=== PATIENT | male | born 1940 | race Caucasian/White ===

== ENCOUNTER 2021-10-31 06:42 | Emergency (ER) | payer MEDICARE, OTHER, SELFPAY ==
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
[2021-10-31 06:48] VITALS: BP 240/100; PULSE 57; O2SAT 97; BMI 26.9
[2021-10-31 07:20] VITALS: BP 172/71; PULSE 76; RESP 19; TEMP 36.6; O2SAT 99; BMI 33.5
[2021-10-31 07:40] LABS: Basophils Percent Auto 0.7 % (0-2); Eosinophils Absolute Auto 0.2 X10*3/uL (0.0-0.4); Eosinophils Percent Auto 3.9 % (0-4); Hematocrit 41.8 % (42.0-52.0); Hemoglobin 13.8 g/dl (14.0-18.0); Imm Gran Abs Auto 0.03 X10*3/uL (0.00-0.03); Imm Gran Pct Auto 0.6 % (0.0-0.4); Lymphocytes Absolute Auto 0.9 X10*3/uL (1.2-4.9); Lymphocytes Percent Auto 16.4 % (20-40); MANUAL DIFF FLAG NO; Mean Corpuscular Volume 90.9 fL (80.0-98.0); Mean Platelet Volume 9.3 fL (9.4-12.4); Monocytes Absolute Auto 0.7 X10*3/uL (0.1-1.2); Monocytes Percent Auto 12.5 % (2-11); Neutrophils Absolute Auto 3.6 x10*3/uL (2.0-8.3); Neutrophils Percent Auto 65.9 % (45-73); Platelet Count 251 X10*3/uL (160-400); Red Cell Distribution Width 12.6 % (11.0-16.0); White Blood Count 5.4 X10*3/uL (4.8-10.8)
[2021-10-31 08:11] LABS: Anion Gap 11 (12-20); Blood Urea Nitrogen 9 mg/dL (9-16); Calcium 9.2 mg/dL (8.4-10.2); Carbon Dioxide 27 mmol/L (22-29); Chloride 101 mmol/L (96-108); Creatinine Clr Calc Pharmacy 88.5; Estimated Glomerular Filt Rate > 60; Glucose Random 110 mg/dL (60-115); Potassium 4.4 mmol/L (3.3-5.1); Sodium 135 mmol/L (135-145)
--- NOTE | 2021-10-31 08:20 | MHC.CM.ED ---
Received case management consult from Dr Marcelino. Care team consult also ordered. Will defer referral until cleared by Care team. Continue to monitor for d/c needs.
[2021-10-31 08:49] LABS: Appearance Urine CLEAR; Color Urine YELLOW; Glucose Urine UA NEG (NEG); Leukocyte Esterase Urine 2+ (NEG); Nitrite Urine NEG (NEG); Specific Gravity - Urine <= 1.005 (1.005-1.025); UACC Culture Trigger YES; Urine Blood NEG (NEG); Urine Ketones NEG (NEG); Urine Protein NEG (NEG-TRACE)
[2021-10-31 09:03] LABS: RBC Urine 0 /HPF (0); Squamous Epithelial Cell Urine 1+ /LPF
[2021-10-31 09:04] LABS: Bacteria Urine TRACE /LPF; WBC Clumps Urine NOTED
[2021-10-31] MEDS: Acetaminophen 325 MG TABLET 650 MG PO (09:23)
[2021-10-31] MEDS: Lidocaine 4 % Patch ADH..PATCH 1 PATCH TRANSDERMA (09:25)
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
--- NOTE | 2021-10-31 13:26 | PC.NURSE ---
ate breakfast and now eating lunch, nad, back pain improved, pharmacy is attempting to talk w pcp re meds but no call back,
--- NOTE | 2021-10-31 13:51 | PHA.MEDREC ---
Addendum entered by Lucy Corral RPh 10/31/21 14:22: Recieved fax from [facility] office with provider juan j Santiago DO. Patient's last vist was 01/30/21, patient was suppose to be on apixaban & aspirin. Original Note: Pharmacy Consult ? Medication Reconciliation Pharmacy has completed the medication reconciliation. Patient confirmed medications last filled in april and february of 2021. He reports he is not suppose to be on hydralazine. He reported he was suppose to be on isosorbide mononitrate but that was last filled in December 2020 for a 30 days supply. Contact PCP at [facility] and [facility] at [facility] for list of medications patient should be on. Spoke with nurse at the [employer] office that will fax over medication list, I am still waiting for list to be faxed. Lucy Corral, JoséD
[2021-10-31 14:43] VITALS: BP 172/68; PULSE 70; RESP 18; TEMP 36.7; O2SAT 99
[2021-10-31 15:24] VITALS: BP 202/80; PULSE 74
[2021-10-31] MEDS: hydrALAZINE HCl 50 MG TABLET PO (15:29)
[2021-10-31] MEDS: Furosemide 40 MG TABLET PO (15:29)
[2021-10-31] MEDS: Atorvastatin Calcium 40 MG TABLET PO (15:29)
[2021-10-31] MEDS: lisinopriL 40 MG TABLET PO (15:29)
[2021-10-31] MEDS: Aspirin Enteric Coated 81 MG TABLET.DR PO (15:29)
--- NOTE | 2021-10-31 16:05 | MHC.CM.ED ---
Patient has been cleared by care team. There are many medical issues in the home because patient, his and his daughter. [facility] has been arranged. Patient aware and will d/c home. [facility] has been booked. Patient, Abimbola DELEON and Dr Marcelino aware. Continue to monitor for d/c needs.
[2021-10-31] MEDS: Metoprolol Tartrate 100 MG TABLET PO (16:14)
[2021-10-31 16:16] VITALS: BP 185/82; PULSE 77
--- NOTE | 2021-10-31 16:51 | PC.NURSE ---
RN assumed care at 1500. Pt alert and oriented x4, calm and cooperative. Pt denies pain. Pt ambulating with cane without issues. Pt voided without issues. RN spoke with daughter Ghada regrading discharge and Ghada agreed to plan. Pt educated on dc and meds and stated an understanding. Pt dc picked up by [facility].
== END 2021-10-31 16:52 | disposition home or self-care (01) ==
PROVIDERS: Emergency Provider Emergency Medicine; PCP Nurse Practitioner Family
DX: F33.1 Major depressive disorder, recurrent, moderate (principal); I89.0 Lymphedema, not elsewhere classified; I10 Essential (primary) hypertension; Z79.899 Other long term (current) drug therapy
CPT/HCPCS: 36415; 80048; 81001; 85025; 87086; 99284

== ENCOUNTER 2021-11-04 10:00 | Emergency (ER) | payer MEDICARE, OTHER, SELFPAY ==
--- NOTE | ~2021-11-04 | US_ITS ---
EXAMINATION: US VENOUS ULTRASOUND WITH DOPPLER LOWER EXTREMITY, BILATERAL CLINICAL INFORMATION: Leg swelling. COMPARISON: None TECHNIQUE: Ultrasound of the deep veins is performed from the hip to the calf with compression sonography and color and pulse Doppler assessment. Spectral analysis with color-flow imaging is performed. FINDINGS: RIGHT: There is severe edema. Only parts of the right superficial femoral vein can be visualized. Visualized portions appear patent. The right common, profunda, popliteal, and calf veins are not visualized. LEFT: The left common femoral, profunda, and superficial femoral veins are patent. The left popliteal and calf veins are not well visualized. There is a left leg edema as well. No Dunham's cyst is seen. US/US venous duplex LE BI IMPRESSION: Very limited exam. On the right only portions of the right superficial femoral vein are seen which appear patent. Multiple veins in the right leg are not visualized. On the left, the left common femoral, profunda and superficial femoral veins are patent. The left popliteal and calf veins are not visualized. Short-term follow-up exam should be considered if clinically indicated.
--- NOTE | ~2021-11-04 | XR_ITS ---
EXAMINATION: XR CHEST CLINICAL INFORMATION: Leg swelling COMPARISON: None TECHNIQUE: 2 views of the chest were obtained. FINDINGS: The cardiac silhouette is enlarged. Hilar and mediastinal contours are unremarkable. The lungs are clear. There is no pleural effusion or pneumothorax. There is a loop recorder projecting over the left chest. There are degenerative changes of the thoracic spine. XR/XR chest 2V IMPRESSION: Enlarged cardiac silhouette. No evidence of CHF.
--- NOTE | ~2021-11-04 | CT_ITS ---
EXAMINATION: CT ANGIOGRAM OF THE CHEST WITH AND WITHOUT CONTRAST (CT PULMONARY ANGIOGRAM FOR PE) CLINICAL INFORMATION: Reason for Exam leg swelling not taking bloos thinners COMPARISON: Chest x-ray from earlier the same day TECHNIQUE: Prior to contrast administration, noncontrast localization images were obtained. Subsequently, multidetector volumetric imaging was performed from the thoracic inlet to below the diaphragms following the administration of 71 mL Omnipaque 350 intravenous contrast. No contrast reaction reported Sagittal, coronal, and MIP oblique sagittal reformatted images were obtained on the CT workstation, uploaded to PACS, and reviewed. This CT examination was performed using dose optimization techniques as appropriate, variously including the following: *Automated exposure control *Adjustment of mA and/or kV according to patient size (this includes techniques or standardized protocols for targeted exams where dose is matched to indication/reason for exam; i.e. extremities or head) *Use of iterative reconstruction technique Total exam dose-length product 460 mGy-cm FINDINGS: QUALITY OF STUDY/CONTRAST BOLUS: Satisfactory. PULMONARY ARTERIES: No central or segmental pulmonary emboli. THORACIC AORTA: No aneurysm or dissection. LUNG: There is a 5 mm calcified left lower lobe nodule axial image 226 series 9. PLEURA: No pleural effusion or pneumothorax. MEDIASTINUM: The heart is enlarged. There is coronary artery calcification. No pericardial effusion there are slightly enlarged posterior mediastinal lymph nodes in the lower chest largest measuring 1.4 cm axial image 49 and 1.6 cm axial image 44. These are adjacent to the distal thoracic esophagus and descending thoracic aorta. No other enlarged hilar or mediastinal lymph nodes are seen. The esophagus is unremarkable. No evidence of septal bowing or right heart strain. CHEST WALL/AXILLA: No axillary or internal mammary lymphadenopathy. There is a loop recorder in the anterior left chest wall. OSSEOUS STRUCTURES: No acute or suspicious osseous abnormality. There are degenerative changes of the spine. UPPER ABDOMEN: There may be calyceal dilatation in the upper pole of the right kidney. No reflux of contrast into the hepatic veins to suggest elevated right heart pressures. CT/CT angio chest PE protocol IMPRESSION: No evidence of pulmonary embolism. 5 mm calcified left lower lobe pulmonary nodule probably representing a calcified granuloma. Enlarged heart and coronary artery calcification. Enlarged posterior mediastinal lymph nodes. No other adenopathy is seen. VTE:
[2021-11-04 10:32] VITALS: BP 152/84; BP 221/80; PULSE 80; PULSE 96; RESP 22; TEMP 37; O2SAT 96; O2SAT 99; BMI 33.9
--- NOTE | 2021-11-04 10:42 | ECG_ITS ---
Test Reason : LEG SWELLING Blood Pressure : / mmHG Vent. Rate : 079 BPM Atrial Rate : 079 BPM P-R Int : 238 ms QRS Dur : 146 ms QT Int : 426 ms P-R-T Axes : 078 071 070 degrees QTc Int : 488 ms Sinus rhythm with 1st degree A-V block Right bundle branch block Abnormal ECG No previous ECGs available Referred By: Kylah Reyes Electronically Signed By:LINNEA KAPLAN
--- NOTE | 2021-11-04 11:18 | ED.EXTPRO ---
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 He is unsure if he gained any weight. Reports that he has not followed up with his oncologist or his PCP in over 6-9 months and has not taken any medications including his Eliquis for the same time. he reports that he lives with his daughter who he does not really get along with. He also reports that he lives with his bed bound that he cares for. He denies any dizziness, chills, Headaches, change in vision, paresthesias, chest pain, shortness of breath, dyspnea on exertion, orthopnea, recent travel or sick contacts, palpitations, abdominal pain, dysuria, hematuria, abnormal penile discharge, black or bloody stools, recent antibiotic usage or any other symptoms complaints or concerns at this time. MD Complaint: extremity swelling Onset (ago): unknown Pain Consistency: constant Location: left, right and lower extremity Radiation: none Relieving factors: nothing Exacerbating factors: walking, exertion and palpation Associated symptoms: denies other symptoms Context: other ( See above) Related Data Home Medications Medication Instructions Recorded Confirmed No Known Home Meds 11/04/21 11/04/21 Allergies Allergy/AdvReac Type Severity Reaction Status Date / Time No Known Allergies Allergy Verified 10/31/21 07:09 Review of Systems Review of Systems: Constitutional : No Weight loss, No Fever, No Chills, No Night Sweats, No Fatigue, No Malaise ENT/Mouth : No Hearing loss, No Ear Pain, No Nasal Congestion, No Sinus Pain, No Hoarseness, No sore throat, No Rhinorrhea, No Swallowing Difficulty Eyes: No Eye Pain, No Swelling, No Redness, No Foreign Body, No Discharge, No Vision Changes Cardiovascular : + lower extremity swelling, No Chest Pain, No SOB, No Dyspnea on Exertion, No Orthopnea, No Edema, No Palpitations Respiratory : No Cough, No Sputum, No Wheezing, No Smoke Exposure, No Dyspnea Gastrointestinal : No Nausea, No Vomiting, No Diarrhea, No Constipation, No abdominal Pain, No Hematochezia, No Melena Genitourinary : no irregular bleeding, No Dysuria, No Urinary Frequency, No Hematuria, No Urinary Incontinence, No Urgency, No Flank Pain, No Urinary Flow Changes, No Hesitancy Musculoskeletal : No joint pain, No Myalgias, No Joint Swelling Skin : + lower extremity lesions/rash Neuro : No Weakness, No Numbness, No Paresthesias, No Loss of Consciousness, No Dizziness, No Headache Psych : No Anxiety/Panic, No Depression, No SI/HI/AH/VH, No Social Issues, Heme/Lymph: No Bruising, No Bleeding,No Lymphadenopathy Endocrine : No Polyuria, No Polydipsia, No Temperature Intolerance Yes all other systems are reviewed and are negative [facility] Past Medical History Attestation statement: The following information was validated with the patient. Source: old records reviewed Medical History Cancer Depression HTN (hypertension) Surgical History History of cardiac cath S/P coronary artery stent placement Social History Social History Alcohol intake: current Alcohol intake frequency: holidays/special occasions only Patient Tobacco Use Status: Never used Tobacco Use of substances other than those prescribed or required for medical reasons: No Advance Directives: No Advance Directives Information Provided: No Physical Exam Vital Signs: Vital Signs: Last Vital Signs Temp 97.7 F 11/04/21 12:57 Pulse 67 11/04/21 12:57 Resp 18 11/04/21 12:57 BP 189/67 H 11/04/21 12:57 Pulse Ox 98 11/04/21 12:57 BMI result Body Mass Index 33.9 vital signs have been reviewed as normal and appeared to be correct. Blood pressure 221/80. Heart rate normal. Respiration rate 22. Temperature normal. Oxygen saturation normal. Appearance: Alert. Oriented X3. No acute distress. Head: Normal external exam. Normocephalic. Atraumatic. Eyes: PERRLA. EOMI. Conjunctiva and sclera normal. Eyelids normal. ENT: Pharynx normal. Uvula midline. Moist mucous membranes. Normal voice. No trismus noted. No drooling noted. No muffled voice noted. Neck: Normal inspection. Neck supple. FROM. No adenopathy. Thyroid Normal. No meningeal signs. No neck mass noted. No signs of trauma noted. CVS: Normal heart rate and rhythm. Heart sound normal. Pulses normal throughout. No murmurs/rales/gallops. Respiratory: No respiratory distress. Painless inspiration. Breath sounds normal. No wheezes/rales/rhonchi noted. Chest nontender. No accessory muscle usage noted or decreased air movement noted. Abdomen: Soft and nontender. Bowel sounds normal in all 4 quadrants. No distention noted. No organomegaly noted. No visible injury noted. Back: No CVA tenderness. Full range of motion noted. Nontender. No signs of trauma. Patient neuro intact bilaterally and distally on all 4 extremities. Patient's reflexes intact bilaterally and distally on all 4 extremities. No rashes/lesion/induration/fluctuance or signs of infection noted. Skin: Skin warm and dry. Normal skin color. Normal skin turgor. No additional rashes/lesions/lacerations noted other than what is listed below or pictured below. Extremities: Right leg has moderate to severe lymphedema and feels solid/hardened when compared to the left leg he has pitting edema to the left leg. He reports bilateral calf tenderness. And he is noted to have dry scaly rash to the right lower extremity and appears that there could possibly be urine and fecal matter as well. To the left leg he has superficial abrasions. He is noted to have on-call miosis to bilateral toenails. Right leg appears mildly erythematous when compared to the left. To the right groin where he reports he had the lymph nodes removed he has moderate erythema and tenderness palpation and warm to touch consistent with cellulitic versus fungal infection. Otherwise no streaking/ fluctuance or drainage noted at this time. Otherwise all other Extremities exhibit normal range of motion and nontender. Neuro: Oriented X 3. No motor deficit. No sensory deficit. Reflexes normal. Normal steady gait. No focal neuro deficits noted. CN's II-XII intact bilaterally? Vascular: + radial pulses/+ 2 distal pedal pulses/+2 dorsalis pedis b/l. Normal cap refill. No cyanosis noted to upper extremity nails and lower extremity toes nails. 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 He is unsure if he gained any weight. Reports that he has not followed up with his oncologist or his PCP in over 6-9 months and has not taken any medications including his Eliquis for the same time. - I was able to obtain the records from [facility] and it appears that the patient was seen and admitted there on 12/14/2020 for chest pain and they did a cardiac catheterization which revealed no significant change in coronary anatomy when compared to 2017 patient noted to have moderate nonobstructive CAD. Prior stents are widely patent. And they reported there is no significant gradient on pullback across the aortic valve. Successful hemostatis of right radial artery using a radial compression device. He has an ejection fracture from the echocardiogram also done at that time/admission which revealed an EF of 55%. Plan: labs, blood cultures, lactic acid, EKG, chest x-ray, venous duplex ultrasound of bilateral lower extremity, COVID swab. Provide 40 mg of Lasix and IV Zosyn then re-evaluate plan is possibly to admit. Reevaluation(s) Reevaluation #1: - labs return and patient with sodium of 132. Anion gap 11. BUN 8. Troponin 145.6 repeat 144.0 therefore negative delta. BNP 99. Otherwise all other labs are within normal limits. Patient negative for COVID - chest x-ray revealed enlarged cardiac silhouette otherwise no evidence of CHF. - Venous duplex ultrasound of bilateral lower extremity negative for DVT from the veins that they were able to visualize they recommended short-term follow-up if clinically indicated. - CTA of chest negative for PE although revealed 5 mm calcified left lower lobe pulmonary nodule possibly representing a calcified granuloma along with enlarged heart and coronary artery calcification and enlarged posterior mediastinum lymph nodes otherwise no other adenopathy or other acute processes noted. - Therefore at this time will attempt to admit to the hospitalist service to Dr. Cortez for cellulitis with hypertensive urgency non med compliant will re-evaluate. Time: 14:46 Reevaluation #2: - I spoke to Dr. Cortez and he does not believe the patient meets admission criteria for cellulitis due to he does not have an elevated white blood cell count and all his other labs are within normal limits other than the troponin which was negative delta. - Therefore I was going to place him in physician observation for him to see physical therapy and case management for possible short-term rehab although I spoke to the daughter and she reports that she does not believe that short-term rehab is going to help the patient she believes that the patient needs a psychiatric evaluation due to she she reports me and my mother believe that he has just given up on life . She reports that he has not taken his medications and he has not even picker operator his medications since he was discharged here. Therefore she is requesting for him to be evaluated by crisis She reports there is a longstanding family history of bipolar and she reports that the patient has bipolar and general social anxiety disorder and she wanted me to make sure we were aware about this. will continue to monitor and place the crisis last psychiatric consult. Time: 15:37 MDM - Extremity (Nontraumatic) Medical Records Attestation: I reviewed the patient's medical records. Lab Data Attestation: I reviewed the patient's lab results. Result diagrams: 11/04/21 11:39 11/04/21 11:39 Labs: Lab Results 11/04/21 11/04/21 11/04/21 Range/Units 11:39 11:39 11:39 WBC 6.2 (4.8-10.8) X10*3/uL RBC 4.77 (4.60-5.80) X10*6/uL Hgb 14.2 (14.0-18.0) g/dl Hct 43.3 (42.0-52.0) % MCV 90.8 (80.0-98.0) fL MCH 29.8 (27.0-33.0) pg MCHC 32.8 (31.0-36.0) g/dl RDW 12.6 (11.0-16.0) % Plt Count 275 (160-400) X10*3/uL MPV 9.6 (9.4-12.4) fL Immature Gran % (Auto) 0.5 H (0.0-0.4) % Neut % (Auto) 70.0 (45-73) % Lymph % (Auto) 13.8 L (20-40) % [place] % (Auto) 12.2 H (2-11) % Eos % (Auto) 2.9 (0-4) % Baso % (Auto) 0.6 (0-2) % Lymph # (Auto) 0.9 L (1.2-4.9) X10*3/uL [place] # (Auto) 0.8 (0.1-1.2) X10*3/uL Eos # (Auto) 0.2 (0.0-0.4) X10*3/uL Baso # (Auto) 0.0 (0.0-0.2) X10*3/uL Abs Immat Gran (auto) 0.03 (0.00-0.03) X10*3/uL Absolute Neuts (auto) 4.4 (2.0-8.3) x10*3/uL Absolute Nucleated RBC 0.000 (0.0-0.012) X10*3/uL Nucleated RBC % (auto) 0.0 (0.0-0.2) /100WBC PT 13.2 H (9.9-13.0) SEC INR 1.2 H (0.9-1.1) Sodium 132 L (135-145) mmol/L Potassium 4.4 (3.3-5.1) mmol/L Chloride 99 (96-108) mmol/L Carbon Dioxide 26 (22-29) mmol/L Anion Gap 11 L (12-20) BUN 8 L (9-16) mg/dL Creatinine 0.95 (0.5-1.4) mg/dL Estim Creat Clear Calc 80.6 Estimated GFR > 60 Random Glucose 109 (60-115) mg/dL Lactic Acid (0.5-2.0) mmol/L Calcium 9.2 (8.4-10.2) mg/dL Magnesium 2.3 (1.6-2.6) mg/dL Total Bilirubin 0.9 (0.0-1.0) mg/dL AST 16 (5-37) U/L ALT 8 (0-40) U/L Alkaline Phosphatase 102 (39-117) U/L Troponin I High Sens (<3.5-35.0) ng/L B-Natriuretic Peptide (<100) pg/mL Total Protein 7.5 (6.5-8.0) g/dL Albumin 3.8 (3.5-5.0) g/dL COVID-19 ([facility]) (Negative) COVID-19 Clin Com 11/04/21 11/04/21 11/04/21 Range/Units 11:39 11:39 11:39 WBC (4.8-10.8) X10*3/uL RBC (4.60-5.80) X10*6/uL Hgb (14.0-18.0) g/dl Hct (42.0-52.0) % MCV (80.0-98.0) fL MCH (27.0-33.0) pg MCHC (31.0-36.0) g/dl RDW (11.0-16.0) % Plt Count (160-400) X10*3/uL MPV (9.4-12.4) fL Immature Gran % (Auto) (0.0-0.4) % Neut % (Auto) (45-73) % Lymph % (Auto) (20-40) % [place] % (Auto) (2-11) % Eos % (Auto) (0-4) % Baso % (Auto) (0-2) % Lymph # (Auto) (1.2-4.9) X10*3/uL [place] # (Auto) (0.1-1.2) X10*3/uL Eos # (Auto) (0.0-0.4) X10*3/uL Baso # (Auto) (0.0-0.2) X10*3/uL Abs Immat Gran (auto) (0.00-0.03) X10*3/uL Absolute Neuts (auto) (2.0-8.3) x10*3/uL Absolute Nucleated RBC (0.0-0.012) X10*3/uL Nucleated RBC % (auto) (0.0-0.2) /100WBC PT (9.9-13.0) SEC INR (0.9-1.1) Sodium (135-145) mmol/L Potassium (3.3-5.1) mmol/L Chloride (96-108) mmol/L Carbon Dioxide (22-29) mmol/L Anion Gap (12-20) BUN (9-16) mg/dL Creatinine (0.5-1.4) mg/dL Estim Creat Clear Calc Estimated GFR Random Glucose (60-115) mg/dL Lactic Acid 1.1 (0.5-2.0) mmol/L Calcium (8.4-10.2) mg/dL Magnesium (1.6-2.6) mg/dL Total Bilirubin (0.0-1.0) mg/dL AST (5-37) U/L ALT (0-40) U/L Alkaline Phosphatase (39-117) U/L Troponin I High Sens 145.6 H* (<3.5-35.0) ng/L B-Natriuretic Peptide 99 (<100) pg/mL Total Protein (6.5-8.0) g/dL Albumin (3.5-5.0) g/dL COVID-19 ([facility]) Negative (Negative) COVID-19 Clin Com See Note 11/04/21 Range/Units 14:07 WBC (4.8-10.8) X10*3/uL RBC (4.60-5.80) X10*6/uL Hgb (14.0-18.0) g/dl Hct (42.0-52.0) % MCV (80.0-98.0) fL MCH (27.0-33.0) pg MCHC (31.0-36.0) g/dl RDW (11.0-16.0) % Plt Count (160-400) X10*3/uL MPV (9.4-12.4) fL Immature Gran % (Auto) (0.0-0.4) % Neut % (Auto) (45-73) % Lymph % (Auto) (20-40) % [place] % (Auto) (2-11) % Eos % (Auto) (0-4) % Baso % (Auto) (0-2) % Lymph # (Auto) (1.2-4.9) X10*3/uL [place] # (Auto) (0.1-1.2) X10*3/uL Eos # (Auto) (0.0-0.4) X10*3/uL Baso # (Auto) (0.0-0.2) X10*3/uL Abs Immat Gran (auto) (0.00-0.03) X10*3/uL Absolute Neuts (auto) (2.0-8.3) x10*3/uL Absolute Nucleated RBC (0.0-0.012) X10*3/uL Nucleated RBC % (auto) (0.0-0.2) /100WBC PT (9.9-13.0) SEC INR (0.9-1.1) Sodium (135-145) mmol/L Potassium (3.3-5.1) mmol/L Chloride (96-108) mmol/L Carbon Dioxide (22-29) mmol/L Anion Gap (12-20) BUN (9-16) mg/dL Creatinine (0.5-1.4) mg/dL Estim Creat Clear Calc Estimated GFR Random Glucose (60-115) mg/dL Lactic Acid (0.5-2.0) mmol/L Calcium (8.4-10.2) mg/dL Magnesium (1.6-2.6) mg/dL Total Bilirubin (0.0-1.0) mg/dL AST (5-37) U/L ALT (0-40) U/L Alkaline Phosphatase (39-117) U/L Troponin I High Sens 144.0 H* (<3.5-35.0) ng/L B-Natriuretic Peptide (<100) pg/mL Total Protein (6.5-8.0) g/dL Albumin (3.5-5.0) g/dL COVID-19 ([facility]) (Negative) COVID-19 Clin Com Imaging Data Chest x-ray: Attestation: I personally reviewed and interpreted this imaging study as follows: Radiologist's impression: FINDINGS: The cardiac silhouette is enlarged. Hilar and mediastinal contours are unremarkable. The lungs are clear. There is no pleural effusion or pneumothorax. There is a loop recorder projecting over the left chest. There are degenerative changes of the thoracic spine. XR/XR chest 2V IMPRESSION: Enlarged cardiac silhouette. No evidence of CHF. Venous duplex ultrasound of bilateral lower extremity: Attestation: I personally reviewed and interpreted this imaging study as follows: Radiologist's impression: FINDINGS: RIGHT: There is severe edema. Only parts of the right superficial femoral vein can be visualized. Visualized portions appear patent. The right common, profunda, popliteal, and calf veins are not visualized. LEFT: The left common femoral, profunda, and superficial femoral veins are patent. The left popliteal and calf veins are not well visualized. There is a left leg edema as well. No Dunham's cyst is seen. US/US venous duplex LE BI IMPRESSION: Very limited exam. On the right only portions of the right superficial femoral vein are seen which appear patent. Multiple veins in the right leg are not visualized. On the left, the left common femoral, profunda and superficial femoral veins are patent. The left popliteal and calf veins are not visualized. ? Short-term follow-up exam should be considered if clinically indicated. CTA of chest for PE: Attestation: I personally reviewed and interpreted this imaging study as follows: Radiologist's impression: FINDINGS: QUALITY OF STUDY/CONTRAST BOLUS: Satisfactory. PULMONARY ARTERIES: No central or segmental pulmonary emboli.? THORACIC AORTA: No aneurysm or dissection. LUNG:? There is a 5 mm calcified left lower lobe nodule axial image 226 series 9. PLEURA: No pleural effusion or pneumothorax. MEDIASTINUM: The heart is enlarged. There is coronary artery calcification. No pericardial effusion there are slightly enlarged posterior mediastinal lymph nodes in the lower chest largest measuring 1.4 cm axial image 49 and 1.6 cm axial image 44. These are adjacent to the distal thoracic esophagus and descending thoracic aorta. No other enlarged hilar or mediastinal lymph nodes are seen. The esophagus is unremarkable. No evidence of septal bowing or right heart strain. CHEST WALL/AXILLA: No axillary or internal mammary lymphadenopathy. There is a loop recorder in the anterior left chest wall. OSSEOUS STRUCTURES: No acute or suspicious osseous abnormality. There are degenerative changes of the spine. UPPER ABDOMEN: There may be calyceal dilatation in the upper pole of the right kidney.? No reflux of contrast into the hepatic veins to suggest elevated right heart pressures. CT/CT angio chest PE protocol IMPRESSION: No evidence of pulmonary embolism. 5 mm calcified left lower lobe pulmonary nodule probably representing a calcified granuloma. Enlarged heart and coronary artery calcification. Enlarged posterior mediastinal lymph nodes. No other adenopathy is seen. ? VTE: ECG Data Attestation EKG: I personally reviewed and interpreted this ECG as follows: ECG interpretation date: 11/04/21 ECG interpretation time: 12:02 Interpretation: sinus rhythm with first-degree AV block with ventricular rate of 79 with a right bundle branch block and nonspecific ST abnormalities no acute ischemic change are noted. Similar compared to prior EKG done at [facility] on 12/14/2020. Repeat EKG done at 13:10 due to elevated troponin which revealed sinus rhythm with first-degree AV block with premature supraventricular complexes with a right bundle rafa block similar compared to prior EKG. Critical Care Time Critical Care Time Critical Care Time: Yes Total Critical Care Time: 60 Attestation: I personally attest to this time spent taking care of the patient Discharge Plan Discharge Clinical Impression: Lymphedema of right lower extremity, Asymptomatic hypertensive urgency, Non compliance w medication regimen, Cellulitis, Kasey infection of genital region Patient Disposition: Still a Patient Prescriptions: No Action No Known Home Meds 0RF
[2021-11-04 11:28] VITALS: BP 196/66; PULSE 92; RESP 18; O2SAT 97
[2021-11-04 11:48] LABS: MANUAL DIFF FLAG NO
[2021-11-04 11:50] LABS: Basophils Percent Auto 0.6 % (0-2); Eosinophils Absolute Auto 0.2 X10*3/uL (0.0-0.4); Eosinophils Percent Auto 2.9 % (0-4); Hematocrit 43.3 % (42.0-52.0); Hemoglobin 14.2 g/dl (14.0-18.0); Imm Gran Abs Auto 0.03 X10*3/uL (0.00-0.03); Imm Gran Pct Auto 0.5 % (0.0-0.4); Lymphocytes Absolute Auto 0.9 X10*3/uL (1.2-4.9); Lymphocytes Percent Auto 13.8 % (20-40); Mean Corpuscular HGB Conc 32.8 g/dl (31.0-36.0); Mean Corpuscular Hemoglobin 29.8 pg (27.0-33.0); Mean Corpuscular Volume 90.8 fL (80.0-98.0); Mean Platelet Volume 9.6 fL (9.4-12.4); Monocytes Absolute Auto 0.8 X10*3/uL (0.1-1.2); Monocytes Percent Auto 12.2 % (2-11); Neutrophils Absolute Auto 4.4 x10*3/uL (2.0-8.3); Platelet Count 275 X10*3/uL (160-400); Red Blood Count 4.77 X10*6/uL (4.60-5.80); Red Cell Distribution Width 12.6 % (11.0-16.0); White Blood Count 6.2 X10*3/uL (4.8-10.8)
[2021-11-04 11:55] LABS: INTERNATIONAL NORM RATIO 1.2 (0.9-1.1); Prothrombin Time 13.2 SEC (9.9-13.0)
[2021-11-04 12:01] LABS: Lactic Acid 1.1 mmol/L (0.5-2.0)
[2021-11-04 12:11] LABS: Alanine Aminotransferase 8 U/L (0-40); Albumin Level 3.8 g/dL (3.5-5.0); Alkaline Phosphatase 102 U/L (39-117); Anion Gap 11 (12-20); Aspartate Amino Transferase 16 U/L (5-37); Bilirubin Total 0.9 mg/dL (0.0-1.0); Blood Urea Nitrogen 8 mg/dL (9-16); Calcium 9.2 mg/dL (8.4-10.2); Carbon Dioxide 26 mmol/L (22-29); Chloride 99 mmol/L (96-108); Creatinine Clr Calc Pharmacy 80.6; Estimated Glomerular Filt Rate > 60; Glucose Random 109 mg/dL (60-115); Magnesium 2.3 mg/dL (1.6-2.6); Potassium 4.4 mmol/L (3.3-5.1); Sodium 132 mmol/L (135-145); Total Protein 7.5 g/dL (6.5-8.0)
[2021-11-04 12:21] LABS: COVID-19 Test Negative (Negative)
[2021-11-04 12:25] LABS: B Type Natriuretic Peptide 99 pg/mL (<100)
[2021-11-04 12:28] LABS: Troponin-I High Sensitivity 145.6 ng/L (<3.5-35.0)
--- NOTE | 2021-11-04 12:33 | PC.NURSE ---
goran bocanegra, , called for update.
[2021-11-04] MEDS: Piperacillin Sodium/Tazobactam 3.375 GM in 0.9 % Sodium Chloride 50 ML IV (12:45)
[2021-11-04] MEDS: Furosemide 40 MG/4 ML VIAL IVPUSH (12:45)
--- NOTE | 2021-11-04 12:47 | ECG_ITS ---
Test Reason : LEG SWELLING Blood Pressure : / mmHG Vent. Rate : 079 BPM Atrial Rate : 079 BPM P-R Int : 250 ms QRS Dur : 154 ms QT Int : 406 ms P-R-T Axes : 077 059 047 degrees QTc Int : 465 ms Sinus rhythm with 1st degree A-V block Right bundle branch block Abnormal ECG When compared with ECG of 04-NOV-2021 12:02, No significant changes seen Referred By: Kylah Reyes Electronically Signed By:LINNEA KAPLAN
[2021-11-04 12:57] VITALS: BP 189/67; PULSE 67; RESP 18; TEMP 36.5; O2SAT 98
--- NOTE | 2021-11-04 12:59 | PC.NURSE ---
pt denies SI. repositioned to left side lying. weeping swollen RLE and reddness/moderate swelling left foot. pt has stopped taking all meds at home x 6 months. i'm depressed axox3.
[2021-11-04] MEDS: iohexoL 350 MG/ML 100 ML INFUS..BTL IV (13:41)
--- NOTE | 2021-11-04 13:41 | PC.NURSE ---
Daughter on phone for update. Ghada [phone]
--- NOTE | 2021-11-04 15:14 | PC.NURSE ---
pt found standing outside of bed. had urinated himself and on floor. couldn't reach buttons. is able to furnature surf but unsteady otherwise. d/t frequent urination is placed in chair with arm rests and button nearby. right leg is cellulitis up to inguinal creese. pt is axox3. able to follow commands.
--- NOTE | 2021-11-04 15:34 | PHA.MEDREC ---
Addendum entered by Sarah Zepeda [facility] 11/04/21 17:21: ED sent up a list from an unknown admission note Dates on it included 25-may-2016 and 11/04/2021. SARAH states they are records from [facility]. These are the medications he has previously taken before he stopped. Meds put on home med list to facilitate discharge ordering by MD. These meds have claim history from 2020 Original Note: Pharmacy Consult ? Medication Reconciliation Pharmacy has completed the medication reconciliation. From H&P Reports that he has not followed up with his oncologist or his PCP in over 6-9 months and has not taken any medications including his Eliquis for the same time I interviewed pt who said he was here Friday and was prescribed appx 4 medications but he did not pick them up. He has not been taking his medications that were previously prescribed in December and Apr of 2020.
[2021-11-04 15:37] VITALS: BP 165/71; PULSE 83; RESP 17; TEMP 36.6; O2SAT 98
--- NOTE | 2021-11-04 16:19 | MHC.CM.ED ---
Received consult for possible placement. Review of EMR note pt with depression and hx of MH issues. Pt has an order for Crisis eval for possible INPT admission for depressive features and medication adjustments. Pt will need to be cleared by Crisis before placement or other CM assistance can be rendered as any facility would require psychiatric stabilization / clearance to be considered a candidate for STR. CM l/m with ED provider on above. CM to follow once pt is cleared.
--- NOTE | 2021-11-04 16:48 | PC.NURSE ---
Pt has been assisted back to bed after being in chair for a while to facilitate ease of urinal use and soaking right foot in betadine/water. c/o lower back pain regardless of positioning.
[2021-11-04] MEDS: cephALEXin 500 MG CAPSULE PO ×2 (17:13→21:27)
[2021-11-04] MEDS: Venlafaxine HCl ER 75 MG CAP.ER.24H PO (17:13)
[2021-11-04] MEDS: Atorvastatin Calcium 40 MG TABLET PO (17:13)
[2021-11-04] MEDS: lisinopriL 40 MG TABLET PO (17:13)
[2021-11-04 17:37] VITALS: BP 171/69; PULSE 78; RESP 18; O2SAT 98
[2021-11-04] MEDS: Morphine Sulfate 2 MG/ML CARTRIDGE IVPUSH (17:37)
--- NOTE | 2021-11-04 17:39 | PC.NURSE ---
assisted to hospital bed. right lower leg wrapped with 4x4 with perri wrap.
--- NOTE | 2021-11-04 18:39 | PC.NURSE ---
smart sheet sent
--- NOTE | 2021-11-04 18:54 | PC.NURSE ---
smart sheet sent to [facility]
[2021-11-04] MEDS: Apixaban 5 MG TABLET PO (21:27)
--- NOTE | 2021-11-04 22:56 | MHC.CARE ---
CARE team eval completed. Pt does not require inpt psychiatric level of care and has been cleared for CM/PT eval and possible placement.
[2021-11-05 00:56] VITALS: BP 184/78; PULSE 69; RESP 14; TEMP 36.6; O2SAT 96
[2021-11-05] MEDS: hydrALAZINE HCl 50 MG TABLET 100 MG PO ×2 (01:34→09:06)
[2021-11-05] MEDS: Metoprolol Tartrate 100 MG TABLET PO (01:34)
[2021-11-05] MEDS: Tamsulosin HCL 0.4 MG CAPSULE PO (01:34)
--- NOTE | 2021-11-05 01:38 | PC.NURSE ---
Care team cleared patient for case management. Patient's blood pressure's were elevated in 180's to 190's systolic. Provider made aware and Patient's night time medication for hypertension given.
[2021-11-05 04:20] VITALS: BP 186/78; PULSE 67; RESP 12; O2SAT 95
[2021-11-05] MEDS: cephALEXin 500 MG CAPSULE PO ×2 (04:44→10:34)
[2021-11-05 06:10] VITALS: BP 184/80; PULSE 65; RESP 14; O2SAT 95
--- NOTE | 2021-11-05 08:31 | PC.NURSE ---
Addendum entered by Capri Navarro RN 11/05/21 08:38: Cristal requested to speak with Xochilt (TIMBO) who was in a meeting at the time. Xochilt made aware to call daughter, Original Note: daughter (CRISTAL) called with concerns that there are other family members calling about her dad, she should be the only one getting updates . this RN spoke north Sanchez who states he has a difficult relationship with Cristal, but it is ok to speak with her as she lives with him and his and she is the only way that his will receive updates about his care.
[2021-11-05 09:03] VITALS: BP 143/59; PULSE 54; RESP 16; O2SAT 96
[2021-11-05] MEDS: Venlafaxine HCl ER 150 MG CAP.ER.24H PO (09:05)
[2021-11-05] MEDS: Apixaban 5 MG TABLET PO (09:05)
[2021-11-05] MEDS: Furosemide 40 MG TABLET PO (09:05)
[2021-11-05] MEDS: lisinopriL 40 MG TABLET PO (09:05)
--- NOTE | 2021-11-05 09:15 | PC.NURSE ---
spoke with SARAH Griffin, request for powder Nystatin. pt HR 53 - order t hold metoprolol okd by Casandra
--- NOTE | 2021-11-05 11:12 | MHC.CM.ED ---
Addendum entered by Xochilt Yepez 11/05/21 12:53: T/W spoke with Officer KEELY Dunn elder affairs officer. Patient's home situation discussed at length. Discharge plan is still to be determined at this time. Original Note: Received case management consult overnight. Patient came to the ER due to edema. Patient has a history of HTN, CHF and cancer which he hasn't had treatment for in over 6 months. Work up essentially negative. Patient cleared by Care team for needed inpatient psych. Physical therapy eval completed. Short term rehab is recommended. Patient is well known to case management. Patient was recently seen at [facility] and was discharged home with Don COLIN. Met with patient in regards to discharge planning. Patient lives with his and daughter. Patient's is bedbound at baseline. Patient's daughter, Ghada has significant mental health issues. Patient's son is local but works. PCP verified. Copy of HCP verified to be on file. Patient received 2 Pfizer vaccines but no boosters. Patient is not sure he can go to [facility] at this time because he has to care for his . He will speak to his and then reconnect with CM. Patient is concerned no one has looked at my legs. T/W explained that work up was done. Patient stated but no one told me what's wrong with them. T/W will ask Gaby MOON to see patient. Continue to monitor for d/c needs.
--- NOTE | 2021-11-05 13:18 | MHC.CM.ED ---
Received notification from KALEB Haynes, patient requesting to speak to CM. T/W met with patient in regards to discharge planning. Patient has spoke to his daughter and . He is still unsure about what his anticipated discharge plan is. Facility options provided. Patient will notify CM when he decides if he is going to short term rehab (choices: 1)[facility] 2)[facility]) vs home with [facility]. Continue to monitor for d/c needs.
[2021-11-05 13:58] VITALS: BP 111/53; PULSE 50; RESP 18; O2SAT 94
--- NOTE | 2021-11-05 14:34 | MHC.CM.ED ---
Patient has decided he will return home with VNA. [facility] is not willing to accept patient back. Referral made to [facility]. Patient feels he can safely return home with Lyft. Gaby MOON aware and will see patient. Continue to monitor for d/c needs.
== END 2021-11-05 15:23 | disposition home or self-care (01) ==
PROVIDERS: Physician Assistant Medical; Emergency Provider Emergency Medicine; PCP Nurse Practitioner Family
DX: R60.0 Localized edema (principal); R06.02 Shortness of breath; F33.1 Major depressive disorder, recurrent, moderate; Z91.14 Patient's other noncompliance with medication regimen; Z79.899 Other long term (current) drug therapy; Z20.822 Contact with and (suspected) exposure to COVID-19
CPT/HCPCS: 36415; 71046; 71275; 80053; 83605; 83735; 83880; 84484; 85025; 85610; 87040; 87635; 93005; 93970; 96365; 96374; 96375; 97162; 99285; J1940; J2270; J2543; Q9967

== ENCOUNTER 2021-11-06 14:39 | Emergency (ER) | payer MEDICARE, OTHER, SELFPAY ==
[2021-11-06 14:56] LABS: Glucose, Whole Blood 105 mg/dL (60-115)
[2021-11-06 14:59] VITALS: BP 157/67; PULSE 56; RESP 19; TEMP 36.6; O2SAT 95; BMI 33.2
[2021-11-06 15:15] VITALS: BP 122/70; PULSE 50; O2SAT 95
--- NOTE | 2021-11-06 15:15 | ED_ITS ---
HPI - General Adult General Chief complaint: General Medical Stated complaint: WEAKNESS Time Seen by Provider: 11/06/21 15:01 Source: patient and EMS Mode of arrival: EMS Limitations: no limitations History of Present Illness HPI narrative: ?81-year-old male who is a very poor historian with a past medical history of CAD status post PCI, paroxysmal atrial fibrillation, HTN, HLD, CHF,? 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 there is esophagus, arthritis, depression, gynecomastia, migraine headaches and enlarged prostate presenting to the ED after a wellness police check which was done today at the patient's residence. Patient did not want to come but he was forced to come. Of note, patient was discharged yesterday, he was evaluated by Physical therapy and Case Management, short-term rehab was recommended. However, patient is taking care of his sick at home, and also has a daughter that has special psychiatric needs. Today, the submarine advisory team watch officer who did the wellness check thought that the patient was altered and recommended that the patient needs to be evaluated. Here on arrival to the emergency room, patient is alert and oriented x3, answering questions appropriately. Related Data Home Medications Medication Instructions Recorded Confirmed apixaban 5 mg tablet 5 mg PO BID 11/04/21 11/04/21 atorvastatin 40 mg tablet 1 tab PO BEDTIME 11/04/21 11/04/21 furosemide 40 mg tablet 40 mg PO DAILY 11/04/21 11/04/21 hydralazine 100 mg tablet 100 mg PO BID 11/04/21 11/04/21 lisinopril 40 mg tablet 1 tab PO DAILY 11/04/21 11/04/21 metoprolol tartrate 100 mg tablet 1 tab PO BID 11/04/21 11/04/21 tamsulosin 0.4 mg capsule 1 cap PO BEDTIME 11/04/21 11/04/21 venlafaxine 75 mg capsule,extended 150 mg PO DAILY 11/04/21 11/04/21 release 24 hr Previous Rx's Medication Instructions Recorded cephalexin 500 mg capsule 500 mg PO QID 6 Days #24 cap 11/05/21 doxycycline hyclate 100 mg tablet 100 mg PO BID 6 Days #12 tab 11/05/21 nystatin 100,000 unit/gram topical 1 appl TOPICAL BID 7 Days #15 g 11/05/21 powder Allergies Allergy/AdvReac Type Severity Reaction Status Date / Time No Known Allergies Allergy Verified 10/31/21 07:09 Review of Systems Review of Systems: Constitutional : No Weight loss, No Fever, No Chills, No Night Sweats, No Fatigue, No Malaise ENT/Mouth : No Hearing loss, No Ear Pain, No Nasal Congestion, No Sinus Pain, No Hoarseness, No sore throat, No Rhinorrhea, No Swallowing Difficulty Eyes: No Eye Pain, No Swelling, No Redness, No Foreign Body, No Discharge, No Vision Changes Cardiovascular : No Chest Pain, No SOB, No Dyspnea on Exertion, No Orthopnea, No Edema, No Palpitations Respiratory : No Cough, No Sputum, No Wheezing, No Smoke Exposure, No Dyspnea Gastrointestinal : No Nausea, No Vomiting, No Diarrhea, No Constipation, No abdominal Pain, No Hematochezia, No Melena Genitourinary : no irregular bleeding, No Dysuria, No Urinary Frequency, No Hematuria, No Urinary Incontinence, No Urgency, No Flank Pain, No Urinary Flow Changes, No Hesitancy Musculoskeletal : No joint pain, No Myalgias, No Joint Swelling Skin : No Skin Lesions, No rash Neuro : No Weakness, No Numbness, No Paresthesias, No Loss of Consciousness, No Dizziness, No Headache Psych : No Anxiety/Panic, No Depression, No SI/HI/AH/VH, No Social Issues, Heme/Lymph: No Bruising, No Bleeding,No Lymphadenopathy Endocrine : No Polyuria, No Polydipsia, No Temperature Intolerance [facility] Past Medical History Medical History Cancer Depression HTN (hypertension) Surgical History History of cardiac cath S/P coronary artery stent placement Social History Social History Alcohol intake: current Alcohol intake frequency: holidays/special occasions only Patient Tobacco Use Status: Never used Tobacco Advance Directives: No Advance Directives Information Provided: No Physical Exam ED Vital Signs: Vital Signs - 24 hr 11/06/21 14:59 11/06/21 18:12 Temperature 98 F 97.7 F Pulse Rate 56 52 Respiratory Rate 19 20 Blood Pressure 157/67 H 153/65 H Pulse Oximetry 95 98 BMI result Body Mass Index 33.2 Const Other: Appearance: Alert. Oriented X3. No acute distress. Eyes: Pupils equal, round and reactive to light. ENT: Pharynx normal. Neck: Normal inspection. Neck supple. No lymph nodes noted. No crepitus CVS: Normal heart rate and rhythm. Pulses normal. Normal S1 and S2 Respiratory: No respiratory distress. Breath sounds normal. No Wheezing. No rales Abdomen: Soft and nontender. No rigidity. No distention. Skin: Skin warm and dry. See below Extremities: Patient has chronic lymphedema, right leg has multiple excoriations. Left leg is grossly enlarged, erythematous, unchanged from yesterday, oozing serous material Neuro: Oriented X 3. No motor deficit. No sensory deficit. Moving all extremities. No slurred speech. CN 2 through 12 grossly intact Psych: calm, cooperative, normal affect Course Course Course Narrative: Patient had a thorough evaluation yesterday. Patient refused all services. Today, we will recheck patient's glucose and urinalysis. Patient is alert and oriented x3, continues to refuse going to short-term rehab Patient's urinalysis is negative. Patient still feels very weak. Patient is in no condition to take care of his sick . Patient states that he is aware and now is considering short-term rehab. Case management consult has been placed. Patient had a physical therapy evaluation yesterday. Case management consult pending. Sign-out given to Dr. Henry Medical Decision Making Lab Data Labs: Lab Results 11/06/21 11/06/21 Range/Units 14:52 19:02 POC Glucose 105 (60-115) mg/dL Urine Color YELLOW Urine Appearance CLEAR Urine pH 7.0 (5.0-8.0) Ur Specific [place] 1.010 (1.005-1.025) Urine Protein NEG (NEG-TRACE) MG/DL Urine Glucose (UA) NEG (NEG) MG/DL Urine Ketones NEG (NEG) MG/DL Urine Blood TRACE (NEG) Urine Nitrite NEG (NEG) Ur Leukocyte Esterase NEG (NEG) Urine RBC 0-2 (0) /HPF Urine WBC 0 (0-4) /HPF Ur Squamous Epith Cells TRACE /LPF Urine Bacteria NONE /LPF Discharge Plan Discharge Clinical Impression: Weakness Patient Disposition: Still a Patient Prescriptions: No Action furosemide 40 mg tablet 40 mg PO DAILY 0RF atorvastatin 40 mg tablet 1 tab PO BEDTIME 0RF venlafaxine 75 mg capsule,extended release 24hr 150 mg PO DAILY 0RF metoprolol tartrate 100 mg tablet 1 tab PO BID 0RF tamsulosin 0.4 mg capsule 1 cap PO BEDTIME 0RF hydralazine 100 mg tablet 100 mg PO BID 0RF lisinopril 40 mg tablet 1 tab PO DAILY 0RF apixaban 5 mg Tablet 5 mg PO BID 0RF cephalexin 500 mg capsule 500 mg PO QID 6 Days Qty: 24 0RF doxycycline hyclate 100 mg tablet 100 mg PO BID 6 Days Qty: 12 0RF nystatin 100,000 unit/gram powder 1 appl topical BID 7 Days Qty: 15 0RF
[2021-11-06 18:12] VITALS: BP 153/65; PULSE 52; RESP 20; TEMP 36.5; O2SAT 98
[2021-11-06 19:10] LABS: Appearance Urine CLEAR; Color Urine YELLOW; Glucose Urine UA NEG (NEG); Leukocyte Esterase Urine NEG (NEG); Nitrite Urine NEG (NEG); UACC Culture Trigger NO; Urine Blood TRACE (NEG); Urine Ketones NEG (NEG); Urine Protein NEG (NEG-TRACE)
[2021-11-06 19:26] LABS: RBC Urine 0-2 /HPF (0); Squamous Epithelial Cell Urine TRACE /LPF; WBC Urine 0 /HPF (0-4)
--- NOTE | 2021-11-06 20:14 | PC.NURSE ---
patient's daughter would like to be contacted [phone]
--- NOTE | 2021-11-06 20:33 | MHC.CM.ED ---
Addendum entered by Veronica Miranda 11/06/21 21:04: 6 referrals placed in [place]. Covid screening pending. Original Note: CM met with patient at request of Dr. Raines. Pt was in ED on 10/31 and 11/05. PT evaluation 11/05 recommended STR, but patient refused and referral to [facility] for SN and PT was made. Pt is being followed in the community by Officer Froilan Hoyt, elder affairs officer. Per pt daughter, Ghada, the family believes pt needs to go to rehab, but he will not go. Pt states her care for his , but his daughter lives with them and she tells CM that she cares for them both. Pt is bedbound. Pt is fully vaccinated with KDW, no boosted. HCP is on file. HCP/ Arcadio Cm ([phone]). Daughter, Ghada ([phone]). Pt tells CM that he would like rehab in [place], and then tells CM he wants home rehab. CM stressed that patient needs to care for himself, before he can care for his . At this time, patient is agreeable to CM calling and speaking with his family and to referrals in [place]. Pt understands he will remain in ED overnight. CM to follow for d/c needs.
--- NOTE | 2021-11-06 22:32 | PC.NURSE ---
patient sleeping quietly at this time, no apparent distress. positive chest rise and fall noted. will continue to monitor
[2021-11-06 23:30] VITALS: BP 168/75; PULSE 54; RESP 20; O2SAT 95
[2021-11-07 06:35] VITALS: BP 194/83; PULSE 67; RESP 18; O2SAT 98
[2021-11-07 06:38] VITALS: BP 188/85; PULSE 60
--- NOTE | 2021-11-07 09:10 | PC.NURSE ---
just woke, saida, on phone w family discussing snf placement, pt interested but hasn't committed as he wants a family discussion first.
--- NOTE | 2021-11-07 09:10 | PHA.MEDREC ---
Pharmacy Consult ? Medication Reconciliation Pharmacy has completed the medication reconciliation. PATIENT HAS NOT SEEN MD IN 6-9 MONTHS AND WAS DEPRESSED AND STOPPED TAKING MEDS. HAS ANTIBIOTICS AND NYSTATIN READ BUT NEVER PICKED UP. SAYS HE LAST WENT TO PHARMACY 1 YEAR AGO. HE KNOWS HE IS SUPPOSED TO BE ON ELIQUIS AND MEDICATIONS FOR HIS HEART. tHANKS Debra
[2021-11-07 09:18] VITALS: BP 154/66; PULSE 59; RESP 14; TEMP 36.6; O2SAT 96
[2021-11-07 09:25] LABS: Glucose, Whole Blood 88 mg/dL (60-115)
[2021-11-07] MEDS: lisinopriL 40 MG TABLET PO (10:48)
[2021-11-07] MEDS: Venlafaxine HCl ER 150 MG CAP.ER.24H PO (10:48)
[2021-11-07] MEDS: Metoprolol Tartrate 100 MG TABLET PO (10:48)
[2021-11-07] MEDS: Furosemide 40 MG TABLET PO (10:48)
[2021-11-07] MEDS: Aspirin Enteric Coated 81 MG TABLET.DR PO (10:48)
[2021-11-07] MEDS: Apixaban 5 MG TABLET PO (10:48)
[2021-11-07] MEDS: Isosorbide Mononitrate 30 MG TAB.ER.24H PO (10:50)
[2021-11-07 10:58] LABS: Influenza A PCR NEGATIVE (Negative); Influenza B PCR NEGATIVE (Negative); Resp Syncy Virus RNA Qual PCR NEGATIVE (Negative); SARS COV2 PCR INHOUSE NEGATIVE (Negative)
--- NOTE | 2021-11-07 11:06 | MHC.CM.ED ---
Patient remains in ER. [facility] is able to offer a bed if patient is agreeable to rehab. T/W met with patient. Patient is well known to T/W because he has been to the ER 3 times in the past week. Patient is still hesitant to go to rehab because I need to settle things at home first. Patient also stated, I've been here all of these times and no one has looked at my legs. T/W explained patient has a history of lymphedema and these were evaluated by Dr Marcelino on his first visit, Marcella MOON on his 2nd visit and Dr Raines last night. Patient is agreeable to accept bed at [facility]. Per [facility], patient can leave at 1pm. [facility] booked. Med nec with chart. Patient, Silvestre DELEON and Dr Raines aware. Continue to monitor for d/c needs.
[2021-11-07 11:11] VITALS: BP 169/72; PULSE 53; RESP 18
[2021-11-07] MEDS: hydrALAZINE HCl 25 MG TABLET PO (11:11)
== END 2021-11-08 00:26 | disposition skilled nursing facility (03) ==
PROVIDERS: Emergency Provider Emergency Medicine
DX: R53.1 Weakness (principal); I25.10 Atherosclerotic heart disease of native coronary artery without angina pectoris; I48.91 Unspecified atrial fibrillation; R51.9 Headache, unspecified; I10 Essential (primary) hypertension; Z79.01 Long term (current) use of anticoagulants; Z20.822 Contact with and (suspected) exposure to COVID-19; Z79.899 Other long term (current) drug therapy
CPT/HCPCS: 0241U; 81001; 82947; 99284; 99285

== ENCOUNTER 2022-01-25 23:26 | Inpatient (IN) | payer MEDICARE, OTHER, SELFPAY ==
--- NOTE | ~2022-01-25 | XR_ITS ---
EXAMINATION: XR CHEST CLINICAL INFORMATION: Status post pericardial window with pleural effusion. COMPARISON: 02/06/2022 TECHNIQUE: Frontal view of the chest was obtained. FINDINGS: Chest tube extends to the left apex. Cardiac Loop recorder over the chest. Cardiac leads overlie the chest. The lungs are well expanded. Small left-sided pleural effusion appears decreased from prior with associated airspace opacities. No pneumothorax. The cardiomediastinal silhouette remains prominent. XR/XR chest 1V IMPRESSION: Small left pleural effusion with basilar opacities, decreased from prior.
--- NOTE | ~2022-01-25 | XR_ITS ---
EXAMINATION: XR CHEST CLINICAL INFORMATION: Follow-up pleural effusion COMPARISON: Previous chest x-ray 01/26/2022 TECHNIQUE: 2 views of the chest were obtained. FINDINGS: The cardiac silhouette is enlarged but stable. There is a moderate to large left pleural effusion. This may be increased from previous exam. There is a small right pleural effusion. The right lung and left upper lung are clear. There may be atelectasis or consolidation at the left lung base adjacent to the effusion. There is a loop recorder in the left chest wall. There are degenerative changes of the spine. XR/XR chest 2V IMPRESSION: Bilateral pleural effusions, left greater than right. This may be increased from 01/26/2022. Probable left lower lobe atelectasis/consolidation adjacent to the effusion. Stable enlargement of the cardiac silhouette.
--- NOTE | ~2022-01-25 | XR_ITS ---
EXAMINATION: XR CHEST EXAMINATION: XR chest 1V CLINICAL INFORMATION: Reason for Exam POD#3 S/P pericardial centesis COMPARISON: Chest radiograph 01/30/2022 at 7:56 PM and 01/31/2022 at 5:53 AM. TECHNIQUE: Portable AP chest radiograph FINDINGS: Left thoracostomy tube is again noted terminating projection with the left superior pulmonary sulcus. Moderate left base airspace opacification and blunting of left costophrenic sulcus is noted. This likely represents a larger left pleural effusion on the current study. A drain is unchanged in configuration projected over the left lung base. The cardiac Micra device is noted. There is a small, less than 5%, left apical pneumothorax. XR/XR chest 1V IMPRESSION: 1. Unchanged configuration of a left thoracostomy tube terminating projection with the left superior pulmonary sulcus. 2. There is now a new small left apical pneumothorax present.
--- NOTE | ~2022-01-25 | XR_ITS ---
EXAMINATION: XR CHEST CLINICAL INFORMATION: Weakness and tachycardia COMPARISON: CTA chest dated 11/04/2021 TECHNIQUE: Frontal view of the chest was obtained. XR/XR chest 1V FINDINGS/IMPRESSION: Moderate left pleural effusion with accompanying atelectasis/consolidation. Right lung and pleural space are clear. No pneumothorax. Stable mild cardiomegaly. Loop recorder device redemonstrated in the left chest wall.
--- NOTE | ~2022-01-25 | XR_ITS ---
EXAMINATION: XR CHEST CLINICAL INFORMATION: Left pericardial window COMPARISON: 02/04/2022 TECHNIQUE: Frontal view of the chest was obtained. FINDINGS: Left-sided chest tube extends to the apex. There is a tiny left-sided pneumothorax noted. This is similar to the appearance on 02/02/2022, but more apparent than from 02/04/2022. Persistent opacities at the lung bases with small pleural effusions. The cardiomediastinal silhouette remains enlarged. Drain over the cardiomediastinal silhouette. XR/XR chest 1V IMPRESSION: Tiny left apical pneumothorax with left-sided chest tube in place. This is more apparent than on the most recent prior. Similar small bilateral pleural effusions with basilar opacities.
--- NOTE | ~2022-01-25 | XR_ITS ---
EXAMINATION: PORTABLE CHEST 1 VIEW CLINICAL INFORMATION: hypoxia post L chest tube VATS r/o pneumothorax . COMPARISON: 01/28/2022. TECHNIQUE: Portable frontal view of the chest was obtained. FINDINGS: Lungs are hypoexpanded. Apically directed left-sided chest tube is seen. Bibasilar airspace changes more likely reflect component of atelectasis. Surgical drain projecting over the left base. No significant pneumothorax. Cardiac silhouette remains prominent. No acute bony abnormality. XR/XR chest 1V IMPRESSION: Hypoexpanded with basilar atelectatic changes. Postoperative changes and chest tubes on the left.
--- NOTE | ~2022-01-25 | XR_ITS ---
EXAMINATION: XR CHEST CLINICAL INFORMATION: Status post pericardial window with chest tube COMPARISON: 02/05/2022 TECHNIQUE: Frontal view of the chest was obtained. FINDINGS: Cardiac Loop recorder. Left-sided chest tube extends to the apex. Cardiac leads overlie the chest. The lungs are well expanded. Persistent left-sided pleural effusion with retrocardiac opacity. No pneumothorax seen on this study. The cardiomediastinal silhouette is unchanged. XR/XR chest 1V IMPRESSION: No pneumothorax seen. Persistent left pleural effusion with retrocardiac opacity.
--- NOTE | ~2022-01-25 | XR_ITS ---
EXAMINATION: XR CHEST CLINICAL INFORMATION: Status post chest tube removal COMPARISON: February 08, [address] scan of January 29, 2022 TECHNIQUE: AP portable view of the chest was obtained. FINDINGS: Since previous study left-sided chest tube has been removed. No pneumothorax is identified. There remains hazy densities in airspace disease in the retrocardiac area without significant change. There is some mild hazy density overlying the right lung base which may be related to layering of a small effusion. No confluent parenchymal disease within the right lung is appreciated. The cardiopericardial silhouette appears mildly enlarged. No evidence of pulmonary edema. XR/XR chest 1V IMPRESSION: Status post right chest tube removal without pneumothorax. No significant change in retrocardiac disease and probable effusion.
--- NOTE | ~2022-01-25 | XR_ITS ---
EXAMINATION: XR chest 1V CLINICAL INFORMATION: Reason for Exam POd#1 s/p L VATS pericardial window. COMPARISON: Chest radiograph 01/30/2022 7:56 PM. TECHNIQUE: Portable AP chest radiograph FINDINGS: Left thoracostomy tube is again noted terminating projection with the left superior pulmonary sulcus. Moderate left base airspace opacification and blunting of left costophrenic sulcus is noted. A drain is unchanged in configuration projected over the left lung base. The cardiac Micra device is noted. No pneumothoraces visualized. XR/XR chest 1V IMPRESSION: *Unchanged configuration of a left thoracostomy tube terminating projection with the left superior pulmonary sulcus. *Unchanged moderate left base atelectasis and/or consolidation. *Unchanged small left pleural effusion. *No pneumothoraces.
--- NOTE | ~2022-01-25 | XR_ITS ---
EXAMINATION: XR CHEST CLINICAL INFORMATION: Postop day #5 status post left VATS pericardial window COMPARISON: 02/02/2022 TECHNIQUE: Frontal view of the chest was obtained. FINDINGS: Left-sided chest tube remains in place. No residual left pneumothorax seen. Again seen is dense left base consolidation, a combination of a moderate pleural effusion and associated left base consolidation based on the CT scan 01/29/2022. The appearance is not convincingly changed from recent prior studies. Fluid is again seen tracking along the left lateral pleural space to the left apex. There is an apically directed left-sided chest tube which remains in place as well as a left base surgical chest tube. Leadless pacemaker remains in place unchanged. Tiny right pleural effusion persists. Right lung is otherwise clear. The cardiac silhouette remains enlarged consistent with previously seen cardiomegaly and pericardial effusion. XR/XR chest 1V IMPRESSION: Findings are similar to the prior study 02/02/2022.
--- NOTE | ~2022-01-25 | CT_ITS ---
EXAMINATION: CT HEAD WITHOUT CONTRAST CLINICAL INFORMATION: Weakness COMPARISON: None TECHNIQUE: Contiguous axial imaging was performed from the skull base to vertex without intravenous administration of contrast. This CT examination was performed using dose optimization techniques as appropriate, variously including the following: *Automated exposure control *Adjustment of mA and/or kV according to patient size (this includes techniques or standardized protocols for targeted exams where dose is matched to indication/reason for exam; i.e. extremities or head) *Use of iterative reconstruction technique DLP: 905 mGy-cm FINDINGS: There is no evidence of acute intracranial hemorrhage or territorial infarction. No abnormal mass effect or midline shift is seen. Haley to white matter differentiation is well preserved. No extra-axial fluid collections are identified. Generalized brain parenchymal volume loss. No disproportionate ventriculomegaly. 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 Moderate-severe patchy and confluent subcortical and periventricular white matter with changes statistically related to microangiopathic gliosis. Cavernous carotid calcifications. The osseous structures and soft tissues are normal. The mastoid air cells and visualized portions of the paranasal sinuses are well aerated. CT/CT head/brain wo con IMPRESSION: * No acute territorial infarct or intracranial hemorrhage. * Moderate-severe chronic migration of gliosis. 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 * Generalized brain parenchymal volume loss.
--- NOTE | ~2022-01-25 | XR_ITS ---
EXAMINATION: XR CHEST CLINICAL INFORMATION: Postop day 3 status post pericardial window. COMPARISON: Chest radiograph 02/01/2022 7:57 PM TECHNIQUE: Frontal view of the chest was obtained. FINDINGS: A left thoracostomy tube terminates in projection with the superior pulmonary sulcus. A trace left apical pneumothorax is noted. Moderate blunting of the left costophrenic sulcus and left base airspace opacification is noted. The cardiac silhouette remains enlarged. A cardiac Micra device is identified. XR/XR chest 1V IMPRESSION: *Trace left apical pneumothorax unchanged compared with 02/01/2022 7:57 PM. *Unchanged moderate left pleural effusion and left base atelectasis and/or consolidation. *Unchanged enlarged cardiac silhouette which could represent the presence of a pericardial fluid collection. *Interval resolution of right base atelectasis compared with 02/01/2022 7:57 PM.
--- NOTE | ~2022-01-25 | CT_ITS ---
EXAMINATION: CT CHEST WITHOUT CONTRAST CLINICAL INFORMATION: Pericardial and pleural effusion COMPARISON: CT chest 11/04/2021, chest radiograph 01/28/2022 TECHNIQUE: Multidetector volumetric CT imaging of the chest was done. Axial MIP volume rendering provided. Sagittal and coronal reformatted images were obtained. This CT examination was performed using dose optimization techniques as appropriate, variously including the following: *Automated exposure control *Adjustment of mA and/or kV according to patient size (this includes techniques or standardized protocols for targeted exams where dose is matched to indication/reason for exam; i.e. extremities or head) *Use of iterative reconstruction technique DLP: 229 mGy-cm FINDINGS: LUNGS AND PLEURA: Small right-sided pleural effusion and small to moderate left-sided pleural effusion present, both new when compared to 11/04/2021. There is minimal right basilar atelectasis and moderate left basilar atelectasis/collapse. Pleural parenchymal apical scarring is present. The aerated lungs appear unremarkable without masses. MEDIASTINUM: Moderate sized pericardial effusion is present, new when compared to 11/04/2021. Heart size upper limits of normal. Extensive coronary calcifications are present. Calcifications are seen in the aortic leaflets. Some small mediastinal lymph nodes are present but there is no mediastinal or hilar lymphadenopathy. Retrocrural enlarged lymph nodes are present with the largest measuring about 1.9 cm, unchanged when compared to 11/04/2021. AXILLA: No lymphadenopathy. UPPER ABDOMEN: Unremarkable. OSSEOUS STRUCTURES: Degenerative changes are present throughout the visualized lower cervical and thoracic spine. CT/CT chest wo con IMPRESSION: New bilateral pleural effusions and pericardial effusion as described above. Retrocrural lymph adenopathy, unchanged. Fleischner guidelines were followed.
--- NOTE | ~2022-01-25 | XR_ITS ---
EXAMINATION: XR CHEST CLINICAL INFORMATION: Postop day 9 of pericardial window with left chest tube. COMPARISON: 02/07/2022 TECHNIQUE: Frontal view of the chest was obtained. FINDINGS: Left-sided chest tube extends to the apex. Cardiac Loop recorder. Cardiac leads overlie the chest. The lungs are well expanded. Persistent small left pleural effusion with hazy basilar opacity. This is similar to prior. No pneumothorax visualized. The cardiomediastinal silhouette is unchanged, remaining prominent. XR/XR chest 1V IMPRESSION: Similar to prior. Small left pleural effusion with hazy basilar opacity.
[2022-01-25 23:32] VITALS: BP 119/72; BP 125/75; PULSE 77; PULSE 80; RESP 16; TEMP 36.8; O2SAT 94; O2SAT 95; BMI 31.8
--- NOTE | 2022-01-25 23:46 | ECG_ITS ---
Test Reason : WEAKNESS Blood Pressure : / mmHG Vent. Rate : 170 BPM Atrial Rate : 000 BPM P-R Int : 000 ms QRS Dur : 134 ms QT Int : 280 ms P-R-T Axes : 000 095 004 degrees QTc Int : 470 ms Atrial fibrillation with rapid ventricular response Rightward axis Non-specific intra-ventricular conduction block T wave abnormality, consider anterior ischemia Abnormal ECG When compared with ECG of 04-NOV-2021 13:10, Atrial fibrillation has replaced Sinus rhythm Vent. rate has increased BY 91 BPM Non-specific intra-ventricular conduction block has replaced Right bundle branch block Referred By: Gaby Wilson Electronically Signed By:Bryon Ramirez
[2022-01-26] VITALS (19 sets, daily range): BP systolic 89–138; BP diastolic 50–82; PULSE 69–155; RESP 18–33; TEMP 36.3–36.9; O2SAT 89–96; BMI 31.6
[2022-01-26] MEDS: dilTIAZem HCL 50 MG/10 ML VIAL 10 MG IVPUSH ×5 (00:23→04:54)
[2022-01-26 00:24] LABS: MANUAL DIFF FLAG NO
[2022-01-26 00:25] LABS: Basophils Percent Auto 0.3 % (0-2); Eosinophils Absolute Auto 0.1 X10*3/uL (0.0-0.4); Hematocrit 30.2 % (42.0-52.0); Hemoglobin 9.9 g/dl (14.0-18.0); Imm Gran Abs Auto 0.05 X10*3/uL (0.00-0.03); Imm Gran Pct Auto 0.5 % (0.0-0.4); Lymphocytes Absolute Auto 1.1 X10*3/uL (1.2-4.9); Lymphocytes Percent Auto 11.1 % (20-40); Mean Corpuscular HGB Conc 32.8 g/dl (31.0-36.0); Mean Corpuscular Hemoglobin 29.6 pg (27.0-33.0); Mean Corpuscular Volume 90.4 fL (80.0-98.0); Mean Platelet Volume 9.5 fL (9.4-12.4); Monocytes Absolute Auto 1.5 X10*3/uL (0.1-1.2); Monocytes Percent Auto 15.2 % (2-11); Neutrophils Absolute Auto 6.8 x10*3/uL (2.0-8.3); Neutrophils Percent Auto 71.9 % (45-73); Platelet Count 273 X10*3/uL (160-400); Red Blood Count 3.34 X10*6/uL (4.60-5.80); White Blood Count 9.5 X10*3/uL (4.8-10.8)
--- NOTE | 2022-01-26 00:34 | ED.GENADULT ---
HPI - General Adult General Chief complaint: General Medical <Gaby Wilson NP - Last Filed: 01/26/22 03:11> Stated complaint: crisis <SARAI Tai Last Filed: 01/26/22 03:11> Time Seen by Provider: 01/25/22 23:28 <SARAI Tai Last Filed: 01/26/22 03:11> Source: patient and EMS <SARAI Tai Last Filed: 01/26/22 03:11> Mode of arrival: EMS <SARAI Tai Last Filed: 01/26/22 03:11> Limitations: no limitations <SARAI Tai Last Filed: 01/26/22 03:11> History of Present Illness HPI narrative: ?81-year-old male who is a very poor historian with a past medical history of CAD status post PCI, paroxysmal atrial fibrillation who was supposed to be taking Eliquis and metoprolol, HTN, HLD, CHF,? 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 Patient tells me he now feels weak and tired. Denies any suicidal ideations. Reports multiple life stressors with family. Patient arrives soiled, incontinent of urine <SARAI Tai Last Filed: 01/26/22 03:11> Related Data Home medications: Home Medications Medication Instructions Recorded Confirmed Unobtainable 01/26/22 01/26/22 <SARAI Tai Last Filed: 01/26/22 03:11> Allergies/adverse reactions: Allergies Allergy/AdvReac Type Severity Reaction Status Date / Time No Known Allergies Allergy Verified 10/31/21 07:09 <SARAI Tai Last Filed: 01/26/22 03:11> Review of Systems Review of Systems: Yes all other systems are reviewed and are negative <SARAI Tai Last Filed: 01/26/22 03:11> Constitutional: Constitutional: Reports no additional constitutional complaints, Denies body ache(s), Denies chills, Denies fever(s), Denies headache(s) and Reports weakness <Gaby Wilson NP - Last Filed: 01/26/22 03:11> Eyes: Eyes: Reports no additional eye complaints and Denies change in vision <Gaby Wilson [employer] - Last Filed: 01/26/22 03:11> ENT: Reports system reviewed and no additional complaints, except as documented, Denies dizziness, Denies headache(s), Denies nasal congestion, Denies nasal discharge and Denies neck pain <Gaby Wilson [employer] - Last Filed: 01/26/22 03:11> Cardiovascular: Cardiovascular: Reports no additional cardiovascular complaints, Denies chest pain, Denies leg edema, Reports palpitations and Denies dyspnea <Gaby Wilson NP - Last Filed: 01/26/22 03:11> Respiratory: Respiratory: Reports no additional respiratory complaints, Denies cough and Denies dyspnea <Gaby Wilson NP - Last Filed: 01/26/22 03:11> Gastrointestinal: Gastrointestinal: Reports no additional gastrointestinal complaints, Denies abdominal pain, Denies diarrhea, Denies nausea and Denies vomiting <Gaby Wilson NP - Last Filed: 01/26/22 03:11> Genitourinary: Genitourinary: Denies urinary incontinence <Gaby Wilson NP - Last Filed: 01/26/22 03:11> Musculoskeletal: Musculoskeletal: Reports no additional musculoskeletal complaints, Denies back pain, Denies arthralgias, Denies joint swelling, Denies neck pain, Denies numbness and Denies tingling <Gaby Wilson NP - Last Filed: 01/26/22 03:11> Integumentary/Breasts: Skin/Breast: Reports system reviewed and no additional complaints, except as docu and Denies rash <Gaby Wilson NP - Last Filed: 01/26/22 03:11> Neurologic: Reports system reviewed and no additional complaints, except as documented, Denies dizziness, Denies headache(s), Denies numbness, Denies tingling and Reports weakness <Gaby Wilson NP - Last Filed: 01/26/22 03:11> Psychiatric: Psychiatric: Reports depression and Denies suicidal ideation <Gaby Wilson NP - Last Filed: 01/26/22 03:11> Endocrine: Endocrine: Reports palpitations <Gaby Wilson NP - Last Filed: 01/26/22 03:11> PMFSH Past Medical History Attestation statement: The following information was validated with the patient. <Gaby Wilson NP - Last Filed: 01/26/22 03:11> Source: old records reviewed and nursing notes reviewed <Gaby Wilson NP - Last Filed: 01/26/22 03:11> Surgical History: Surgical History History of cardiac cath S/P coronary artery stent placement <Gaby Wilson NP - Last Filed: 01/26/22 03:11> Social History Social History: Social History Alcohol intake: current Alcohol intake frequency: holidays/special occasions only Patient Tobacco Use Status: Never used Tobacco Advance Directives: No <Gaby Wilson NP - Last Filed: 01/26/22 03:11> Physical Exam ED Vital Signs: Vital Signs - 24 hr 01/25/22 23:32 01/26/22 00:40 01/26/22 02:05 Temperature 98.2 F 98.2 F Pulse Rate 77 129 H 154 H Respiratory Rate 16 24 H 22 H Blood Pressure 119/72 115/60 97/57 L Pulse Oximetry 94 95 94 Oxygen Delivery Method Room Air Room Air Room Air 01/26/22 02:33 01/26/22 02:47 01/26/22 02:54 Temperature 98.0 F 98.4 F Pulse Rate 143 H 155 H 144 H Respiratory Rate 20 24 H 24 H Blood Pressure 89/62 L 120/69 119/67 Pulse Oximetry 94 95 94 Oxygen Delivery Method Room Air Room Air Room Air 01/26/22 03:15 01/26/22 04:08 Temperature 98.1 F Pulse Rate 151 H 69 Respiratory Rate 28 H 18 Blood Pressure 108/69 114/56 L Pulse Oximetry 93 94 Oxygen Delivery Method Room Air Room Air BMI result Body Mass Index 31.8 <SARAI Tai Last Filed: 01/26/22 03:11> Vital Signs - 24 hr 01/25/22 23:32 01/26/22 00:40 01/26/22 02:05 Temperature 98.2 F 98.2 F Pulse Rate 77 129 H 154 H Respiratory Rate 16 24 H 22 H Blood Pressure 119/72 115/60 97/57 L Pulse Oximetry 94 95 94 Oxygen Delivery Method Room Air Room Air Room Air 01/26/22 02:33 01/26/22 02:47 01/26/22 02:54 Temperature 98.0 F 98.4 F Pulse Rate 143 H 155 H 144 H Respiratory Rate 20 24 H 24 H Blood Pressure 89/62 L 120/69 119/67 Pulse Oximetry 94 95 94 Oxygen Delivery Method Room Air Room Air Room Air 01/26/22 03:15 01/26/22 04:08 Temperature 98.1 F Pulse Rate 151 H 69 Respiratory Rate 28 H 18 Blood Pressure 108/69 114/56 L Pulse Oximetry 93 94 Oxygen Delivery Method Room Air Room Air BMI result Body Mass Index 31.8 <Lorenzo Ayala MD - Last Filed: 01/26/22 04:20> Const General: alert and poor hygiene <Gaby Wilson NP - Last Filed: 01/26/22 03:11> Orientation/consciousness: patient oriented x3 <SRAAI Tai Last Filed: 01/26/22 03:11> Limitations: no limitations <SARAI Tai Last Filed: 01/26/22 03:11> HENMT Head: Yes normal to inspection <SARAI Tai Last Filed: 01/26/22 03:11> Ears: hearing grossly normal bilaterally <Gaby Wilson NP - Last Filed: 01/26/22 03:11> General nose exam: Normal external nose present <SARAI Tai Last Filed: 01/26/22 03:11> Face and sinus: Yes normal facial exam <SARAI Tai Last Filed: 01/26/22 03:11> Mouth: Normal oral and palatal mucosa present <Gaby Wilson NP - Last Filed: 01/26/22 03:11> Throat: Yes posterior oropharynx normal and Yes tonsils normal <Gaby Wilson NP - Last Filed: 01/26/22 03:11> Eyes General: appearance normal, both eyes and all related structures <Gaby Wilson NP - Last Filed: 01/26/22 03:11> Pupils: Equal, round and reactive pupils present <Gaby Wilson NP - Last Filed: 01/26/22 03:11> Neck Neck: Yes normal visual inspection, Yes full ROM and Yes no lymphadenopathy <Gaby Wilson NP - Last Filed: 01/26/22 03:11> Chest Chest palpation & inspection: normal inspection of the chest <Gaby Wilson NP - Last Filed: 01/26/22 03:11> Resp Other: mild tachypnea with rate 24 <Gaby Wilson NP - Last Filed: 01/26/22 03:11> Auscultation: clear to auscultation bilaterally <Gaby Wilson NP - Last Filed: 01/26/22 03:11> Cardio Rate: tachycardic <Gaby Wilson NP - Last Filed: 01/26/22 03:11> Rhythm: abnormal rhythm irregularly irregular <Gaby Wilson NP - Last Filed: 01/26/22 03:11> Peripheral pulses: Peripheral pulses 2+ throughout <Gaby Wilson NP - Last Filed: 01/26/22 03:11> GI Other: Rectal exam with brown stool <Gaby Wilson NP - Last Filed: 01/26/22 03:11> Inspection: Yes normal to inspection <Gaby Wilson NP - Last Filed: 01/26/22 03:11> Palpation (GI): Soft to palpation and nontender <Gaby Wilson NP - Last Filed: 01/26/22 03:11> Back/Spine/Pelvis Thoracic/Lumbar Spine: thoracic and lumbar spine normal to inspection <Gaby Wilson NP - Last Filed: 01/26/22 03:11> Skin General skin exam: no rashes or lesions noted <SARAI Tai Last Filed: 01/26/22 03:11> Neuro Other: Diffusely weak <SARAI Tai Last Filed: 01/26/22 03:11> General: patient oriented x3, moves all extremities and Unable to assess gait <Gaby Wilson NP - Last Filed: 01/26/22 03:11> Cranial nerves: Yes CN's II-XII intact bilaterally, Yes Equal, round and reactive pupils present, Yes Bilaterally intact EOM present, Yes Nystagmus not present, Yes Normal facial strength present and Yes Midline tongue present <SARAI Tai Last Filed: 01/26/22 03:11> Cognition (Neuro): normal cognition <SARAI Tai Last Filed: 01/26/22 03:11> Gait exam (Neuro): Unable to assess gait <Gaby Wilson NP - Last Filed: 01/26/22 03:11> Sensory Exam: Normal double simultaneous stimulation for sensation <SARAI Tai Last Filed: 01/26/22 03:11> Extrem Other: Right leg has moderate to severe lymphedema and feels solid/hardened when compared to the left leg he has pitting edema to the left leg.? He reports bilateral calf tenderness.? And he is noted to have dry scaly rash to the right lower extremity.? To the left leg he has superficial abrasions.? Right leg appears mildly erythematous when compared to the left.? when compared to images from ER visit in October of 2021 this appears unchanged grossly <SARAI Tai Last Filed: 01/26/22 03:11> Course Reevaluation(s) Reevaluation #1: rates continue to be 150s to 160s. Will repeat dose of Cardizem. Blood pressure is stable <SARAI Tai Last Filed: 01/26/22 03:11> Time: 00:30 <Gaby Wilson NP - Last Filed: 01/26/22 03:11> Reevaluation #2: rates continue to be elevated up to 160. Will start patient on Cardizem drip. Blood pressure is stable. Anticipate admission. Hemoglobin 9.9. Hematocrit 30.2. Labs from November of 2021 show a hemoglobin of 13.4 and hematocrit of 41.0. Patient denies any black or bloody stools. No vomiting blood. No hematuria. Occult stool is negative. Stool is brown on exam. <Gaby Wilson NP - Last Filed: 01/26/22 03:11> Time: 01:00 <Gaby Wilson NP - Last Filed: 01/26/22 03:11> Reevaluation #3: Continued rates 150's. BP now 97/57. Patient alert and oriented x3. Cardizem gtt 15mg/hr. D/w with attending. Plan for NS 500ml bolus, calcium gluconate 2g IV. If blood pressure will tolerate then low dose beta lanny. Troponin mildly elevated. No CP. EKG shows no ischemic changes. Plan for repeat troponin. Low concern for ACS. Likely rate related. <Gaby Wilson NP - Last Filed: 01/26/22 03:11> Time: 02:00 <Gaby Wilson NP - Last Filed: 01/26/22 03:11> Additional Reevaluation(s): Continued rates up to 165 despite being on max dose of cardizem gtt. BP 120/76. Attending is involved with care. Plan to trial Lopressor 2.5mg IVP. If no effect will repeat dose. If no effect ?digoxin. Repeat troponin unchanged. 0300-This patient was signed out to Dr Ayala pending CT head, rate control and I anticipate admission. Dr Ayala would like additional 10mg IVP cardizem now for rate control. We reviewed the CXR together and patient appears to have a LLL infiltrate. At this time infection is suspected. Antibiotics ordered for CAP. Sign out to Dr Sanchez pending above. <Gaby Wilson NP - Last Filed: 01/26/22 03:11> Continued rates up to 165 despite being on max dose of cardizem gtt. BP 120/76. Attending is involved with care. Plan to trial Lopressor 2.5mg IVP. If no effect will repeat dose. If no effect ?digoxin. Repeat troponin unchanged. 0300-This patient was signed out to Dr Ayala pending CT head, rate control and I anticipate admission. Dr Ayala would like additional 10mg IVP cardizem now for rate control. We reviewed the CXR together and patient appears to have a LLL infiltrate. At this time infection is suspected. Antibiotics ordered for CAP. Sign out to Dr Sanchez pending above. 0353: Patient's ventricular rate of still rapid 151 beats per minute, patient was given another dose of diltiazem 10 mg IV. I did discuss admission with the covering hospitalist, Dr. Holman and the patient will be admitted for further treatment. 0417: CT scan of the head revealed no acute findings therefore the patient can restart his Eliquis. <Lorenzo Ayala MD - Last Filed: 01/26/22 04:20> Procedures EJ/Peripheral Line Arm L: Time Out Performed: Yes <Gaby Wilson NP - Last Filed: 01/26/22 03:11> Skin Cleansed in Sterile Fashion: Yes <Gaby Wilson NP - Last Filed: 01/26/22 03:11> Size (gauge): 18 <Gaby Wilson NP - Last Filed: 01/26/22 03:11> IV Secured and Dressing Applied: Yes <Gaby Wilson NP - Last Filed: 01/26/22 03:11> Patient Tolerated Procedure: well <Gaby Wilson NP - Last Filed: 01/26/22 03:11> Medical Decision Making [facility] Narrative Medical decision making narrative: this is an 81-year-old male comes from home with an extensive medical history who tells me he is been feeling depressed for the last few weeks and he has therefore been quite sedentary, not performing ADLs, not taking his home medications. Now he is feeling weak and tired. On arrival the patient is to [facility] old. He is incontinent of urine. He is quite unkept appearing. His pulse is tachycardic and irregularly irregular and when the patient is placed on the [employer] monitor he is admitted to be in AFib with RVR with rates of 170s to 180s. His blood pressure is stable. He has been noncompliant with his metoprolol for weeks in addition to his anticoagulation. He is c/o weakness, palpitations. Denies chest pain or shortness of breath. he is mildly tachypneic with a rate of 24 with clear lung sounds Will need labs including blood cultures/lactic acid, EKG, covid screen, CXR, CT head, UA. D/t symptomatic tachycardia will trial cardizem after discussion with attending physician Dr Ayala. Once medically cleared will need CARE team consultation/PT evaluation and CM input <Gaby Wilson NP - Last Filed: 01/26/22 03:11> Differential Diagnosis Differential Diagnosis: Failure to thrive, depression, metabolic cause, underlying infection <Gaby Wilson NP - Last Filed: 01/26/22 03:11> Medical Records Medical records reviewed: Yes I reviewed the patient's medical records. <Gaby Wilson NP - Last Filed: 01/26/22 03:11> Lab Data Lab results reviewed: Yes I reviewed the patient's lab results. <Gaby Wilson NP - Last Filed: 01/26/22 03:11> Result diagrams: : 01/26/22 00:19 01/26/22 00:19 <Gaby Wilson NP - Last Filed: 01/26/22 03:11> Labs: Lab Results 01/26/22 01/26/22 01/26/22 Range/Units 00:19 00:19 00:19 WBC 9.5 (4.8-10.8) X10*3/uL RBC 3.34 L D (4.60-5.80) X10*6/uL Hgb 9.9 L D (14.0-18.0) g/dl Hct 30.2 L D (42.0-52.0) % MCV 90.4 (80.0-98.0) fL MCH 29.6 (27.0-33.0) pg MCHC 32.8 (31.0-36.0) g/dl RDW 15.0 (11.0-16.0) % Plt Count 273 (160-400) X10*3/uL MPV 9.5 (9.4-12.4) fL Immature Gran % (Auto) 0.5 H (0.0-0.4) % Neut % (Auto) 71.9 (45-73) % Lymph % (Auto) 11.1 L (20-40) % [place] % (Auto) 15.2 H (2-11) % Eos % (Auto) 1.0 (0-4) % Baso % (Auto) 0.3 (0-2) % Lymph # (Auto) 1.1 L (1.2-4.9) X10*3/uL [place] # (Auto) 1.5 H (0.1-1.2) X10*3/uL Eos # (Auto) 0.1 (0.0-0.4) X10*3/uL Baso # (Auto) 0.0 (0.0-0.2) X10*3/uL Abs Immat Gran (auto) 0.05 H (0.00-0.03) X10*3/uL Absolute Neuts (auto) 6.8 (2.0-8.3) x10*3/uL Absolute Nucleated RBC 0.000 (0.0-0.012) X10*3/uL Nucleated RBC % (auto) 0.0 (0.0-0.2) /100WBC PT (9.9-13.0) SEC INR (0.9-1.1) Sodium 132 L (135-145) mmol/L Potassium 4.2 (3.3-5.1) mmol/L Chloride 102 (96-108) mmol/L Carbon Dioxide 25 (22-29) mmol/L Anion Gap 9 L (12-20) BUN 17 H (9-16) mg/dL Creatinine 0.97 (0.5-1.4) mg/dL Estim Creat Clear Calc 76.6 Estimated GFR > 60 Random Glucose 116 H (60-115) mg/dL Lactic Acid (0.5-2.0) mmol/L Calcium 8.1 L (8.4-10.2) mg/dL Magnesium 2.3 (1.6-2.6) mg/dL Total Bilirubin 1.0 (0.0-1.0) mg/dL Direct Bilirubin 0.5 (0.0-0.5) mg/dL AST 11 D (5-37) U/L ALT < 6 (0-40) U/L Alkaline Phosphatase 80 (39-117) U/L Total Creatine Kinase 39 (38-174) U/L Troponin I High Sens 91.3 H (<3.5-35.0) ng/L Total Protein 5.9 L (6.5-8.0) g/dL Albumin 3.0 L (3.5-5.0) g/dL Urine Color Urine Appearance Urine pH (5.0-8.0) Ur Specific [place] (1.005-1.025) Urine Protein (NEG-TRACE) MG/DL Urine Glucose (UA) (NEG) MG/DL Urine Ketones (NEG) MG/DL Urine Blood (NEG) Urine Nitrite (NEG) Ur Leukocyte Esterase (NEG) Stool Occult Blood (NEGATIVE) COVID-19 ([facility]) (Negative) COVID-19 Clin Com 01/26/22 01/26/22 01/26/22 Range/Units 00:42 01:37 02:03 WBC (4.8-10.8) X10*3/uL RBC (4.60-5.80) X10*6/uL Hgb (14.0-18.0) g/dl Hct (42.0-52.0) % MCV (80.0-98.0) fL MCH (27.0-33.0) pg MCHC (31.0-36.0) g/dl RDW (11.0-16.0) % Plt Count (160-400) X10*3/uL MPV (9.4-12.4) fL Immature Gran % (Auto) (0.0-0.4) % Neut % (Auto) (45-73) % Lymph % (Auto) (20-40) % [place] % (Auto) (2-11) % Eos % (Auto) (0-4) % Baso % (Auto) (0-2) % Lymph # (Auto) (1.2-4.9) X10*3/uL [place] # (Auto) (0.1-1.2) X10*3/uL Eos # (Auto) (0.0-0.4) X10*3/uL Baso # (Auto) (0.0-0.2) X10*3/uL Abs Immat Gran (auto) (0.00-0.03) X10*3/uL Absolute Neuts (auto) (2.0-8.3) x10*3/uL Absolute Nucleated RBC (0.0-0.012) X10*3/uL Nucleated RBC % (auto) (0.0-0.2) /100WBC PT (9.9-13.0) SEC INR (0.9-1.1) Sodium (135-145) mmol/L Potassium (3.3-5.1) mmol/L Chloride (96-108) mmol/L Carbon Dioxide (22-29) mmol/L Anion Gap (12-20) BUN (9-16) mg/dL Creatinine (0.5-1.4) mg/dL Estim Creat Clear Calc Estimated GFR Random Glucose (60-115) mg/dL Lactic Acid (0.5-2.0) mmol/L Calcium (8.4-10.2) mg/dL Magnesium (1.6-2.6) mg/dL Total Bilirubin (0.0-1.0) mg/dL Direct Bilirubin (0.0-0.5) mg/dL AST (5-37) U/L ALT (0-40) U/L Alkaline Phosphatase (39-117) U/L Total Creatine Kinase (38-174) U/L Troponin I High Sens (<3.5-35.0) ng/L Total Protein (6.5-8.0) g/dL Albumin (3.5-5.0) g/dL Urine Color YELLOW Urine Appearance HAZY Urine pH 6.0 (5.0-8.0) Ur Specific [place] 1.020 (1.005-1.025) Urine Protein NEG (NEG-TRACE) MG/DL Urine Glucose (UA) NEG (NEG) MG/DL Urine Ketones NEG (NEG) MG/DL Urine Blood NEG (NEG) Urine Nitrite NEG (NEG) Ur Leukocyte Esterase NEG (NEG) Stool Occult Blood NEGATIVE (NEGATIVE) COVID-19 ([facility]) Negative (Negative) COVID-19 Clin Com See Note 01/26/22 01/26/22 01/26/22 Range/Units 02:20 02:20 03:24 WBC (4.8-10.8) X10*3/uL RBC (4.60-5.80) X10*6/uL Hgb (14.0-18.0) g/dl Hct (42.0-52.0) % MCV (80.0-98.0) fL MCH (27.0-33.0) pg MCHC (31.0-36.0) g/dl RDW (11.0-16.0) % Plt Count (160-400) X10*3/uL MPV (9.4-12.4) fL Immature Gran % (Auto) (0.0-0.4) % Neut % (Auto) (45-73) % Lymph % (Auto) (20-40) % [place] % (Auto) (2-11) % Eos % (Auto) (0-4) % Baso % (Auto) (0-2) % Lymph # (Auto) (1.2-4.9) X10*3/uL [place] # (Auto) (0.1-1.2) X10*3/uL Eos # (Auto) (0.0-0.4) X10*3/uL Baso # (Auto) (0.0-0.2) X10*3/uL Abs Immat Gran (auto) (0.00-0.03) X10*3/uL Absolute Neuts (auto) (2.0-8.3) x10*3/uL Absolute Nucleated RBC (0.0-0.012) X10*3/uL Nucleated RBC % (auto) (0.0-0.2) /100WBC PT 15.5 H (9.9-13.0) SEC INR 1.4 H (0.9-1.1) Sodium (135-145) mmol/L Potassium (3.3-5.1) mmol/L Chloride (96-108) mmol/L Carbon Dioxide (22-29) mmol/L Anion Gap (12-20) BUN (9-16) mg/dL Creatinine (0.5-1.4) mg/dL Estim Creat Clear Calc Estimated GFR Random Glucose (60-115) mg/dL Lactic Acid 1.1 (0.5-2.0) mmol/L Calcium (8.4-10.2) mg/dL Magnesium (1.6-2.6) mg/dL Total Bilirubin (0.0-1.0) mg/dL Direct Bilirubin (0.0-0.5) mg/dL AST (5-37) U/L ALT (0-40) U/L Alkaline Phosphatase (39-117) U/L Total Creatine Kinase (38-174) U/L Troponin I High Sens 93.9 H (<3.5-35.0) ng/L Total Protein (6.5-8.0) g/dL Albumin (3.5-5.0) g/dL Urine Color Urine Appearance Urine pH (5.0-8.0) Ur Specific [place] (1.005-1.025) Urine Protein (NEG-TRACE) MG/DL Urine Glucose (UA) (NEG) MG/DL Urine Ketones (NEG) MG/DL Urine Blood (NEG) Urine Nitrite (NEG) Ur Leukocyte Esterase (NEG) Stool Occult Blood (NEGATIVE) COVID-19 ([facility]) (Negative) COVID-19 Clin Com <Gaby Wilson NP - Last Filed: 01/26/22 03:11> Lab Results 01/26/22 01/26/22 01/26/22 Range/Units 00:19 00:19 00:19 WBC 9.5 (4.8-10.8) X10*3/uL RBC 3.34 L D (4.60-5.80) X10*6/uL Hgb 9.9 L D (14.0-18.0) g/dl Hct 30.2 L D (42.0-52.0) % MCV 90.4 (80.0-98.0) fL MCH 29.6 (27.0-33.0) pg MCHC 32.8 (31.0-36.0) g/dl RDW 15.0 (11.0-16.0) % Plt Count 273 (160-400) X10*3/uL MPV 9.5 (9.4-12.4) fL Immature Gran % (Auto) 0.5 H (0.0-0.4) % Neut % (Auto) 71.9 (45-73) % Lymph % (Auto) 11.1 L (20-40) % [place] % (Auto) 15.2 H (2-11) % Eos % (Auto) 1.0 (0-4) % Baso % (Auto) 0.3 (0-2) % Lymph # (Auto) 1.1 L (1.2-4.9) X10*3/uL [place] # (Auto) 1.5 H (0.1-1.2) X10*3/uL Eos # (Auto) 0.1 (0.0-0.4) X10*3/uL Baso # (Auto) 0.0 (0.0-0.2) X10*3/uL Abs Immat Gran (auto) 0.05 H (0.00-0.03) X10*3/uL Absolute Neuts (auto) 6.8 (2.0-8.3) x10*3/uL Absolute Nucleated RBC 0.000 (0.0-0.012) X10*3/uL Nucleated RBC % (auto) 0.0 (0.0-0.2) /100WBC PT (9.9-13.0) SEC INR (0.9-1.1) Sodium 132 L (135-145) mmol/L Potassium 4.2 (3.3-5.1) mmol/L Chloride 102 (96-108) mmol/L Carbon Dioxide 25 (22-29) mmol/L Anion Gap 9 L (12-20) BUN 17 H (9-16) mg/dL Creatinine 0.97 (0.5-1.4) mg/dL Estim Creat Clear Calc 76.6 Estimated GFR > 60 Random Glucose 116 H (60-115) mg/dL Lactic Acid (0.5-2.0) mmol/L Calcium 8.1 L (8.4-10.2) mg/dL Magnesium 2.3 (1.6-2.6) mg/dL Total Bilirubin 1.0 (0.0-1.0) mg/dL Direct Bilirubin 0.5 (0.0-0.5) mg/dL AST 11 D (5-37) U/L ALT < 6 (0-40) U/L Alkaline Phosphatase 80 (39-117) U/L Total Creatine Kinase 39 (38-174) U/L Troponin I High Sens 91.3 H (<3.5-35.0) ng/L Total Protein 5.9 L (6.5-8.0) g/dL Albumin 3.0 L (3.5-5.0) g/dL Urine Color Urine Appearance Urine pH (5.0-8.0) Ur Specific [place] (1.005-1.025) Urine Protein (NEG-TRACE) MG/DL Urine Glucose (UA) (NEG) MG/DL Urine Ketones (NEG) MG/DL Urine Blood (NEG) Urine Nitrite (NEG) Ur Leukocyte Esterase (NEG) Stool Occult Blood (NEGATIVE) COVID-19 ([facility]) (Negative) COVID-19 Clin Com 01/26/22 01/26/22 01/26/22 Range/Units 00:42 01:37 02:03 WBC (4.8-10.8) X10*3/uL RBC (4.60-5.80) X10*6/uL Hgb (14.0-18.0) g/dl Hct (42.0-52.0) % MCV (80.0-98.0) fL MCH (27.0-33.0) pg MCHC (31.0-36.0) g/dl RDW (11.0-16.0) % Plt Count (160-400) X10*3/uL MPV (9.4-12.4) fL Immature Gran % (Auto) (0.0-0.4) % Neut % (Auto) (45-73) % Lymph % (Auto) (20-40) % [place] % (Auto) (2-11) % Eos % (Auto) (0-4) % Baso % (Auto) (0-2) % Lymph # (Auto) (1.2-4.9) X10*3/uL [place] # (Auto) (0.1-1.2) X10*3/uL Eos # (Auto) (0.0-0.4) X10*3/uL Baso # (Auto) (0.0-0.2) X10*3/uL Abs Immat Gran (auto) (0.00-0.03) X10*3/uL Absolute Neuts (auto) (2.0-8.3) x10*3/uL Absolute Nucleated RBC (0.0-0.012) X10*3/uL Nucleated RBC % (auto) (0.0-0.2) /100WBC PT (9.9-13.0) SEC INR (0.9-1.1) Sodium (135-145) mmol/L Potassium (3.3-5.1) mmol/L Chloride (96-108) mmol/L Carbon Dioxide (22-29) mmol/L Anion Gap (12-20) BUN (9-16) mg/dL Creatinine (0.5-1.4) mg/dL Estim Creat Clear Calc Estimated GFR Random Glucose (60-115) mg/dL Lactic Acid (0.5-2.0) mmol/L Calcium (8.4-10.2) mg/dL Magnesium (1.6-2.6) mg/dL Total Bilirubin (0.0-1.0) mg/dL Direct Bilirubin (0.0-0.5) mg/dL AST (5-37) U/L ALT (0-40) U/L Alkaline Phosphatase (39-117) U/L Total Creatine Kinase (38-174) U/L Troponin I High Sens (<3.5-35.0) ng/L Total Protein (6.5-8.0) g/dL Albumin (3.5-5.0) g/dL Urine Color YELLOW Urine Appearance HAZY Urine pH 6.0 (5.0-8.0) Ur Specific [place] 1.020 (1.005-1.025) Urine Protein NEG (NEG-TRACE) MG/DL Urine Glucose (UA) NEG (NEG) MG/DL Urine Ketones NEG (NEG) MG/DL Urine Blood NEG (NEG) Urine Nitrite NEG (NEG) Ur Leukocyte Esterase NEG (NEG) Stool Occult Blood NEGATIVE (NEGATIVE) COVID-19 ([facility]) Negative (Negative) COVID-19 Clin Com See Note 01/26/22 01/26/22 01/26/22 Range/Units 02:20 02:20 03:24 WBC (4.8-10.8) X10*3/uL RBC (4.60-5.80) X10*6/uL Hgb (14.0-18.0) g/dl Hct (42.0-52.0) % MCV (80.0-98.0) fL MCH (27.0-33.0) pg MCHC (31.0-36.0) g/dl RDW (11.0-16.0) % Plt Count (160-400) X10*3/uL MPV (9.4-12.4) fL Immature Gran % (Auto) (0.0-0.4) % Neut % (Auto) (45-73) % Lymph % (Auto) (20-40) % [place] % (Auto) (2-11) % Eos % (Auto) (0-4) % Baso % (Auto) (0-2) % Lymph # (Auto) (1.2-4.9) X10*3/uL [place] # (Auto) (0.1-1.2) X10*3/uL Eos # (Auto) (0.0-0.4) X10*3/uL Baso # (Auto) (0.0-0.2) X10*3/uL Abs Immat Gran (auto) (0.00-0.03) X10*3/uL Absolute Neuts (auto) (2.0-8.3) x10*3/uL Absolute Nucleated RBC (0.0-0.012) X10*3/uL Nucleated RBC % (auto) (0.0-0.2) /100WBC PT 15.5 H (9.9-13.0) SEC INR 1.4 H (0.9-1.1) Sodium (135-145) mmol/L Potassium (3.3-5.1) mmol/L Chloride (96-108) mmol/L Carbon Dioxide (22-29) mmol/L Anion Gap (12-20) BUN (9-16) mg/dL Creatinine (0.5-1.4) mg/dL Estim Creat Clear Calc Estimated GFR Random Glucose (60-115) mg/dL Lactic Acid 1.1 (0.5-2.0) mmol/L Calcium (8.4-10.2) mg/dL Magnesium (1.6-2.6) mg/dL Total Bilirubin (0.0-1.0) mg/dL Direct Bilirubin (0.0-0.5) mg/dL AST (5-37) U/L ALT (0-40) U/L Alkaline Phosphatase (39-117) U/L Total Creatine Kinase (38-174) U/L Troponin I High Sens 93.9 H (<3.5-35.0) ng/L Total Protein (6.5-8.0) g/dL Albumin (3.5-5.0) g/dL Urine Color Urine Appearance Urine pH (5.0-8.0) Ur Specific [place] (1.005-1.025) Urine Protein (NEG-TRACE) MG/DL Urine Glucose (UA) (NEG) MG/DL Urine Ketones (NEG) MG/DL Urine Blood (NEG) Urine Nitrite (NEG) Ur Leukocyte Esterase (NEG) Stool Occult Blood (NEGATIVE) COVID-19 ([facility]) (Negative) COVID-19 Clin Com <Lorenzo Ayala MD - Last Filed: 01/26/22 04:20> ECG Data Attestation: I personally reviewed and interpreted this ECG as follows: <Gaby Wilson NP - Last Filed: 01/26/22 03:11> Interpretation: AFib with RVR with rate of 170, RBBB <Gaby Wilson NP - Last Filed: 01/26/22 03:11> Critical Care Time Critical Care Time Critical Care Time: Yes <Gaby Wilson NP - Last Filed: 01/26/22 03:11> Total Critical Care Time: 90 <Gaby Wilson NP - Last Filed: 01/26/22 03:11> Attestation: Tachycardia requiring multiple IV medications for rate control <Gaby Wilson NP - Last Filed: 01/26/22 03:11> Discharge Plan Discharge Clinical Impression: Atrial fibrillation with rapid ventricular response, Anemia, Acute hyponatremia, Pneumonia <Gaby Wilson NP - Last Filed: 01/26/22 03:11> Prescriptions: No Action Unobtainable <Gaby Wilson NP - Last Filed: 01/26/22 03:11>
[2022-01-26 00:43] LABS: Alanine Aminotransferase < 6 U/L (0-40); Alkaline Phosphatase 80 U/L (39-117); Anion Gap 9 (12-20); Aspartate Amino Transferase 11 U/L (5-37); Bilirubin Direct 0.5 mg/dL (0.0-0.5); Blood Urea Nitrogen 17 mg/dL (9-16); Calcium 8.1 mg/dL (8.4-10.2); Carbon Dioxide 25 mmol/L (22-29); Chloride 102 mmol/L (96-108); Creatinine Clr Calc Pharmacy 76.6; Estimated Glomerular Filt Rate > 60; Glucose Random 116 mg/dL (60-115); Magnesium 2.3 mg/dL (1.6-2.6); Potassium 4.2 mmol/L (3.3-5.1); Sodium 132 mmol/L (135-145); Total Protein 5.9 g/dL (6.5-8.0)
[2022-01-26 00:45] LABS: Troponin-I High Sensitivity 91.3 ng/L (<3.5-35.0)
[2022-01-26 01:03] LABS: COVID-19 Test Negative (Negative)
[2022-01-26] MEDS: dilTIAZem HCL 125 MG in 0.9 % Sodium Chloride 100 ML 10 MG IVCONT (01:15)
[2022-01-26 01:42] LABS: OBS Int Ctl Valid YES; OBS1 NEGATIVE (NEGATIVE)
[2022-01-26 02:11] LABS: Appearance Urine HAZY; Color Urine YELLOW; Glucose Urine UA NEG (NEG); Leukocyte Esterase Urine NEG (NEG); Nitrite Urine NEG (NEG); Urine Blood NEG (NEG); Urine Ketones NEG (NEG); Urine Protein NEG (NEG-TRACE)
[2022-01-26] MEDS: 0.9 % Sodium Chloride 500 ML 999 ML IV (02:32)
[2022-01-26] MEDS: Calcium Gluconate/NaCl,Iso-Osm 2 GM/100 ML PLAST..BAG IV (02:33)
[2022-01-26] MEDS: Metoprolol Tartrate 5 MG/5 ML VIAL 2.5 MG IVPUSH (02:48)
[2022-01-26 02:49] LABS: Lactic Acid 1.1 mmol/L (0.5-2.0)
[2022-01-26 02:57] LABS: Troponin-I High Sensitivity 93.9 ng/L (<3.5-35.0)
[2022-01-26] MEDS: cefTRIAXone sodium 1 GM in 0.9 % Sodium Chloride 50 ML IV (03:11)
[2022-01-26 03:34] LABS: INTERNATIONAL NORM RATIO 1.4 (0.9-1.1); Prothrombin Time 15.5 SEC (9.9-13.0)
[2022-01-26] MEDS: Azithromycin 500 MG in 0.9 % Sodium Chloride 250 ML 125 MG IV (04:24)
[2022-01-26] MEDS: Apixaban 5 MG TABLET PO ×2 (04:32→21:36)
--- NOTE | 2022-01-26 04:56 | PC.NURSE ---
Med Rec unobtainable, pt denies taking any medications, states he has been noncompliant with all medications. Last refills noted to be in October of 2021.
[2022-01-26] MEDS: dilTIAZem HCL 50 MG/10 ML VIAL 20 MG IVPUSH (05:34)
[2022-01-26 06:00] LABS: MANUAL DIFF FLAG NO
[2022-01-26 06:02] LABS: Basophils Absolute Auto 0.1 X10*3/uL (0.0-0.2); Basophils Percent Auto 0.6 % (0-2); Eosinophils Absolute Auto 0.1 X10*3/uL (0.0-0.4); Eosinophils Percent Auto 1.5 % (0-4); Hematocrit 32.6 % (42.0-52.0); Hemoglobin 10.6 g/dl (14.0-18.0); Imm Gran Abs Auto 0.06 X10*3/uL (0.00-0.03); Imm Gran Pct Auto 0.7 % (0.0-0.4); Lymphocytes Absolute Auto 0.8 X10*3/uL (1.2-4.9); Lymphocytes Percent Auto 9.3 % (20-40); Mean Corpuscular HGB Conc 32.5 g/dl (31.0-36.0); Mean Corpuscular Hemoglobin 29.6 pg (27.0-33.0); Mean Corpuscular Volume 91.1 fL (80.0-98.0); Mean Platelet Volume 10.2 fL (9.4-12.4); Monocytes Absolute Auto 1.2 X10*3/uL (0.1-1.2); Monocytes Percent Auto 13.6 % (2-11); Neutrophils Absolute Auto 6.5 x10*3/uL (2.0-8.3); Neutrophils Percent Auto 74.3 % (45-73); Platelet Count 301 X10*3/uL (160-400); Red Blood Count 3.58 X10*6/uL (4.60-5.80); Red Cell Distribution Width 15.1 % (11.0-16.0); White Blood Count 8.8 X10*3/uL (4.8-10.8)
--- NOTE | 2022-01-26 06:04 | PC.NURSE ---
Cardizem 20 mg IV push administered-patient P 98-142, BP 91/52. BP reading reported to provider-per MD decrease Cardizem drip to 5 mg per hour, continue monitoring BP-report to MD if no improvement in BP reading.
[2022-01-26 06:16] LABS: Anion Gap 12 (12-20); Blood Urea Nitrogen 18 mg/dL (9-16); Calcium 8.6 mg/dL (8.4-10.2); Carbon Dioxide 22 mmol/L (22-29); Chloride 103 mmol/L (96-108); Creatinine Clr Calc Pharmacy 89.5; Estimated Glomerular Filt Rate > 60; Glucose Random 114 mg/dL (60-115); Potassium 4.2 mmol/L (3.3-5.1); Sodium 133 mmol/L (135-145)
--- NOTE | 2022-01-26 06:22 | P.HPHOSP_ITS ---
History of Present Illness Date of Service: 01/26/22 Chief Complaint: AMS 81-year-old male with past medical history of AFib, bipolar disorder, BPH, HLD, CHF, CAD, HTN, depression, who presents to the hospital to he was found by his daughter to be unresponsive. According to the ED triage note as well as ENT no te patient was found to be alert oriented x3 on arrival of EMS. Patient reports that he has been feeling significantly depressed and was drawn for the past few weeks. He has stopped taking his mom medications since October as a result of this depression. He reports that he has been feeling very lethargic, has not been eating or drinking well. He has no energy to do anything. He otherwise denies any palpitations, no chest pain, no shortness of breath no headache, no change in vision, no dizziness, no abdominal pain nausea or vomiting, no urinary symptoms and no lower extremity edema. Arrival to the ED patient's heart rate was noted to be 129 with rhythm of AFib with RVR, satting 89% on room air Labs are significant for WBC count of 9.5 hemoglobin of 9.9, hematocrit 30.2, sodium of 132, troponin 91.3 then increase to 93.9, UA negative Chest shows moderate left pleural effusion with atelectasis / consolidation, patient will be admitted for further management Review of Systems Review of Systems: Yes all other systems are reviewed and are negative [facility] Medical History (Updated 01/26/22 @ 06:29 by Juancarlos Holman MD) Malave esophagus Benign enlargement of prostate Bipolar 1 disorder CHF (congestive heart failure) Coronary artery disease HTN (hypertension) Metastatic squamous cell carcinoma Paroxysmal A-fib Social anxiety disorder Family History (Updated 01/26/22 @ 06:29 by Juancarlos Holman MD) Other No family history of coronary artery disease Surgical History History of cardiac cath S/P coronary artery stent placement Social History Alcohol intake: current Alcohol intake frequency: holidays/special occasions only Patient Tobacco Use Status: Never used Tobacco Advance Directives: No Meds Allergies Allergy/AdvReac Type Severity Reaction Status Date / Time No Known Allergies Allergy Verified 10/31/21 07:09 Active Medications: Current Medications Acetaminophen (Acetaminophen 325 Mg Tablet) 650 mg PO Q6H PRN PRN Reason: Pain, Mild (Pain Scale 1-3) Docusate Sodium (Docusate Sodium 100 Mg Capsule) 100 mg PO DAILY PRN PRN Reason: Constipation Diltiazem HCl 125 mg/ Sodium (Chloride) 125 mls @ 0 mls/hr IVCONT .Q0M [facility]; Protocol Last Titration: 01/26/22 06:07 Dose: 5 mg/hr, 5 mls/hr Azithromycin 500 mg/ Sodium (Chloride) 250 mls @ 125 mls/hr IV Q24H [facility] Ceftriaxone Sodium 1 gm/ (Sodium Chloride) 50 mls @ 100 mls/hr IV Q24H [facility] Ondansetron HCl (Ondansetron Hcl 4 Mg/2 Ml Vial) 4 mg IVPUSH Q8H PRN PRN Reason: Nausea and Vomiting Pharmacy Consult (Consult Rx Perform Med Rec) 1 each MISCELLANE ONCE PRN PRN Reason: Consult order Sodium Chloride (0.9 % Sodium Chloride Flush 3 Ml Syringe) 3 ml IVFLUSH QSHIFT [facility] Home Medications Medication Instructions Recorded Confirmed Last Taken Type aspirin 81 mg tablet,delayed 1 tab PO DAILY 01/26/22 01/26/22 Unknown History release atorvastatin 40 mg tablet 1 tab PO BEDTIME 01/26/22 01/26/22 Unknown History furosemide 40 mg tablet 1 tab PO DAILY 01/26/22 01/26/22 Unknown History lisinopril 40 mg tablet 1 tab PO DAILY 01/26/22 01/26/22 Unknown History metoprolol tartrate 100 mg tablet 1 tab PO BID 01/26/22 01/26/22 Unknown History Physical Exam Vital Signs and Narrative: Vital Signs: Last Vital Signs Temp 98.0 F 01/26/22 06:09 Pulse 136 H 01/26/22 06:09 Resp 25 H 01/26/22 06:09 BP 98/50 L 01/26/22 06:09 Pulse Ox 94 01/26/22 06:09 O2 Del Method 01/26/22 06:09 O2 Flow Rate 2 01/26/22 06:09 BMI result Body Mass Index 31.8 Const: Other: patient is alert, oriented, cooperative, has a flat affect. General: cooperative and no acute distress Orientation/consciousness: patient oriented x3 Eyes: General: appearance normal, both eyes and all related structures Pupils: Equal, round and reactive pupils present Resp: Other: Crackles heard on the left lower lung Effort & Inspection: normal respiratory effort Cardio: Other: tachycardic, regular rhythm GI: Palpation (GI): Soft to palpation Auscultation: normal bowel sounds Skin: General skin exam: no rashes or lesions noted Neuro: General: patient oriented x3 Cranial nerves: Yes Equal, round and reactive pupils present Cognition (Neuro): normal cognition Extrem: General: Yes normal to inspection and Yes no pedal edema Results Labs CBC and Chem 7: 01/26/22 05:33 01/26/22 05:33 Labs: Laboratory Results - last 24 hr 01/26/22 01/26/22 01/26/22 00:19 00:19 00:19 MCV 90.4 MCH 29.6 MCHC 32.8 RDW 15.0 Plt Count 273 MPV 9.5 Immature Gran % (Auto) 0.5 H Neut % (Auto) 71.9 Lymph % (Auto) 11.1 L [place] % (Auto) 15.2 H Eos % (Auto) 1.0 Baso % (Auto) 0.3 Lymph # (Auto) 1.1 L [place] # (Auto) 1.5 H Eos # (Auto) 0.1 Baso # (Auto) 0.0 Abs Immat Gran (auto) 0.05 H Absolute Neuts (auto) 6.8 Absolute Nucleated RBC 0.000 Nucleated RBC % (auto) 0.0 PT INR Anion Gap 9 L Estim Creat Clear Calc 76.6 Estimated GFR > 60 Random Glucose 116 H Lactic Acid Calcium 8.1 L Magnesium 2.3 Total Bilirubin 1.0 Direct Bilirubin 0.5 AST 11 D ALT < 6 Alkaline Phosphatase 80 Total Creatine Kinase 39 Troponin I High Sens 91.3 H Total Protein 5.9 L Albumin 3.0 L Urine Color Urine Appearance Urine pH Ur Specific [place] Urine Protein Urine Glucose (UA) Urine Ketones Urine Blood Urine Nitrite Ur Leukocyte Esterase Stool Occult Blood COVID-19 ([facility]) COVID-19 Clin Com 01/26/22 01/26/22 01/26/22 00:42 01:37 02:03 MCV MCH MCHC RDW Plt Count MPV Immature Gran % (Auto) Neut % (Auto) Lymph % (Auto) [place] % (Auto) Eos % (Auto) Baso % (Auto) Lymph # (Auto) [place] # (Auto) Eos # (Auto) Baso # (Auto) Abs Immat Gran (auto) Absolute Neuts (auto) Absolute Nucleated RBC Nucleated RBC % (auto) PT INR Anion Gap Estim Creat Clear Calc Estimated GFR Random Glucose Lactic Acid Calcium Magnesium Total Bilirubin Direct Bilirubin AST ALT Alkaline Phosphatase Total Creatine Kinase Troponin I High Sens Total Protein Albumin Urine Color YELLOW Urine Appearance HAZY Urine pH 6.0 Ur Specific [place] 1.020 Urine Protein NEG Urine Glucose (UA) NEG Urine Ketones NEG Urine Blood NEG Urine Nitrite NEG Ur Leukocyte Esterase NEG Stool Occult Blood NEGATIVE COVID-19 ([facility]) Negative COVID-19 Clin Com See Note 01/26/22 01/26/22 01/26/22 02:20 02:20 03:24 MCV MCH MCHC RDW Plt Count MPV Immature Gran % (Auto) Neut % (Auto) Lymph % (Auto) [place] % (Auto) Eos % (Auto) Baso % (Auto) Lymph # (Auto) [place] # (Auto) Eos # (Auto) Baso # (Auto) Abs Immat Gran (auto) Absolute Neuts (auto) Absolute Nucleated RBC Nucleated RBC % (auto) PT 15.5 H INR 1.4 H Anion Gap Estim Creat Clear Calc Estimated GFR Random Glucose Lactic Acid 1.1 Calcium Magnesium Total Bilirubin Direct Bilirubin AST ALT Alkaline Phosphatase Total Creatine Kinase Troponin I High Sens 93.9 H Total Protein Albumin Urine Color Urine Appearance Urine pH Ur Specific [place] Urine Protein Urine Glucose (UA) Urine Ketones Urine Blood Urine Nitrite Ur Leukocyte Esterase Stool Occult Blood COVID-19 ([facility]) COVID-19 Clin Com 01/26/22 01/26/22 05:33 05:33 MCV 91.1 MCH 29.6 MCHC 32.5 RDW 15.1 Plt Count 301 MPV 10.2 Immature Gran % (Auto) 0.7 H Neut % (Auto) 74.3 H Lymph % (Auto) 9.3 L [place] % (Auto) 13.6 H Eos % (Auto) 1.5 Baso % (Auto) 0.6 Lymph # (Auto) 0.8 L [place] # (Auto) 1.2 Eos # (Auto) 0.1 Baso # (Auto) 0.1 Abs Immat Gran (auto) 0.06 H Absolute Neuts (auto) 6.5 Absolute Nucleated RBC 0.000 Nucleated RBC % (auto) 0.0 PT INR Anion Gap 12 Estim Creat Clear Calc 89.5 Estimated GFR > 60 Random Glucose 114 Lactic Acid Calcium 8.6 D Magnesium Total Bilirubin Direct Bilirubin AST ALT Alkaline Phosphatase Total Creatine Kinase Troponin I High Sens Total Protein Albumin Urine Color Urine Appearance Urine pH Ur Specific [place] Urine Protein Urine Glucose (UA) Urine Ketones Urine Blood Urine Nitrite Ur Leukocyte Esterase Stool Occult Blood COVID-19 ([facility]) COVID-19 Clin Com Imaging Radiologist's Impressions: Impressions Chest X-Ray 01/26/22 02:51 FINDINGS/IMPRESSION: Moderate left pleural effusion with accompanying atelectasis/consolidation. Right lung and pleural space are clear. No pneumothorax. Stable mild cardiomegaly. Loop recorder device redemonstrated in the left chest wall. Head CT 01/26/22 03:18 IMPRESSION: * No acute territorial infarct or intracranial hemorrhage. * Moderate-severe chronic migration of gliosis. 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 * Generalized brain parenchymal volume loss. Assessment and Plan (1) Atrial fibrillation with rapid ventricular response: Status: Acute (2) Pneumonia: Status: Acute (3) Depression: Status: Acute (4) Patient nonadherence: Status: Acute Plan 81-year-old male with past medical history of CHF, CAD, among others who presents to the hospital after found to be lethargic, found to have AFib with RVR, acute pneumonia, and non adherence to medications # AFib with RVR - likely multifactorial in the setting of medication noncompliance, as well as acute pneumonia - patient on Cardizem drip at this time, 8 not controlled, will give 1 dose of digoxin, consult Cardiology - will obtain BNP, echocardiogram - has a CHADSVASC score of 6, will start him on heparin ggt pending further recommendation by cardiology ( pt has not been on AC since october)cs - obtain TSH # PNA - community acquired - will treat with IV antibiotic - follow cultures # severe depression - care team consulted # CHF - has evidence of pleural effusion on chest x-ray, noted to be slightly hypoxic on room air - will obtain BNP - will give 1 dose of IV Lasix and resume home Lasix - cardiology on consult - echocardiogram - low-sodium diet # CAD - no chest pain - troponin elevation likely secondary to AFib - will continue aspirin, metoprolol # hypertension - on the soft and likely driven by AFib - hold lisinopril DVT prophylaxis: Heparin GGT Quality Stroke Does the patient have a stroke diagnosis?: No VTE Prior VTE?: No VTE Risk Level:: Medical - moderate - high VTE Device Contraindication: Treatment Not Indicated VTE Drug Contraindication: N/A - Med Ordered
[2022-01-26] MEDS: Digoxin 0.5 MG/2 ML AMPUL 0.25 MG IVPUSH (06:42)
[2022-01-26 07:00] LABS: Hemoglobin 9.8 g/dl (14.0-18.0); Mean Corpuscular HGB Conc 32.7 g/dl (31.0-36.0); Mean Corpuscular Hemoglobin 29.5 pg (27.0-33.0); Mean Corpuscular Volume 90.4 fL (80.0-98.0); Mean Platelet Volume 9.7 fL (9.4-12.4); Platelet Count 258 X10*3/uL (160-400); Red Blood Count 3.32 X10*6/uL (4.60-5.80); Red Cell Distribution Width 15.2 % (11.0-16.0); White Blood Count 7.8 X10*3/uL (4.8-10.8)
[2022-01-26 07:06] LABS: INTERNATIONAL NORM RATIO 1.6 (0.9-1.1); Prothrombin Time 18.2 SEC (9.9-13.0)
[2022-01-26 07:09] LABS: PTT Heparin Drip 38.7 SEC (53-77.9)
[2022-01-26 07:20] LABS: B Type Natriuretic Peptide 198 pg/mL (<100)
[2022-01-26] MEDS: Furosemide 40 MG/4 ML VIAL IVPUSH ×2 (07:21→11:54)
[2022-01-26 07:39] LABS: Thyroid Stimulating Hormone 0.36 uIU/mL (0.32-4.0)
[2022-01-26] MEDS: Metoprolol Tartrate 100 MG TABLET PO ×2 (08:41→21:36)
[2022-01-26] MEDS: Aspirin Enteric Coated 81 MG TABLET.DR PO (08:41)
--- NOTE | 2022-01-26 10:42 | PM.CNCAR ---
History of Present Illness History of Present Illness Date of Service: 01/26/22 Requesting physician: Marcy Hensley Chief complaint: A Fib W RVR Narrative: 81-year-old gentleman presenting with AFib with RVR and pneumonia. 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 He has been depressed and not taking medications for the last 6 months. He said he had no energy and was not feeling well and eventually decided to come to the hospital. He was found to be in AFib with RVR and also diagnosed with pneumonia. He was started on Cardizem drip and was given 1 dose of IV digoxin 250 mcg. Currently he is lying flat in bed. He is denying any shortness of breath. He feels depressed. He has chronic lymphedema of the right lower extremity. As mentioned he has not been taking any medications for the last 6 months. He is not aware of any cardiomyopathy on either issues in the past. [facility] Past Medical History Medical History (Updated 01/26/22 @ 06:29 by Juancarlos Holman MD) Malave esophagus Benign enlargement of prostate Bipolar 1 disorder CHF (congestive heart failure) Coronary artery disease HTN (hypertension) Metastatic squamous cell carcinoma Paroxysmal A-fib Social anxiety disorder Family History Family History (Updated 01/26/22 @ 06:29 by Juancarlos Holman MD) Other No family history of coronary artery disease Surgical History Surgical History History of cardiac cath S/P coronary artery stent placement Social History Social History Alcohol intake: current Alcohol intake frequency: holidays/special occasions only Patient Tobacco Use Status: Never used Tobacco Meds Allergies Allergy/AdvReac Type Severity Reaction Status Date / Time No Known Allergies Allergy Verified 10/31/21 07:09 Active Medications: Current Medications Acetaminophen (Acetaminophen 325 Mg Tablet) 650 mg PO Q6H PRN PRN Reason: Pain, Mild (Pain Scale 1-3) Aspirin (Aspirin Enteric Coated 81 Mg Tablet.) 81 mg PO DAILY [facility] Last Admin: 01/26/22 08:41 Dose: 81 mg Atorvastatin Calcium (Atorvastatin Calcium 40 Mg Tablet) 40 mg PO BEDTIME [facility] Docusate Sodium (Docusate Sodium 100 Mg Capsule) 100 mg PO DAILY PRN PRN Reason: Constipation Furosemide (Furosemide 40 Mg Tablet) 40 mg PO DAILY [facility]; Protocol Last Admin: 01/26/22 08:36 Dose: Not Given Diltiazem HCl 125 mg/ Sodium (Chloride) 125 mls @ 0 mls/hr IVCONT .Q0M [facility]; Protocol Last Titration: 01/26/22 07:48 Dose: 15 mg/hr, 15 mls/hr Azithromycin 500 mg/ Sodium (Chloride) 250 mls @ 125 mls/hr IV Q24H [facility] Ceftriaxone Sodium 1 gm/ (Sodium Chloride) 50 mls @ 100 mls/hr IV Q24H [facility] Metoprolol Tartrate (Metoprolol Tartrate 100 Mg Tablet) 100 mg PO BID [facility]; Protocol Last Admin: 01/26/22 08:41 Dose: 100 mg Ondansetron HCl (Ondansetron Hcl 4 Mg/2 Ml Vial) 4 mg IVPUSH Q8H PRN PRN Reason: Nausea and Vomiting Pharmacy Consult (Consult Rx Perform Med Rec) 1 each MISCELLANE ONCE PRN PRN Reason: Consult order Sodium Chloride (0.9 % Sodium Chloride Flush 3 Ml Syringe) 3 ml IVFLUSH QSHIFT [facility] Last Admin: 01/26/22 07:15 Dose: Not Given Home Medications Medication Instructions Recorded Confirmed Last Taken Type aspirin 81 mg tablet,delayed 1 tab PO DAILY 01/26/22 01/26/22 Unknown History release atorvastatin 40 mg tablet 1 tab PO BEDTIME 01/26/22 01/26/22 Unknown History furosemide 40 mg tablet 1 tab PO DAILY 01/26/22 01/26/22 Unknown History lisinopril 40 mg tablet 1 tab PO DAILY 01/26/22 01/26/22 Unknown History metoprolol tartrate 100 mg tablet 1 tab PO BID 01/26/22 01/26/22 Unknown History Physical Exam Vital Signs: Vital Signs: Last Vital Signs Temp 97.6 F 01/26/22 10:18 Pulse 77 01/26/22 10:18 Resp 18 01/26/22 10:18 BP 108/55 L 01/26/22 10:18 Pulse Ox 96 01/26/22 10:18 O2 Del Method 01/26/22 10:18 O2 Flow Rate 2 01/26/22 10:18 BMI result Body Mass Index 31.8 GENERAL APPEARANCE: in no acute distress, depressed. NECK: no carotid bruit, mild jugular venous distention. SKIN: Chronic lymphedema right lower extremity with skin changes. HEART: no murmurs, irregularly irregular rhythm LUNGS: clear to auscultation bilaterally. ABDOMEN: soft, nontender. EXTREMITIES: Lymphedema right lower extremity. Mild pitting edema left lower extremity. PERIPHERAL PULSES: equal. NEUROLOGIC: No gross deficits, AAO X 3 Objective Labs and Meds Result diagrams: 01/26/22 06:49 01/26/22 05:33 Lab results: Laboratory Results - last 24 hr 01/26/22 01/26/22 01/26/22 00:19 00:19 00:19 WBC 9.5 RBC 3.34 L D Hgb 9.9 L D Hct 30.2 L D MCV 90.4 MCH 29.6 MCHC 32.8 RDW 15.0 Plt Count 273 MPV 9.5 Immature Gran % (Auto) 0.5 H Neut % (Auto) 71.9 Lymph % (Auto) 11.1 L [place] % (Auto) 15.2 H Eos % (Auto) 1.0 Baso % (Auto) 0.3 Lymph # (Auto) 1.1 L [place] # (Auto) 1.5 H Eos # (Auto) 0.1 Baso # (Auto) 0.0 Abs Immat Gran (auto) 0.05 H Absolute Neuts (auto) 6.8 Absolute Nucleated RBC 0.000 Nucleated RBC % (auto) 0.0 PT INR aPTT Heparin Protocol Sodium 132 L Potassium 4.2 Chloride 102 Carbon Dioxide 25 Anion Gap 9 L BUN 17 H Creatinine 0.97 Estim Creat Clear Calc 76.6 Estimated GFR > 60 Random Glucose 116 H Lactic Acid Calcium 8.1 L Magnesium 2.3 Total Bilirubin 1.0 Direct Bilirubin 0.5 AST 11 D ALT < 6 Alkaline Phosphatase 80 Total Creatine Kinase 39 Troponin I High Sens 91.3 H B-Natriuretic Peptide Total Protein 5.9 L Albumin 3.0 L TSH Urine Color Urine Appearance Urine pH Ur Specific [place] Urine Protein Urine Glucose (UA) Urine Ketones Urine Blood Urine Nitrite Ur Leukocyte Esterase Stool Occult Blood COVID-19 ([facility]) COVID-19 Clin Com 01/26/22 01/26/22 01/26/22 00:42 01:37 02:03 WBC RBC Hgb Hct MCV MCH MCHC RDW Plt Count MPV Immature Gran % (Auto) Neut % (Auto) Lymph % (Auto) [place] % (Auto) Eos % (Auto) Baso % (Auto) Lymph # (Auto) [place] # (Auto) Eos # (Auto) Baso # (Auto) Abs Immat Gran (auto) Absolute Neuts (auto) Absolute Nucleated RBC Nucleated RBC % (auto) PT INR aPTT Heparin Protocol Sodium Potassium Chloride Carbon Dioxide Anion Gap BUN Creatinine Estim Creat Clear Calc Estimated GFR Random Glucose Lactic Acid Calcium Magnesium Total Bilirubin Direct Bilirubin AST ALT Alkaline Phosphatase Total Creatine Kinase Troponin I High Sens B-Natriuretic Peptide Total Protein Albumin TSH Urine Color YELLOW Urine Appearance HAZY Urine pH 6.0 Ur Specific [place] 1.020 Urine Protein NEG Urine Glucose (UA) NEG Urine Ketones NEG Urine Blood NEG Urine Nitrite NEG Ur Leukocyte Esterase NEG Stool Occult Blood NEGATIVE COVID-19 ([facility]) Negative COVID-19 [facility] Com See Note 01/26/22 01/26/22 01/26/22 02:20 02:20 03:24 WBC RBC Hgb Hct MCV MCH MCHC RDW Plt Count MPV Immature Gran % (Auto) Neut % (Auto) Lymph % (Auto) [place] % (Auto) Eos % (Auto) Baso % (Auto) Lymph # (Auto) [place] # (Auto) Eos # (Auto) Baso # (Auto) Abs Immat Gran (auto) Absolute Neuts (auto) Absolute Nucleated RBC Nucleated RBC % (auto) PT 15.5 H INR 1.4 H aPTT Heparin Protocol Sodium Potassium Chloride Carbon Dioxide Anion Gap BUN Creatinine Estim Creat Clear Calc Estimated GFR Random Glucose Lactic Acid 1.1 Calcium Magnesium Total Bilirubin Direct Bilirubin AST ALT Alkaline Phosphatase Total Creatine Kinase Troponin I High Sens 93.9 H B-Natriuretic Peptide Total Protein Albumin TSH Urine Color Urine Appearance Urine pH Ur Specific [place] Urine Protein Urine Glucose (UA) Urine Ketones Urine Blood Urine Nitrite Ur Leukocyte Esterase Stool Occult Blood COVID-19 ([facility]) COVID-19 [place] 01/26/22 01/26/22 01/26/22 05:33 05:33 06:49 WBC 8.8 RBC 3.58 L Hgb 10.6 L Hct 32.6 L MCV 91.1 MCH 29.6 MCHC 32.5 RDW 15.1 Plt Count 301 MPV 10.2 Immature Gran % (Auto) 0.7 H Neut % (Auto) 74.3 H Lymph % (Auto) 9.3 L [place] % (Auto) 13.6 H Eos % (Auto) 1.5 Baso % (Auto) 0.6 Lymph # (Auto) 0.8 L [place] # (Auto) 1.2 Eos # (Auto) 0.1 Baso # (Auto) 0.1 Abs Immat Gran (auto) 0.06 H Absolute Neuts (auto) 6.5 Absolute Nucleated RBC 0.000 Nucleated RBC % (auto) 0.0 PT INR aPTT Heparin Protocol Sodium 133 L Potassium 4.2 Chloride 103 Carbon Dioxide 22 Anion Gap 12 BUN 18 H Creatinine 0.83 Estim Creat Clear Calc 89.5 Estimated GFR > 60 Random Glucose 114 Lactic Acid Calcium 8.6 D Magnesium Total Bilirubin Direct Bilirubin AST ALT Alkaline Phosphatase Total Creatine Kinase Troponin I High Sens B-Natriuretic Peptide Total Protein Albumin TSH 0.36 Urine Color Urine Appearance Urine pH Ur Specific [place] Urine Protein Urine Glucose (UA) Urine Ketones Urine Blood Urine Nitrite Ur Leukocyte Esterase Stool Occult Blood COVID-19 ([facility]) COVID-19 [facility] Com 01/26/22 01/26/22 01/26/22 06:49 06:49 06:49 WBC 7.8 RBC 3.32 L Hgb 9.8 L Hct 30.0 L MCV 90.4 MCH 29.5 MCHC 32.7 RDW 15.2 Plt Count 258 MPV 9.7 Immature Gran % (Auto) Neut % (Auto) Lymph % (Auto) [place] % (Auto) Eos % (Auto) Baso % (Auto) Lymph # (Auto) [place] # (Auto) Eos # (Auto) Baso # (Auto) Abs Immat Gran (auto) Absolute Neuts (auto) Absolute Nucleated RBC 0.000 Nucleated RBC % (auto) 0.0 PT 18.2 H INR 1.6 H aPTT Heparin Protocol 38.7 L Sodium Potassium Chloride Carbon Dioxide Anion Gap BUN Creatinine Estim Creat Clear Calc Estimated GFR Random Glucose Lactic Acid Calcium Magnesium Total Bilirubin Direct Bilirubin AST ALT Alkaline Phosphatase Total Creatine Kinase Troponin I High Sens B-Natriuretic Peptide 198 H Total Protein Albumin TSH Urine Color Urine Appearance Urine pH Ur Specific [place] Urine Protein Urine Glucose (UA) Urine Ketones Urine Blood Urine Nitrite Ur Leukocyte Esterase Stool Occult Blood COVID-19 ([facility]) COVID-19 Clin Com Imaging Radiologist's impression: Impressions Chest X-Ray 01/26/22 02:51 FINDINGS/IMPRESSION: Moderate left pleural effusion with accompanying atelectasis/consolidation. Right lung and pleural space are clear. No pneumothorax. Stable mild cardiomegaly. Loop recorder device redemonstrated in the left chest wall. Head CT 01/26/22 03:18 IMPRESSION: * No acute territorial infarct or intracranial hemorrhage. * Moderate-severe chronic migration of gliosis. 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 * Generalized brain parenchymal volume loss. Assessment and Plan (1) Atrial fibrillation with rapid ventricular response: Status: Acute Plan 81-year-old gentleman who is presenting with pneumonia and AFib with RVR. He is on IV antibiotics currently. He was also thought to have congestive heart failure and was given IV diuretics. His chest x-ray is showing pleural effusion on the left side. Overall he does not look significantly volume overloaded. Can get 1 more dose of IV diuretics and can be changed to oral furosemide after that. If left pleural effusion persists then can consider thoracentesis for symptom relief. He is on Cardizem drip and is tolerating it. His heart rates are well controlled. He is also on 100 mg twice a day metoprolol. I would avoid further digoxin for now. We will arrange an echocardiogram on Friday to assess for any cardiomyopathy. Agree with anticoagulation. Eliquis 5 mg twice a day. He will need records from Dr. Santiago's office. Thank you for allowing me to participate in the care of your patient. Please feel free to contact me if you have any questions. Procedures Date of Service Date of Service: 01/26/22
--- NOTE | 2022-01-26 10:53 | PM.EVENT ---
Event Note Date of Service: 01/26/22 Event Note: patient admitted early this morning with a diagnosis of atrial fibrillation with RVR, pneumonia , and mild acute congestive heart failure has prior history of paroxysmal atrial fibrillation, coronary artery disease, congestive heart failure ef not known, history of bipolar disorder, history of anxiety, metastatic squamous cell carcinoma, coronary artery disease, and hypertension, chronic right lower extremity lymphedema patient stopped taking his home meds for last couple months due to worsening depression he lives at home with his daughter who is PTSD and his who has severe arthritis patient feeling better this morning complaining of right leg chronic swelling and left leg itching and intermittent pain, denies chest pain, no palpitation assessment and plan paroxysmal atrial fibrillation with rapid RVR likely due to not taking home medications case discussed with Cardiology they recommend to continue Cardizem and metoprolol, resume Eliquis twice daily, will avoid further digoxin, DC IV heparin acute on chronic congestive heart failure EF not aware obtain echocardiogram on Friday received 1 dose of IV Lasix, will repeat 1 more dose and transition to by mouth Lasix 40 mg daily from tomorrow, monitor electrolytes follow I's and O's and daily weight, BNP 198 pneumonia continue current antibiotics day 1 hypertension soft blood pressure hold lisinopril coronary artery disease no chest pain elevated troponin likely secondary to AFib continue aspirin and metoprolol right lower extremity lymphedema recommended Jorge Luis wrap
[2022-01-26] MEDS: dilTIAZem HCL 125 MG in 0.9 % Sodium Chloride 100 ML 15 MG IVCONT (10:56)
--- NOTE | 2022-01-26 11:37 | MHC.CM.PN ---
CM met with Patient at bedside and addressed IMM with him, providing him with the original and placing a copy on the chart. Patient lives in an apartment with his and adult Daughter and he receives MOWs and uses both a cane and walker depending on the terrain.Home/no services is the goal and CM has initiated and will follow for dc planning. PCP is Dr. Carol Mathis and Patient has received Covid/Pfizer vax X2.HCP is on file.
[2022-01-26] MEDS: Atorvastatin Calcium 40 MG TABLET PO (21:36)
[2022-01-27] VITALS: BP 124/68; PULSE 89; RESP 18; TEMP 36.6; O2SAT 94
[2022-01-27 03:19] VITALS: BP 119/85; PULSE 82; RESP 18; TEMP 36.6; O2SAT 94
[2022-01-27] MEDS: cefTRIAXone sodium 1 GM in 0.9 % Sodium Chloride 50 ML IV (05:00)
[2022-01-27] MEDS: Azithromycin 500 MG in 0.9 % Sodium Chloride 250 ML 125 MG IV (05:53)
[2022-01-27] MEDS: dilTIAZem HCL 125 MG in 0.9 % Sodium Chloride 100 ML 15 MG IVCONT (06:53)
[2022-01-27 06:59] LABS: Hematocrit 32.7 % (42.0-52.0); Hemoglobin 10.4 g/dl (14.0-18.0); Mean Corpuscular HGB Conc 31.8 g/dl (31.0-36.0); Mean Corpuscular Hemoglobin 29.3 pg (27.0-33.0); Mean Corpuscular Volume 92.1 fL (80.0-98.0); Mean Platelet Volume 10.1 fL (9.4-12.4); Platelet Count 279 X10*3/uL (160-400); Red Blood Count 3.55 X10*6/uL (4.60-5.80); Red Cell Distribution Width 15.1 % (11.0-16.0); White Blood Count 6.3 X10*3/uL (4.8-10.8)
[2022-01-27 07:04] LABS: INTERNATIONAL NORM RATIO 1.5 (0.9-1.1); Prothrombin Time 17.4 SEC (9.9-13.0)
[2022-01-27 07:42] LABS: Anion Gap 12 (12-20); Blood Urea Nitrogen 11 mg/dL (9-16); Carbon Dioxide 22 mmol/L (22-29); Chloride 103 mmol/L (96-108); Cholesterol 149 mg/dL; Creatinine Clr Calc Pharmacy 91.4; Estimated Glomerular Filt Rate > 60; Glucose Random 121 mg/dL (60-115); HDL Cholesterol 25 mg/dL; LDL Cholesterol Calculated 111 mg/dl; Sodium 133 mmol/L (135-145); Triglycerides 67 mg/dL
[2022-01-27 08:00] VITALS: BP 1123/87; PULSE 136; RESP 20; TEMP 36.3; O2SAT 92
[2022-01-27 09:12] LABS: Procalcitonin 0.14 ng/mL
--- NOTE | 2022-01-27 11:30 | PM.PNCARD ---
Subjective Subjective Date of Service: 01/27/22 Interval history: Nonproductive cough. He has no palpitations. Telemetry has shown atrial fibrillation with heart rates as high as 120s at times. Physical Exam Vital Signs: Last Vital Signs Temp 97.4 F 01/27/22 08:00 Pulse 136 H 01/27/22 08:00 Resp 20 01/27/22 08:00 BP 1123/87 H 01/27/22 08:00 Pulse Ox 92 01/27/22 08:00 O2 Del Method 01/27/22 08:00 O2 Flow Rate 2 01/26/22 20:00 BMI result Body Mass Index 31.6 GENERAL APPEARANCE: in no acute distress. NECK: no carotid bruit, mild jugular venous distention. SKIN: Chronic lymphedema right lower extremity with skin changes. HEART: no murmurs, irregularly irregular rhythm LUNGS: clear to auscultation bilaterally. ABDOMEN: soft, nontender. EXTREMITIES: Lymphedema right lower extremity. Mild pitting edema left lower extremity. PERIPHERAL PULSES: equal. NEUROLOGIC: No gross deficits, AAO X 3 Objective Labs and Meds Result diagrams: 01/27/22 06:41 01/27/22 06:41 Lab results: Laboratory Results - last 24 hr 01/27/22 01/27/22 01/27/22 06:41 06:41 06:41 WBC 6.3 RBC 3.55 L Hgb 10.4 L Hct 32.7 L MCV 92.1 MCH 29.3 MCHC 31.8 RDW 15.1 Plt Count 279 MPV 10.1 Absolute Nucleated RBC 0.000 Nucleated RBC % (auto) 0.0 PT 17.4 H INR 1.5 H Sodium 133 L Potassium 4.0 Chloride 103 Carbon Dioxide 22 Anion Gap 12 BUN 11 Creatinine 0.81 Estim Creat Clear Calc 91.4 Estimated GFR > 60 Random Glucose 121 H Calcium 8.0 L D Triglycerides 67 Cholesterol 149 LDL Cholesterol, Calc 111 HDL Cholesterol 25 Procalcitonin 01/27/22 06:41 WBC RBC Hgb Hct MCV MCH MCHC RDW Plt Count MPV Absolute Nucleated RBC Nucleated RBC % (auto) PT INR Sodium Potassium Chloride Carbon Dioxide Anion Gap BUN Creatinine Estim Creat Clear Calc Estimated GFR Random Glucose Calcium Triglycerides Cholesterol LDL Cholesterol, Calc HDL Cholesterol Procalcitonin 0.14 Progress Note: A&P Assessment and plan (1) Atrial fibrillation with rapid ventricular response: Status: Acute Plan 81-year-old gentleman with pneumonia and AFib with RVR. He is on metoprolol and Cardizem drip. Still coughing but not distress or short of breath. Does not look significantly overloaded currently. Check echocardiogram tomorrow. If LVEF is normal then change him to p.o. Cardizem 240 mg daily. If LVEF is lower than stop the Cardizem drip and consider adding digoxin. On Eliquis for anticoagulation. I thing aspirin can be stopped. If difficult to control heart rates and we will consider VENANCIO cardioversion. Thank you for allowing me to participate in the care of your patient. Please feel free to contact me if you have any questions. Time Spent With Patient Time: Total time spent is greater than 50% in coordination of care (as documented) at patient's floor/unit and/or counseling patient: Progress Note: Quality Stroke Does the patient have a stroke diagnosis?: No Procedures Date of Service Date of Service: 01/27/22
[2022-01-27] MEDS: Metoprolol Tartrate 100 MG TABLET PO ×2 (11:54→20:57)
[2022-01-27] MEDS: Aspirin Enteric Coated 81 MG TABLET.DR PO (11:55)
[2022-01-27] MEDS: Furosemide 40 MG TABLET PO (11:55)
[2022-01-27] MEDS: Apixaban 5 MG TABLET PO ×2 (11:55→20:57)
[2022-01-27 12:03] VITALS: BP 98/68; PULSE 87; RESP 12; O2SAT 93
--- NOTE | 2022-01-27 12:49 | HO.PM.IMPN ---
Subjective Subjective Date of Service: 01/27/22 Interval History: persistent AF, rate 80s-120s coughing but not dyspneic no chest pain no papitations Review of Systems Review of Systems: Yes all other systems are reviewed and are negative Physical Exam Vital Signs: Vital Signs: Last Vital Signs Temp 97.4 F 01/27/22 08:00 Pulse 87 01/27/22 12:03 Resp 12 01/27/22 12:03 BP 98/68 01/27/22 12:03 Pulse Ox 93 01/27/22 12:03 O2 Del Method 01/27/22 12:03 O2 Flow Rate 2 01/27/22 12:03 BMI result Body Mass Index 31.6 Gen: in no acute distress HEENT: sclera anicteric, moist mucus membranes Neck: supple Lungs: decreased air entry L base Heart: irregularly irregular, no murmurs Abd: soft, non-tender, non-distended Ext: chronic RLE lymphedema Skin: warm/well-perfused Neuro: alert and oriented x3, no focal findings Psych: appropriate affect Objective Data Active Medications Acetaminophen (Acetaminophen 325 Mg Tablet) 650 mg PO Q6H PRN PRN Reason: Pain, Mild (Pain Scale 1-3) Apixaban (Apixaban 5 Mg Tablet) 5 mg PO BID [facility] Last Admin: 01/27/22 11:55 Dose: 5 mg Documented By: KATHLEEN Atorvastatin Calcium (Atorvastatin Calcium 40 Mg Tablet) 40 mg PO BEDTIME [facility] Last Admin: 01/26/22 21:36 Dose: 40 mg Documented By: RAAD Docusate Sodium (Docusate Sodium 100 Mg Capsule) 100 mg PO DAILY PRN PRN Reason: Constipation Furosemide (Furosemide 40 Mg Tablet) 40 mg PO DAILY [facility]; Protocol Last Admin: 01/27/22 11:55 Dose: 40 mg Documented By: KATHLEEN Diltiazem HCl 125 mg/ Sodium (Chloride) 125 mls @ 0 mls/hr IVCONT .Q0M [facility]; Protocol Last Titration: 01/27/22 12:08 Dose: 10 mg/hr, 10 mls/hr Documented By: KATHLEEN Azithromycin 500 mg/ Sodium (Chloride) 250 mls @ 125 mls/hr IV Q24H [facility] Last Infusion: 01/27/22 11:36 Dose: 0 mls/hr Documented By: BILLY Ceftriaxone Sodium 1 gm/ (Sodium Chloride) 50 mls @ 100 mls/hr IV Q24H [facility] Last Infusion: 01/27/22 05:46 Dose: 0 mls/hr Documented By: RAAD Metoprolol Tartrate (Metoprolol Tartrate 100 Mg Tablet) 100 mg PO BID [facility]; Protocol Last Admin: 01/27/22 11:54 Dose: 100 mg Documented By: KATHLEEN Ondansetron HCl (Ondansetron Hcl 4 Mg/2 Ml Vial) 4 mg IVPUSH Q8H PRN PRN Reason: Nausea and Vomiting Pharmacy Consult (Consult Rx Perform Med Rec) 1 each MISCELLANE ONCE PRN PRN Reason: Consult order Sodium Chloride (0.9 % Sodium Chloride Flush 3 Ml Syringe) 3 ml IVFLUSH QSHIFT [facility] Last Admin: 01/27/22 11:56 Dose: Not Given Documented By: KATHLEEN Non-Admin Reason: IV Running Labs CBC & Chem 7: 01/27/22 06:41 01/27/22 06:41 Labs: Laboratory Results - last 24 hr 01/27/22 01/27/22 01/27/22 06:41 06:41 06:41 MCV 92.1 MCH 29.3 MCHC 31.8 RDW 15.1 Plt Count 279 MPV 10.1 Absolute Nucleated RBC 0.000 Nucleated RBC % (auto) 0.0 PT 17.4 H INR 1.5 H Anion Gap 12 Estim Creat Clear Calc 91.4 Estimated GFR > 60 Random Glucose 121 H Calcium 8.0 L D Triglycerides 67 Cholesterol 149 LDL Cholesterol, Calc 111 HDL Cholesterol 25 Procalcitonin 01/27/22 06:41 MCV MCH MCHC RDW Plt Count MPV Absolute Nucleated RBC Nucleated RBC % (auto) PT INR Anion Gap Estim Creat Clear Calc Estimated GFR Random Glucose Calcium Triglycerides Cholesterol LDL Cholesterol, Calc HDL Cholesterol Procalcitonin 0.14 Microbiology Microbiology Results: Microbiology 01/26/22 02:22 Blood Culture - Preliminary Blood - Venous No growth after 24 hours. 01/26/22 02:22 Blood Culture - Preliminary Blood - Venous No growth after 24 hours. Assessment and Plan (1) Atrial fibrillation with rapid ventricular response: Status: Acute Plan hospital d#2 81yo M with CHF, CAD presented to the hospital after found with lethargy, admitted with AF/RVR and PNA with pleural effusion concern for medication non-adherence # AF/RVR - continue PO metoprolol tartrate and IV diltiazem drip. TTE tomorrow; if LVEF normal, change to PO diltiazem 240 mg daily; if LVEF low, then stop diltiazem and consider adding digoxin. continue apixaban for AC. Cardiology following # PNA with pleural effusion - d#2 azithromycin + ceftriaxone, follow BCx, trend PCT # CH with unknown EF - given 1 dose IV furosemide, now on PO home maintenance dose - TTE pending # HTN - lisinopril held for soft BP, continue metoprolol # CAD - no chest pain; elevated Tn-I flat and due to AF/RVR; per Cardiology, d/c aspirin since on apixaban; continue metoprolol # severe depression - CARE Team consult # RLE lymphedema - EVETTE wrap # VTE ppx: apixaban In my clinical judgment, the patient requires continued hospitalization for the following reasons: IV rate control, IV ABX Quality Stroke Does the patient have a stroke diagnosis?: No VTE Prior VTE?: No VTE Risk Level:: Medical - moderate - high VTE Device Contraindication: Treatment Not Indicated VTE Drug Contraindication: N/A - Med Ordered
[2022-01-27 15:12] VITALS: BP 117/73; PULSE 105; RESP 18; TEMP 36.1; O2SAT 95
[2022-01-27 19:16] VITALS: BP 132/76; PULSE 50; RESP 18; TEMP 36.2; O2SAT 95
[2022-01-27] MEDS: Atorvastatin Calcium 40 MG TABLET PO (20:57)
[2022-01-27] MEDS: dilTIAZem HCL 125 MG in 0.9 % Sodium Chloride 100 ML 10 MG IVCONT (21:05)
[2022-01-28] VITALS (8 sets, daily range): BP systolic 105–144; BP diastolic 55–86; PULSE 58–130; RESP 16–18; TEMP 36.6–36.9; O2SAT 92–95
[2022-01-28] MEDS: cefTRIAXone sodium 1 GM in 0.9 % Sodium Chloride 50 ML IV (03:52)
[2022-01-28] MEDS: Azithromycin 500 MG in 0.9 % Sodium Chloride 250 ML 125 MG IV (04:33)
--- NOTE | 2022-01-28 07:00 | CA_ITS ---
Transthoracic Echocardiogram Patient (Last, First, Middle): Daniel Cm, Gender: Male Date of : 1940 Age: 81 Procedure Date: 01/28/2022 Procedure Type: Transthoracic Echocardiogram Location: [facility] Height: 182.88 cm Weight: 105.69 kg BSA: 2.27 m2 Heart Rate: bpm BP: 133 / 74 mmHg Director Of Intelligence: OLLIE Referring MD: Juancarlos Holman MD Residential Carpenter: Joesph Voss MD Symptoms: A fib Study Quality: Technically Difficult/contrast ECG Rhythm: Atrial Fibrillation Conclusions: - 1. Normal LV systolic function with moderate LVH 2. At least moderately dilated left atrium 3. Normal cardiac valvular Dopplers 4. Significantly elevated right atrial pressures 5. At least moderate pericardial effusion Findings Procedure Information Contrast agent, definity, is being given per protocol without apparent complications. Left Ventricle Normal left ventricular size and systolic function. There is moderately increased left ventricular wall thickness. The visually estimated ejection fraction is between 60-65%. Diastolic function is indeterminate on the basis of available data. Right Ventricle The right ventricle was not well visualized. Atria The left atrium is moderately dilated. Interatrial shunt cannot be excluded. The right atrium was not well visualized. Aortic Valve The aortic valve was not well visualized. There is no aortic valve stenosis. There is no aortic valve regurgitation. Mitral Valve Normal mitral valve structure and function. There is trace mitral valve regurgitation. There is no mitral valve stenosis. Pulmonic Valve The pulmonic valve was not well visualized. Tricuspid Valve Likely normal tricuspid valve structure and function. Tricuspid regurgitation envelope is inadequate for calculation of right ventricular systolic pressure. Significantly elevated right atrial pressure. Great Vessels All visible segments of the aorta are normal in size. The pulmonary artery was not well visualized. Venous The inferior vena cava is moderately dilated and does not collapse with inspiration. Pericardium/Pleural There is a moderate circumferential pericardial effusion. Prior Study Comparison No prior study available for comparison. Measurements 2D Linear Measurements IVSd: 1.52 0.6-0.9/0.6-1.0 cm LVIDd: 3.94 3.9-5.3/4.2-5.9 cm LVIDd Index: 1.74 2.4-3.2/2.2-3.1 cm/m2 LVIDs: 2.46 2.0-3.6 cm LVPWd: 1.54 0.7-1.1 cm LA Diam: 4.20 2.7-3.8/3.0-4.0 cm LAIDs Index: 1.85 1.5-2.3 cm/m2 LV Mass: 293.11 67-162/88-224 g LV Mass Index: 129.12 43-95/49-115 g/m2 LVOT Diam: 2.30 3.0+(-)1.3 cm Mitral Valve MV Pk E: 1.24 MV Decel Time: 152.00 E'Lateral: 7.86 E'Medial: 6.85 E/E' Med: 18.10 E/E' Lat: 15.80 PHT: 45.00 MVA PHT: 4.89 Decel [place]: 9.07 Aortic Valve AoV Pk Heron: 1.30 AoV Mn Heron: 0.93 AoV VTI: 0.23 AoV Pk Grad: 7.00 Aov Mn Grad: 4.00 ASHLEY Cont.VTI: 3.79 LVOT LVOT Pk Heron: 1.17 LVOT Mn Heron: 0.83 LVOT VTI: 0.21 LVOT Pk Grad: 5.00 LVOT Mn Grad: 4.00 LVOT Diam: 2.30 LVOT Area: 4.15 Diastolic Function MV Pk E: 1.24 E'Medial: 6.85 E/E' Med: 18.10 E' Laterial: 7.86 E/E' Lat: 15.80 Right Ventricle TVS' Heron: 6.70 Tricuspid Valve RA Press: 15.00 Great Vessels Aorta Sinus of Valsalva: 4.02 2.0-3.[address] [place]: 2.81 1.7-3.4 cm Ao Asc: 3.60 2.1-3.4 cm Updated in Other Vendor System with Status of Final Joesph Voss MD electronically signed on 01/28/2022 5:25:41 PM with status of Final
[2022-01-28] MEDS: Furosemide 40 MG TABLET PO (10:50)
[2022-01-28] MEDS: Metoprolol Tartrate 100 MG TABLET PO ×2 (10:50→20:32)
[2022-01-28] MEDS: 0.9 % Sodium Chloride Flush 3 ML SYRINGE IVFLUSH ×2 (10:52→20:36)
[2022-01-28] MEDS: Apixaban 5 MG TABLET PO (10:52)
--- NOTE | 2022-01-28 11:05 | HO.WOUNDCONS ---
History of Present Illness Data of Consult Service Date: 01/28/22 Requesting physician: Gurdeep Colon Primary Care Provider: Carol Mathis NP HPI Reason for consult: RLE lymphedema with ulcers 81-year-old male in admitted for AFib with RVR and pneumonia sounds like failure to thrive picture. Found unresponsive in the home. Has previous acute rehab stay but currently refusing services apparently. Has history of metastatic squamous cell carcinoma in the right leg. Reports he had lymph nodes removed from the right groin in the past. States that his oncology team is at [facility]. Year notes indicate oozing from the right leg on admission. Physician notes indicate that Jorge Luis wrap is most appropriate for lymphedema. Agree completely. He is currently on telemetry. Review of Systems Review of Systems: No racing heart. No short of breath. Denies fever. Denies drainage in the right leg. No soaking through on to sheets in pants. Yes all other systems are reviewed and are negative [facility] Medical History Malave esophagus Benign enlargement of prostate Bipolar 1 disorder CHF (congestive heart failure) Coronary artery disease HTN (hypertension) Metastatic squamous cell carcinoma Paroxysmal A-fib Social anxiety disorder Family History Other No family history of coronary artery disease Surgical History History of cardiac cath S/P coronary artery stent placement Social History (Updated 01/26/22 @ 11:51 by Dianne Shah RN) Household Members: Family Housing: Apartment Alcohol intake: current Alcohol intake frequency: holidays/special occasions only Patient Tobacco Use Status: Never used Tobacco Smoked in Last 30 Days: No service: No Current occupational status: retired Meds Allergies Allergy/AdvReac Type Severity Reaction Status Date / Time No Known Allergies Allergy Verified 10/31/21 07:09 Active Medications: Current Medications Acetaminophen (Acetaminophen 325 Mg Tablet) 650 mg PO Q6H PRN PRN Reason: Pain, Mild (Pain Scale 1-3) Apixaban (Apixaban 5 Mg Tablet) 5 mg PO BID [facility] Last Admin: 01/28/22 10:52 Dose: 5 mg Atorvastatin Calcium (Atorvastatin Calcium 40 Mg Tablet) 40 mg PO BEDTIME [facility] Last Admin: 01/27/22 20:57 Dose: 40 mg Docusate Sodium (Docusate Sodium 100 Mg Capsule) 100 mg PO DAILY PRN PRN Reason: Constipation Furosemide (Furosemide 40 Mg Tablet) 40 mg PO DAILY [facility]; Protocol Last Admin: 01/28/22 10:50 Dose: 40 mg Diltiazem HCl 125 mg/ Sodium (Chloride) 125 mls @ 0 mls/hr IVCONT .Q0M [facility]; Protocol Last Titration: 01/28/22 10:59 Dose: Infused Azithromycin 500 mg/ Sodium (Chloride) 250 mls @ 125 mls/hr IV Q24H [facility] Last Infusion: 01/28/22 06:48 Dose: Infused Ceftriaxone Sodium 1 gm/ (Sodium Chloride) 50 mls @ 100 mls/hr IV Q24H [facility] Last Infusion: 01/28/22 04:35 Dose: Infused Metoprolol Tartrate (Metoprolol Tartrate 100 Mg Tablet) 100 mg PO BID [facility]; Protocol Last Admin: 01/28/22 10:50 Dose: 100 mg Ondansetron HCl (Ondansetron Hcl 4 Mg/2 Ml Vial) 4 mg IVPUSH Q8H PRN PRN Reason: Nausea and Vomiting Pharmacy Consult (Consult Rx Perform Med Rec) 1 each MISCELLANE ONCE PRN PRN Reason: Consult order Sodium Chloride (0.9 % Sodium Chloride Flush 3 Ml Syringe) 3 ml IVFLUSH QSHIFT [facility] Last Admin: 01/28/22 10:52 Dose: 3 ml Home Medications Medication Instructions Recorded Confirmed Last Taken Type aspirin 81 mg tablet,delayed 1 tab PO DAILY 01/26/22 01/26/22 Unknown History release atorvastatin 40 mg tablet 1 tab PO BEDTIME 01/26/22 01/26/22 Unknown History furosemide 40 mg tablet 1 tab PO DAILY 01/26/22 01/26/22 Unknown History lisinopril 40 mg tablet 1 tab PO DAILY 01/26/22 01/26/22 Unknown History metoprolol tartrate 100 mg tablet 1 tab PO BID 01/26/22 01/26/22 Unknown History Physical Exam Vital Signs and Narrative: Vital Signs: Last Vital Signs Temp 98.3 F 01/28/22 07:23 Pulse 83 01/28/22 09:42 Resp 17 01/28/22 07:23 BP 121/83 01/28/22 09:42 Pulse Ox 94 01/28/22 09:42 O2 Del Method 01/28/22 07:23 O2 Flow Rate 2 01/28/22 07:23 BMI result Body Mass Index 31.6 Edema in the right lower extremity is well controlled with the Jorge Luis wrap appropriately ordered. Finding leg to be primarily dry without significant drainage. Small areas of slough which might be amenable to debridement are identified. Of greatest concern is a 1 x 1 cm area of abnormal tissue medial to anterior romero midline which might stand to be biopsied by his cancer team after discharge at [facility]. With the Jorge Luis wrap, edema is well controlled. There is no redness streaking or warmth to suggest infection. There is no expressible drainage. Small areas that are laden with slough are best managed with silver alginate if more sophisticated dressings are requested other than the Jorge Luis wrap. Results Labs CBC and Chem 7: 01/27/22 06:41 01/27/22 06:41 Assessment and Plan (1) Metastatic squamous cell carcinoma: (2) Lymphedema of right lower extremity: Status: Acute Plan 81-year-old male appropriately admitted for a rapid AFib, pneumonia and failure to thrive with long-standing lymphedema in the right leg associated with lymph node removal and squamous cell carcinoma. Jorge Luis wrap appropriately ordered by attending of record. Drainage is well controlled. If outpatient wound care follow-up is desired, might suggest [facility] wound clinic given history of sqaumos cell skin cancer [facility] I placed a small piece of silver alginate over some of the areas of slough with gauze and replaced the Jorge Luis wrap. If one wishes to use alginate instead of roller gauze and Jorge Luis wrap alone, might suggest changing this every 48 hours.
--- NOTE | 2022-01-28 11:12 | HO.PM.IMPN ---
Subjective Subjective Date of Service: 01/28/22 Interval History: AF, rate 90s-100s cough improved endorses depression, denies SI Review of Systems Review of Systems: Yes all other systems are reviewed and are negative Physical Exam Vital Signs: Vital Signs: Last Vital Signs Temp 98.3 F 01/28/22 07:23 Pulse 83 01/28/22 09:42 Resp 17 01/28/22 07:23 BP 121/83 01/28/22 09:42 Pulse Ox 94 01/28/22 09:42 O2 Del Method 01/28/22 07:23 O2 Flow Rate 2 01/28/22 07:23 BMI result Body Mass Index 31.6 Gen: in no acute distress HEENT: sclera anicteric, moist mucus membranes Neck: supple Lungs: decreased air entry L base Heart: irregularly irregular, no murmurs Abd: soft, non-tender, non-distended Ext: chronic RLE lymphedema Skin: warm/well-perfused Neuro: alert and oriented x3, no focal findings Psych: appropriate affect Objective Data Active Medications Acetaminophen (Acetaminophen 325 Mg Tablet) 650 mg PO Q6H PRN PRN Reason: Pain, Mild (Pain Scale 1-3) Apixaban (Apixaban 5 Mg Tablet) 5 mg PO BID [facility] Last Admin: 01/28/22 10:52 Dose: 5 mg Documented By: JOSH Atorvastatin Calcium (Atorvastatin Calcium 40 Mg Tablet) 40 mg PO BEDTIME [facility] Last Admin: 01/27/22 20:57 Dose: 40 mg Documented By: SUSIE Docusate Sodium (Docusate Sodium 100 Mg Capsule) 100 mg PO DAILY PRN PRN Reason: Constipation Furosemide (Furosemide 40 Mg Tablet) 40 mg PO DAILY [facility]; Protocol Last Admin: 01/28/22 10:50 Dose: 40 mg Documented By: JOSH Diltiazem HCl 125 mg/ Sodium (Chloride) 125 mls @ 0 mls/hr IVCONT .Q0M [facility]; Protocol Last Titration: 01/28/22 10:59 Dose: 10 mg/hr, 10 mls/hr Documented By: JOSH Azithromycin 500 mg/ Sodium (Chloride) 250 mls @ 125 mls/hr IV Q24H [facility] Last Infusion: 01/28/22 06:48 Dose: 0 mls/hr Documented By: SUSIE Ceftriaxone Sodium 1 gm/ (Sodium Chloride) 50 mls @ 100 mls/hr IV Q24H [facility] Last Infusion: 01/28/22 04:35 Dose: 0 mls/hr Documented By: SUSIE Metoprolol Tartrate (Metoprolol Tartrate 100 Mg Tablet) 100 mg PO BID [facility]; Protocol Last Admin: 01/28/22 10:50 Dose: 100 mg Documented By: JOSH Ondansetron HCl (Ondansetron Hcl 4 Mg/2 Ml Vial) 4 mg IVPUSH Q8H PRN PRN Reason: Nausea and Vomiting Pharmacy Consult (Consult Rx Perform Med Rec) 1 each MISCELLANE ONCE PRN PRN Reason: Consult order Sodium Chloride (0.9 % Sodium Chloride Flush 3 Ml Syringe) 3 ml IVFLUSH QSHIFT [facility] Last Admin: 01/28/22 10:52 Dose: 3 ml Documented By: JOSH Labs CBC & Chem 7: 01/27/22 06:41 01/27/22 06:41 Microbiology Microbiology Results: Microbiology 01/26/22 02:22 Blood Culture - Preliminary Blood - Venous No growth after 48 hours. 01/26/22 02:22 Blood Culture - Preliminary Blood - Venous No growth after 48 hours. Assessment and Plan (1) Atrial fibrillation with rapid ventricular response: Status: Acute Plan hospital d#3 81yo M with CHF, CAD presented to the hospital after found with lethargy, admitted with AF/RVR and PNA with pleural effusion concern for medication non-adherence # AF/RVR - continue PO metoprolol tartrate and IV diltiazem drip. TTE today; if LVEF normal, change to PO diltiazem 240 mg daily; if LVEF low, then stop diltiazem and consider adding digoxin. continue apixaban for AC. Cardiology following # PNA with pleural effusion - d#3 azithromycin + ceftriaxone, follow BCx, trend PCT - repeat CXR and if persistent to consider Pulm consult, possible thoracentesis though pt has minimal symptoms and is not hypoxic # CH with unknown EF - given 1 dose IV furosemide, now on PO home maintenance dose - TTE pending # HTN - lisinopril held for soft BP, continue metoprolol # CAD - no chest pain; elevated Tn-I flat and due to AF/RVR; per Cardiology, d/c aspirin since on apixaban; continue metoprolol # RLE lymphedema - EVETTE wrap, Wound Care consult pending # severe depression - CARE Team consult pending # VTE ppx: apixaban # dispo: seen by PT, recommended to go to [facility] In my clinical judgment, the patient requires continued hospitalization for the following reasons: IV rate control, IV ABX Quality Stroke Does the patient have a stroke diagnosis?: No VTE Prior VTE?: No VTE Risk Level:: Medical - moderate - high VTE Device Contraindication: Treatment Not Indicated VTE Drug Contraindication: N/A - Med Ordered
[2022-01-28] MEDS: dilTIAZem HCL 125 MG in 0.9 % Sodium Chloride 100 ML 10 MG IVCONT (13:06)
--- NOTE | 2022-01-28 13:14 | PM.PNCARD ---
Subjective Subjective Date of Service: 01/28/22 <KOURTNEY Mejia - Last Filed: 01/28/22 13:27> 01/28/22 <Joesph Voss MD - Last Filed: 01/28/22 16:39> Principal diagnosis: AF, Left pleural effusion, PNA <KOURTNEY Mejia - Last Filed: 01/28/22 13:27> Interval history: Seen at 0835. Today he reports feeling well. No shortness of breath, cough. No chest pains, palpitations, dizziness, Slept well. CXR completed. Echo pending. Tele showing afib rates 90-106. Still on Diltiazem drip. <KOURTNEY Mejia - Last Filed: 01/28/22 13:27> Review of Systems Review of Systems as above <KOURTNEY Mejia - Last Filed: 01/28/22 13:27> Yes all other systems are reviewed and are negative <KOURTNEY Mejia - Last Filed: 01/28/22 13:27> Physical Exam Vital Signs: Last Vital Signs Temp 98.2 F 01/28/22 11:40 Pulse 76 01/28/22 11:40 Resp 16 01/28/22 11:40 BP 115/55 L 01/28/22 11:40 Pulse Ox 93 01/28/22 11:40 O2 Del Method 01/28/22 11:40 O2 Flow Rate 2 01/28/22 07:23 BMI result Body Mass Index 31.6 <KOURTNEY Mejia - Last Filed: 01/28/22 13:27> Const General: cooperative, no acute distress, alert and awake <KOURTNEY Mejia - Last Filed: 01/28/22 13:27> Neck Neck: Yes normal visual inspection and Yes no JVD <KOURTNEY Mejia Last Filed: 01/28/22 13:27> Resp Effort & Inspection: normal respiratory effort, able to speak in complete sentences and not labored <KOURTNEY Mejia Last Filed: 01/28/22 13:27> Auscultation: clear to auscultation bilaterally (dim left base), no crackles, no rales, no rhonchi and no wheezes <KOURTNEY Mejia - Last Filed: 01/28/22 13:27> Cardio Palpation: normal PMI <KOURTNEY Mejia - Last Filed: 01/28/22 13:27> Rate: regular rate and tachycardic <KOURTNEY Mejia - Last Filed: 01/28/22 13:27> Rhythm: abnormal rhythm irregularly irregular <KOURTNEY Mejia - Last Filed: 01/28/22 13:27> Heart sounds: S1 normal heart sound present and S2 normal heart sound present <KOURTNEY Mejia - Last Filed: 01/28/22 13:27> Peripheral pulses: Peripheral pulses 2+ throughout <KOURTNEY Mejia - Last Filed: 01/28/22 13:27> GI Inspection: Yes normal to inspection <KOURTNEY Mejia Last Filed: 01/28/22 13:27> Extrem Other: perri wrap to right lower leg - chronic lymphedema. Left lower leg without pitting edema. <Meche Romo KOURTNEY Levy Last Filed: 01/28/22 13:27> Objective Labs and Meds Result diagrams: : 01/27/22 06:41 01/27/22 06:41 <Meche Romo KOURTNEY - Last Filed: 01/28/22 13:27> Progress Note: A&P Assessment and plan (1) Atrial fibrillation with rapid ventricular response: Status: Acute <Meche Romo KOURTNEY Levy Last Filed: 01/28/22 13:27> Assessment and Plan: Hx of PAF. Was off meds for last several months due to reported issues with depression. Afib RVR on admit. Being treated with Diltiazem drip and Metoprolol po for heart rate control. Tele shows Afib rates 90-s low 100s currently. He denies heart palpitations. He was started on Eliquis for anitcoagulation ( Cr 0.83, Wt 233 lb). No bleeding issues reported. Echo is pending. Further med mgt based on echo results. Continue current treatment. Ongoing tele monitoring. <MecheKOURTNEY Walker - Last Filed: 01/28/22 13:27> Hx of PAF. Was off meds for last several months due to reported issues with depression. Afib RVR on admit. Being treated with Diltiazem drip and Metoprolol po for heart rate control. Tele shows Afib rates 90-s low 100s currently. He denies heart palpitations. He was started on Eliquis for anitcoagulation ( Cr 0.83, Wt 233 lb). No bleeding issues reported. Echo is pending. Further med mgt based on echo results. Continue current treatment. Ongoing tele monitoring. Patient seen and examined. Case discussed with Meche Romo. Patient having no symptoms from cardiac perspective. Still appears short of breath. Requesting Lasix for lymphedema. Can restart his Lasix. Rate is borderline controlled for atrial fibrillation at this point time. Continue IV Cardizem drip and maximize metoprolol therapy. Agree with oral anticoagulation Eliquis. Echocardiogram is pending. Will review the results. Blood pressure is optimized. Continue supportive care and treatment of his underlying pneumonia. Will follow with you <Joesph Voss MD - Last Filed: 01/28/22 16:39> (2) Pneumonia: Status: Acute <KOURTNYE Mejia - Last Filed: 01/28/22 13:27> Assessment and Plan: Being managed by hospitalist. On IV AB. <KOURTNEY Mejia - Last Filed: 01/28/22 13:27> (3) Pleural effusion, left: Status: Acute <KOURTNEY Mejia - Last Filed: 01/28/22 13:27> Assessment and Plan: CXR on admit with mod left effusion. BNP 198. Initially given IV diuretics and now back on usual home po Lasix 40mg daily. on exam he has no rales or JVD. Lungs dim left base. Repeat CXR done this am - reading pending. <KOURTNEY Mejia - Last Filed: 01/28/22 13:27> Time Spent With Patient Time: Total time spent is greater than 50% in coordination of care (as documented) at patient's floor/unit and/or counseling patient: 24 <KOURTNEY Mejia - Last Filed: 01/28/22 13:27> Progress Note: Quality Stroke Does the patient have a stroke diagnosis?: No <KOURTNEY Mejia - Last Filed: 01/28/22 13:27> Procedures Date of Service Date of Service: 01/28/22 <KOURTNEY Mejia - Last Filed: 01/28/22 13:27>
--- NOTE | 2022-01-28 17:15 | PM.CNPUL ---
History of Present Illness History of Present Illness Consult date: 01/28/22 Requesting physician: Gurdeep Colon Reason for consult: other (plural effusion /pneumonia ) Chief complaint: A Fib W RVR Narrative: I was us to see this patient because, of density in the left lung. Patient admitted on 01/26, because of change in mental status, found to have atrial fibrillation with rapid ventricular response, He has history of multiple comorbidities, including hypertension, coronary artery disease, congestive heart failure, hyperlipidemia, BPH, depression and bipolar disorder. There is the history of noncompliance to the meds, Patient has had no recent fall, no recent fever or chills. And denies any chest pain Review of Systems Review of Systems: Yes Unobtainable due to mental condition PMFSH Past Medical History Medical History (Updated 01/28/22 @ 13:20 by Meche Romo, CUSTOMER SERVICES MANAGER-C) Malave esophagus Benign enlargement of prostate Bipolar 1 disorder CHF (congestive heart failure) Coronary artery disease HTN (hypertension) Metastatic squamous cell carcinoma Paroxysmal A-fib Social anxiety disorder Family History Family History Other No family history of coronary artery disease Surgical History Surgical History History of cardiac cath S/P coronary artery stent placement Social History Social History (Updated 01/26/22 @ 11:51 by Dianne Shah RN) Household Members: Family Housing: Apartment Alcohol intake: current Alcohol intake frequency: holidays/special occasions only Patient Tobacco Use Status: Never used Tobacco Smoked in Last 30 Days: No service: No Current occupational status: retired [employer] Allergies Allergy/AdvReac Type Severity Reaction Status Date / Time No Known Allergies Allergy Verified 10/31/21 07:09 Active Medications: Current Medications Acetaminophen (Acetaminophen 325 Mg Tablet) 650 mg PO Q6H PRN PRN Reason: Pain, Mild (Pain Scale 1-3) Apixaban (Apixaban 5 Mg Tablet) 5 mg PO BID [facility] Last Admin: 01/28/22 10:52 Dose: 5 mg Atorvastatin Calcium (Atorvastatin Calcium 40 Mg Tablet) 40 mg PO BEDTIME DAMIEN Last Admin: 01/27/22 20:57 Dose: 40 mg Docusate Sodium (Docusate Sodium 100 Mg Capsule) 100 mg PO DAILY PRN PRN Reason: Constipation Furosemide (Furosemide 40 Mg Tablet) 40 mg PO DAILY [facility]; Protocol Last Admin: 01/28/22 10:50 Dose: 40 mg Diltiazem HCl 125 mg/ Sodium (Chloride) 125 mls @ 0 mls/hr IVCONT .Q0M [facility]; Protocol Last Admin: 01/28/22 13:06 Dose: 10 mg/hr, 10 mls/hr Azithromycin 500 mg/ Sodium (Chloride) 250 mls @ 125 mls/hr IV Q24H [facility] Last Infusion: 01/28/22 06:48 Dose: Infused Ceftriaxone Sodium 1 gm/ (Sodium Chloride) 50 mls @ 100 mls/hr IV Q24H [facility] Last Infusion: 01/28/22 04:35 Dose: Infused Metoprolol Tartrate (Metoprolol Tartrate 100 Mg Tablet) 100 mg PO BID [facility]; Protocol Last Admin: 01/28/22 10:50 Dose: 100 mg Ondansetron HCl (Ondansetron Hcl 4 Mg/2 Ml Vial) 4 mg IVPUSH Q8H PRN PRN Reason: Nausea and Vomiting Pharmacy Consult (Consult Rx Perform Med Rec) 1 each MISCELLANE ONCE PRN PRN Reason: Consult order Sodium Chloride (0.9 % Sodium Chloride Flush 3 Ml Syringe) 3 ml IVFLUSH QSHIFT [facility] Last Admin: 01/28/22 10:52 Dose: 3 ml Home Medications Medication Instructions Recorded Confirmed Last Taken Type aspirin 81 mg tablet,delayed 1 tab PO DAILY 01/26/22 01/26/22 Unknown History release atorvastatin 40 mg tablet 1 tab PO BEDTIME 01/26/22 01/26/22 Unknown History furosemide 40 mg tablet 1 tab PO DAILY 01/26/22 01/26/22 Unknown History lisinopril 40 mg tablet 1 tab PO DAILY 01/26/22 01/26/22 Unknown History metoprolol tartrate 100 mg tablet 1 tab PO BID 01/26/22 01/26/22 Unknown History Physical Exam Vital Signs: Vital Signs: Last Vital Signs Temp 98.2 F 01/28/22 15:01 Pulse 80 01/28/22 15:01 Resp 18 01/28/22 15:01 BP 105/62 01/28/22 15:01 Pulse Ox 92 01/28/22 15:01 O2 Del Method 01/28/22 15:01 O2 Flow Rate 2 01/28/22 15:01 BMI result Body Mass Index 31.6 Const: General: comfortable, no acute distress, alert and awake Orientation/consciousness: patient oriented x3 HEENT: Head: Yes normal to inspection General nose exam: No nasal polyps present and No nasal discharge present Face and sinus: Yes sinuses nontender Mouth: oropharynx normal Throat: Yes posterior oropharynx normal Eyes: General: appearance normal, both eyes and all related structures Neck: Neck: Yes normal visual inspection, Yes no lymphadenopathy, Yes trachea midline and Yes no JVD Thyroid: Thyroid normal Chest: Chest palpation & inspection: normal inspection of the chest, normal palpation of entire chest wall and no tenderness Resp: Other: Chest wall is quite obese 0 percussion note is not perceptible, but there is some dullness over the left lower lobe area. Breath sounds are much decreased over the left lower lobe, a few inspiratory crepitations are heard at the left mid chest. Cardio: Palpation: PMI not normal (Not palpable) Rate: regular rate Rhythm: abnormal rhythm (Atrial fib) Heart sounds: no gallops and no murmurs GI: Palpation (GI): Soft to palpation, nontender, No hepatosplenomegaly present and no masses Auscultation: normal bowel sounds Back/Spine/Pelvis: Other: Not examined Thoracic/Lumbar Spine: thoracic and lumbar spine normal to inspection Skin: General skin exam: no rashes or lesions noted Neuro: General: patient oriented x3 and no focal motor deficits Cranial nerves: Yes CN's II-XII intact bilaterally Extrem: General: Yes normal to inspection, Yes no calf tenderness and Yes edema (Lymphedema of the right leg) Psych: Appearance: grossly normal Speech and movement: Normal speech and movement present Results Laboratory Findings CBC and BMP: 01/27/22 06:41 01/27/22 06:41 ABG, PT/INR, D-dimer: PT/INR, D-dimer PT 17.4 SEC (9.9-13.0) H 01/27/22 06:41 INR 1.5 (0.9-1.1) H 01/27/22 06:41 Abnormal lab findings: Abnormal Labs 01/26/22 01/26/22 01/26/22 00:19 00:19 00:19 RBC 3.34 L D Hgb 9.9 L D Hct 30.2 L D Immature Gran % (Auto) 0.5 H Neut % (Auto) Lymph % (Auto) 11.1 L [place] % (Auto) 15.2 H Lymph # (Auto) 1.1 L [place] # (Auto) 1.5 H Abs Immat Gran (auto) 0.05 H PT INR aPTT Heparin Protocol Sodium 132 L Anion Gap 9 L BUN 17 H Random Glucose 116 H Calcium 8.1 L Troponin I High Sens 91.3 H B-Natriuretic Peptide Total Protein 5.9 L Albumin 3.0 L 01/26/22 01/26/22 01/26/22 02:20 03:24 05:33 RBC 3.58 L Hgb 10.6 L Hct 32.6 L Immature Gran % (Auto) 0.7 H Neut % (Auto) 74.3 H Lymph % (Auto) 9.3 L [place] % (Auto) 13.6 H Lymph # (Auto) 0.8 L [place] # (Auto) Abs Immat Gran (auto) 0.06 H PT 15.5 H INR 1.4 H aPTT Heparin Protocol Sodium Anion Gap BUN Random Glucose Calcium Troponin I High Sens 93.9 H B-Natriuretic Peptide Total Protein Albumin 01/26/22 01/26/22 01/26/22 05:33 06:49 06:49 RBC 3.32 L Hgb 9.8 L Hct 30.0 L Immature Gran % (Auto) Neut % (Auto) Lymph % (Auto) [place] % (Auto) Lymph # (Auto) [place] # (Auto) Abs Immat Gran (auto) PT INR aPTT Heparin Protocol Sodium 133 L Anion Gap BUN 18 H Random Glucose Calcium Troponin I High Sens B-Natriuretic Peptide 198 H Total Protein Albumin 01/26/22 01/27/22 01/27/22 06:49 06:41 06:41 RBC 3.55 L Hgb 10.4 L Hct 32.7 L Immature Gran % (Auto) Neut % (Auto) Lymph % (Auto) [place] % (Auto) Lymph # (Auto) [place] # (Auto) Abs Immat Gran (auto) PT 18.2 H 17.4 H INR 1.6 H 1.5 H aPTT Heparin Protocol 38.7 L Sodium Anion Gap BUN Random Glucose Calcium Troponin I High Sens B-Natriuretic Peptide Total Protein Albumin 01/27/22 06:41 RBC Hgb Hct Immature Gran % (Auto) Neut % (Auto) Lymph % (Auto) [place] % (Auto) Lymph # (Auto) [place] # (Auto) Abs Immat Gran (auto) PT INR aPTT Heparin Protocol Sodium 133 L Anion Gap BUN Random Glucose 121 H Calcium 8.0 L D Troponin I High Sens B-Natriuretic Peptide Total Protein Albumin Microbiology: Microbiology 01/26/22 02:22 Blood - Venous Blood Culture - Preliminary No growth after 48 hours. 01/26/22 02:22 Blood - Venous Blood Culture - Preliminary No growth after 48 hours. Diagnostic Findings Chest x-ray: report reviewed and image reviewed Assessment and Plan (1) Pneumonia: Status: Acute (2) Pleural effusion, left: Status: Acute Plan This gentleman with multiple comorbidities, has pneumonia worse is atelectasis left lower lobe. And there is moderate-sized left pleural effusion Recc . Agree with the current her management. Continue antibiotic treatment. I suggest that we should have thoracentesis of the left chest, and study the fluid. Alternatively we can do CT scan of the chest and then decide if the thoracenteses would be of help. If after thoracenteses it is found that he has atelectasis of the left lower lobe, then he may need bronchoscopy. Procedures Date of Service Date of Service: 01/28/22
[2022-01-28] MEDS: dilTIAZem HCL CD 240 MG CAP.ER.DEG PO (18:10)
[2022-01-28] MEDS: Atorvastatin Calcium 40 MG TABLET PO (20:32)
[2022-01-28] MEDS: Acetaminophen 325 MG TABLET 650 MG PO (20:32)
[2022-01-29] VITALS (7 sets, daily range): BP systolic 115–139; BP diastolic 62–89; PULSE 40–107; RESP 18–95; TEMP 36.1–37.2; O2SAT 94–97
[2022-01-29] MEDS: Acetaminophen 325 MG TABLET 650 MG PO ×2 (03:03→09:01)
[2022-01-29] MEDS: cefTRIAXone sodium 1 GM in 0.9 % Sodium Chloride 50 ML IV (03:05)
[2022-01-29] MEDS: Azithromycin 500 MG in 0.9 % Sodium Chloride 250 ML 125 MG IV (03:35)
[2022-01-29 07:12] LABS: Anion Gap 11 (12-20); Blood Urea Nitrogen 13 mg/dL (9-16); Calcium 8.2 mg/dL (8.4-10.2); Carbon Dioxide 25 mmol/L (22-29); Chloride 103 mmol/L (96-108); Creatinine Clr Calc Pharmacy 92.5; Estimated Glomerular Filt Rate > 60; Glucose Random 125 mg/dL (60-115); Magnesium 2.1 mg/dL (1.6-2.6); Sodium 135 mmol/L (135-145)
[2022-01-29 07:27] LABS: Procalcitonin 0.07 ng/mL
[2022-01-29] MEDS: Metoprolol Tartrate 100 MG TABLET PO ×2 (08:52→20:35)
[2022-01-29] MEDS: dilTIAZem HCL CD 240 MG CAP.ER.DEG PO (08:52)
[2022-01-29] MEDS: Furosemide 40 MG TABLET PO (08:52)
[2022-01-29] MEDS: 0.9 % Sodium Chloride Flush 3 ML SYRINGE IVFLUSH ×2 (08:52→23:37)
--- NOTE | 2022-01-29 11:28 | P.PNCA_ITS ---
Subjective Subjective Date of Service: 01/29/22 <KOURTNEY Mejia - Last Filed: 01/29/22 11:46> 01/29/22 <Joesph Voss MD - Last Filed: 01/29/22 12:44> Principal diagnosis: AF, Left pleural effusion, PNA, pericardial effusion <RENATA Mejia - Last Filed: 01/29/22 11:46> Interval history: Seen at 0840. Today he reports feeling more short of breath than yesterday. No cough. Slep with HOB partly elevated. No chest pains, palpitation, dizziness. Has chronic lymphedema in right leg. Mild nonpitting edema in left leg. Ate breakfast. Tele showing afib, rates elevated up to 120s. BP 139/89. Wearing O2 2liters with sat 96%, Eliquis on hold. <KOURTNEY Mejia - Last Filed: 01/29/22 11:46> Review of Systems Review of Systems as above <KOURTNEY Mejia - Last Filed: 01/29/22 11:46> Yes all other systems are reviewed and are negative <KOURTNEY Mejia - Last Filed: 01/29/22 11:46> Physical Exam Vital Signs: Last Vital Signs Temp 97.5 F 01/29/22 11:27 Pulse 81 01/29/22 11:27 Resp 19 01/29/22 11:27 BP 121/70 01/29/22 11:27 Pulse Ox 97 01/29/22 11:27 O2 Del Method 01/29/22 11:27 O2 Flow Rate 2 01/29/22 11:27 BMI result Body Mass Index 31.6 <KOURTNEY Mejia - Last Filed: 01/29/22 11:46> Const General: cooperative, no acute distress, alert and awake <KOURTNEY Mejia - Last Filed: 01/29/22 11:46> Neck Neck: Yes normal visual inspection <KOURTNEY Mejia - Last Filed: 01/29/22 11:46> Resp Other: mild sob noted with moving in bed <KOURTNEY Mejia - Last Filed: 01/29/22 11:46> Effort & Inspection: able to speak in complete sentences <Meche BrookeRENATA palmerC - Last Filed: 01/29/22 11:46> Auscultation: clear to auscultation bilaterally (Diminished right base and Left mid and lower lobe), no rales, no rhonchi and no wheezes <Meche Dumont RENATA RomoC - Last Filed: 01/29/22 11:46> Cardio Rate: tachycardic <Meche Dumont SARAI Romo-C - Last Filed: 01/29/22 11:46> Rhythm: abnormal rhythm <Meche RomoSARAI-C - Last Filed: 01/29/22 11:46> Heart sounds: S1 normal heart sound present and S2 normal heart sound present <Meche Dumont SARAI Romo-C - Last Filed: 01/29/22 11:46> GI Other: obese <Meche BrookeSARAI palmer-C - Last Filed: 01/29/22 11:46> Inspection: Yes normal to inspection <Meche Dumont SARAI Romo-C - Last Filed: 01/29/22 11:46> Extrem Other: lymphedema right leg - chronic <Meche Dumont SARAI Romo-C - Last Filed: 01/29/22 11:46> Objective Labs and Meds Result diagrams: : 01/27/22 06:41 01/29/22 06:25 <Meche Dumont SARAI Romo-C - Last Filed: 01/29/22 11:46> Lab results: Laboratory Results - last 24 hr 01/29/22 01/29/22 06:25 06:25 Sodium 135 Potassium 4.0 Chloride 103 Carbon Dioxide 25 Anion Gap 11 L BUN 13 Creatinine 0.80 Estim Creat Clear Calc 92.5 Estimated GFR > 60 Random Glucose 125 H Calcium 8.2 L Magnesium 2.1 Procalcitonin 0.07 <Meche Dumont SARAI Romo-C - Last Filed: 01/29/22 11:46> Imaging Radiologist's impression: Impressions Chest X-Ray 01/28/22 08:14 IMPRESSION: Bilateral pleural effusions, left greater than right. This may be increased from 01/26/2022. Probable left lower lobe atelectasis/consolidation adjacent to the effusion. Stable enlargement of the cardiac silhouette. <KOURTNEY Mejia - Last Filed: 01/29/22 11:46> Progress Note: A&P Assessment and plan (1) Atrial fibrillation with rapid ventricular response: Status: Acute <KOURTNEY Mejia - Last Filed: 01/29/22 11:46> Assessment and Plan: Hx of PAF. Was off meds for last several months due to reported issues with depression. Afib RVR on admit. Being treated initally with Diltiazem drip and Metoprolol po for heart rate control. EF is normal. Yesterday changed to PO dilitazem. Tele shows Afib rates 80-s 120s currently. He denies heart palpitations. He was started on Eliquis for anitcoagulation ( Cr 0.83, Wt 233 l b). No bleeding issues reported. is pending. He has known pleural and pericardial effusions. At present, continue current rate slowing meds. Eliquis was placed on hold yesterday, with last dose 950a 01/28. Ongoing tele monitoring. <KOURTNEY Mejia - Last Filed: 01/29/22 11:46> Hx of PAF. Was off meds for last several months due to reported issues with depression. Afib RVR on admit. Being treated initally with Diltiazem drip and Metoprolol po for heart rate control. EF is normal. Yesterday changed to PO dilitazem. Tele shows Afib rates 80-s 120s currently. He denies heart palpitations. He was started on Eliquis for anitcoagulation ( Cr 0.83, Wt 233 lb). No bleeding issues reported. is pending. He has known pleural and pericardial effusions. At present, continue current rate slowing meds. Eliquis was placed on hold yesterday, with last dose 950a 01/28. Ongoing tele monitoring. Patient seen and examined. Case discussed with Meche Romo. Patient complains of some shortness of breath. Heart rate is borderline controlled. Continue current rate control strategy. Oral anticoagulation being witheld for pleural and pericardial drainage. Resume as soon as possible after the procedure. Continue to optimize rate control with increasing diltiazem and metoprolol as tolerated. <Joesph Voss MD - Last Filed: 01/29/22 12:44> (2) Pneumonia: Status: Acute <Meche Dumont RENATA RomoC - Last Filed: 01/29/22 11:46> Assessment and Plan: Being managed by hospitalist. On IV AB. WBC normal, afebrile. <Meche Dumont KOURTNEY Romo - Last Filed: 01/29/22 11:46> (3) Pleural effusion, left: Status: Acute <Meche Dumont RENATA RomoC - Last Filed: 01/29/22 11:46> Assessment and Plan: CXR on admit with mod left effusion with atelectasis/ consolidation. BNP 198. Initially given IV diuretics and then put back on usual home po Lasix 40mg daily. On exam he has very dim left mid/ lower lobe and right base. CXR repeated yesterday showing moderate to large left pleural effusion and small right pleural effusion. Echo done yesterday showing EF 60-65%, mod LVH, moderate pericardial effusion. Eliquis on hold. Pt does have report of increased sob in last day. Wearing O2 2 L with sat 96%. Dr Browne, thoracic surgery, to be consulted regarding need for pericardiocentesis and thoracentesis. Continue current lasix. Will make NPO now as procedure may be later today. <KOURTNEY Mejia - Last Filed: 01/29/22 11:46> (4) Pericardial effusion: Status: Acute <Meche Dumont KOURTNEY Romo - Last Filed: 01/29/22 11:46> Assessment and Plan: Pericardial effusion which is moderately large with lethargic IVC without any clinical signs of cardiac tamponade. He also has large pleural effusion. This appears to due to pleural pericardial inflammation related to pneumonia. Will require drainage. Further analysis of the fluid after drainage. Discussed with thoracic surgery about the need for the procedure. They understand agree. They would like to wait at least 48 hours off oral anticoagulation prior to drainage. Will most likely be done tomorrow. If patient has clinical deterioration will require transfer to a tertiary care center. Will continue to follow with you <Joesph Voss MD - Last Filed: 01/29/22 12:44> Time Spent With Patient Time: Total time spent is greater than 50% in coordination of care (as documented) at patient's floor/unit and/or counseling patient: 22 <KOURTNEY Mejia - Last Filed: 01/29/22 11:46> Progress Note: Quality Stroke Does the patient have a stroke diagnosis?: No <KOURTNEY Mejia - Last Filed: 01/29/22 11:46> Procedures Date of Service Date of Service: 01/29/22 <KOURTNEY Mejia - Last Filed: 01/29/22 11:46>
[2022-01-29] MEDS: dilTIAZem HCL CD 120 MG CAP.ER.DEG PO (11:43)
--- NOTE | 2022-01-29 12:01 | HO.PM.IMPN ---
Subjective Subjective Date of Service: 01/29/22 Interval History: Feels a little short of breath No chest pain No palpitations AF, rate 80s-120s Review of Systems Review of Systems: Yes all other systems are reviewed and are negative Physical Exam Vital Signs: Vital Signs: Last Vital Signs Temp 97.5 F 01/29/22 11:27 Pulse 81 01/29/22 11:27 Resp 19 01/29/22 11:27 BP 121/70 01/29/22 11:27 Pulse Ox 97 01/29/22 11:27 O2 Del Method 01/29/22 11:27 O2 Flow Rate 2 01/29/22 11:27 BMI result Body Mass Index 31.6 Gen: ill appearing HEENT: sclera ani cteric, moist mucu s membranes Neck: supple Lungs: dimi nished air entry L side Heart: rapid , irregularly irre gular,, no murmurs Abd: soft, non-te nder, non-distende d Ext: no edema Sk in: warm/well-perf used Neuro: alert and oriented x3, n o focal findings, no asterixis Psych : appropriate affe ct Objective Data Active Medications Acetaminophen (Acetaminophen 325 Mg Tablet) 650 mg PO Q6H PRN PRN Reason: Pain, Mild (Pain Scale 1-3) Last Admin: 01/29/22 09:01 Dose: 650 mg Documented By: CARLOS Apixaban (Apixaban 5 Mg Tablet) 5 mg PO BID [facility] Last Admin: 01/28/22 10:52 Dose: 5 mg Documented By: JOSH Atorvastatin Calcium (Atorvastatin Calcium 40 Mg Tablet) 40 mg PO BEDTIME [facility] Last Admin: 01/28/22 20:32 Dose: 40 mg Documented By: GARY Diltiazem HCl (Diltiazem Hcl Cd 180 Mg Cap.Er.24h) 360 mg PO DAILY [facility]; Protocol Docusate Sodium (Docusate Sodium 100 Mg Capsule) 100 mg PO DAILY PRN PRN Reason: Constipation Furosemide (Furosemide 40 Mg Tablet) 40 mg PO DAILY [facility]; Protocol Last Admin: 01/29/22 08:52 Dose: 40 mg Documented By: CARLOS Azithromycin 500 mg/ Sodium (Chloride) 250 mls @ 125 mls/hr IV Q24H [facility] Last Infusion: 01/29/22 05:43 Dose: 0 mls/hr Documented By: GARY Ceftriaxone Sodium 1 gm/ (Sodium Chloride) 50 mls @ 100 mls/hr IV Q24H [facility] Last Infusion: 01/29/22 04:46 Dose: 0 mls/hr Documented By: GARY Metoprolol Tartrate (Metoprolol Tartrate 100 Mg Tablet) 100 mg PO BID [facility]; Protocol Last Admin: 01/29/22 08:52 Dose: 100 mg Documented By: CARLOS Ondansetron HCl (Ondansetron Hcl 4 Mg/2 Ml Vial) 4 mg IVPUSH Q8H PRN PRN Reason: Nausea and Vomiting Pharmacy Consult (Consult Rx Perform Med Rec) 1 each MISCELLANE ONCE PRN PRN Reason: Consult order Sodium Chloride (0.9 % Sodium Chloride Flush 3 Ml Syringe) 3 ml IVFLUSH QSHIFT [facility] Last Admin: 01/29/22 08:52 Dose: 3 ml Documented By: CARLOS Labs CBC & Chem 7: 01/27/22 06:41 01/29/22 06:25 Labs: Laboratory Results - last 24 hr 01/29/22 01/29/22 06:25 06:25 Anion Gap 11 L Estim Creat Clear Calc 92.5 Estimated GFR > 60 Random Glucose 125 H Calcium 8.2 L Magnesium 2.1 Procalcitonin 0.07 TTE 01/28/22 1. Normal LV systolic function ? 2. Mildly dilated left atrium? 3. Normal cardiac valvular Dopplers? 4. Trivial pericardial effusion more prominent near the left ? ? ventricle? ? Assessment and Plan (1) Atrial fibrillation with rapid ventricular response: Status: Acute Plan hospital d#4 81yo M with CHF, CAD presented to the hospital after found with lethargy, admitted with AF/RVR and PNA with pleural effusion found to also have pericardial effusion # AF/RVR - IV -> PO diltiazem - holding apixaban for thoracentesis/pericardiocentesis - Cardiology following # pericardial effusion - Thoracic Surgery consultation, CT, hold apixaban # PNA with pleural effusion - d#4 azithromycin + ceftriaxone, follow BCx, trend PCT - Thoracic Surgery consultation vs. IR-guided thoracentesis tomoorrow # acute/chronic HFpEF - given 1 dose IV furosemide, now on PO home maintenance dose # HTN - lisinopril held for soft BP, continue metoprolol # CAD - no chest pain; elevated Tn-I flat and due to AF/RVR; per Cardiology, d/c aspirin since on apixaban; continue metoprolol # RLE lymphedema associated with LN dissection for SCC - Wound Care consulted: silver alginate over areas of slough, cover with gauze + EVETTE Wrap to change every 48 hr - outpt f/u with [facility] given hx of SCC followed by [facility]; 1 x 1 cm area of abnormal tissue medial to anterior romero midline which might stand to be biopsied by his cancer team after discharge at [facility] # severe depression - CARE Team consult pending # VTE ppx: apixaban held for thoracentesis/pericardiocentesis # dispo: seen by PT, recommended to go to STR In my clinical judgment, the patient requires continued hospitalization for the following reasons: IV ABX, drainage of pericardial + pleural effusions Quality Stroke Does the patient have a stroke diagnosis?: No VTE Prior VTE?: No VTE Risk Level:: Medical - moderate - high VTE Device Contraindication: Treatment Not Indicated VTE Drug Contraindication: N/A - Med Ordered
[2022-01-29] MEDS: Atorvastatin Calcium 40 MG TABLET PO (20:35)
[2022-01-30] VITALS (17 sets, daily range): BP systolic 93–153; BP diastolic 37–90; PULSE 70–139; RESP 16–24; TEMP 35.9–37.1; O2SAT 91–100
[2022-01-30] MEDS: cefTRIAXone sodium 1 GM in 0.9 % Sodium Chloride 50 ML IV (02:23)
[2022-01-30] MEDS: Azithromycin 500 MG in 0.9 % Sodium Chloride 250 ML 125 MG IV (02:58)
[2022-01-30 07:32] LABS: MANUAL DIFF FLAG NO
[2022-01-30 07:37] LABS: Basophils Absolute Auto 0.1 X10*3/uL (0.0-0.2); Basophils Percent Auto 0.5 % (0-2); Eosinophils Absolute Auto 0.2 X10*3/uL (0.0-0.4); Eosinophils Percent Auto 1.7 % (0-4); Hematocrit 33.4 % (42.0-52.0); Hemoglobin 10.8 g/dl (14.0-18.0); Imm Gran Abs Auto 0.12 X10*3/uL (0.00-0.03); Imm Gran Pct Auto 1.3 % (0.0-0.4); Lymphocytes Absolute Auto 0.9 X10*3/uL (1.2-4.9); Lymphocytes Percent Auto 10.1 % (20-40); Mean Corpuscular HGB Conc 32.3 g/dl (31.0-36.0); Mean Corpuscular Hemoglobin 29.2 pg (27.0-33.0); Mean Corpuscular Volume 90.3 fL (80.0-98.0); Mean Platelet Volume 10.2 fL (9.4-12.4); Monocytes Absolute Auto 1.4 X10*3/uL (0.1-1.2); Monocytes Percent Auto 14.6 % (2-11); Neutrophils Absolute Auto 6.7 x10*3/uL (2.0-8.3); Neutrophils Percent Auto 71.8 % (45-73); Platelet Count 418 X10*3/uL (160-400); Red Cell Distribution Width 15.1 % (11.0-16.0); White Blood Count 9.3 X10*3/uL (4.8-10.8)
[2022-01-30 07:47] LABS: INTERNATIONAL NORM RATIO 1.4 (0.9-1.1); Prothrombin Time 15.7 SEC (9.9-13.0)
[2022-01-30 07:48] LABS: Anion Gap 11 (12-20); Blood Urea Nitrogen 12 mg/dL (9-16); Calcium 8.4 mg/dL (8.4-10.2); Carbon Dioxide 26 mmol/L (22-29); Chloride 102 mmol/L (96-108); Creatinine Clr Calc Pharmacy 91.4; Estimated Glomerular Filt Rate > 60; Glucose Random 126 mg/dL (60-115); Potassium 4.2 mmol/L (3.3-5.1); Sodium 135 mmol/L (135-145)
[2022-01-30 07:49] LABS: Partial Thromboplastin Time 37.6 SEC (24.1-38.0)
[2022-01-30] MEDS: Furosemide 40 MG TABLET PO (09:46)
[2022-01-30] MEDS: Metoprolol Tartrate 100 MG TABLET PO (09:46)
[2022-01-30] MEDS: dilTIAZem HCL CD 180 MG CAP.ER.24H 360 MG PO (09:47)
--- NOTE | 2022-01-30 10:01 | P.PNIM_ITS ---
Subjective Subjective Date of Service: 01/30/22 Interval History: Some dyspnea No palpitations No cough NPO for OR Review of Systems Review of Systems: Yes all other systems are reviewed and are negative Physical Exam Vital Signs: Vital Signs: Last Vital Signs Temp 97.4 F 01/30/22 07:31 Pulse 70 01/30/22 07:31 Resp 16 01/30/22 07:31 BP 126/75 01/30/22 07:31 Pulse Ox 96 01/30/22 07:31 O2 Del Method 01/30/22 07:31 O2 Flow Rate 2 01/30/22 07:31 BMI result Body Mass Index 31.6 Gen: in no acute distress HEENT: sclera anicteric, moist mucus membranes Neck: supple Lungs: decreased air entry L base Heart: irregularly irregular, no murmurs Abd: soft, non-tender, non-distended Ext: chronic RLE lymphedema Skin: warm/well-perfused Neuro: alert and oriented x3, no focal findings Psych: appropriate affect Objective Data Active Medications Acetaminophen (Acetaminophen 325 Mg Tablet) 650 mg PO Q6H PRN PRN Reason: Pain, Mild (Pain Scale 1-3) Last Admin: 01/29/22 09:01 Dose: 650 mg Documented By: CARLOS Apixaban (Apixaban 5 Mg Tablet) 5 mg PO BID [facility] Last Admin: 01/28/22 10:52 Dose: 5 mg Documented By: JOSH Atorvastatin Calcium (Atorvastatin Calcium 40 Mg Tablet) 40 mg PO BEDTIME [facility] Last Admin: 01/29/22 20:35 Dose: 40 mg Documented By: CARLOS Diltiazem HCl (Diltiazem Hcl Cd 180 Mg Cap.Er.24h) 360 mg PO DAILY [facility]; Protocol Last Admin: 01/30/22 09:47 Dose: 360 mg Documented By: AYLA Docusate Sodium (Docusate Sodium 100 Mg Capsule) 100 mg PO DAILY PRN PRN Reason: Constipation Furosemide (Furosemide 40 Mg Tablet) 40 mg PO DAILY [facility]; Protocol Last Admin: 01/30/22 09:46 Dose: 40 mg Documented By: AYLA Azithromycin 500 mg/ Sodium (Chloride) 250 mls @ 125 mls/hr IV Q24H [facility] Last Infusion: 01/30/22 05:12 Dose: 0 mls/hr Documented By: TOM Ceftriaxone Sodium 1 gm/ (Sodium Chloride) 50 mls @ 100 mls/hr IV Q24H [facility] Last Infusion: 01/30/22 02:54 Dose: 0 mls/hr Documented By: TMO Metoprolol Tartrate (Metoprolol Tartrate 100 Mg Tablet) 100 mg PO BID [facility]; Protocol Last Admin: 01/30/22 09:46 Dose: 100 mg Documented By: AYLA Ondansetron HCl (Ondansetron Hcl 4 Mg/2 Ml Vial) 4 mg IVPUSH Q8H PRN PRN Reason: Nausea and Vomiting Pharmacy Consult (Consult Rx Perform Med Rec) 1 each MISCELLANE ONCE PRN PRN Reason: Consult order Sodium Chloride (0.9 % Sodium Chloride Flush 3 Ml Syringe) 3 ml IVFLUSH QSHIFT [facility] Last Admin: 01/30/22 09:45 Dose: Not Given Documented By: AYLA Non-Admin Reason: assessed Labs CBC & Chem 7: 01/30/22 06:49 01/30/22 06:49 Labs: Laboratory Results - last 24 hr 01/30/22 01/30/22 01/30/22 06:49 06:49 06:49 MCV 90.3 Cancelled MCH 29.2 Cancelled MCHC 32.3 Cancelled RDW 15.1 Cancelled Plt Count 418 H D Cancelled MPV 10.2 Cancelled Immature Gran % (Auto) 1.3 H Cancelled Neut % (Auto) 71.8 Cancelled Lymph % (Auto) 10.1 L Cancelled [place] % (Auto) 14.6 H Cancelled Eos % (Auto) 1.7 Cancelled Baso % (Auto) 0.5 Cancelled Lymph # (Auto) 0.9 L Cancelled [place] # (Auto) 1.4 H Cancelled Eos # (Auto) 0.2 Cancelled Baso # (Auto) 0.1 Cancelled Abs Immat Gran (auto) 0.12 H Cancelled Absolute Neuts (auto) 6.7 Cancelled Absolute Nucleated RBC 0.000 Cancelled Nucleated RBC % (auto) 0.0 Cancelled PT 15.7 H INR 1.4 H APTT 37.6 Anion Gap Estim Creat Clear Calc Estimated GFR Random Glucose Calcium Blood Type Antibody Screen 01/30/22 01/30/22 01/30/22 06:49 06:49 06:49 MCV MCH MCHC RDW Plt Count MPV Immature Gran % (Auto) Neut % (Auto) Lymph % (Auto) [place] % (Auto) Eos % (Auto) Baso % (Auto) Lymph # (Auto) [place] # (Auto) Eos # (Auto) Baso # (Auto) Abs Immat Gran (auto) Absolute Neuts (auto) Absolute Nucleated RBC Nucleated RBC % (auto) PT Cancelled INR Cancelled APTT Anion Gap 11 L Estim Creat Clear Calc 91.4 Estimated GFR > 60 Random Glucose 126 H Calcium 8.4 Blood Type A Positive Antibody Screen NEGATIVE Assessment and Plan (1) Atrial fibrillation with rapid ventricular response: Status: Acute Plan hospital d#5 81yo M with CHF, CAD presented to the hospital after found with lethargy, admitted with AF/RVR and PNA with pleural effusion found to also have pericardial effusion # AF/RVR - IV -> PO diltiazem - holding apixaban for pericardial window - Cardiology following # pericardial effusion - Thoracic Surgery consulted, plan pericardial window today # PNA with pleural effusion - d#5 azithromycin + ceftriaxone, follow BCx, PCT low - OR drainage today # acute/chronic HFpEF - given 1 dose IV furosemide, now on PO home maintenance dose # HTN - lisinopril held for soft BP, continue metoprolol # CAD - no chest pain; elevated Tn-I flat and due to AF/RVR; per Cardiology, d/c aspirin since on apixaban; continue metoprolol # RLE lymphedema associated with LN dissection for SCC - Wound Care consulted: silver alginate over areas of slough, cover with gauze + EVETTE Wrap to change every 48 hr - outpt f/u with [facility] given hx of SCC followed by [facility]; 1 x 1 cm area of abnormal tissue medial to anterior romero midline which might stand to be biopsied by his cancer team after discharge at [facility] # severe depression - CARE Team consult pending # VTE ppx: apixaban held for thoracentesis/pericardiocentesis # dispo: seen by PT, recommended STR In my clinical judgment, the patient requires continued hospitalization for the following reasons: IV ABX, OR drainage of pericardial + pleural effusions Quality Stroke Does the patient have a stroke diagnosis?: No VTE Prior VTE?: No VTE Risk Level:: Medical - moderate - high VTE Device Contraindication: Treatment Not Indicated VTE Drug Contraindication: N/A - Med Ordered
--- NOTE | 2022-01-30 11:37 | P.PNCA_ITS ---
Subjective Subjective Date of Service: 01/30/22 <KOURTNEY Mejia - Last Filed: 01/30/22 11:53> 01/30/22 <Joesph Voss MD - Last Filed: 01/30/22 13:25> Principal diagnosis: AF, Left pleural effusion, PNA, pericardial effusion <RENATA Mejia - Last Filed: 01/30/22 11:53> Interval history: Seen at 0820. Today he reports feeling the same as yesterday. He does report having shortness of breath. Was able to sleep well with HOB partially elevated. No chest pains, palpitations, dizziness. Eliquis remains on hold. He is NPO for procedure later today. Tele showing afib rates 90-low 100s. BP 126/75. <KOURTNEY Mejia - Last Filed: 01/30/22 11:53> Review of Systems Review of Systems as above <KOURTNEY Mejia - Last Filed: 01/30/22 11:53> Cardiovascular: Reports dyspnea on exertion <KOURTNEY Mejia - Last Filed: 01/30/22 11:53> Respiratory: Reports dyspnea on exertion <KOURTNEY Mejia - Last Filed: 01/30/22 11:53> Physical Exam Vital Signs: Last Vital Signs Temp 97.3 F 01/30/22 11:23 Pulse 135 H 01/30/22 11:23 Resp 24 H 01/30/22 11:23 BP 133/90 H 01/30/22 11:23 Pulse Ox 95 01/30/22 11:23 O2 Del Method 01/30/22 11:23 O2 Flow Rate 2 01/30/22 11:23 BMI result Body Mass Index 31.6 <KOURTNEY Mejia - Last Filed: 01/30/22 11:53> Const General: cooperative, no acute distress, alert and awake <KOURTNEY Mejia - Last Filed: 01/30/22 11:53> Orientation/consciousness: patient oriented x3 <KOURTNEY Mejia - Last Filed: 01/30/22 11:53> Neck Neck: Yes normal visual inspection and Yes no JVD <KOURTNEY Mejia - Last Filed: 01/30/22 11:53> Resp Other: Wearing o2 2 liters - sat 96% - No cough. Lungs very dim on left posteriorly, right is dim in base only <Meche Dumont DemetriusSARAIC - Last Filed: 01/30/22 11:53> Effort & Inspection: normal respiratory effort (at rest. Mild sob noted with repositioning self in bed.) and able to speak in complete sentences <Meche DemetriusSARAIC - Last Filed: 01/30/22 11:53> Auscultation: no crackles and no wheezes <[facility]us [facility] - Last Filed: 01/30/22 11:53> Cardio Rate: regular rate <Meche DemetriusSARAI - Last Filed: 01/30/22 11:53> Rhythm: abnormal rhythm irregularly irregular <[facility] Demetrius [facility] - Last Filed: 01/30/22 11:53> Heart sounds: S1 normal heart sound present and S2 normal heart sound present <[facility] DemetriusSARAIC - Last Filed: 01/30/22 11:53> GI Other: Obese - rounded, nontender <[facility] SARAI RomoC - Last Filed: 01/30/22 11:53> Neuro General: patient oriented x3 <Meche DemetriusSARAIC - Last Filed: 01/30/22 11:53> Extrem Other: chronic lymphedema right leg, no pitting edema left lower leg <[facility] SARAI RomoC - Last Filed: 01/30/22 11:53> Objective Labs and Meds Result diagrams: : 01/30/22 06:49 01/30/22 06:49 <Meche SARAI RomoC - Last Filed: 01/30/22 11:53> Lab results: Laboratory Results - last 24 hr 01/30/22 01/30/22 01/30/22 06:49 06:49 06:49 WBC 9.3 Cancelled RBC 3.70 L Cancelled Hgb 10.8 L Cancelled Hct 33.4 L Cancelled MCV 90.3 Cancelled MCH 29.2 Cancelled MCHC 32.3 Cancelled RDW 15.1 Cancelled Plt Count 418 H D Cancelled MPV 10.2 Cancelled Immature Gran % (Auto) 1.3 H Cancelled Neut % (Auto) 71.8 Cancelled Lymph % (Auto) 10.1 L Cancelled [place] % (Auto) 14.6 H Cancelled Eos % (Auto) 1.7 Cancelled Baso % (Auto) 0.5 Cancelled Lymph # (Auto) 0.9 L Cancelled [place] # (Auto) 1.4 H Cancelled Eos # (Auto) 0.2 Cancelled Baso # (Auto) 0.1 Cancelled Abs Immat Gran (auto) 0.12 H Cancelled Absolute Neuts (auto) 6.7 Cancelled Absolute Nucleated RBC 0.000 Cancelled Nucleated RBC % (auto) 0.0 Cancelled PT 15.7 H INR 1.4 H APTT 37.6 Sodium Potassium Chloride Carbon Dioxide Anion Gap BUN Creatinine Estim Creat Clear Calc Estimated GFR Random Glucose Calcium Blood Type Antibody Screen 01/30/22 01/30/22 01/30/22 06:49 06:49 06:49 WBC RBC Hgb Hct MCV MCH MCHC RDW Plt Count MPV Immature Gran % (Auto) Neut % (Auto) Lymph % (Auto) [place] % (Auto) Eos % (Auto) Baso % (Auto) Lymph # (Auto) [place] # (Auto) Eos # (Auto) Baso # (Auto) Abs Immat Gran (auto) Absolute Neuts (auto) Absolute Nucleated RBC Nucleated RBC % (auto) PT Cancelled INR Cancelled APTT Sodium 135 Potassium 4.2 Chloride 102 Carbon Dioxide 26 Anion Gap 11 L BUN 12 Creatinine 0.81 Estim Creat Clear Calc 91.4 Estimated GFR > 60 Random Glucose 126 H Calcium 8.4 Blood Type A Positive Antibody Screen NEGATIVE <KOURTNEY Mejia - Last Filed: 01/30/22 11:53> Imaging Radiologist's impression: Impressions Chest CT 01/29/22 12:59 IMPRESSION: New bilateral pleural effusions and pericardial effusion as described above. Retrocrural lymph adenopathy, unchanged. Fleischner guidelines were followed. <KOURTNEY Mejia - Last Filed: 01/30/22 11:53> Progress Note: A&P Assessment and plan (1) Pleural effusion, left: Status: Acute <KOURTNEY Mejia - Last Filed: 01/30/22 11:53> Assessment and Plan: CXR on admit with mod left effusion with atelectasis/ consolidation. Being tx for PNA. BNP 198. Initially given IV diuretics and then put back on usual home po Lasix 40mg daily. CXR repeated 01/28 showing moderate to large left pleural effusion and small right pleural effusion. Echo done 01/28 showing EF 60- 65%, mod LVH, moderate pericardial effusion, no tamponade. Eliquis on hold with last dose 950a 01/28. Pt does have report of sob, wearing O2 2 liters with sat 96%. Lung sounds very diminished on left and in right base. Thoracic surgery has been consulte for pericardiocentesis and thoracentesis. Pt is NPO. He tells me that his procedure is scheduled for 3 pm today. Diet can be resumed post procedure. Continue current lasix. We will follow. <KOURTNEY Mejia - Last Filed: 01/30/22 11:53> (2) Pericardial effusion: Status: Acute <KOURTNEY Mejia - Last Filed: 01/30/22 11:53> Assessment and Plan: Patient with moderately large pericardial effusion with IVC plethora as well as large left pleural effusion. Plan for undergoing pericardial and pleural drainage today by thoracic surgery. Would consider pericardial window. Most likely chest 2 with be placed. Please send fluid for analysis. I think patient symptoms of shortness of breath will improve significantly after that.. <Joesph Voss MD - Last Filed: 01/30/22 13:25> (3) Atrial fibrillation with rapid ventricular response: Status: Acute <KOURTNEY Mejia - Last Filed: 01/30/22 11:53> Assessment and Plan: Hx of PAF. Was off meds for last several months due to reported issues with depression. Afib RVR on admit. Being treated initally with Diltiazem drip and Metoprolol po for heart rate control. EF is normal. 01/28 changed to PO dilitazem. Tele shows Afib rates 90- 106s currently. Rates are improved some since yesterday. He denies heart palpitations. His Eliquis is on hold as above. At present, continue current rate slowing meds. Ongoing tele monitoring. <KOURTNEY Mejia - Last Filed: 01/30/22 11:53> Hx of PAF. Was off meds for last several months due to reported issues with depression. Afib RVR on admit. Being treated initally with Diltiazem drip and Metoprolol po for heart rate control. EF is normal. 01/28 changed to PO dilitazem. Tele shows Afib rates 90- 106s currently. Rates are improved some since yesterday. He denies heart palpitations. His Eliquis is on hold as above. At present, continue current rate slowing meds. Ongoing tele monitoring. Atrial fibrillation, persistent. Continue with p.o. metoprolol and Cardizem. Oral anticoagulation on hold due to planned procedure. Resume as soon as possible after the procedure. <Joesph Voss MD - Last Filed: 01/30/22 13:25> (4) Pneumonia: Status: Acute <KOURTNEY Mejia - Last Filed: 01/30/22 11:53> Assessment and Plan: Being managed by hospitalist. On IV AB. WBC normal, afebrile. <KOURTNEY Mejia - Last Filed: 01/30/22 11:53> Time Spent With Patient Time: Total time spent is greater than 50% in coordination of care (as documented) at patient's floor/unit and/or counseling patient: 18 <KOURTNEY Mejia - Last Filed: 01/30/22 11:53> Progress Note: Quality Stroke Does the patient have a stroke diagnosis?: No <KOURTNEY Mejia - Last Filed: 01/30/22 11:53> Procedures Date of Service Date of Service: 01/30/22 <KOURTNEY Mejia - Last Filed: 01/30/22 11:53>
--- NOTE | 2022-01-30 11:44 | P.CONGS_ITS ---
History of Present Illness Consult details Consult date: 01/30/22 Reason for consult: other (Pericardial effusion) Narrative: Mr. Cm is an 81-year-old male who was found by his daughter to be unresponsive. Upon arrival to the ER it was noted that he was alert and oriented x3, but reports that he has been feeling significantly depressed and withdrawn for the past few weeks. He had stopped taking a vast majority of his medications since October as a result of this depression. He also reports that he has been feeling lethargic and has not been eating or drinking well. He complains of significant lack of energy. Work-up showed rapid atrial fibrillation which prompted an echocardiogram. The echocardiogram was performed on 01/28/2022 that showed at least a moderate pericardial effusion with no clear evidence of tamponade. The patient had no symptoms or hemodynamic instability suggestive of tamponade. This was followed by chest CT which was performed yesterday that shows a moderate sized pericardial effusion which is new compared to October 2021, along with a small right-sided pleural effusion and a small to moderate left-sided pleural effusion. Thoracic surgery has been consulted for pericardial window in regards to the pericardial effusion. At time of my exam the patient states that he feels better compared to when he arrived to the hospital, but does continue to have some dyspnea with exertion. He denies any chest pain or pressure, shortness of breath at rest, recent productive cough or infection type symptoms. He does state he has a history of cancer, although he is unsure of the exact type that had spread to lymph nodes within his right groin which were removed leading to chronic right lower extremity swelling. He denies currently being treated for any active cancer and states he is undergoing surveillance, although he is unsure of what kind. He says he follows with Dr. Horton in [place]. Patient denies ever having had a pericardial effusion in the past, or having pleural effusions that required drainage in the past. Review of Systems Constitutional: Constitutional: Denies body ache(s), Denies chills, Denies fatigue, Denies fever(s), Denies headache(s), Reports lethargy, Reports malaise, Denies night sweats, Reports poor appetite, Denies weakness and Denies weight loss Eyes: Eyes: Denies loss of vision ENT: Denies dysphagia, Denies dizziness, Denies headache(s), Denies hoarseness, Denies sore throat and Denies throat swelling Cardiovascular: Cardiovascular: Denies chest pain, Denies irregular heart rhythm, Reports leg edema, Denies dyspnea, Reports dyspnea on exertion and Denies orthopnea Respiratory: Respiratory: Denies chest congestion, Denies cough, Denies hemoptysis, Denies pain with cough, Denies dyspnea, Reports dyspnea on exertion and Denies wheezing Gastrointestinal: Gastrointestinal: Denies abdominal pain, Denies dysphagia and Denies nausea Integumentary/Breasts: Skin/Breast: Denies rash Neurologic: Denies dizziness, Denies headache(s), Denies loss of vision and Denies weakness Psychiatric: Psychiatric: Reports depression Endocrine: Endocrine: Denies fatigue Allergic/Immunologic: Allergic/Immunologic: Denies throat swelling and Denies wheezing PMFSH Past Medical History Medical History Malave esophagus Benign enlargement of prostate Bipolar 1 disorder CHF (congestive heart failure) Coronary artery disease HTN (hypertension) Metastatic squamous cell carcinoma Paroxysmal A-fib Social anxiety disorder Family History Family History Other No family history of coronary artery disease Surgical History Surgical History History of cardiac cath S/P coronary artery stent placement Social History Social History (Updated 01/26/22 @ 11:51 by Dianne Shah RN) Household Members: Family Housing: Apartment Alcohol intake: current Alcohol intake frequency: holidays/special occasions only Patient Tobacco Use Status: Never used Tobacco Smoked in Last 30 Days: No service: No Current occupational status: retired [employer] Allergies Allergy/AdvReac Type Severity Reaction Status Date / Time No Known Allergies Allergy Verified 10/31/21 07:09 Active Medications: Current Medications Acetaminophen (Acetaminophen 325 Mg Tablet) 650 mg PO Q6H PRN PRN Reason: Pain, Mild (Pain Scale 1-3) Last Admin: 01/29/22 09:01 Dose: 650 mg Apixaban (Apixaban 5 Mg Tablet) 5 mg PO BID [facility] Last Admin: 01/28/22 10:52 Dose: 5 mg Atorvastatin Calcium (Atorvastatin Calcium 40 Mg Tablet) 40 mg PO BEDTIME [facility] Last Admin: 01/29/22 20:35 Dose: 40 mg Diltiazem HCl (Diltiazem Hcl Cd 180 Mg Cap.Er.24h) 360 mg PO DAILY [facility]; Protocol Last Admin: 01/30/22 09:47 Dose: 360 mg Docusate Sodium (Docusate Sodium 100 Mg Capsule) 100 mg PO DAILY PRN PRN Reason: Constipation Furosemide (Furosemide 40 Mg Tablet) 40 mg PO DAILY [facility]; Protocol Last Admin: 01/30/22 09:46 Dose: 40 mg Azithromycin 500 mg/ Sodium (Chloride) 250 mls @ 125 mls/hr IV Q24H [facility] Last Infusion: 01/30/22 05:12 Dose: Infused Ceftriaxone Sodium 1 gm/ (Sodium Chloride) 50 mls @ 100 mls/hr IV Q24H [facility] Last Infusion: 01/30/22 02:54 Dose: Infused Metoprolol Tartrate (Metoprolol Tartrate 100 Mg Tablet) 100 mg PO BID [facility]; Protocol Last Admin: 01/30/22 09:46 Dose: 100 mg Ondansetron HCl (Ondansetron Hcl 4 Mg/2 Ml Vial) 4 mg IVPUSH Q8H PRN PRN Reason: Nausea and Vomiting Pharmacy Consult (Consult Rx Perform Med Rec) 1 each MISCELLANE ONCE PRN PRN Reason: Consult order Sodium Chloride (0.9 % Sodium Chloride Flush 3 Ml Syringe) 3 ml IVFLUSH QSHIFT [facility] Last Admin: 01/30/22 09:45 Dose: Not Given Home Medications Medication Instructions Recorded Confirmed Last Taken Type aspirin 81 mg tablet,delayed 1 tab PO DAILY 01/26/22 01/26/22 Unknown History release atorvastatin 40 mg tablet 1 tab PO BEDTIME 01/26/22 01/26/22 Unknown History furosemide 40 mg tablet 1 tab PO DAILY 01/26/22 01/26/22 Unknown History lisinopril 40 mg tablet 1 tab PO DAILY 01/26/22 01/26/22 Unknown History metoprolol tartrate 100 mg tablet 1 tab PO BID 01/26/22 01/26/22 Unknown History Physical Exam Vital Signs: Vital Signs: Last Vital Signs Temp 97.3 F 01/30/22 11:23 Pulse 135 H 01/30/22 11:23 Resp 24 H 01/30/22 11:23 BP 133/90 H 01/30/22 11:23 Pulse Ox 95 01/30/22 11:23 O2 Del Method 01/30/22 11:23 O2 Flow Rate 2 01/30/22 11:23 BMI result Body Mass Index 31.6 General: No acute distress, resting comfortably in bed, well developed Head: Normocephalic, atraumatic, symmetric Eyes: Sclera anicteric, eyelids without edema or erythema, +EOMS intact ENT: Oral mucosa and tongue are moist without lesions or exudates Neck: Soft, supple, symmetric, trachea midline, no crepitus, no mass visualized or palpated Cardiovascular: Regular rate and rhythm, no murmur/rubs/gallops, BUE without edema, RLE with 2-3+ edema (chronic per patient) Respiratory: Lungs CTA B, but diminished on left. Breathing nonlabored, speaking in full sentences, on oxygen via nasal cannula. No use of accessory muscles Gastrointestinal: Soft, non-tender, non-distended, +normoactive bowel sounds. Skin: Warm and dry throughout, no rashes Lymphatic: no cervical, supraclavicular or infraclavicular lymphadenopathy noted Neurological: Alert and oriented x 3, no focal neurological deficit noted Psychiatric: No agitation, appropriate affect Results Labs Result diagrams: 01/30/22 06:49 01/30/22 06:49 Labs: Abnormal lab results 01/30/22 01/30/22 01/30/22 Range/Units 06:49 06:49 06:49 RBC 3.70 L (4.60-5.80) X10*6/uL Hgb 10.8 L (14.0-18.0) g/dl Hct 33.4 L (42.0-52.0) % Plt Count 418 H D (160-400) X10*3/uL Immature Gran % (Auto) 1.3 H (0.0-0.4) % Lymph % (Auto) 10.1 L (20-40) % [place] % (Auto) 14.6 H (2-11) % Lymph # (Auto) 0.9 L (1.2-4.9) X10*3/uL [place] # (Auto) 1.4 H (0.1-1.2) X10*3/uL Abs Immat Gran (auto) 0.12 H (0.00-0.03) X10*3/uL PT 15.7 H (9.9-13.0) SEC INR 1.4 H (0.9-1.1) Anion Gap 11 L (12-20) Random Glucose 126 H (60-115) mg/dL Short CBC 01/30/22 01/30/22 Range/Units 06:49 06:49 WBC 9.3 Cancelled (4.8-10.8) X10*3/uL Hgb 10.8 L Cancelled (14.0-18.0) g/dl Hct 33.4 L Cancelled (42.0-52.0) % Plt Count 418 H D Cancelled (160-400) X10*3/uL BMP 01/30/22 06:49 Sodium 135 Potassium 4.2 Chloride 102 Carbon Dioxide 26 BUN 12 Creatinine 0.81 Calcium 8.4 Urine 01/26/22 Range/Units 02:03 Urine Color YELLOW Urine Appearance HAZY Urine pH 6.0 (5.0-8.0) Ur Specific [place] 1.020 (1.005-1.025) Urine Protein NEG (NEG-TRACE) MG/DL Urine Glucose (UA) NEG (NEG) MG/DL All other labs normal. Imaging Additional studies: [address] [address] [address] Scan Report Signed Patient: Shi Cm MR#: [id number] : 1940 EXAMINATION: CT CHEST WITHOUT CONTRAST CLINICAL INFORMATION: Pericardial and pleural effusion? COMPARISON: CT chest 11/04/2021, chest radiograph 01/28/2022? TECHNIQUE: Multidetector volumetric CT imaging of the chest was done. Axial MIP volume rendering provided. Sagittal and coronal reformatted images were obtained.? This CT examination was performed using dose optimization techniques as appropriate, variously including the following: *Automated exposure control *Adjustment of mA and/or kV according to patient size (this includes techniques or standardized protocols for targeted exams where dose is matched to indication/reason for exam; i.e. extremities or head) *Use of iterative reconstruction technique DLP: 229 mGy-cm FINDINGS: LUNGS AND PLEURA: Small right-sided pleural effusion and small to moderate left-sided pleural effusion present, both new when compared to 11/04/2021. There is minimal right basilar atelectasis and moderate left basilar atelectasis/collapse. Pleural parenchymal apical scarring is present. The aerated lungs appear unremarkable without masses. MEDIASTINUM: Moderate sized pericardial effusion is present, new when compared to 11/04/2021. Heart size upper limits of normal. Extensive coronary calcifications are present. Calcifications are seen in the aortic leaflets. Some small mediastinal lymph nodes are present but there is no mediastinal or hilar lymphadenopathy. Retrocrural enlarged lymph nodes are present with the largest measuring about 1.9 cm, unchanged when compared to 11/04/2021. AXILLA: No lymphadenopathy.? UPPER ABDOMEN: Unremarkable.? OSSEOUS STRUCTURES: Degenerative changes are present throughout the visualized lower cervical and thoracic spine.? CT/CT chest wo con IMPRESSION: New bilateral pleural effusions and pericardial effusion as described above. Retrocrural lymph adenopathy, unchanged.? ? Fleischner guidelines were followed. Cardiology Report Signed ? Transthoracic Echocardiogram Patient (Last, First, Middle): Daniel Cm, Gender:? Male Patient ID:? ? ? [id number] Date of : ? 1940 Age: ? 81 Procedure Date:? 01/28/2022 Procedure Type:? Transthoracic Echocardiogram Location:? [facility] Height:? 182.88 cm? Weight: ? 105.69 kg BSA: ? 2.27 m2? Heart Rate:? ? ? bpm BP:? 133 / 74 mmHg Guard Supervisor: ? ? CP Referring MD:? ? Juancarlos Holman MD Mail Carrier Technician:? ? Joesph Voss MD Symptoms:? A fib Study Quality: ? Technically Difficult/contrast ECG Rhythm:? ? ? Atrial Fibrillation ?? ? Conclusions: - 1.? Normal LV systolic function with moderate LVH? 2. At least moderately dilated left atrium ? 3.? Normal cardiac valvular Dopplers ? 4.? Significantly elevated right atrial pressures? 5. At least moderate pericardial effusion? Findings Procedure Information Contrast agent, definity, is being given per protocol without apparent complications. Left Ventricle Normal left ventricular size and systolic function. There is moderately increased left ventricular wall thickness.? The visually estimated ejection fraction is between 60-65%.? Diastolic function is indeterminate on the basis of available data. Right Ventricle The right ventricle was not well visualized. Atria The left atrium is moderately dilated.? Interatrial shunt cannot be excluded. ?The right atrium was not well visualized. Aortic Valve The aortic valve was not well visualized.? There is no aortic valve stenosis. ?There is no aortic valve regurgitation. Mitral Valve Normal mitral valve structure and function.? There is trace mitral valve regurgitation.? There is no mitral valve stenosis. Pulmonic Valve The pulmonic valve was not well visualized. Tricuspid Valve Likely normal tricuspid valve structure and function.? Tricuspid regurgitation envelope is inadequate for calculation of right ventricular systolic pressure.? Significantly elevated right atrial pressure. Great Vessels All visible segments of the aorta are normal in size.? The pulmonary artery was not well visualized. Venous The inferior vena cava is moderately dilated and does not collapse with inspiration. Pericardium/Pleural There is a moderate circumferential pericardial effusion. Prior Study Comparison No prior study available for comparison. Assessment and Plan (1) Pericardial effusion: Status: Acute Mr. Cm is an 81-year-old male who was found to have a new pericardial effusion and bilateral pleural effusions, left greater than right. * In regards to the pericardial effusion, decision has been made to take the patient for a left VATS pericardial window. Risks, benefits, and alternatives were discussed with the patient including alternative for pericardiocentesis and thoracentesis. Patient is agreeable to proceed with the planned procedure and this is scheduled to take place this afternoon. * The cause of the pericardial effusion, and pleural effusions, are still in question although malignancy is a potential given his history. Other reasons could be inflammatory/infectious processes, or fluid imbalance issues. Case discussed with Dr. Browne. Thank you for the consultation. (2) Pleural effusion, left: Status: Acute Procedures Date of Service Date of Service: 01/30/22
--- NOTE | 2022-01-30 13:49 | MHC.CM.PN ---
per rounds pt not ready for dc ,[facility] folllowimng pt w/ bed offer pending avaliabilty at time of dc
--- NOTE | 2022-01-30 13:53 | P.CONCC_ITS ---
History of Present Illness Data of Consult Service Date: 01/30/22 Requesting physician: Aureliano Wade Primary Care Provider: Carol Mathis NP HPI Mr. Cm is planned for admission to the ICU this evening if necessary for respiratory and hemod monitoring after pericardial window and drainage of odalys ateral pleural effusions by Dr. Browne. The patient is an 81-year-old male with PMHx of CAD s/p PCI, PAFib on Eliquis and metoprolol, bipolar/depression, CHF, HTN, BPH, HLD, Barretts esophagus and metastatic squamous cell carcinoma of the right foot/ leg, s/p right groin lymph node removal The patient was BIBA to the ED on January 25 after being found unresponsive.? Reportedly he was alert oriented x3 on arrival of EMS.? The patient reported feeling lethargic, weak, anorexic, and stated that he?d stopped taking his meds since October as a result of his depression, and had stopped taking care of his general wellbeing, including showering, shaving, brushing his teeth, and his ADLs. The patient arrived to the ED soiled and incontinent of urine. ?In the ED, his HR was 129 in AFib, Sat?ing 89% on room air. ?He had lymphedema.? Occult stool was nejgative. Notable labs: Hb 9.9 (was 13.4), sodium 132, troponin 91 and flat.? UA negative.? CXR showed moderate left pleural effusion with atelectasis / conso lidation. He was treated with a diltiazem drip, treated for CAP, and admitted to Medicine.? ECHOCARDIOGRAM 01/28 showed normal LV systolic function with moderate LVH, EF 60%; RV not adeq visualized; at least moderately dilated left atrium; normal cardiac valvular Dopplers; significantly elevated right atrial pressures; the IVC was moderately dilated with no inspiratory collapse; no RVSP estimate able to be made; and at least moderate pericardial effusion.? (The patient has had no evidence of any hemodynamic compromise from the pericardial effusion.) ?Wound care is consulting on his RLE lymphedema which is 2? to his lymph node dissection for SCC. Chest CT yesterday showed small right-sided pleural effusion and small to moderate left-sided pleural effusion, both new when compared to the CT November 04, along with the new moderate-sized pericardial effusion. I saw the patient in surgery preop holding.? He?s breathing easy w Sat 94% on room air.? He does c/o dyspnea on exertion.? HR 120s-140?s, afib.? BP 130s.? He?s been afebrile for the duration of this hospital stay.? No JVD at 20?.? Chest is CTA, with normal exp phase.? He has no extremity or central edema on the left side; right side has massive lymphedema 2? to his LN dissection years ago. ADDENDUM:? I am told that the patient had a previous pericardial window, but I am unable to find any further details about that in the chart.? The obvious question is, why does this patient have a pericardial effusion?? In particular, is this metastatic disease? IMPRESSION 1. Afib w RVR.? Very likely 2? pericardial irritation.? Advised starting a dilt drip now. 2. Pericard effusion.? No BP compromise (at present). 3. Bilat pleural effusions.? ? Etiology.? Has not had a dx thoracentesis as far as I know. 4. H/o CAD. 5. H/o metastatic squamous cell carcinoma of the right foot/ leg, s/p right groin lymph node removal. 6. RLE lymphedema, status post right groin lymph node removal. If necessary, the patient will be admitted to the ICU postoperatively for respiratory and hemodynamic monitoring. [facility] Past Medical History Medical History Malave esophagus Benign enlargement of prostate Bipolar 1 disorder CHF (congestive heart failure) Coronary artery disease HTN (hypertension) Metastatic squamous cell carcinoma Paroxysmal A-fib Social anxiety disorder Family History Family History Other No family history of coronary artery disease Surgical History Surgical History History of cardiac cath S/P coronary artery stent placement Social History Social History (Updated 01/26/22 @ 11:51 by Dianne Shah, ADRIENNE) Household Members: Family Housing: Apartment Alcohol intake: current Alcohol intake frequency: holidays/special occasions only Patient Tobacco Use Status: Never used Tobacco Smoked in Last 30 Days: No service: No Current occupational status: retired [employer] Allergies Allergy/AdvReac Type Severity Reaction Status Date / Time No Known Allergies Allergy Verified 10/31/21 07:09 Active Medications: Current Medications Acetaminophen (Acetaminophen 325 Mg Tablet) 650 mg PO Q6H PRN PRN Reason: Pain, Mild (Pain Scale 1-3) Last Admin: 01/29/22 09:01 Dose: 650 mg Apixaban (Apixaban 5 Mg Tablet) 5 mg PO BID [facility] Last Admin: 01/28/22 10:52 Dose: 5 mg Atorvastatin Calcium (Atorvastatin Calcium 40 Mg Tablet) 40 mg PO BEDTIME [facility] Last Admin: 01/29/22 20:35 Dose: 40 mg Diltiazem HCl (Diltiazem Hcl Cd 180 Mg Cap.Er.24h) 360 mg PO DAILY [facility]; Protocol Last Admin: 01/30/22 09:47 Dose: 360 mg Docusate Sodium (Docusate Sodium 100 Mg Capsule) 100 mg PO DAILY PRN PRN Reason: Constipation Furosemide (Furosemide 40 Mg Tablet) 40 mg PO DAILY [facility]; Protocol Last Admin: 01/30/22 09:46 Dose: 40 mg Azithromycin 500 mg/ Sodium (Chloride) 250 mls @ 125 mls/hr IV Q24H [facility] Last Infusion: 01/30/22 05:12 Dose: Infused Ceftriaxone Sodium 1 gm/ (Sodium Chloride) 50 mls @ 100 mls/hr IV Q24H [facility] Last Infusion: 01/30/22 02:54 Dose: Infused Epinephrine 5 mg/ Dextrose 255 mls @ 0 mls/hr IVCONT .Q0M [facility]; Protocol Norepinephrine Bitartrate (Levophed) 8 mg in 250 mls @ 0 mls/hr IVCONT .Q0M [facility]; Protocol Metoprolol Tartrate (Metoprolol Tartrate 100 Mg Tablet) 100 mg PO BID [facility]; Protocol Last Admin: 01/30/22 09:46 Dose: 100 mg Ondansetron HCl (Ondansetron Hcl 4 Mg/2 Ml Vial) 4 mg IVPUSH Q8H PRN PRN Reason: Nausea and Vomiting Pharmacy Consult (Consult Rx Perform Med Rec) 1 each MISCELLANE ONCE PRN PRN Reason: Consult order Sodium Chloride (0.9 % Sodium Chloride Flush 3 Ml Syringe) 3 ml IVFLUSH QSHIFT [facility] Last Admin: 01/30/22 09:45 Dose: Not Given Home Medications Medication Instructions Recorded Confirmed Last Taken Type aspirin 81 mg tablet,delayed 1 tab PO DAILY 01/26/22 01/26/22 Unknown History release atorvastatin 40 mg tablet 1 tab PO BEDTIME 01/26/22 01/26/22 Unknown History furosemide 40 mg tablet 1 tab PO DAILY 01/26/22 01/26/22 Unknown History lisinopril 40 mg tablet 1 tab PO DAILY 01/26/22 01/26/22 Unknown History metoprolol tartrate 100 mg tablet 1 tab PO BID 01/26/22 01/26/22 Unknown History Physical Exam Vital Signs: Vital Signs: Last Vital Signs Temp 97.3 F 01/30/22 11:23 Pulse 135 H 01/30/22 11:23 Resp 24 H 01/30/22 11:23 BP 133/90 H 01/30/22 11:23 Pulse Ox 95 01/30/22 11:23 O2 Del Method 01/30/22 11:23 O2 Flow Rate 2 01/30/22 11:23 BMI result Body Mass Index 31.6 Results Labs CBC & Chem 7: 01/30/22 06:49 01/30/22 06:49 Labs: Short CBC 01/30/22 01/30/22 Range/Units 06:49 06:49 WBC 9.3 Cancelled (4.8-10.8) X10*3/uL Hgb 10.8 L Cancelled (14.0-18.0) g/dl Hct 33.4 L Cancelled (42.0-52.0) % Plt Count 418 H D Cancelled (160-400) X10*3/uL BMP 01/30/22 06:49 Sodium 135 Potassium 4.2 Chloride 102 Carbon Dioxide 26 BUN 12 Creatinine 0.81 Calcium 8.4 Microbiology Microbiology Results: Microbiology 01/26/22 02:22 Blood - Venous Blood Culture - Preliminary No growth after 48 hours. 01/26/22 02:22 Blood - Venous Blood Culture - Preliminary No growth after 48 hours.
[2022-01-30] MEDS: dilTIAZem HCL 50 MG/10 ML VIAL IVPUSH (14:23)
--- NOTE | 2022-01-30 14:38 | P.CONAN_ITS ---
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 Case was discussed with Corporate Staff Accountant , social and human services assistant and the surgeon . REPLACED BY [facility] Active Problems Active Problems: All Active Problems (Updated 01/29/22 @ 12:42 by Joesph Voss MD) Pericardial effusion (Acute) Pleural effusion, left (Acute) Atrial fibrillation with rapid ventricular response (Acute) Anemia (Acute) Acute hyponatremia (Acute) Pneumonia (Acute) Patient nonadherence (Acute) Migraine (Acute) Lymphedema of right lower extremity (Acute) Hyperlipidemia (Acute) Gynecomastia (Acute) Fatigue (Acute) Enlarged lymph nodes (Acute) Arthritis (Acute) Depression (Acute) Cancer (Acute) Past Medical History Medical History Malave esophagus Benign enlargement of prostate Bipolar 1 disorder CHF (congestive heart failure) Coronary artery disease HTN (hypertension) Metastatic squamous cell carcinoma Paroxysmal A-fib Social anxiety disorder Family History Family History Other No family history of coronary artery disease Family history of problems with anesthesia: No Surgical History Surgical History History of cardiac cath S/P coronary artery stent placement History of Problems with Anesthesia: No Social History Social History (Updated 01/26/22 @ 11:51 by Dianne Shah, ADRIENNE) Household Members: Family Housing: Apartment Alcohol intake: current Alcohol intake frequency: holidays/special occasions only Patient Tobacco Use Status: Never used Tobacco Smoked in Last 30 Days: No service: No Current occupational status: retired [employer] Allergies Allergy/AdvReac Type Severity Reaction Status Date / Time No Known Allergies Allergy Verified 10/31/21 07:09 Active Medications: Current Medications Acetaminophen (Acetaminophen 325 Mg Tablet) 650 mg PO Q6H PRN PRN Reason: Pain, Mild (Pain Scale 1-3) Last Admin: 01/29/22 09:01 Dose: 650 mg Apixaban (Apixaban 5 Mg Tablet) 5 mg PO BID [facility] Last Admin: 01/28/22 10:52 Dose: 5 mg Atorvastatin Calcium (Atorvastatin Calcium 40 Mg Tablet) 40 mg PO BEDTIME [facility] Last Admin: 01/29/22 20:35 Dose: 40 mg Diltiazem HCl (Diltiazem Hcl Cd 180 Mg Cap.Er.24h) 360 mg PO DAILY [facility]; Protocol Last Admin: 01/30/22 09:47 Dose: 360 mg Docusate Sodium (Docusate Sodium 100 Mg Capsule) 100 mg PO DAILY PRN PRN Reason: Constipation Furosemide (Furosemide 40 Mg Tablet) 40 mg PO DAILY [facility]; Protocol Last Admin: 01/30/22 09:46 Dose: 40 mg Azithromycin 500 mg/ Sodium (Chloride) 250 mls @ 125 mls/hr IV Q24H [facility] Last Infusion: 01/30/22 05:12 Dose: Infused Ceftriaxone Sodium 1 gm/ (Sodium Chloride) 50 mls @ 100 mls/hr IV Q24H [facility] Last Infusion: 01/30/22 02:54 Dose: Infused Epinephrine 5 mg/ Dextrose 255 mls @ 0 mls/hr IVCONT .Q0M [facility]; Protocol Norepinephrine Bitartrate (Levophed) 8 mg in 250 mls @ 0 mls/hr IVCONT .Q0M [facility]; Protocol Diltiazem HCl 125 mg/ Sodium (Chloride) 125 mls @ 0 mls/hr IVCONT .Q0M [facility]; Protocol Metoprolol Tartrate (Metoprolol Tartrate 100 Mg Tablet) 100 mg PO BID [facility]; Protocol Last Admin: 01/30/22 09:46 Dose: 100 mg Ondansetron HCl (Ondansetron Hcl 4 Mg/2 Ml Vial) 4 mg IVPUSH Q8H PRN PRN Reason: Nausea and Vomiting Pharmacy Consult (Consult Rx Perform Med Rec) 1 each MISCELLANE ONCE PRN PRN Reason: Consult order Sodium Chloride (0.9 % Sodium Chloride Flush 3 Ml Syringe) 3 ml IVFLUSH QSHIFT [facility] Last Admin: 01/30/22 09:45 Dose: Not Given Home Medications Medication Instructions Recorded Confirmed Last Taken Type aspirin 81 mg tablet,delayed 1 tab PO DAILY 01/26/22 01/26/22 Unknown History release atorvastatin 40 mg tablet 1 tab PO BEDTIME 01/26/22 01/26/22 Unknown History furosemide 40 mg tablet 1 tab PO DAILY 01/26/22 01/26/22 Unknown History lisinopril 40 mg tablet 1 tab PO DAILY 01/26/22 01/26/22 Unknown History metoprolol tartrate 100 mg tablet 1 tab PO BID 01/26/22 01/26/22 Unknown History Exam Exam Date and Time: January 30, 2022 1438 Height,Weight and Vital Signs: Height 6 ft Weight 105.8 kg Last Vital Signs Temp 96.9 F 01/30/22 14:06 Pulse 139 H 01/30/22 14:06 Resp 18 01/30/22 14:06 BP 119/86 01/30/22 14:06 Pulse Ox 94 01/30/22 14:06 O2 Del Method 01/30/22 14:06 O2 Flow Rate 2 01/30/22 14:06 Pertinent Lab Results Pertinent Lab Results: Laboratory Tests 01/26/22 01/26/22 01/26/22 00:19 00:19 00:19 WBC 9.5 RBC 3.34 L D Hgb 9.9 L D Hct 30.2 L D MCV 90.4 MCH 29.6 MCHC 32.8 RDW 15.0 Plt Count 273 MPV 9.5 Immature Gran % (Auto) 0.5 H Neut % (Auto) 71.9 Lymph % (Auto) 11.1 L [place] % (Auto) 15.2 H Eos % (Auto) 1.0 Baso % (Auto) 0.3 Lymph # (Auto) 1.1 L [place] # (Auto) 1.5 H Eos # (Auto) 0.1 Baso # (Auto) 0.0 Abs Immat Gran (auto) 0.05 H Absolute Neuts (auto) 6.8 Absolute Nucleated RBC 0.000 Nucleated RBC % (auto) 0.0 PT INR APTT aPTT Heparin Protocol Sodium 132 L Potassium 4.2 Chloride 102 Carbon Dioxide 25 Anion Gap 9 L BUN 17 H Creatinine 0.97 Estim Creat Clear Calc 76.6 Estimated GFR > 60 Random Glucose 116 H Lactic Acid Calcium 8.1 L Magnesium 2.3 Total Bilirubin 1.0 Direct Bilirubin 0.5 AST 11 D ALT < 6 Alkaline Phosphatase 80 Total Creatine Kinase 39 Troponin I High Sens 91.3 H B-Natriuretic Peptide Total Protein 5.9 L Albumin 3.0 L Triglycerides Cholesterol LDL Cholesterol, Calc HDL Cholesterol Procalcitonin TSH Urine Color Urine Appearance Urine pH Ur Specific [place] Urine Protein Urine Glucose (UA) Urine Ketones Urine Blood Urine Nitrite Ur Leukocyte Esterase Stool Occult Blood COVID-19 ([facility]) COVID-19 Clin Com Blood Type Antibody Screen 01/26/22 01/26/22 01/26/22 00:42 01:37 02:03 WBC RBC Hgb Hct MCV MCH MCHC RDW Plt Count MPV Immature Gran % (Auto) Neut % (Auto) Lymph % (Auto) [place] % (Auto) Eos % (Auto) Baso % (Auto) Lymph # (Auto) [place] # (Auto) Eos # (Auto) Baso # (Auto) Abs Immat Gran (auto) Absolute Neuts (auto) Absolute Nucleated RBC Nucleated RBC % (auto) PT INR APTT aPTT Heparin Protocol Sodium Potassium Chloride Carbon Dioxide Anion Gap BUN Creatinine Estim Creat Clear Calc Estimated GFR Random Glucose Lactic Acid Calcium Magnesium Total Bilirubin Direct Bilirubin AST ALT Alkaline Phosphatase Total Creatine Kinase Troponin I High Sens B-Natriuretic Peptide Total Protein Albumin Triglycerides Cholesterol LDL Cholesterol, Calc HDL Cholesterol Procalcitonin TSH Urine Color YELLOW Urine Appearance HAZY Urine pH 6.0 Ur Specific [place] 1.020 Urine Protein NEG Urine Glucose (UA) NEG Urine Ketones NEG Urine Blood NEG Urine Nitrite NEG Ur Leukocyte Esterase NEG Stool Occult Blood NEGATIVE COVID-19 ([facility]) Negative COVID-19 Clin Com See Note Blood Type Antibody Screen 01/26/22 01/26/22 01/26/22 02:20 02:20 03:24 WBC RBC Hgb Hct MCV MCH MCHC RDW Plt Count MPV Immature Gran % (Auto) Neut % (Auto) Lymph % (Auto) [place] % (Auto) Eos % (Auto) Baso % (Auto) Lymph # (Auto) [place] # (Auto) Eos # (Auto) Baso # (Auto) Abs Immat Gran (auto) Absolute Neuts (auto) Absolute Nucleated RBC Nucleated RBC % (auto) PT 15.5 H INR 1.4 H APTT aPTT Heparin Protocol Sodium Potassium Chloride Carbon Dioxide Anion Gap BUN Creatinine Estim Creat Clear Calc Estimated GFR Random Glucose Lactic Acid 1.1 Calcium Magnesium Total Bilirubin Direct Bilirubin AST ALT Alkaline Phosphatase Total Creatine Kinase Troponin I High Sens 93.9 H B-Natriuretic Peptide Total Protein Albumin Triglycerides Cholesterol LDL Cholesterol, Calc HDL Cholesterol Procalcitonin TSH Urine Color Urine Appearance Urine pH Ur Specific [place] Urine Protein Urine Glucose (UA) Urine Ketones Urine Blood Urine Nitrite Ur Leukocyte Esterase Stool Occult Blood COVID-19 ([facility]) COVID-19 [facility]ary Com Blood Type Antibody Screen 01/26/22 01/26/22 01/26/22 05:33 05:33 06:49 WBC 8.8 RBC 3.58 L Hgb 10.6 L Hct 32.6 L MCV 91.1 MCH 29.6 MCHC 32.5 RDW 15.1 Plt Count 301 MPV 10.2 Immature Gran % (Auto) 0.7 H Neut % (Auto) 74.3 H Lymph % (Auto) 9.3 L [place] % (Auto) 13.6 H Eos % (Auto) 1.5 Baso % (Auto) 0.6 Lymph # (Auto) 0.8 L [place] # (Auto) 1.2 Eos # (Auto) 0.1 Baso # (Auto) 0.1 Abs Immat Gran (auto) 0.06 H Absolute Neuts (auto) 6.5 Absolute Nucleated RBC 0.000 Nucleated RBC % (auto) 0.0 PT INR APTT aPTT Heparin Protocol Sodium 133 L Potassium 4.2 Chloride 103 Carbon Dioxide 22 Anion Gap 12 BUN 18 H Creatinine 0.83 Estim Creat Clear Calc 89.5 Estimated GFR > 60 Random Glucose 114 Lactic Acid Calcium 8.6 D Magnesium Total Bilirubin Direct Bilirubin AST ALT Alkaline Phosphatase Total Creatine Kinase Troponin I High Sens B-Natriuretic Peptide Total Protein Albumin Triglycerides Cholesterol LDL Cholesterol, Calc HDL Cholesterol Procalcitonin TSH 0.36 Urine Color Urine Appearance Urine pH Ur Specific [place] Urine Protein Urine Glucose (UA) Urine Ketones Urine Blood Urine Nitrite Ur Leukocyte Esterase Stool Occult Blood COVID-19 ([facility]) COVID-19 [employer] Blood Type Antibody Screen 01/26/22 01/26/22 01/26/22 06:49 06:49 06:49 WBC 7.8 RBC 3.32 L Hgb 9.8 L Hct 30.0 L MCV 90.4 MCH 29.5 MCHC 32.7 RDW 15.2 Plt Count 258 MPV 9.7 Immature Gran % (Auto) Neut % (Auto) Lymph % (Auto) [place] % (Auto) Eos % (Auto) Baso % (Auto) Lymph # (Auto) [place] # (Auto) Eos # (Auto) Baso # (Auto) Abs Immat Gran (auto) Absolute Neuts (auto) Absolute Nucleated RBC 0.000 Nucleated RBC % (auto) 0.0 PT 18.2 H INR 1.6 H APTT aPTT Heparin Protocol 38.7 L Sodium Potassium Chloride Carbon Dioxide Anion Gap BUN Creatinine Estim Creat Clear Calc Estimated GFR Random Glucose Lactic Acid Calcium Magnesium Total Bilirubin Direct Bilirubin AST ALT Alkaline Phosphatase Total Creatine Kinase Troponin I High Sens B-Natriuretic Peptide 198 H Total Protein Albumin Triglycerides Cholesterol LDL Cholesterol, Calc HDL Cholesterol Procalcitonin TSH Urine Color Urine Appearance Urine pH Ur Specific [place] Urine Protein Urine Glucose (UA) Urine Ketones Urine Blood Urine Nitrite Ur Leukocyte Esterase Stool Occult Blood COVID-19 ([facility]) COVID-19 [facility] Diary Com Blood Type Antibody Screen 01/27/22 01/27/22 01/27/22 06:41 06:41 06:41 WBC 6.3 RBC 3.55 L Hgb 10.4 L Hct 32.7 L MCV 92.1 MCH 29.3 MCHC 31.8 RDW 15.1 Plt Count 279 MPV 10.1 Immature Gran % (Auto) Neut % (Auto) Lymph % (Auto) [place] % (Auto) Eos % (Auto) Baso % (Auto) Lymph # (Auto) [place] # (Auto) Eos # (Auto) Baso # (Auto) Abs Immat Gran (auto) Absolute Neuts (auto) Absolute Nucleated RBC 0.000 Nucleated RBC % (auto) 0.0 PT 17.4 H INR 1.5 H APTT aPTT Heparin Protocol Sodium 133 L Potassium 4.0 Chloride 103 Carbon Dioxide 22 Anion Gap 12 BUN 11 Creatinine 0.81 Estim Creat Clear Calc 91.4 Estimated GFR > 60 Random Glucose 121 H Lactic Acid Calcium 8.0 L D Magnesium Total Bilirubin Direct Bilirubin AST ALT Alkaline Phosphatase Total Creatine Kinase Troponin I High Sens B-Natriuretic Peptide Total Protein Albumin Triglycerides 67 Cholesterol 149 LDL Cholesterol, Calc 111 HDL Cholesterol 25 Procalcitonin TSH Urine Color Urine Appearance Urine pH Ur Specific [place] Urine Protein Urine Glucose (UA) Urine Ketones Urine Blood Urine Nitrite Ur Leukocyte Esterase Stool Occult Blood COVID-19 ([facility]) COVID-19 One Diary Com Blood Type Antibody Screen 01/27/22 01/29/22 01/29/22 06:41 06:25 06:25 WBC RBC Hgb Hct MCV MCH MCHC RDW Plt Count MPV Immature Gran % (Auto) Neut % (Auto) Lymph % (Auto) [place] % (Auto) Eos % (Auto) Baso % (Auto) Lymph # (Auto) [place] # (Auto) Eos # (Auto) Baso # (Auto) Abs Immat Gran (auto) Absolute Neuts (auto) Absolute Nucleated RBC Nucleated RBC % (auto) PT INR APTT aPTT Heparin Protocol Sodium 135 Potassium 4.0 Chloride 103 Carbon Dioxide 25 Anion Gap 11 L BUN 13 Creatinine 0.80 Estim Creat Clear Calc 92.5 Estimated GFR > 60 Random Glucose 125 H Lactic Acid Calcium 8.2 L Magnesium 2.1 Total Bilirubin Direct Bilirubin AST ALT Alkaline Phosphatase Total Creatine Kinase Troponin I High Sens B-Natriuretic Peptide Total Protein Albumin Triglycerides Cholesterol LDL Cholesterol, Calc HDL Cholesterol Procalcitonin 0.14 0.07 TSH Urine Color Urine Appearance Urine pH Ur Specific [place] Urine Protein Urine Glucose (UA) Urine Ketones Urine Blood Urine Nitrite Ur Leukocyte Esterase Stool Occult Blood COVID-19 ([facility]) COVID-19 Clin Com Blood Type Antibody Screen 01/30/22 01/30/22 01/30/22 06:49 06:49 06:49 WBC 9.3 Cancelled RBC 3.70 L Cancelled Hgb 10.8 L Cancelled Hct 33.4 L Cancelled MCV 90.3 Cancelled MCH 29.2 Cancelled MCHC 32.3 Cancelled RDW 15.1 Cancelled Plt Count 418 H D Cancelled MPV 10.2 Cancelled Immature Gran % (Auto) 1.3 H Cancelled Neut % (Auto) 71.8 Cancelled Lymph % (Auto) 10.1 L Cancelled [place] % (Auto) 14.6 H Cancelled Eos % (Auto) 1.7 Cancelled Baso % (Auto) 0.5 Cancelled Lymph # (Auto) 0.9 L Cancelled [place] # (Auto) 1.4 H Cancelled Eos # (Auto) 0.2 Cancelled Baso # (Auto) 0.1 Cancelled Abs Immat Gran (auto) 0.12 H Cancelled Absolute Neuts (auto) 6.7 Cancelled Absolute Nucleated RBC 0.000 Cancelled Nucleated RBC % (auto) 0.0 Cancelled PT 15.7 H INR 1.4 H APTT 37.6 aPTT Heparin Protocol Sodium Potassium Chloride Carbon Dioxide Anion Gap BUN Creatinine Estim Creat Clear Calc Estimated GFR Random Glucose Lactic Acid Calcium Magnesium Total Bilirubin Direct Bilirubin AST ALT Alkaline Phosphatase Total Creatine Kinase Troponin I High Sens B-Natriuretic Peptide Total Protein Albumin Triglycerides Cholesterol LDL Cholesterol, Calc HDL Cholesterol Procalcitonin TSH Urine Color Urine Appearance Urine pH Ur Specific [place] Urine Protein Urine Glucose (UA) Urine Ketones Urine Blood Urine Nitrite Ur Leukocyte Esterase Stool Occult Blood COVID-19 ([facility]) COVID-19 Clin Com Blood Type Antibody Screen 01/30/22 01/30/22 01/30/22 06:49 06:49 06:49 WBC RBC Hgb Hct MCV MCH MCHC RDW Plt Count MPV Immature Gran % (Auto) Neut % (Auto) Lymph % (Auto) [place] % (Auto) Eos % (Auto) Baso % (Auto) Lymph # (Auto) [place] # (Auto) Eos # (Auto) Baso # (Auto) Abs Immat Gran (auto) Absolute Neuts (auto) Absolute Nucleated RBC Nucleated RBC % (auto) PT Cancelled INR Cancelled APTT aPTT Heparin Protocol Sodium 135 Potassium 4.2 Chloride 102 Carbon Dioxide 26 Anion Gap 11 L BUN 12 Creatinine 0.81 Estim Creat Clear Calc 91.4 Estimated GFR > 60 Random Glucose 126 H Lactic Acid Calcium 8.4 Magnesium Total Bilirubin Direct Bilirubin AST ALT Alkaline Phosphatase Total Creatine Kinase Troponin I High Sens B-Natriuretic Peptide Total Protein Albumin Triglycerides Cholesterol LDL Cholesterol, Calc HDL Cholesterol Procalcitonin TSH Urine Color Urine Appearance Urine pH Ur Specific [place] Urine Protein Urine Glucose (UA) Urine Ketones Urine Blood Urine Nitrite Ur Leukocyte Esterase Stool Occult Blood COVID-19 ([facility]) COVID-19 Clin Com Blood Type A Positive Antibody Screen NEGATIVE Airway Mallampati Class: IV TM Dist: >3cm Neck ROM: Full Loose/Missing/Broken Teeth: Yes (Extremly poor dentition ) Heart: Irreular Lungs: decreased breath sounds Assessment and Plan Assessment Anesthesia Assessment: Anesthesia Plan Discussed and Chart Reviewed Final Anesthetic Review Family History of Problems with Anesthesia: No History of Problems with Anesthesia: No NPO: Yes ASA Class: IV Final Preanesthetic Review: Meds/Allgs Chart Reviewed, Consent Obtained/Reviewed and Anes Risks/Benef Reviewed Patient Risk: High Procedure Risk: Intermediate Anesthetic Plan Anesthetic Plan: GA Disposition: Inp. Admit - ICU
[2022-01-30] MEDS: dilTIAZem HCL 125 MG in 0.9 % Sodium Chloride 100 ML IVCONT (15:01)
--- NOTE | 2022-01-30 15:11 | MHC.SHP ---
Pre-Procedural Eval Section A Date of Service: 01/30/22 The patient is an INPATIENT: Yes Section B Chief Complaint: A Fib W RVR Details of Present Illness: pericardial effusion and left pleural effusion. Allergies: Allergies Allergy/AdvReac Type Severity Reaction Status Date / Time No Known Allergies Allergy Verified 10/31/21 07:09 Plan I have reviewed the history and physical and performed a pertinent physical examination on my patient. No changes have occurred unless specified.I had a long discussion with the patient about the risks, benefits, and alternatives of the proposed operation. He understood and agreed to proceed. Plan is for left VATS a VAC UA romero of pleural effusion and pericardial window.
--- NOTE | 2022-01-30 17:11 | P.OP_ITS ---
Operative Note Operative Note Date of Service: 01/30/22 Narrative: Preoperative diagnosis: pericardial effusion with tamponade physiology and left pleural effusion Postoperative diagnosis: Same Operation: left VATS pericardial window and evacuation of left pleural fluid Surgeon: Joana Browne MD Entertainment Centre Manager: deloris Lemus Specimens: pleural fluid, pericardial fluid, and pericardium to pathology/ cytology and microbiology EBL: 15 cc Anesthesia: General Operation in detail: The patient was brought to the operating room, placed supinethe operative table, anesthesia monitoring devices were placed, and the patient was intubated with a double-lumen endotracheal tube with the abdomen prepped in case we need to do an emergent subxiphoid window. He tolerated induction quite well however. The tube was confirmed with a pediatric bronchoscope and a bronchoscopy was done with no endobronchial lesions and minimal secretions. The patient was then turned with the Left chest up And chest was prepped and draped in the standard sterile fashion. A time-out was performed confirming the correct patient, site, and procedure. After injection of local anesthetic, a 1 cm incision was made the 7th intercostal space posterior axillary line and the chest was entered. 1st, we placed the Yankauer suction into the chest and evacuated the left pleural fluid some of which was collected in a Lukens trap. 950 cc total of thin yellow fluid was evacuated from the left pleural space. We then placed a 5 mm trocar and 5 mm 45 degree scope was inserted into the chest and the chest was explored. There were no chest wall masses or other abnormalities appreciated. The scope was then directed anteriorly and we chose a spot just in the inframammary crease with the chest was entered with a 3 cm incision just above the pericardium that was visualized. With thoracoscopic visualization and a Armando wound protector we cleared the pericardial fat with a peanut and some electrocautery. There was a bulge of the blue tinged pericardium and this was incised with a 15 blade with a small amount of fluid starting to come out. This fluid was collected in a Lukens trap and sent for pathology and other studies. The hole in the pericardium was then extended with electrocautery and the Metzenbaum scissors and the remaining fluid was evacuated. A silver dollar size portion of the pericardium was then excised and sent to pathology for permanent section. Throu gh a separate stab incision a 10. Flat DAVONTE was then placed into the pericardium under vision. This was secured with a nylon suture. The Armando wound protector was removed the camera was placed through that incision and a 24 Turkish straight chest tube was placed through that incision under vision directed to lie posteriorly and up towards the apex. the remaining incision was then closed with a deep running 0 Vicryl suture followed by running 3-0 Vicryl suture and Exofin glue. The patient tolerated the procedure well, was extubated at the conclusion of the operation, and brought to the recovery room in stable condition.
--- NOTE | 2022-01-30 18:08 | PC.NURSE ---
Pt NPO for Or today. Report given to RN in OR. Safety and fall precautions maintained. Call ornelas within reach. Pt repo'ed Q2. pt to be xfer'ed to ICU post op
[2022-01-30] MEDS: dexmedeTOMIDidine HCL/NS 400 MCG/100 ML INFUS..BTL 10.58 MCG IVCONT (18:16)
[2022-01-30 18:19] LABS: MN% 65.2 %; PMN% 34.8 %; WBC Pleural Fluid 1.024 X10*3/uL
[2022-01-30 18:20] LABS: RBC Pleural Fluid < 0.002 X10*3/uL
--- NOTE | 2022-01-30 18:43 | PC.NURSE ---
PATIENT ARRIVED FROM PACU AT 1807. DISORIENTED, CONFUSED, TRYING TO CLIMB OOB, PULLING ON LINES. PRECEDEX GTT STARTED PER MD - SEE EMAR. RESTRAINTS APPLIED FOR SAFETY. DAVONTE DRAIN AND CHEST TUBE DRESSING NOTED TO BE BLEEDING AND LEAKING. PICTURES OBTAINED AND TIGER CONNECTED TO LATASHA RAMÍREZ SENT - PER SARAH REENFORCE DRESSINGS. HR 120S - ON DILTIAZEM GTT AT 10 MG/HR. ?RUB TO LEFT LUNGS. IN & EX WHEEZING THROUGHOUT. ARRIVED ON 9L SHOVEL MASK - 02 92%. KOTA C/D/I - WNL. SUNSHINE ATTEMPTED AND FAILED - ?FORESKIN CLOSURE.
[2022-01-30 19:37] LABS: ABG Refer to POC result
[2022-01-30 19:39] LABS: ABG Base Excess -1.4 mmol/L; ABG HCO3 23 mmol/L (22-26); ABG pCO2 40 mmHg (32-45); ABG pH 7.37 (7.35-7.45); ABG pO2 76 mmHg (83-108)
[2022-01-30 20:03] LABS: MANUAL DIFF FLAG NO
[2022-01-30 20:12] LABS: Basophils Absolute Auto 0.1 X10*3/uL (0.0-0.2); Basophils Percent Auto 0.5 % (0-2); Eosinophils Percent Auto 0.2 % (0-4); Hemoglobin 12.5 g/dl (14.0-18.0); Imm Gran Abs Auto 0.14 X10*3/uL (0.00-0.03); Imm Gran Pct Auto 1.1 % (0.0-0.4); Lymphocytes Absolute Auto 0.8 X10*3/uL (1.2-4.9); Lymphocytes Percent Auto 6.1 % (20-40); Mean Corpuscular HGB Conc 31.3 g/dl (31.0-36.0); Mean Corpuscular Hemoglobin 28.9 pg (27.0-33.0); Mean Corpuscular Volume 92.6 fL (80.0-98.0); Mean Platelet Volume 10.2 fL (9.4-12.4); Monocytes Percent Auto 7.9 % (2-11); Neutrophils Absolute Auto 10.4 x10*3/uL (2.0-8.3); Neutrophils Percent Auto 84.2 % (45-73); Platelet Count 356 X10*3/uL (160-400); Red Blood Count 4.32 X10*6/uL (4.60-5.80); Red Cell Distribution Width 15.1 % (11.0-16.0); White Blood Count 12.3 X10*3/uL (4.8-10.8)
[2022-01-30] MEDS: Metoprolol Tartrate 5 MG/5 ML VIAL IV (20:14)
[2022-01-30 20:34] LABS: BF Shift QC OK YES; Man Diluent Bkgrd OK YES; RBC Pericardial Fluid 37450 MM*3; WBC Pericardial Fluid 550 MM*3
[2022-01-30 20:35] LABS: Lymphs Pericardial Fl 31 %; Monocytes Pericard Fl 12 %; Neutrophils Pericardial Fluid 55 %
[2022-01-30 20:36] LABS: Eosinophil Pericardical Fl 2 %
[2022-01-30 20:38] LABS: BF Shift QC OK YES; Lymphocytes Pleural Fluid 38 %; Monocytes Pleural Fluid 8 %; Neutrophils Pleural Fluid 33 %; Other Cells Plerual Fl 21 %
[2022-01-30 20:45] LABS: Alanine Aminotransferase 18 U/L (0-40); Albumin Level 2.9 g/dL (3.5-5.0); Alkaline Phosphatase 111 U/L (39-117); Anion Gap 11 (12-20); Aspartate Amino Transferase 21 U/L (5-37); Bilirubin Total 0.4 mg/dL (0.0-1.0); Blood Urea Nitrogen 13 mg/dL (9-16); Carbon Dioxide 24 mmol/L (22-29); Chloride 105 mmol/L (96-108); Creatinine Clr Calc Pharmacy 81.3; Estimated Glomerular Filt Rate > 60; Glucose Random 145 mg/dL (60-115); Potassium 4.2 mmol/L (3.3-5.1); Sodium 136 mmol/L (135-145); Total Protein 6.2 g/dL (6.5-8.0)
[2022-01-30 20:46] LABS: B Type Natriuretic Peptide 469 pg/mL (<100)
[2022-01-30 21:43] LABS: Glucose Pericardial Fluid 105 MG/DL; Glucose Pleural Fluid 125 MG/DL; LDH Pericardial Fluid 725 U/L; LDH Pleural Fluid 105 U/L; Total Protein Pericardial Flui 4.6 GM/DL; Total Protein Pleural Fluid 2.3 GM/DL
--- NOTE | 2022-01-30 22:00 | PM.CCPN ---
Subjective Subjective Date of Service: 01/30/22 Interval History: Clinical Precedent to this date: ?Patient who was admitted with MS changes and lethargy, Afib with RVR and PNA on 01/26/22 is now postop day 0. status post left VATS, pericardial window and evacuation of left pleural effusion all in the setting of left pleural effusion and pericardial effusion with tamponade.? Reportedly approximately 950 cc of yellow fluid was obtained from the left lung and approximately 600 cc of similar fluid from the pericardial sac.? Patient has a pleural chest connected to dry pleura vac suction. 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 ? Subjective:? Today pt was seen by me postoperatively in the ICU, it was reported that the patient was satting mid 90s on 3 L nasal cannula in the PACU however the patient is not requiring 9 L of oxygen via Venturi mask and satting barely 90% of my presence.? The patient apparently was delirious postoperatively and had to be put on Precedex. Upon reviewing the anesthesia documentation, it looks like the patient did receive Versed, a L of fluids intraoperatively, however no urine output was obtain as the patient does not have Hatch catheter. Focused Review of systems:? Unable to obtain given the patient's confusion. ? Objective VS: ?BP 137/67, HR 131, R R 24, O2 sat 90% on 9 L OxyMask General:? Alert oriented to person, confused, in no distress. Skin:? Old surgical scar and right groin with chronic edema of the right lower extremity in comparison to the left.? Left chest chest tube and DAVONTE drain in place with serosanguineous material from it surroundings, no subcutaneous emphysema noted.? Otherwise the rest of the scan is? Intact, no lesions or rash HEENT:? Normocephalic, atraumatic, extraocular movements intact, neck is supple, no lymphadenopathy.? Buccal mucosa moist.? Throat midline. Cardiac:? Irregularly irregular no murmurs rubs or gallops. Pulmonary:? Crackles at the right base, slight expiratory wheezing noted in the apical areas anteriorly and bilaterally, absent lung sounds from about the nipple down on the left lung. Abdomen:? Protuberant, positive bowel sounds in all 4 quadrants.? Soft, nontender Musculoskeletal:? Moving all 4 extremities upon request a major joints, no calf tenderness asymmetry and edema of the right lower extremity in comparison to the left reportedly is chronic. Neurologic:? As above, no focal deficits. Vascular:? 2+ pulses upper and lower extremities distally. ? LABORATORY DATA: ?Postop lab work reveals white count of 12.3 (9.3); H&H 12.5 and 40 respectively, platelets 356. ABG pH 7.37, pCO2 40, PO2 76, bicarb 23, base excess-1.4. Sodium 136, potassium 4.2, chloride 105, carbon dioxide 24, anion gap 11, BUN 13, creatinine 0.91, around 1 glucose 145.? Calcium 8.0, albumin 2.9, BNP 469 (198) Pleural and pericardial fluid lab work is pending. ? REVIEW OF IMAGES: Chest x-ray impression Lungs are hypoexpanded. Apically directed left-sided chest tube is seen. Bibasilar airspace changes more likely reflect component of atelectasis. Surgical drain projecting over the left base. No significant pneumothorax. Cardiac silhouette remains prominent. No acute bony abnormality. ASSESSMENT AND PLAN: 1. Patient is postop day 0. status post left VATS, pericardial window and evacuation of left pleural effusion all in the setting of left pleural effusion and pericardial effusion with tamponade 2. Hypoxic respiratory failure without hypercarbia likely due to atelectasis 3. CHF exacerbation likely due to fluids administered during surgery 4. Atrial fibrillation with rapid ventricular response likely due to hypoxic the stress and lack of beta-lanny 5. Stable anemia of chronic disease without evidence of blood loss 6. Postoperative chemical lung cephalopathy 7. Hypoalbuminemia 8. Pseudo hypocalcemia 9. Concominant PNA on Rocephin and Zithromax 10. RLL chronic lymphedema Continue with ICU co-management, given the hypoxia the above-mentioned laboratories, ABG and chemistry were obtained, no significant abnormalities noted. ?X-ray reveals no pneumothorax. The ABG does reveal hypoxia despite of the high dose administration of oxygen, this is likely due to atelectasis within the left lung, there is no ventilation issues, he will need to have positive pressure, I will order CPAP and recheck the ABG an hour to 2 later and if needed switching to BiPAP. BNP is higher from his baseline currently of 469, a Hatch catheter placement has been requested from the urologist and given the lack of anatomical definition for the prepuce covers the patient's entire penile glans not allowing the visualization of the urethra, I did attempt to place a Hatch catheter myself but I was unable to.? Once this is achieved will given Lasix. IV beta-lanny was given successfully corrected the patient's heart rate.? Will continue with Precedex and will titrate slowly.? I discussed all the above with the cardiothoracic physician assistant athletic trainer Ms. Chanel. ? GI PROPHYLAXIS: ?Will add PPI DVT PROPHYLAXIS: ?On Eliquis ? Critical care time used for critical evaluation of this patient, diagnosis, treatment and coordination of care, review her records and documentation TOTAL CRITICAL CARE TIME 90 MIN Patient's care was discussed in detail with Dr. Noriega.? He is aware of all the above as well as the plan of care for this patient.? Critical Care Time (minutes): 90 Physical Exam Vital Signs: Vital Signs: Last Vital Signs Temp 97.9 F 01/30/22 18:05 Pulse 111 H 01/30/22 21:00 Resp 22 H 01/30/22 21:00 BP 153/70 H 01/30/22 21:00 Pulse Ox 91 L 01/30/22 21:00 O2 Del Method 01/30/22 21:00 O2 Flow Rate 15 01/30/22 20:00 FiO2 65 01/30/22 21:00 BMI result Body Mass Index 31.6 Objective Data Labs CBC & Chem 7: 02/01/22 05:05 02/01/22 05:05 Labs: Laboratory Results - last 24 hr 01/30/22 01/30/22 01/30/22 06:49 06:49 06:49 WBC 9.3 Cancelled RBC 3.70 L Cancelled Hgb 10.8 L Cancelled Hct 33.4 L Cancelled MCV 90.3 Cancelled MCH 29.2 Cancelled MCHC 32.3 Cancelled RDW 15.1 Cancelled Plt Count 418 H D Cancelled MPV 10.2 Cancelled Immature Gran % (Auto) 1.3 H Cancelled Neut % (Auto) 71.8 Cancelled Lymph % (Auto) 10.1 L Cancelled Charles % (Auto) 14.6 H Cancelled Eos % (Auto) 1.7 Cancelled Baso % (Auto) 0.5 Cancelled Lymph # (Auto) 0.9 L Cancelled Charles # (Auto) 1.4 H Cancelled Eos # (Auto) 0.2 Cancelled Baso # (Auto) 0.1 Cancelled Abs Immat Gran (auto) 0.12 H Cancelled Absolute Neuts (auto) 6.7 Cancelled Absolute Nucleated RBC 0.000 Cancelled Nucleated RBC % (auto) 0.0 Cancelled PT 15.7 H INR 1.4 H APTT 37.6 O2 Saturation ABG pH at Pt Temp ABG pCO2 at Pt Temp ABG pO2 at Pt Temp ABG HCO3 ABG Base Excess (Actual) Sodium Potassium Chloride Carbon Dioxide Anion Gap BUN Creatinine Estim Creat Clear Calc Estimated GFR Random Glucose Calcium Total Bilirubin AST ALT Alkaline Phosphatase B-Natriuretic Peptide Total Protein Albumin Per[place]ard WBC [place]ard RBC Pericard Neutrophils Pericard Lymphocytes Pericard Monocytes Pericard Eosinophils Pericard Total Protein Pericardial LDH Pericardial Glucose Pleural WBC Pleural RBC Pleural Neutrophils Pleural Lymphocytes Pleural Monocytes Pleural Other Cells Pleural Total Protein Pleural LDH Pleural Glucose Blood Type Antibody Screen 01/30/22 01/30/22 01/30/22 06:49 06:49 06:49 WBC RBC Hgb Hct MCV MCH MCHC RDW Plt Count MPV Immature Gran % (Auto) Neut % (Auto) Lymph % (Auto) [place] % (Auto) Eos % (Auto) Baso % (Auto) Lymph # (Auto) [place] # (Auto) Eos # (Auto) Baso # (Auto) Abs Immat Gran (auto) Absolute Neuts (auto) Absolute Nucleated RBC Nucleated RBC % (auto) PT Cancelled INR Cancelled APTT O2 Saturation ABG pH at Pt Temp ABG pCO2 at Pt Temp ABG pO2 at Pt Temp ABG HCO3 ABG Base Excess (Actual) Sodium 135 Potassium 4.2 Chloride 102 Carbon Dioxide 26 Anion Gap 11 L BUN 12 Creatinine 0.81 Estim Creat Clear Calc 91.4 Estimated GFR > 60 Random Glucose 126 H Calcium 8.4 Total Bilirubin AST ALT Alkaline Phosphatase B-Natriuretic Peptide Total Protein Albumin Per[place]ard WBC Per[place]ard RBC Pericard Neutrophils Pericard Lymphocytes Pericard Monocytes Pericard Eosinophils Pericard Total Protein Pericardial LDH Pericardial Glucose Pleural WBC Pleural RBC Pleural Neutrophils Pleural Lymphocytes Pleural Monocytes Pleural Other Cells Pleural Total Protein Pleural LDH Pleural Glucose Blood Type A Positive Antibody Screen NEGATIVE 01/30/22 01/30/22 01/30/22 16:58 16:58 16:58 WBC RBC Hgb Hct MCV MCH MCHC RDW Plt Count MPV Immature Gran % (Auto) Neut % (Auto) Lymph % (Auto) [place] % (Auto) Eos % (Auto) Baso % (Auto) Lymph # (Auto) [place] # (Auto) Eos # (Auto) Baso # (Auto) Abs Immat Gran (auto) Absolute Neuts (auto) Absolute Nucleated RBC Nucleated RBC % (auto) PT INR APTT O2 Saturation ABG pH at Pt Temp ABG pCO2 at Pt Temp ABG pO2 at Pt Temp ABG HCO3 ABG Base Excess (Actual) Sodium Potassium Chloride Carbon Dioxide Anion Gap BUN Creatinine Estim Creat Clear Calc Estimated GFR Random Glucose Calcium Total Bilirubin AST ALT Alkaline Phosphatase B-Natriuretic Peptide Total Protein Albumin [place] WBC 550 [place] RBC 76961 [place] Neutrophils 55 [place] Lymphocytes 31 [place] Monocytes 12 [place] Eosinophils 2 [place] Total Protein 4.6 Pericardial LDH 725 Pericardial Glucose 105 Pleural WBC Pleural RBC Pleural Neutrophils Pleural Lymphocytes Pleural Monocytes Pleural Other Cells Pleural Total Protein 2.3 Pleural LDH 105 Pleural Glucose 125 Blood Type Antibody Screen 01/30/22 01/30/22 01/30/22 16:58 16:58 19:34 WBC RBC Hgb Hct MCV MCH MCHC RDW Plt Count MPV Immature Gran % (Auto) Neut % (Auto) Lymph % (Auto) [place] % (Auto) Eos % (Auto) Baso % (Auto) Lymph # (Auto) [place] # (Auto) Eos # (Auto) Baso # (Auto) Abs Immat Gran (auto) Absolute Neuts (auto) Absolute Nucleated RBC Nucleated RBC % (auto) PT INR APTT O2 Saturation 93.0 ABG pH at Pt Temp 7.37 ABG pCO2 at Pt Temp 40 ABG pO2 at Pt Temp 76 L ABG HCO3 23 ABG Base Excess (Actual) -1.4 Sodium Potassium Chloride Carbon Dioxide Anion Gap BUN Creatinine Estim Creat Clear Calc Estimated GFR Random Glucose Calcium Total Bilirubin AST ALT Alkaline Phosphatase B-Natriuretic Peptide Total Protein Albumin [place]ard WBC [place] RBC [place]ard Neutrophils Pericard Lymphocytes Pericard Monocytes Pericard Eosinophils [place]ard Total Protein Pericardial LDH Pericardial Glucose Pleural WBC 1.024 Pleural RBC < 0.002 Pleural Neutrophils 33 Pleural Lymphocytes 38 Pleural Monocytes 8 Pleural Other Cells 21 Pleural Total Protein Cancelled Pleural LDH Pleural Glucose Blood Type Antibody Screen 01/30/22 01/30/22 01/30/22 19:55 20:21 20:21 WBC 12.3 H RBC 4.32 L Hgb 12.5 L Hct 40.0 L MCV 92.6 MCH 28.9 MCHC 31.3 RDW 15.1 Plt Count 356 MPV 10.2 Immature Gran % (Auto) 1.1 H Neut % (Auto) 84.2 H Lymph % (Auto) 6.1 L [place] % (Auto) 7.9 Eos % (Auto) 0.2 Baso % (Auto) 0.5 Lymph # (Auto) 0.8 L [place] # (Auto) 1.0 Eos # (Auto) 0.0 Baso # (Auto) 0.1 Abs Immat Gran (auto) 0.14 H Absolute Neuts (auto) 10.4 H Absolute Nucleated RBC 0.000 Nucleated RBC % (auto) 0.0 PT INR APTT O2 Saturation ABG pH at Pt Temp ABG pCO2 at Pt Temp ABG pO2 at Pt Temp ABG HCO3 ABG Base Excess (Actual) Sodium 136 Potassium 4.2 Chloride 105 Carbon Dioxide 24 Anion Gap 11 L BUN 13 Creatinine 0.91 Estim Creat Clear Calc 81.3 Estimated GFR > 60 Random Glucose 145 H Calcium 8.0 L Total Bilirubin 0.4 AST 21 D ALT 18 Alkaline Phosphatase 111 D B-Natriuretic Peptide 469 H Total Protein 6.2 L Albumin 2.9 L Pericard WBC Pericard RBC Pericard Neutrophils Pericard Lymphocytes Pericard Monocytes Pericard Eosinophils Pericard Total Protein Pericardial LDH Pericardial Glucose Pleural WBC Pleural RBC Pleural Neutrophils Pleural Lymphocytes Pleural Monocytes Pleural Other Cells Pleural Total Protein Pleural LDH Pleural Glucose Blood Type Antibody Screen Microbiology Microbiology Results: Microbiology 01/26/22 02:22 Blood - Venous Blood Culture - Preliminary No growth after 48 hours. 01/26/22 02:22 Blood - Venous Blood Culture - Preliminary No growth after 48 hours. Quality Stroke Does the patient have a stroke diagnosis?: No VTE Prior VTE?: No VTE Risk Level:: Medical - moderate - high VTE Device Contraindication: Treatment Not Indicated VTE Drug Contraindication: N/A - Med Ordered
[2022-01-30] MEDS: dilTIAZem HCL 50 MG/10 ML VIAL 10 MG IVPUSH (22:50)
[2022-01-30] MEDS: 0.9 % Sodium Chloride Flush 3 ML SYRINGE IVFLUSH (23:26)
[2022-01-31] VITALS (33 sets, daily range): BP systolic 93–161; BP diastolic 45–77; PULSE 89–152; RESP 15–30; TEMP 36.1–38.1; O2SAT 92–100
[2022-01-31 00:12] LABS: ABG Base Excess -2.3 mmol/L; ABG HCO3 21 mmol/L (22-26); ABG pCO2 33 mmHg (32-45); ABG pH 7.41 (7.35-7.45); ABG pO2 125 mmHg (83-108)
[2022-01-31 00:14] LABS: ABG Refer to POC result
[2022-01-31] MEDS: dexmedeTOMIDidine HCL/NS 400 MCG/100 ML INFUS..BTL 5.29 MCG IVCONT (01:46)
[2022-01-31] MEDS: cefTRIAXone sodium 1 GM in 0.9 % Sodium Chloride 50 ML IV (01:58)
[2022-01-31] MEDS: Azithromycin 500 MG in 0.9 % Sodium Chloride 250 ML 125 MG IV (03:10)
[2022-01-31 05:31] LABS: Hematocrit 31.3 % (42.0-52.0); Hemoglobin 10.3 g/dl (14.0-18.0); Mean Corpuscular HGB Conc 32.9 g/dl (31.0-36.0); Mean Corpuscular Hemoglobin 29.5 pg (27.0-33.0); Mean Corpuscular Volume 89.7 fL (80.0-98.0); Mean Platelet Volume 9.9 fL (9.4-12.4); Platelet Count 388 X10*3/uL (160-400); Red Blood Count 3.49 X10*6/uL (4.60-5.80); Red Cell Distribution Width 15.2 % (11.0-16.0); White Blood Count 11.2 X10*3/uL (4.8-10.8)
[2022-01-31 05:33] LABS: ABG Base Excess -0.9 mmol/L; ABG HCO3 22 mmol/L (22-26); ABG pCO2 32 mmHg (32-45); ABG pH 7.44 (7.35-7.45); ABG pO2 168 mmHg (83-108)
[2022-01-31 05:38] LABS: ABG Refer to POC result
[2022-01-31] MEDS: Lactated Ringers 1,000 ML 80 ML IVCONT ×2 (05:43→16:55)
[2022-01-31 06:01] LABS: Alanine Aminotransferase 14 U/L (0-40); Albumin Level 2.6 g/dL (3.5-5.0); Alkaline Phosphatase 97 U/L (39-117); Anion Gap 13 (12-20); Aspartate Amino Transferase 14 U/L (5-37); Bilirubin Total 0.4 mg/dL (0.0-1.0); Blood Urea Nitrogen 17 mg/dL (9-16); Carbon Dioxide 22 mmol/L (22-29); Chloride 106 mmol/L (96-108); Creatinine Clr Calc Pharmacy 92.5; Estimated Glomerular Filt Rate > 60; Glucose Random 148 mg/dL (60-115); Potassium 4.7 mmol/L (3.3-5.1); Sodium 136 mmol/L (135-145); Total Protein 5.5 g/dL (6.5-8.0)
--- NOTE | 2022-01-31 06:14 | PC.NURSE ---
CARE [id number] 23:15...PRECIDEX DRIP TITRATED FOR PERIODS OF AGITATION AND/OR MARGINAL BP PER MAR...REMAINS CPAP 15CM--FIO2 WEANED FROM 65% TO 45%..NO DISTRESS..SAO2 97-99%...Ve 9-11 L/M....ATRIAL FIB HR 90'S-110'S...LEFT CHEST TUBE WITH SEROUS DRAINAGE...PERICARDIAL DAVONTE DRAIN WITH 15ML BLOODY DRAINAGE..GONSALEZ WITH LOW2 OUTPUT OVERNIGHT...8-12ML/HR..ICU PA AWARE..ANTIBIOTICS INFUSED PER OCT..NO CHANGE IN OUTPUT...SBP 90'S-100'S THIS AM..STARTED LR 80 CC/HR PER PA...SMALL AMOUNT BLEEDY AT [facility] (GONSALEZ INSERTED BY UROLOGIST PRIOR TO ASSUMPTION OF CARE)..
[2022-01-31] MEDS: 0.9 % Sodium Chloride Flush 3 ML SYRINGE IVFLUSH (08:29)
--- NOTE | 2022-01-31 09:15 | PM.PNTS ---
Subjective Subjective Date of Service: 01/31/22 Interval history: pod #1 s/p L vats pericardial window. Confused overnight. On BIPAP now sedated with precedex. Physical Exam Vital Signs: Vital Signs: Last Vital Signs Temp 97.5 F 01/31/22 09:04 Pulse 99 01/31/22 09:04 Resp 17 01/31/22 09:04 BP 109/52 L 01/31/22 09:04 Pulse Ox 100 01/31/22 09:04 O2 Del Method 01/31/22 09:04 O2 Flow Rate 15 01/30/22 20:00 FiO2 45 01/31/22 09:04 BMI result Body Mass Index 31.6 DAVONTE serous drainage, Chest tube serous drainage. No air leak. DAVONTE holding suction. CXR clear. drains in place. Procedures Date of Service Date of Service: 01/31/22 Progress Note: A&P Assessment and plan (1) Pericardial effusion: Status: Acute (2) Pleural effusion, left: Status: Acute Plan Continue DAVONTE to bulb suction. Monitour outputs. Chest tube can go to waterseal at midnight. Otherwise as per ICU. Time Spent With Patient Time: Total time spent is greater than 50% in coordination of care (as documented) at patient's floor/unit and/or counseling patient: Quality Stroke Does the patient have a stroke diagnosis?: No VTE Prior VTE?: No VTE Risk Level:: Medical - moderate - high VTE Device Contraindication: Treatment Not Indicated VTE Drug Contraindication: N/A - Med Ordered
--- NOTE | 2022-01-31 09:48 | P.PNCA_ITS ---
Subjective Subjective Date of Service: 01/31/22 Principal diagnosis: AF, Left pleural effusion, PNA, pericardial effusion Interval history: Patient underwent pericardial window with removal of 650 mL of pericardial fluid as well as thoracocentesis with a chest tube placement with the removal of 1 L of fluid from the pleural space. Postop oral patient was hypoxic due to the anesthesia technique as well as delirious. Patient was therefore transferred to ICU. No hemodynamic instability. Remains in atrial fibrillation slightly rapid ventricular response. Heart rate from 90s to 110 beats per minute. Currently on Cardizem drip at 7.5 mg an hour. Patient also on sedation and CPAP. Oxygenating well at this point in time. Patient is arousable and denies any cardiac symptoms at this point in time Review of Systems Review of Systems Yes Unobtainable due to mental status Physical Exam Vital Signs: Last Vital Signs Temp 97.5 F 01/31/22 09:04 Pulse 99 01/31/22 09:04 Resp 17 01/31/22 09:04 BP 109/52 L 01/31/22 09:04 Pulse Ox 100 01/31/22 09:04 O2 Del Method 01/31/22 09:04 O2 Flow Rate 15 01/30/22 20:00 FiO2 45 01/31/22 09:04 BMI result Body Mass Index 31.6 Const General: no acute distress and other (Sedated but arousable) Nutritional Appearance: overweight Neck Neck: Yes trachea midline, Yes supple and Yes no JVD Resp Effort & Inspection: decreased respiratory effort Auscultation: no wheezes and diminished lung sounds Cardio Rate: tachycardic Rhythm: abnormal rhythm irregularly irregular Heart sounds: S1 normal heart sound present, S2 normal heart sound present, no click, no gallops and no murmurs Skin General skin exam: no rashes or lesions noted Neuro General: moves all extremities and other (Somnolent) Objective Labs and Meds Result diagrams: 01/31/22 05:20 01/31/22 05:20 Lab results: Laboratory Results - last 24 hr 01/30/22 01/30/22 01/30/22 16:58 16:58 16:58 WBC RBC Hgb Hct MCV MCH MCHC RDW Plt Count MPV Immature Gran % (Auto) Neut % (Auto) Lymph % (Auto) [place] % (Auto) Eos % (Auto) Baso % (Auto) Lymph # (Auto) [place] # (Auto) Eos # (Auto) Baso # (Auto) Abs Immat Gran (auto) Absolute Neuts (auto) Absolute Nucleated RBC Nucleated RBC % (auto) O2 Saturation ABG pH at Pt Temp ABG pCO2 at Pt Temp ABG pO2 at Pt Temp ABG HCO3 ABG Base Excess (Actual) Sodium Potassium Chloride Carbon Dioxide Anion Gap BUN Creatinine Estim Creat Clear Calc Estimated GFR Random Glucose Calcium Total Bilirubin AST ALT Alkaline Phosphatase C-Reactive Protein B-Natriuretic Peptide Total Protein Albumin [place] WBC 550 [place] RBC 09342 [place] Neutrophils 55 [place] Lymphocytes 31 [place] Monocytes 12 [place] Eosinophils 2 [place] Total Protein 4.6 Pericardial LDH 725 Pericardial Glucose 105 Pleural WBC Pleural RBC Pleural Neutrophils Pleural Lymphocytes Pleural Monocytes Pleural Other Cells Pleural Total Protein 2.3 Pleural LDH 105 Pleural Glucose 125 01/30/22 01/30/22 01/30/22 16:58 16:58 19:34 WBC RBC Hgb Hct MCV MCH MCHC RDW Plt Count MPV Immature Gran % (Auto) Neut % (Auto) Lymph % (Auto) [place] % (Auto) Eos % (Auto) Baso % (Auto) Lymph # (Auto) [place] # (Auto) Eos # (Auto) Baso # (Auto) Abs Immat Gran (auto) Absolute Neuts (auto) Absolute Nucleated RBC Nucleated RBC % (auto) O2 Saturation 93.0 ABG pH at Pt Temp 7.37 ABG pCO2 at Pt Temp 40 ABG pO2 at Pt Temp 76 L ABG HCO3 23 ABG Base Excess (Actual) -1.4 Sodium Potassium Chloride Carbon Dioxide Anion Gap BUN Creatinine Estim Creat Clear Calc Estimated GFR Random Glucose Calcium Total Bilirubin AST ALT Alkaline Phosphatase C-Reactive Protein B-Natriuretic Peptide Total Protein Albumin Pericard WBC Pericard RBC Pericard Neutrophils Pericard Lymphocytes Pericard Monocytes Pericard Eosinophils Pericard Total Protein Pericardial LDH Pericardial Glucose Pleural WBC 1.024 Pleural RBC < 0.002 Pleural Neutrophils 33 Pleural Lymphocytes 38 Pleural Monocytes 8 Pleural Other Cells 21 Pleural Total Protein Cancelled Pleural LDH Pleural Glucose 01/30/22 01/30/22 01/30/22 19:55 20:21 20:21 WBC 12.3 H RBC 4.32 L Hgb 12.5 L Hct 40.0 L MCV 92.6 MCH 28.9 MCHC 31.3 RDW 15.1 Plt Count 356 MPV 10.2 Immature Gran % (Auto) 1.1 H Neut % (Auto) 84.2 H Lymph % (Auto) 6.1 L [place] % (Auto) 7.9 Eos % (Auto) 0.2 Baso % (Auto) 0.5 Lymph # (Auto) 0.8 L [place] # (Auto) 1.0 Eos # (Auto) 0.0 Baso # (Auto) 0.1 Abs Immat Gran (auto) 0.14 H Absolute Neuts (auto) 10.4 H Absolute Nucleated RBC 0.000 Nucleated RBC % (auto) 0.0 O2 Saturation ABG pH at Pt Temp ABG pCO2 at Pt Temp ABG pO2 at Pt Temp ABG HCO3 ABG Base Excess (Actual) Sodium 136 Potassium 4.2 Chloride 105 Carbon Dioxide 24 Anion Gap 11 L BUN 13 Creatinine 0.91 Estim Creat Clear Calc 81.3 Estimated GFR > 60 Random Glucose 145 H Calcium 8.0 L Total Bilirubin 0.4 AST 21 D ALT 18 Alkaline Phosphatase 111 D C-Reactive Protein B-Natriuretic Peptide 469 H Total Protein 6.2 L Albumin 2.9 L Pericard WBC Pericard RBC Pericard Neutrophils Pericard Lymphocytes Pericard Monocytes Pericard Eosinophils Pericard Total Protein Pericardial LDH Pericardial Glucose Pleural WBC Pleural RBC Pleural Neutrophils Pleural Lymphocytes Pleural Monocytes Pleural Other Cells Pleural Total Protein Pleural LDH Pleural Glucose 01/31/22 01/31/22 01/31/22 00:07 05:20 05:20 WBC 11.2 H RBC 3.49 L Hgb 10.3 L Hct 31.3 L D MCV 89.7 MCH 29.5 MCHC 32.9 RDW 15.2 Plt Count 388 MPV 9.9 Immature Gran % (Auto) Cancelled Neut % (Auto) Cancelled Lymph % (Auto) Cancelled [place] % (Auto) Cancelled Eos % (Auto) Cancelled Baso % (Auto) Cancelled Lymph # (Auto) Cancelled [place] # (Auto) Cancelled Eos # (Auto) Cancelled Baso # (Auto) Cancelled Abs Immat Gran (auto) Cancelled Absolute Neuts (auto) Cancelled Absolute Nucleated RBC 0.000 Nucleated RBC % (auto) 0.0 O2 Saturation 99.0 ABG pH at Pt Temp 7.41 ABG pCO2 at Pt Temp 33 ABG pO2 at Pt Temp 125 H ABG HCO3 21 L ABG Base Excess (Actual) -2.3 Sodium 136 Potassium 4.7 Chloride 106 Carbon Dioxide 22 Anion Gap 13 BUN 17 H Creatinine 0.80 Estim Creat Clear Calc 92.5 Estimated GFR > 60 Random Glucose 148 H Calcium 8.0 L Total Bilirubin 0.4 AST 14 ALT 14 Alkaline Phosphatase 97 C-Reactive Protein 7.70 H B-Natriuretic Peptide Total Protein 5.5 L Albumin 2.6 L Pericard WBC Pericard RBC Pericard Neutrophils Pericard Lymphocytes Pericard Monocytes Pericard Eosinophils Pericard Total Protein Pericardial LDH Pericardial Glucose Pleural WBC Pleural RBC Pleural Neutrophils Pleural Lymphocytes Pleural Monocytes Pleural Other Cells Pleural Total Protein Pleural LDH Pleural Glucose 01/31/22 05:29 WBC RBC Hgb Hct MCV MCH MCHC RDW Plt Count MPV Immature Gran % (Auto) Neut % (Auto) Lymph % (Auto) [place] % (Auto) Eos % (Auto) Baso % (Auto) Lymph # (Auto) [place] # (Auto) Eos # (Auto) Baso # (Auto) Abs Immat Gran (auto) Absolute Neuts (auto) Absolute Nucleated RBC Nucleated RBC % (auto) O2 Saturation 100.0 ABG pH at Pt Temp 7.44 ABG pCO2 at Pt Temp 32 ABG pO2 at Pt Temp 168 H ABG HCO3 22 ABG Base Excess (Actual) -0.9 Sodium Potassium Chloride Carbon Dioxide Anion Gap BUN Creatinine Estim Creat Clear Calc Estimated GFR Random Glucose Calcium Total Bilirubin AST ALT Alkaline Phosphatase C-Reactive Protein B-Natriuretic Peptide Total Protein Albumin Pericard WBC Pericard RBC Pericard Neutrophils Pericard Lymphocytes Pericard Monocytes Pericard Eosinophils Pericard Total Protein Pericardial LDH Pericardial Glucose Pleural WBC Pleural RBC Pleural Neutrophils Pleural Lymphocytes Pleural Monocytes Pleural Other Cells Pleural Total Protein Pleural LDH Pleural Glucose Imaging Radiologist's impression: Impressions Chest X-Ray 01/30/22 20:08 IMPRESSION: Hypoexpanded with basilar atelectatic changes. Postoperative changes and chest tubes on the left. Chest X-Ray 01/31/22 06:04 IMPRESSION: *Unchanged configuration of a left thoracostomy tube terminating projection with the left superior pulmonary sulcus. *Unchanged moderate left base atelectasis and/or consolidation. *Unchanged small left pleural effusion. *No pneumothoraces. Progress Note: A&P Assessment and plan (1) Atrial fibrillation with rapid ventricular response: Status: Acute Assessment and Plan: Atrial fibrillation with borderline rate control. Currently not getting metoprolol, seems like last dose was yesterday morning. Can use intermittent IV metoprolol for rate control. Continue Cardizem drip till p.o. route is established. Then can switch to p.o. metoprolol as well as p.o. Cardizem and taper and discontinue Cardizem drip. Currently still has chest tube as well as pericardial drainage. Resume oral anticoagulation as soon as surgical clearance. (2) Pericardial effusion: Status: Acute Assessment and Plan: Pericardial effusion due to parapneumonic effusion. Inflammatory in nature. If it is exuded would consider anti-inflammatory therapy with colchicine to reduce recurrence. He already has pericardial window at this point in time and likelihood of developing significant pericardial effusion is very low. Continue supportive care as per the critical care team as well as pulmonary team. Hopefully can be withdrawn from sedation and CPAP therapy today and planned to be transferred to a step-down unit. Consider PT consult once more awake. Will follow with you Time Spent With Patient Time: Total time spent is greater than 50% in coordination of care (as documented) at patient's floor/unit and/or counseling patient: Progress Note: Quality Stroke Does the patient have a stroke diagnosis?: No Procedures Date of Service Date of Service: 01/31/22
[2022-01-31] MEDS: HYDROmorphone HCl 0.5 MG/0.5 ML SYRINGE IVPUSH ×4 (09:52→20:21)
--- NOTE | 2022-01-31 09:56 | HO.POSTANES ---
Post Anesthesia Evaluation Post Anesthesia Evaluation Vital Signs: Vital Signs Temp Pulse Resp BP Pulse Ox O2 Del Method FiO2 01/31/22 09:52 28 H 01/31/22 09:48 28 H 01/31/22 09:00 97.5 F 116 H 18 95/55 L 100 CPAP 45 01/31/22 08:00 45 01/31/22 07:58 18 01/31/22 09:04 97.5 F 99 17 109/52 L 100 CPAP 45 01/31/22 08:00 97.7 F 95 19 93/55 L 99 CPAP 45 01/31/22 07:00 106 H 18 100/55 L 97 CPAP 45 01/31/22 04:12 19 01/31/22 03:19 50 01/31/22 06:00 98.2 F 122 H 18 93/53 L 98 CPAP 45 01/31/22 05:00 98.4 F 100 18 99/56 L 99 CPAP 50 01/31/22 04:00 97.0 F 93 17 113/66 99 CPAP 50 01/31/22 03:00 99.3 F 108 H 19 96/50 L 97 CPAP 55 01/31/22 02:00 99.7 F 111 H 20 103/55 L 97 CPAP 55 01/31/22 01:00 100.0 F 93 21 H 136/65 98 CPAP 55 01/31/22 00:53 21 H 01/31/22 00:00 100.4 F 89 21 H 103/57 L 98 CPAP 65 01/31/22 00:00 65 01/30/22 23:00 96.6 F L 106 H 21 H 149/66 H 95 CPAP 65 01/30/22 22:00 73 18 110/54 L 98 CPAP 65 Anesthesia: General Endotracheal-GETA Mental Status: Sedated Pain Control: Satisfactory Nausea/Vomiting: None Hydration: Adequate Anesthesia-Related Issues: No Anes. Related Issues
[2022-01-31] MEDS: dilTIAZem HCL 125 MG in 0.9 % Sodium Chloride 100 ML 15 MG IVCONT (11:40)
[2022-01-31] MEDS: dilTIAZem HCL CD 180 MG CAP.ER.24H 360 MG PO (11:59)
[2022-01-31] MEDS: Metoprolol Tartrate 5 MG/5 ML VIAL IVPUSH (11:59)
--- NOTE | 2022-01-31 12:41 | P.PNCC_ITS ---
Subjective Subjective Date of Service: 01/31/22 Interval History: Mr. Cm was transferred to the ICU last night for management of respiratory failure and delirium postoperatively after left VATS pericardial window and? evacuation of left pleural fluid by Dr. Browne. The patient is an 81-year-old male with PMHx of CAD s/p PCI, PAFib on Eliquis and metoprolol, bipolar/depression, CHF, HTN, BPH, HLD, and Barretts esophagus.? 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 Since then, he?s had ongoing problems with massive lymphedema of that leg.? 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 HISTORY OF PRESENT ILLNESS: ?The patient was BIBA to the ED on January 25 after being found unresponsive.? Reportedly he was alert oriented x3 on arrival of EMS.? The patient reported feeling lethargic, weak, anorexic, and stated that he?d stopped taking his meds since October as a result of his depression, and had stopped taking care of his general wellbeing, including showering, shaving, brushing his teeth, and his ADLs. The patient arrived to the ED soiled and incontinent of urine.? In the ED, his HR was 129 in AFib, Sat?ing 89% on room air.? Occult stool was negative. Notable labs in the ED: ?Hb 9.9 (previously 13.4), sodium 132, troponin 91 and flat.? UA negative.? CXR showed moderate left pleural effusion with atelectasis/consolidation. He was treated with a diltiazem drip, treated for CAP, and admitted to Medicine.? ECHOCARDIOGRAM 01/28 showed normal LV systolic function with moderate LVH, EF 60%; RV not adeq visualized; at least moderately dilated left atrium; normal cardiac valvular Dopplers; significantly elevated right atrial pressures; the IVC was moderately dilated with no inspiratory collapse; no RVSP estimate able to be made; and at least moderate pericardial effusion.? (The patient has had no evidence of any hemodynamic compromise from the pericardial effusion.)? Wound care was consulting on his RLE lymphedema. Chest CT January 29 showed small right-sided pleural effusion and small to moderate left-sided pleural effusion, both new when compared to a CT of November 04, along with a new moderate-sized pericardial effusion.? The patient was b rought to the OR yesterday for drainage of the left pleural effusion and the pericardial effusion.? I saw the patient in surgery preop holding, he was breathing easy w Sat 94% on room air. ?HR was 120s-140?s in afib.? He had no extremity or central edema on the left side; right side had massive lymphedema 2? to his LN dissection years ago.? His mental status was entirely normal.? 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 ?He readily agreed to allow us to shave his guerrero off. Preoperatively in the holding area he was started on IV diltiazem.? The operative course was unremarkable.? 950cc of serous fluid was evacuated from the left chest. ?About 650 cc of slightly bloody pericardial fluid was evacuated.? The left thoracic cavity was explored via VATS, and no sign metastatic disease was noted.? A small section pericardium, along with both fluids were sent for cytology and pathology.? The patient was extubated without incident and taken to the PACU. In the PACU, the patient was very delirious and required Precedex for sedation.? He also became increasingly hypoxemic.? He was transferred to the ICU for further management.? On arrival to the PACU, he was delirious and was started on a Precedex infusion.? His breathing was OK, but he was hypoxemic requiring 9 L of oxygen to reach sat of 90%.? He was therefore started on CPAP.? Also, the surgical staff and ICU staff were unable to place a Hatch catheter.? Therefore Dr. Shah came in and put one in.? There were also further heart rate problems with his Afib w RVR.? The diltiazem drip was continued and he was given 5mg metoprolol and the Precedex.? All that slowed his rate into the 90s. After the CPAP was applied and the level increased to 15cm, his oxygenation improved dramatically such that his Sat this morning on CPAP 15cm/45% FiO2 was 100%.? He was breathing easy w RR 18, ABG 7.44/32/168/0.? HR 100-115 on Precedex 0.2ug w the diltiazem off.? BP 109/52.? Afebrile.? We turned the Precedex off.? He?s alert and appropriate. ?Asking for food and water.? C/o left chest pain that makes it hard for him to breathe.? On 13L oxymask, RR is about 20, nonlabored, Sat 95%.? HR up to 130s.? No JVD. ?Chest is CTA with decreased BS left base, normal exp phase.? Soft heart tones, I heard no murmur or gallops.? Abdomen maybe slightly distended and is firm, but nontender.? No edema on the left side; right side has massive lymphedema, as noted above. LABORATORY DATA:? As below. ?Lab analysis of pleural fluid suggests a transudate IMPRESSION 1. Afib w RVR.? Likely 2? pericardial irritation.? Continuing the dilt drip.? Restart his oral diltiazem and oral metoprolol.? IVP metoprolol prn.? Hold Eliquis till tomorrow morning.? D/W Dr. Voss and Dr. Browne. 2. Pericard effusion.? No post op mechanical or hemod cx.? Waiting for path results. 3. Bilat pleural effusions.? ? Etiology.? Waiting for path results. 4. Acute post op hypoxemic resp failure.? Undoubtedly 2? atelectasis.? Treated well w CPAP, as would be expected.? Now having a lot of pain though, and splinting.? We?re giving him opiates.? We?ll get him out of bed. 5. Post op delirium.? 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 Doing OK now, but would not be surprised if he sundowns.? He does well on Precedex. 6. H/o CAD. 7. H/o CHF.? Hold Diuretic for now. 8. 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 I don?t know what the status of his cancer is. 9. RLE lymphedema, status post right groin lymph node removal.? Local care. Critical care time (including mult visits to the bedside to reeval BOLOGNA MAKER and resp status):? 70+ min Critical Care Time (minutes): 70 Physical Exam Vital Signs: Vital Signs: Last Vital Signs Temp 98.4 F 01/31/22 12:00 Pulse 152 H 01/31/22 12:00 Resp 24 H 01/31/22 12:00 BP 148/77 H 01/31/22 12:00 Pulse Ox 97 01/31/22 12:00 O2 Del Method 01/31/22 12:00 O2 Flow Rate 13 01/31/22 12:00 FiO2 45 01/31/22 09:04 BMI result Body Mass Index 31.6 Objective Data Labs CBC & Chem 7: 01/31/22 05:20 01/31/22 05:20 Labs: Laboratory Results - last 24 hr 01/30/22 01/30/22 01/30/22 16:58 16:58 16:58 WBC RBC Hgb Hct MCV MCH MCHC RDW Plt Count MPV Immature Gran % (Auto) Neut % (Auto) Lymph % (Auto) Schleicher % (Auto) Eos % (Auto) Baso % (Auto) Lymph # (Auto) Schleicher # (Auto) Eos # (Auto) Baso # (Auto) Abs Immat Gran (auto) Absolute Neuts (auto) Absolute Nucleated RBC Nucleated RBC % (auto) O2 Saturation ABG pH at Pt Temp ABG pCO2 at Pt Temp ABG pO2 at Pt Temp ABG HCO3 ABG Base Excess (Actual) Sodium Potassium Chloride Carbon Dioxide Anion Gap BUN Creatinine Estim Creat Clear Calc Estimated GFR Random Glucose Calcium Total Bilirubin AST ALT Alkaline Phosphatase C-Reactive Protein B-Natriuretic Peptide Total Protein Albumin Pericard WBC 550 Pericard RBC 27007 Pericard Neutrophils 55 Pericard Lymphocytes 31 Pericard Monocytes 12 Pericard Eosinophils 2 Pericard Total Protein 4.6 Pericardial LDH 725 Pericardial Glucose 105 Pleural WBC Pleural RBC Pleural Neutrophils Pleural Lymphocytes Pleural Monocytes Pleural Other Cells Pleural Total Protein 2.3 Pleural LDH 105 Pleural Glucose 125 01/30/22 01/30/22 01/30/22 16:58 16:58 19:34 WBC RBC Hgb Hct MCV MCH MCHC RDW Plt Count MPV Immature Gran % (Auto) Neut % (Auto) Lymph % (Auto) Schleicher % (Auto) Eos % (Auto) Baso % (Auto) Lymph # (Auto) Schleicher # (Auto) Eos # (Auto) Baso # (Auto) Abs Immat Gran (auto) Absolute Neuts (auto) Absolute Nucleated RBC Nucleated RBC % (auto) O2 Saturation 93.0 ABG pH at Pt Temp 7.37 ABG pCO2 at Pt Temp 40 ABG pO2 at Pt Temp 76 L ABG HCO3 23 ABG Base Excess (Actual) -1.4 Sodium Potassium Chloride Carbon Dioxide Anion Gap BUN Creatinine Estim Creat Clear Calc Estimated GFR Random Glucose Calcium Total Bilirubin AST ALT Alkaline Phosphatase C-Reactive Protein B-Natriuretic Peptide Total Protein Albumin Pericard WBC Pericard RBC Pericard Neutrophils Pericard Lymphocytes Pericard Monocytes Pericard Eosinophils Pericard Total Protein Pericardial LDH Pericardial Glucose Pleural WBC 1.024 Pleural RBC < 0.002 Pleural Neutrophils 33 Pleural Lymphocytes 38 Pleural Monocytes 8 Pleural Other Cells 21 Pleural Total Protein Cancelled Pleural LDH Pleural Glucose 01/30/22 01/30/22 01/30/22 19:55 20:21 20:21 WBC 12.3 H RBC 4.32 L Hgb 12.5 L Hct 40.0 L MCV 92.6 MCH 28.9 MCHC 31.3 RDW 15.1 Plt Count 356 MPV 10.2 Immature Gran % (Auto) 1.1 H Neut % (Auto) 84.2 H Lymph % (Auto) 6.1 L Schleicher % (Auto) 7.9 Eos % (Auto) 0.2 Baso % (Auto) 0.5 Lymph # (Auto) 0.8 L Schleicher # (Auto) 1.0 Eos # (Auto) 0.0 Baso # (Auto) 0.1 Abs Immat Gran (auto) 0.14 H Absolute Neuts (auto) 10.4 H Absolute Nucleated RBC 0.000 Nucleated RBC % (auto) 0.0 O2 Saturation ABG pH at Pt Temp ABG pCO2 at Pt Temp ABG pO2 at Pt Temp ABG HCO3 ABG Base Excess (Actual) Sodium 136 Potassium 4.2 Chloride 105 Carbon Dioxide 24 Anion Gap 11 L BUN 13 Creatinine 0.91 Estim Creat Clear Calc 81.3 Estimated GFR > 60 Random Glucose 145 H Calcium 8.0 L Total Bilirubin 0.4 AST 21 D ALT 18 Alkaline Phosphatase 111 D C-Reactive Protein B-Natriuretic Peptide 469 H Total Protein 6.2 L Albumin 2.9 L Pericard WBC Pericard RBC Pericard Neutrophils Pericard Lymphocytes Pericard Monocytes Pericard Eosinophils Pericard Total Protein Pericardial LDH Pericardial Glucose Pleural WBC Pleural RBC Pleural Neutrophils Pleural Lymphocytes Pleural Monocytes Pleural Other Cells Pleural Total Protein Pleural LDH Pleural Glucose 01/31/22 01/31/22 01/31/22 00:07 05:20 05:20 WBC 11.2 H RBC 3.49 L Hgb 10.3 L Hct 31.3 L D MCV 89.7 MCH 29.5 MCHC 32.9 RDW 15.2 Plt Count 388 MPV 9.9 Immature Gran % (Auto) Cancelled Neut % (Auto) Cancelled Lymph % (Auto) Cancelled Schleicher % (Auto) Cancelled Eos % (Auto) Cancelled Baso % (Auto) Cancelled Lymph # (Auto) Cancelled Schleicher # (Auto) Cancelled Eos # (Auto) Cancelled Baso # (Auto) Cancelled Abs Immat Gran (auto) Cancelled Absolute Neuts (auto) Cancelled Absolute Nucleated RBC 0.000 Nucleated RBC % (auto) 0.0 O2 Saturation 99.0 ABG pH at Pt Temp 7.41 ABG pCO2 at Pt Temp 33 ABG pO2 at Pt Temp 125 H ABG HCO3 21 L ABG Base Excess (Actual) -2.3 Sodium 136 Potassium 4.7 Chloride 106 Carbon Dioxide 22 Anion Gap 13 BUN 17 H Creatinine 0.80 Estim Creat Clear Calc 92.5 Estimated GFR > 60 Random Glucose 148 H Calcium 8.0 L Total Bilirubin 0.4 AST 14 ALT 14 Alkaline Phosphatase 97 C-Reactive Protein 7.70 H B-Natriuretic Peptide Total Protein 5.5 L Albumin 2.6 L Pericard WBC Pericard RBC Pericard Neutrophils Pericard Lymphocytes Pericard Monocytes Pericard Eosinophils Pericard Total Protein Pericardial LDH Pericardial Glucose Pleural WBC Pleural RBC Pleural Neutrophils Pleural Lymphocytes Pleural Monocytes Pleural Other Cells Pleural Total Protein Pleural LDH Pleural Glucose 01/31/22 05:29 WBC RBC Hgb Hct MCV MCH MCHC RDW Plt Count MPV Immature Gran % (Auto) Neut % (Auto) Lymph % (Auto) Schleicher % (Auto) Eos % (Auto) Baso % (Auto) Lymph # (Auto) Schleicher # (Auto) Eos # (Auto) Baso # (Auto) Abs Immat Gran (auto) Absolute Neuts (auto) Absolute Nucleated RBC Nucleated RBC % (auto) O2 Saturation 100.0 ABG pH at Pt Temp 7.44 ABG pCO2 at Pt Temp 32 ABG pO2 at Pt Temp 168 H ABG HCO3 22 ABG Base Excess (Actual) -0.9 Sodium Potassium Chloride Carbon Dioxide Anion Gap BUN Creatinine Estim Creat Clear Calc Estimated GFR Random Glucose Calcium Total Bilirubin AST ALT Alkaline Phosphatase C-Reactive Protein B-Natriuretic Peptide Total Protein Albumin Pericard WBC Pericard RBC Pericard Neutrophils Pericard Lymphocytes Pericard Monocytes Pericard Eosinophils Pericard Total Protein Pericardial LDH Pericardial Glucose Pleural WBC Pleural RBC Pleural Neutrophils Pleural Lymphocytes Pleural Monocytes Pleural Other Cells Pleural Total Protein Pleural LDH Pleural Glucose Microbiology Microbiology Results: Microbiology 01/30/22 16:58 Pleural Fluid Gram Stain - Final 01/30/22 16:58 Pleural Fluid Routine Culture - Preliminary No growth to date. 01/30/22 16:58 Pleural Fluid Anaerobic Culture - Preliminary Culture in progress. 01/30/22 16:58 Pericardial Fluid Gram Stain - Final 01/30/22 16:58 Pericardial Fluid Routine Culture - Preliminary No growth to date. 01/30/22 16:58 Pericardial Fluid Anaerobic Culture - Preliminary Culture in progress. 01/26/22 02:22 Blood - Venous Blood Culture - Final No growth after 5 days. 01/26/22 02:22 Blood - Venous Blood Culture - Final No growth after 5 days. Quality Stroke Does the patient have a stroke diagnosis?: No VTE Prior VTE?: No VTE Risk Level:: Medical - moderate - high VTE Device Contraindication: Treatment Not Indicated VTE Drug Contraindication: N/A - Med Ordered Critical Care Time Critical Care Time (minutes): 60
--- NOTE | 2022-01-31 12:59 | P.CNUR_ITS ---
History of Present Illness Consult details Consult date: 01/30/22 Narrative: urology consultation - difficult Hatch catheter Daniel is an 81-year-old male. Underwent left VATS pericardial window. ICU admission with severity failure Unable to place Hatch catheter for fluid management Marked phimosis Hatch catheter placed at bedside 400 cc initial drainage Catheter remain until ambulatory Review of Systems Constitutional: Constitutional: Denies chills and Denies fever(s) Cardiovascular: Cardiovascular: Reports no additional cardiovascular complaints and Denies syncope Respiratory: Respiratory: Denies cough Gastrointestinal: Gastrointestinal: Denies abdominal pain and Denies heartburn Genitourinary: Genitourinary: Reports as per HPI and Denies change in libido Neurologic: Denies syncope Psychiatric: Psychiatric: Denies change in libido Endocrine: Endocrine: Denies change in libido [facility] Past Medical History Medical History (Updated 01/31/22 @ 13:03 by Ronald Shah MD) Malave esophagus Benign enlargement of prostate Bipolar 1 disorder CHF (congestive heart failure) Coronary artery disease HTN (hypertension) Metastatic squamous cell carcinoma Paroxysmal A-fib Social anxiety disorder Family History Family History Other No family history of coronary artery disease Surgical History Surgical History History of cardiac cath S/P coronary artery stent placement Social History Social History (Updated 01/26/22 @ 11:51 by Dianne Shah, ADIRENNE) Household Members: Family Housing: Apartment Alcohol intake: current Alcohol intake frequency: holidays/special occasions only Patient Tobacco Use Status: Never used Tobacco Smoked in Last 30 Days: No service: No Current occupational status: retired [employer] Allergies Allergy/AdvReac Type Severity Reaction Status Date / Time No Known Allergies Allergy Verified 10/31/21 07:09 Active Medications: Current Medications Acetaminophen (Acetaminophen 325 Mg Tablet) 650 mg PO Q6H PRN PRN Reason: Pain, Mild (Pain Scale 1-3) Last Admin: 01/29/22 09:01 Dose: 650 mg Apixaban (Apixaban 5 Mg Tablet) 5 mg PO BID [facility] Last Admin: 01/28/22 10:52 Dose: 5 mg Atorvastatin Calcium (Atorvastatin Calcium 40 Mg Tablet) 40 mg PO BEDTIME DAMIEN Last Admin: 01/30/22 20:47 Dose: Not Given Diltiazem HCl (Diltiazem Hcl Cd 180 Mg Cap.Er.24h) 360 mg PO DAILY [facility]; Protocol Last Admin: 01/31/22 11:59 Dose: 360 mg Docusate Sodium (Docusate Sodium 100 Mg Capsule) 100 mg PO DAILY PRN PRN Reason: Constipation Hydromorphone HCl (Hydromorphone Hcl 0.5 Mg/0.5 Ml Syringe) 0.5 mg IVPUSH Q1H PRN; Protocol PRN Reason: mild-mod pain Last Admin: 01/31/22 12:00 Dose: 0.5 mg Hydromorphone HCl (Hydromorphone Hcl 1 Mg/Ml Syringe) 1 mg IVPUSH Q1H PRN; Protocol PRN Reason: severe pain Azithromycin 500 mg/ Sodium (Chloride) 250 mls @ 125 mls/hr IV Q24H [facility] Last Infusion: 01/31/22 05:18 Dose: Infused Ceftriaxone Sodium 1 gm/ (Sodium Chloride) 50 mls @ 100 mls/hr IV Q24H [facility] Last Infusion: 01/31/22 02:33 Dose: Infused Diltiazem HCl 125 mg/ Sodium (Chloride) 125 mls @ 0 mls/hr IVCONT .Q0M [facility]; Protocol Last Admin: 01/31/22 11:40 Dose: 15 mg/hr, 15 mls/hr Dexmedetomidine HCl (Precedex) 400 mcg in 100 mls @ 0 mls/hr IVCONT .Q0M [facility]; Protocol Last Titration: 01/31/22 09:54 Dose: 0 mcg/kg/hr, 0 mls/hr Lactated Ringer's (Lr) 1,000 mls @ 80 mls/hr IVCONT .[id number] [facility] Last Admin: 01/31/22 05:43 Dose: 80 mls/hr Metoprolol Tartrate (Metoprolol Tartrate 100 Mg Tablet) 100 mg PO BID [facility]; Protocol Last Admin: 01/31/22 09:50 Dose: Not Given Ondansetron HCl (Ondansetron Hcl 4 Mg/2 Ml Vial) 4 mg IVPUSH Q8H PRN PRN Reason: Nausea and Vomiting Pharmacy Consult (Consult Rx Perform Med Rec) 1 each MISCELLANE ONCE PRN PRN Reason: Consult order Sodium Chloride (0.9 % Sodium Chloride Flush 3 Ml Syringe) 3 ml IVFLUSH QSHIFT DAMIEN Last Admin: 01/31/22 08:29 Dose: 3 ml Home Medications Medication Instructions Recorded Confirmed Last Taken Type aspirin 81 mg tablet,delayed 1 tab PO DAILY 01/26/22 01/26/22 Unknown History release atorvastatin 40 mg tablet 1 tab PO BEDTIME 01/26/22 01/26/22 Unknown History furosemide 40 mg tablet 1 tab PO DAILY 01/26/22 01/26/22 Unknown History lisinopril 40 mg tablet 1 tab PO DAILY 01/26/22 01/26/22 Unknown History metoprolol tartrate 100 mg tablet 1 tab PO BID 01/26/22 01/26/22 Unknown History Physical Exam Vital Signs: Vital Signs: Last Vital Signs Temp 98.4 F 01/31/22 12:00 Pulse 152 H 01/31/22 12:00 Resp 24 H 01/31/22 12:00 BP 148/77 H 01/31/22 12:00 Pulse Ox 97 01/31/22 12:00 O2 Del Method 01/31/22 12:00 O2 Flow Rate 13 01/31/22 12:00 FiO2 45 01/31/22 09:04 BMI result Body Mass Index 31.6 Const: General: cooperative, healthy appearing, comfortable and no acute distress Orientation/consciousness: patient oriented x3 HEENT: Face and sinus: Yes normal facial exam Mouth: moist mucous membranes Neck: Neck: Yes normal visual inspection, Yes full ROM and Yes trachea midline Chest: Chest palpation & inspection: normal inspection of the chest Resp: Effort & Inspection: normal respiratory effort, able to speak in complete sentences and no respiratory distress GI: Inspection: Yes normal to inspection Back/Spine/Pelvis: Cervical Spine: normal cervical lordosis Thoracic/Lumbar Spine: thoracic and lumbar spine normal to inspection Skin: General skin exam: no rashes or lesions noted Neuro: General: patient oriented x3, gait normal, tone normal and moves all extremities Extrem: General: Yes normal to inspection and Yes capillary refill normal Results Labs Result diagrams: 01/31/22 05:20 01/31/22 05:20 Labs: Abnormal lab results 01/30/22 01/30/22 01/30/22 Range/Units 19:34 19:55 20:21 WBC 12.3 H (4.8-10.8) X10*3/uL RBC 4.32 L (4.60-5.80) X10*6/uL Hgb 12.5 L (14.0-18.0) g/dl Hct 40.0 L (42.0-52.0) % Immature Gran % (Auto) 1.1 H (0.0-0.4) % Neut % (Auto) 84.2 H (45-73) % Lymph % (Auto) 6.1 L (20-40) % Lymph # (Auto) 0.8 L (1.2-4.9) X10*3/uL Abs Immat Gran (auto) 0.14 H (0.00-0.03) X10*3/uL Absolute Neuts (auto) 10.4 H (2.0-8.3) x10*3/uL ABG pO2 at Pt Temp 76 L (83-108) mmHg ABG HCO3 (22-26) mmol/L Anion Gap 11 L (12-20) BUN (9-16) mg/dL Random Glucose 145 H (60-115) mg/dL Calcium 8.0 L (8.4-10.2) mg/dL C-Reactive Protein (< or = 0.50) mg/dL B-Natriuretic Peptide (<100) pg/mL Total Protein 6.2 L (6.5-8.0) g/dL Albumin 2.9 L (3.5-5.0) g/dL 01/30/22 01/31/22 01/31/22 Range/Units 20:21 00:07 05:20 WBC 11.2 H (4.8-10.8) X10*3/uL RBC 3.49 L (4.60-5.80) X10*6/uL Hgb 10.3 L (14.0-18.0) g/dl Hct 31.3 L D (42.0-52.0) % Immature Gran % (Auto) (0.0-0.4) % Neut % (Auto) (45-73) % Lymph % (Auto) (20-40) % Lymph # (Auto) (1.2-4.9) X10*3/uL Abs Immat Gran (auto) (0.00-0.03) X10*3/uL Absolute Neuts (auto) (2.0-8.3) x10*3/uL ABG pO2 at Pt Temp 125 H (83-108) mmHg ABG HCO3 21 L (22-26) mmol/L Anion Gap (12-20) BUN (9-16) mg/dL Random Glucose (60-115) mg/dL Calcium (8.4-10.2) mg/dL C-Reactive Protein (< or = 0.50) mg/dL B-Natriuretic Peptide 469 H (<100) pg/mL Total Protein (6.5-8.0) g/dL Albumin (3.5-5.0) g/dL 01/31/22 01/31/22 Range/Units 05:20 05:29 WBC (4.8-10.8) X10*3/uL RBC (4.60-5.80) X10*6/uL Hgb (14.0-18.0) g/dl Hct (42.0-52.0) % Immature Gran % (Auto) (0.0-0.4) % Neut % (Auto) (45-73) % Lymph % (Auto) (20-40) % Lymph # (Auto) (1.2-4.9) X10*3/uL Abs Immat Gran (auto) (0.00-0.03) X10*3/uL Absolute Neuts (auto) (2.0-8.3) x10*3/uL ABG pO2 at Pt Temp 168 H (83-108) mmHg ABG HCO3 (22-26) mmol/L Anion Gap (12-20) BUN 17 H (9-16) mg/dL Random Glucose 148 H (60-115) mg/dL Calcium 8.0 L (8.4-10.2) mg/dL C-Reactive Protein 7.70 H (< or = 0.50) mg/dL B-Natriuretic Peptide (<100) pg/mL Total Protein 5.5 L (6.5-8.0) g/dL Albumin 2.6 L (3.5-5.0) g/dL Short CBC 01/30/22 01/31/22 Range/Units 19:55 05:20 WBC 12.3 H 11.2 H (4.8-10.8) X10*3/uL Hgb 12.5 L 10.3 L (14.0-18.0) g/dl Hct 40.0 L 31.3 L D (42.0-52.0) % Plt Count 356 388 (160-400) X10*3/uL BMP 01/30/22 01/31/22 20:21 05:20 Sodium 136 136 Potassium 4.2 4.7 Chloride 105 106 Carbon Dioxide 24 22 BUN 13 17 H Creatinine 0.91 0.80 Calcium 8.0 L 8.0 L Liver Function 01/30/22 01/31/22 Range/Units 20:21 05:20 Total Bilirubin 0.4 0.4 (0.0-1.0) mg/dL AST 21 D 14 (5-37) U/L ALT 18 14 (0-40) U/L Alkaline Phosphatase 111 D 97 (39-117) U/L Albumin 2.9 L 2.6 L (3.5-5.0) g/dL Urine 01/26/22 Range/Units 02:03 Urine Color YELLOW Urine Appearance HAZY Urine pH 6.0 (5.0-8.0) Ur Specific Lamar 1.020 (1.005-1.025) Urine Protein NEG (NEG-TRACE) MG/DL Urine Glucose (UA) NEG (NEG) MG/DL All other labs normal. Assessment and Plan (1) Urinary retention: Status: Acute Plan Hatch catheter placed by Urology 400 cc Procedures Date of Service Date of Service: 01/30/22 Catheter Insertion (Urinary) Date of insertion: 01/30/22 Time of insertion: 22:30 Replacement of catheter present on admission: No Reason for placing: Urinary obstruction ( phimosis) Antiseptic solution prep: Povidone-Iodine Catheter type/location: 2-way Urethral Size (Chilean): 16 Catheter balloon size (mL): 10 Results: successfully catheterized-immediate flow and consulted Complications: nursing staff unable to place 3 phimosis
[2022-01-31] MEDS: Metoprolol Tartrate 100 MG TABLET PO (17:35)
--- NOTE | 2022-01-31 18:29 | PC.NURSE ---
CHEST TUBE CHANGED TO WATER SEAL SURGEON ORDERED. CHEST TUBE OUTPUT THIS SHIFT 230 ML - SEROSANGUINEOUS AT START OF SHIFT AND MORE SEROUS TOWARDS END OF SHIFT. NO DRAINAGE FROM DAVONTE DRAIN. DRESSINGS REINFORCED. GONSALEZ OUTPUT 140 ML TOTAL FROM [id number] - MD AWARE.
[2022-01-31] MEDS: Atorvastatin Calcium 40 MG TABLET PO (20:12)
[2022-01-31] MEDS: dilTIAZem HCL 125 MG in 0.9 % Sodium Chloride 100 ML 10 MG IVCONT (20:13)
--- NOTE | 2022-01-31 23:51 | PC.NURSE ---
Alert, forgetful, oriented to person, year, month, date of , vague to situation, impulsive at times. telesitter in room. Patient with pain to Chest tube site and DAVONTE drain site, 3/10 dull pain, and sternal chest pain 8/10 when breathing in and no pain in between breaths, PRN dilaudid with good effect, tolerating the 0.5 mg dose well. Patient with 90 ccs drainage to chest tube serous, and no crepitus, diminished bases lung sounds, 9 lpm lake cannula, wet moist cough nonproductive, patient unable to perform IS tonight, will try when pain is more under control. Patient with 10 ccs out via DAVONTE drain to pericardial window, and urine output about 20 cc per hour. A-fib on monitor, rate was in 130s when awake, titrated diltiazem down while HR seen in 80s when patient asleep.
[2022-02-01] VITALS (27 sets, daily range): BP systolic 105–197; BP diastolic 41–110; PULSE 71–123; RESP 12–29; TEMP 37.1–38.1; O2SAT 91–98
[2022-02-01] MEDS: 0.9 % Sodium Chloride Flush 3 ML SYRINGE IVFLUSH ×3 (00:15→16:56)
[2022-02-01] MEDS: HYDROmorphone HCl 0.5 MG/0.5 ML SYRINGE IVPUSH (01:16)
[2022-02-01] MEDS: cefTRIAXone sodium 1 GM in 0.9 % Sodium Chloride 50 ML IV (02:36)
[2022-02-01] MEDS: Azithromycin 500 MG in 0.9 % Sodium Chloride 250 ML 125 MG IV (03:37)
[2022-02-01] MEDS: Lactated Ringers 1,000 ML 80 ML IVCONT (03:39)
[2022-02-01 05:50] LABS: MANUAL DIFF FLAG NO
[2022-02-01 05:59] LABS: Basophils Percent Auto 0.3 % (0-2); Eosinophils Absolute Auto 0.1 X10*3/uL (0.0-0.4); Eosinophils Percent Auto 0.7 % (0-4); Hematocrit 30.7 % (42.0-52.0); Hemoglobin 9.9 g/dl (14.0-18.0); Imm Gran Abs Auto 0.19 X10*3/uL (0.00-0.03); Imm Gran Pct Auto 1.8 % (0.0-0.4); Lymphocytes Absolute Auto 0.9 X10*3/uL (1.2-4.9); Lymphocytes Percent Auto 8.3 % (20-40); Mean Corpuscular HGB Conc 32.2 g/dl (31.0-36.0); Mean Corpuscular Hemoglobin 29.1 pg (27.0-33.0); Mean Corpuscular Volume 90.3 fL (80.0-98.0); Mean Platelet Volume 10.3 fL (9.4-12.4); Monocytes Absolute Auto 1.5 X10*3/uL (0.1-1.2); Monocytes Percent Auto 13.7 % (2-11); Neutrophils Percent Auto 75.2 % (45-73); Platelet Count 400 X10*3/uL (160-400); Red Cell Distribution Width 15.2 % (11.0-16.0); White Blood Count 10.6 X10*3/uL (4.8-10.8)
[2022-02-01 06:15] LABS: Alanine Aminotransferase 11 U/L (0-40); Albumin Level 2.5 g/dL (3.5-5.0); Alkaline Phosphatase 88 U/L (39-117); Anion Gap 12 (12-20); Aspartate Amino Transferase 14 U/L (5-37); Bilirubin Total 0.4 mg/dL (0.0-1.0); Blood Urea Nitrogen 24 mg/dL (9-16); Calcium 7.9 mg/dL (8.4-10.2); Carbon Dioxide 23 mmol/L (22-29); Chloride 103 mmol/L (96-108); Creatinine Clr Calc Pharmacy 71.9; Estimated Glomerular Filt Rate > 60; Glucose Random 149 mg/dL (60-115); Potassium 4.5 mmol/L (3.3-5.1); Sodium 133 mmol/L (135-145); Total Protein 5.4 g/dL (6.5-8.0)
[2022-02-01] MEDS: dilTIAZem HCL CD 180 MG CAP.ER.24H 360 MG PO (08:50)
[2022-02-01] MEDS: Metoprolol Tartrate 100 MG TABLET PO ×2 (08:51→20:47)
--- NOTE | 2022-02-01 10:44 | PM.PNCARD ---
Subjective Subjective Date of Service: 02/01/22 Principal diagnosis: AF, Left pleural effusion, PNA, pericardial effusion Interval history: Patient hemodynamically stable. Much more awake. Denies any clear cardiac complaints. Complains of pain at the site of the surgery. Still has a chest tube and a pericardial drain in place. Remains in atrial fibrillation with borderline rate control. Denies shortness of breath. However appears to be mildly fluid overloaded clinically. Review of Systems Constitutional: Reports no additional constitutional complaints Cardiovascular: Reports chest pain (At the site of surgery with deep breathing), Reports leg edema, Denies lightheadedness, Denies Loss of Consciousness, Denies palpitations and Denies dyspnea Respiratory: Reports pain on inspiration and Denies dyspnea Gastrointestinal: Reports no additional gastrointestinal complaints Musculoskeletal: Reports no additional musculoskeletal complaints Skin/Breast: Reports system reviewed and no additional complaints, except as docu Reports system reviewed and no additional complaints, except as documented Psychiatric: Reports no additional psychiatric complaints Endocrine: Denies palpitations Physical Exam Vital Signs: Last Vital Signs Temp 99.3 F 02/01/22 10:00 Pulse 100 02/01/22 10:00 Resp 26 H 02/01/22 10:00 BP 194/107 H 02/01/22 10:00 Pulse Ox 96 02/01/22 10:00 O2 Del Method 02/01/22 10:00 O2 Flow Rate 9 02/01/22 10:00 FiO2 45 01/31/22 09:04 BMI result Body Mass Index 31.6 Const General: cooperative, comfortable, alert, awake and in distress mild and respiratory Nutritional Appearance: overweight Orientation/consciousness: patient oriented x3 Neck Neck: Yes trachea midline, Yes supple and Yes no JVD Resp Effort & Inspection: normal respiratory effort Auscultation: no crackles, no wheezes and diminished lung sounds Cardio Rate: tachycardic Rhythm: abnormal rhythm irregularly irregular Heart sounds: S1 normal heart sound present, S2 normal heart sound present, no click, no gallops and no murmurs GI Inspection: Yes obesity Auscultation: normal bowel sounds Skin General skin exam: no rashes or lesions noted Neuro General: patient oriented x3 and no focal motor deficits Extrem General: No clubbing, No cyanosis and Yes edema Objective Labs and Meds Result diagrams: 02/01/22 05:05 02/01/22 05:05 Lab results: Laboratory Results - last 24 hr 02/01/22 02/01/22 05:05 05:05 WBC 10.6 RBC 3.40 L Hgb 9.9 L Hct 30.7 L MCV 90.3 MCH 29.1 MCHC 32.2 RDW 15.2 Plt Count 400 MPV 10.3 Immature Gran % (Auto) 1.8 H Neut % (Auto) 75.2 H Lymph % (Auto) 8.3 L [place] % (Auto) 13.7 H Eos % (Auto) 0.7 Baso % (Auto) 0.3 Lymph # (Auto) 0.9 L [place] # (Auto) 1.5 H Eos # (Auto) 0.1 Baso # (Auto) 0.0 Abs Immat Gran (auto) 0.19 H Absolute Neuts (auto) 8.0 Absolute Nucleated RBC 0.000 Nucleated RBC % (auto) 0.0 Sodium 133 L Potassium 4.5 Chloride 103 Carbon Dioxide 23 Anion Gap 12 BUN 24 H Creatinine 1.03 Estim Creat Clear Calc 71.9 Estimated GFR > 60 Random Glucose 149 H Calcium 7.9 L Total Bilirubin 0.4 AST 14 ALT 11 Alkaline Phosphatase 88 Total Protein 5.4 L Albumin 2.5 L Progress Note: A&P Assessment and plan (1) Atrial fibrillation with rapid ventricular response: Status: Acute Assessment and Plan: Atrial fibrillation with borderline rate control. Continue current Cardizem and metoprolol. Will add couple of dose of IV digoxin for better rate control. Continue supportive care. Can hold off on oral anticoagulation if he still as chest tube in place. Can be resumed as soon as possible after the tubes have been removed. (2) Pericardial effusion: Status: Acute Assessment and Plan: Pleural and pericardial effusion status was stranded status post pericardial window per limited echo today to evaluate for pericardial fluid. Continue treat as per the findings. (3) CHF exacerbation: Status: Acute Assessment and Plan: Appears to be mildly fluid overloaded today. IV diuresis. Strict intake and output chart needs to be pursued. Continue supportive care. Continue oxygen supplementation. Out of bed to chair. Will follow with you Time Spent With Patient Time: Total time spent is greater than 50% in coordination of care (as documented) at patient's floor/unit and/or counseling patient: Progress Note: Quality Stroke Does the patient have a stroke diagnosis?: No Procedures Date of Service Date of Service: 02/01/22
[2022-02-01] MEDS: Acetaminophen 325 MG TABLET 650 MG PO (12:02)
[2022-02-01] MEDS: Apixaban 5 MG TABLET PO ×2 (12:05→20:48)
--- NOTE | 2022-02-01 13:13 | P.CNID_ITS ---
History of Present Illness Data of Consult Service Date: 02/01/22 Requesting physician: Mohan Noriega Primary Care Provider: Carol Mathis NP HPI Reason for consult: pericardial effusion,pleural effusion He presents with being found unresponsive. He had been depressed and not eating or drinking, He was started on Ceftriaxone and Zmax,now day 6 for concern over pneumonia. He has no fever or chills now. He had pleural and pericardial drainage He has 500 cells in pericardial fluid and RBC. Pleural fluid thought transudate Cultures negative. Review of Systems Review of Systems: Yes Unobtainable due to mental condition [facility] Past Medical History Medical History Malave esophagus Benign enlargement of prostate Bipolar 1 disorder CHF (congestive heart failure) Coronary artery disease HTN (hypertension) Metastatic squamous cell carcinoma Paroxysmal A-fib Social anxiety disorder Family History Family History Other No family history of coronary artery disease Family history: reviewed and not pertinent Surgical History Surgical History History of cardiac cath S/P coronary artery stent placement Social History Social History Household Members: Family Housing: Apartment Alcohol intake: current Alcohol intake frequency: holidays/special occasions only Patient Tobacco Use Status: Never used Tobacco Smoked in Last 30 Days: No service: No Current occupational status: retired Meds Allergies Allergy/AdvReac Type Severity Reaction Status Date / Time No Known Allergies Allergy Verified 10/31/21 07:09 Active Medications: Current Medications Acetaminophen (Acetaminophen 325 Mg Tablet) 650 mg PO Q6H PRN PRN Reason: Pain, Mild (Pain Scale 1-3) Last Admin: 02/01/22 12:02 Dose: 650 mg Apixaban (Apixaban 5 Mg Tablet) 5 mg PO BID DAMIEN Last Admin: 02/01/22 12:05 Dose: 5 mg Atorvastatin Calcium (Atorvastatin Calcium 40 Mg Tablet) 40 mg PO BEDTIME DAMIEN Last Admin: 01/31/22 20:12 Dose: 40 mg Digoxin (Digoxin 0.5 Mg/2 Ml Ampul) 0.25 mg IVPUSH Q6H DAMIEN Stop: 02/01/22 16:46 Diltiazem HCl (Diltiazem Hcl Cd 180 Mg Cap.Er.24h) 360 mg PO DAILY [facility]; Protocol Last Admin: 02/01/22 08:50 Dose: 360 mg Docusate Sodium (Docusate Sodium 100 Mg Capsule) 100 mg PO DAILY PRN PRN Reason: Constipation Hydromorphone HCl (Hydromorphone Hcl 0.5 Mg/0.5 Ml Syringe) 0.5 mg IVPUSH Q1H PRN; Protocol PRN Reason: mild-mod pain Last Admin: 02/01/22 01:16 Dose: 0.5 mg Hydromorphone HCl (Hydromorphone Hcl 1 Mg/Ml Syringe) 1 mg IVPUSH Q1H PRN; Protocol PRN Reason: severe pain Azithromycin 500 mg/ Sodium (Chloride) 250 mls @ 125 mls/hr IV Q24H [facility] Last Infusion: 02/01/22 05:44 Dose: Infused Ceftriaxone Sodium 1 gm/ (Sodium Chloride) 50 mls @ 100 mls/hr IV Q24H [facility] Last Infusion: 02/01/22 03:28 Dose: Infused Diltiazem HCl 125 mg/ Sodium (Chloride) 125 mls @ 0 mls/hr IVCONT .Q0M [facility]; Protocol Last Titration: 02/01/22 03:42 Dose: 0 mg/hr, 0 mls/hr Dexmedetomidine HCl (Precedex) 400 mcg in 100 mls @ 0 mls/hr IVCONT .Q0M [facility]; Protocol Last Titration: 01/31/22 17:24 Dose: Infused Lactated Ringer's (Lr) 1,000 mls @ 80 mls/hr IVCONT .[id number] [facility] Last Admin: 02/01/22 03:39 Dose: 80 mls/hr Metoprolol Tartrate (Metoprolol Tartrate 100 Mg Tablet) 100 mg PO Q12H [facility]; Protocol Last Admin: 02/01/22 08:51 Dose: 100 mg Ondansetron HCl (Ondansetron Hcl 4 Mg/2 Ml Vial) 4 mg IVPUSH Q8H PRN PRN Reason: Nausea and Vomiting Pharmacy Consult (Consult Rx Perform Med Rec) 1 each MISCELLANE ONCE PRN PRN Reason: Consult order Sodium Chloride (0.9 % Sodium Chloride Flush 3 Ml Syringe) 3 ml IVFLUSH QSHIFT [facility] Last Admin: 02/01/22 08:51 Dose: 3 ml Home Medications Medication Instructions Recorded Confirmed Last Taken Type aspirin 81 mg tablet,delayed 1 tab PO DAILY 01/26/22 01/26/22 Unknown History release atorvastatin 40 mg tablet 1 tab PO BEDTIME 01/26/22 01/26/22 Unknown History furosemide 40 mg tablet 1 tab PO DAILY 01/26/22 01/26/22 Unknown History lisinopril 40 mg tablet 1 tab PO DAILY 01/26/22 01/26/22 Unknown History metoprolol tartrate 100 mg tablet 1 tab PO BID 01/26/22 01/26/22 Unknown History Physical Exam Vital Signs: Vital Signs: Last Vital Signs Temp 99.5 F 02/01/22 13:00 Pulse 77 02/01/22 13:00 Resp 25 H 02/01/22 13:00 BP 110/48 L 02/01/22 13:00 Pulse Ox 91 L 02/01/22 13:00 O2 Del Method 02/01/22 13:00 O2 Flow Rate 9 02/01/22 13:00 FiO2 45 01/31/22 09:04 BMI result Body Mass Index 31.6 Const: General: cooperative Eyes: General: appearance normal, both eyes and all related structures Resp: Effort & Inspection: normal respiratory effort Cardio: Rate: regular rate Rhythm: regular rhythm GI: Palpation (GI): Soft to palpation and nontender Extrem: Other: plus 4 pitting edema Results Labs CBC & Chem 7: 02/01/22 05:05 02/01/22 05:05 Labs: Short CBC 02/01/22 Range/Units 05:05 WBC 10.6 (4.8-10.8) X10*3/uL Hgb 9.9 L (14.0-18.0) g/dl Hct 30.7 L (42.0-52.0) % Plt Count 400 (160-400) X10*3/uL BMP 02/01/22 05:05 Sodium 133 L Potassium 4.5 Chloride 103 Carbon Dioxide 23 BUN 24 H Creatinine 1.03 Calcium 7.9 L Liver Function 02/01/22 Range/Units 05:05 Total Bilirubin 0.4 (0.0-1.0) mg/dL AST 14 (5-37) U/L ALT 11 (0-40) U/L Alkaline Phosphatase 88 (39-117) U/L Albumin 2.5 L (3.5-5.0) g/dL Microbiology Microbiology Results: Microbiology 01/30/22 16:58 Pleural Fluid Gram Stain - Final 01/30/22 16:58 Pleural Fluid Routine Culture - Preliminary No growth to date. 01/30/22 16:58 Pleural Fluid Anaerobic Culture - Preliminary No growth to date. 01/30/22 16:58 Pericardial Fluid Gram Stain - Final 01/30/22 16:58 Pericardial Fluid Routine Culture - Preliminary No growth to date. 01/30/22 16:58 Pericardial Fluid Anaerobic Culture - Preliminary No growth to date. 01/26/22 02:22 Blood - Venous Blood Culture - Final No growth after 5 days. 01/26/22 02:22 Blood - Venous Blood Culture - Final No growth after 5 days. Assessment and Plan (1) Pericardial effusion: Status: Acute There is no positive cultures or AFB although adenosine deaminase may be better test for AFB but doubt anyway since unremarkable fluid. (2) Pleural effusion, left: Status: Acute Cultures negative,appears transudate (3) Pneumonia: Status: Acute Plan Would continue CTX and Zmax another day which would be day 7 and stop No other treatment or evaluation at this time
--- NOTE | 2022-02-01 16:21 | PM.CCPN ---
Subjective Subjective Date of Service: 02/01/22 Interval History: Mr. Cm was transferred to the ICU January 30 for management of respiratory failure and delirium postoperatively after left VATS pericardial window and? evacuation of left pleural fluid by Dr. Browne. The patient is an 81-year-old male with PMHx of CAD s/p PCI, PAFib on Eliquis and metoprolol, bipolar/depression, CHF, HTN, BPH, HLD, and Barretts esophagus.? 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 Since then, he?s had ongoing problems with massive lymphedema of that leg.? 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 HISTORY OF PRESENT ILLNESS:? The patient was BIBA to the ED on January 25 after being found unresponsive.? Reportedly he was alert oriented x3 on arrival of EMS.? The patient reported feeling lethargic, weak, anorexic, and stated that he?d stopped taking his meds since October as a result of his depression, and had stopped taking care of his general wellbeing, including showering, shaving, brushing his teeth, and his ADLs. The patient arrived to the ED soiled and incontinent of urine.? In the ED, his HR was 129 in AFib, Sat?ing 89% on room air.? Occult stool was negative. Notable labs in the ED:? Hb 9.9 (previously 13.4), sodium 132, troponin 91 and flat.? UA negative.? CXR showed moderate left pleural effusion with atelectasis/consolidation. He was treated with a diltiazem drip, treated for CAP, and admitted to Medicine.? ECHOCARDIOGRAM 01/28 showed normal LV systolic function with moderate LVH, EF 60%; RV not adeq visualized; at least moderately dilated left atrium; normal cardiac valvular Dopplers; significantly elevated right atrial pressures; the IVC was moderately dilated with no inspiratory collapse; no RVSP estimate able to be made; and at least moderate pericardial effusion.? (The patient has had no evidence of any hemodynamic compromise from the pericardial effusion.)? Wound care was consulting on his RLE lymphedema. Chest CT January 29 showed small right-sided pleural effusion and small to moderate left-sided pleural effusion, both new when compared to a CT of November 04, along with a new moderate-sized pericardial effusion.? The patient was brought to the OR January 30 for drainage of the left pleural effusion and the pericardial effusion.? I saw the patient in surgery preop holding, he was breathing easy w Sat 94% on room air.? HR was 120s-140?s in afib.? He had no extremity or central edema on the left side; right side had massive lymphedema 2? to his LN dissection years ago.? His mental status was entirely normal. Preoperatively in the holding area he was started on IV diltiazem.? The operative course was unremarkable.? 950cc of serous fluid was evacuated from the left chest.? About 650 cc of slightly bloody pericardial fluid was evacuated.? The left thoracic cavity was explored via VATS, and no sign metastatic disease was noted.? A small section pericardium, along with both fluids were sent for cytology and pathology.? The patient was extubated without incident and taken to the PACU. In the PACU, the patient was very delirious and required Precedex for sedation.? He also became increasingly hypoxemic.? He was transferred to the ICU for further management.? In the ICU he required Precedex for delirium control, and high level CPAP for hypoxemia.? Dr. Shah was required to place a Hatch catheter. Over that night on the CPAP, his oxygenation improved dramatically.? Yesterday morning he came off both the CPAP and the Precedex.? His MS has been good and he?s been eating.? Unable to get OOB because of the pain in his left chest.? Been giving him ? mg Dilaudid boluses.? Yesterday breathing easy with Sat mid-90?s on 7-9L [place].? HR was controlled with oral diltiazem and metoprolol. Today, he?s alert and appropriate altho no ball of fire.? We?re about to get him OOB to chair.? HR 70?s, afib, on oral dilt and oral metoprolol.? BP 120/52.? RR 20-24 on 4.5L [place] oxygen, SpO2 93%.? Tmax 100.6.? Anicteric.? No JVD at 40?.? Chest shows decreased BS on the left, clear on right.? Soft heart tones, I heard no murmur or gallops.? Abdomen benign.? 1+ edema on the left side; right side has massive lymphedema, as noted previously. LABORATORY DATA:? As below.? Notably, white count down to 10,? BUN/creatinine up to 24/1.0, alb 2.5. Lab analysis of pleural fluid suggests a transudate.? Gram stain and culture are negative.? Fungal and acid fast pending.? Cytology pending. Pericardial fluid Gram stain and cx are negative.? Fungal and acid fast pending.? Cytology and pathology pending. IMPRESSION ?1. Afib w RVR.? Likely 2? pericardial irritation.? Rate is now reasonably controlled on oral dilt and metoprolol. ?Restarted Eliquis this morning, per Dr. Browne. ?2. Pericard effusion.? No post op mechanical or hemod cx.? Waiting for path results.? Drain to be pulled per Dr. Browne. ?3. Bilat pleural effusions.? Appears transudative.? Waiting for path results.? Chest tube to be pulled per Dr. Browne. ?4. Acute post op hypoxemic resp failure.? Undoubtedly 2? atelectasis.? Did very well w CPAP, as would be expected.? Pain is better today than yesterday, and oxygenation is slowly improving. ?5. Post op delirium.? No surprise in an elderly man with preexisting [employer]LECT[employer]ING [employer]ICE [employer]/psychiatric dz.? Doing OK now, even did OK last night off the Precedex. ?6. H/o CAD. ?7. H/o CHF.? Restart his diuretic now, Lasix 40 mg po daily. ?8. 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 I don?t know what the status of his cancer is. ?9. RLE lymphedema, status post right groin lymph node removal.? Local care. Not quite ready to transfer out of ICU.? Maybe later tonight. Critical Care Time (minutes): 0 Physical Exam Vital Signs: Vital Signs: Last Vital Signs Temp 99.3 F 02/01/22 15:00 Pulse 71 02/01/22 15:00 Resp 20 02/01/22 16:14 BP 120/52 L 02/01/22 15:00 Pulse Ox 95 02/01/22 15:00 O2 Del Method 02/01/22 15:00 O2 Flow Rate 7 02/01/22 15:00 FiO2 45 01/31/22 09:04 BMI result Body Mass Index 31.6 Objective Data Labs CBC & Chem 7: 02/01/22 05:05 02/01/22 05:05 Labs: Laboratory Results - last 24 hr 02/01/22 02/01/22 05:05 05:05 WBC 10.6 RBC 3.40 L Hgb 9.9 L Hct 30.7 L MCV 90.3 MCH 29.1 MCHC 32.2 RDW 15.2 Plt Count 400 MPV 10.3 Immature Gran % (Auto) 1.8 H Neut % (Auto) 75.2 H Lymph % (Auto) 8.3 L [place] % (Auto) 13.7 H Eos % (Auto) 0.7 Baso % (Auto) 0.3 Lymph # (Auto) 0.9 L [place] # (Auto) 1.5 H Eos # (Auto) 0.1 Baso # (Auto) 0.0 Abs Immat Gran (auto) 0.19 H Absolute Neuts (auto) 8.0 Absolute Nucleated RBC 0.000 Nucleated RBC % (auto) 0.0 Sodium 133 L Potassium 4.5 Chloride 103 Carbon Dioxide 23 Anion Gap 12 BUN 24 H Creatinine 1.03 Estim Creat Clear Calc 71.9 Estimated GFR > 60 Random Glucose 149 H Calcium 7.9 L Total Bilirubin 0.4 AST 14 ALT 11 Alkaline Phosphatase 88 Total Protein 5.4 L Albumin 2.5 L Microbiology Microbiology Results: Microbiology 01/30/22 16:58 Pleural Fluid Gram Stain - Final 01/30/22 16:58 Pleural Fluid Routine Culture - Preliminary No growth to date. 01/30/22 16:58 Pleural Fluid Anaerobic Culture - Preliminary No growth to date. 01/30/22 16:58 Pericardial Fluid Gram Stain - Final 01/30/22 16:58 Pericardial Fluid Routine Culture - Preliminary No growth to date. 01/30/22 16:58 Pericardial Fluid Anaerobic Culture - Preliminary No growth to date. 01/26/22 02:22 Blood - Venous Blood Culture - Final No growth after 5 days. 01/26/22 02:22 Blood - Venous Blood Culture - Final No growth after 5 days. Quality Stroke Does the patient have a stroke diagnosis?: No VTE Prior VTE?: No VTE Risk Level:: Medical - moderate - high VTE Device Contraindication: Treatment Not Indicated VTE Drug Contraindication: N/A - Med Ordered
[2022-02-01] MEDS: Furosemide 40 MG TABLET PO (16:54)
--- NOTE | 2022-02-01 19:08 | PM.PNTS ---
Subjective Subjective Date of Service: 02/01/22 Interval history: Patient was seen examined this evening. He was found sitting 0 be in chair. Denies any shortness of breath at rest however states he does have a significant amount of pain surrounding his chest tube site which causes him to have a weak cough His left-charito water seal overnight with approximately 270 cc of serous fluid output. his GP drain has put out approximately 20 cc of serosanguineous fluid output Throughout the day. Remaining 12 point review of systems negative at this time. Physical Exam Vital Signs: Vital Signs: Last Vital Signs Temp 99.5 F 02/01/22 18:00 Pulse 108 H 02/01/22 18:00 Resp 24 H 02/01/22 18:00 BP 105/59 L 02/01/22 18:00 Pulse Ox 97 02/01/22 18:00 O2 Del Method 02/01/22 18:00 O2 Flow Rate 4.5 02/01/22 18:00 FiO2 45 01/31/22 09:04 BMI result Body Mass Index 31.6 Const: General: no acute distress, alert and awake Orientation/consciousness: patient oriented x3 HEENT: Head: Yes normal to inspection Neck: Neck: Yes normal visual inspection, Yes trachea midline, Yes supple and Yes no JVD Chest: Other: Left-sided large bore surgical chest tube remains secure in place attached to water-seal with 270 cc of serous fluid output over past 24 hours. No detectable air leak. Breath sounds are diminished bilaterally throughout all lung porter. Anterior chest DAVONTE drain remains secure in place and put out approximately 20 cc of serosanguineous fluid throughout today. Cardio: Jugular venous distension: no JVD Rate: regular rate Rhythm: regular rhythm GI: Inspection: Yes normal to inspection Neuro: General: patient oriented x3 Procedures Date of Service Date of Service: 02/01/22 Progress Note: A&P Assessment and plan (1) Pericardial effusion: Status: Acute (2) Pleural effusion, left: Status: Acute Plan Continue DAVONTE to bulb self suction.? Monitour outputs. Chest tube To remain on water seal waterseal at midnight. Morning chest x-ray plan to remove left-sided chest tube once pleural fluid decreases below 200 cc over 24. plan to leave DAVONTE bulb to self suction until echocardiograms performed to ensure resolution of pericardial oneffusi patient should be OB in chair for all meals. Patient should be ambulating in with 3-4 times per day in hallway with nursing assistance. Otherwise as per ICU Time Spent With Patient Time: Total time spent is greater than 50% in coordination of care (as documented) at patient's floor/unit and/or counseling patient: Quality Stroke Does the patient have a stroke diagnosis?: No VTE Prior VTE?: No VTE Risk Level:: Medical - moderate - high VTE Device Contraindication: Treatment Not Indicated VTE Drug Contraindication: N/A - Med Ordered
--- NOTE | 2022-02-01 20:21 | PC.NURSE ---
Assumed care at 07:00. Alert, forgetful, oriented to person, place, year, month, date of , vague to situation, impulsive at times. Telesitter in room. Patient denies pain to Chest tube site or sternal pain today. Headache right anterior supraorbital pain in afternoon 3/10 dull pain, PRN tylenol with good effect. Patient with 150 ccs drainage to chest tube serous, and no crepitus. No tidaling in atrium chest tube system over last two days to water seal, and PA was notified. Diminished bases lung sounds, 9 lpm titrated to 4.5 lpm lake cannula, wet moist cough nonproductive, less frequent. Patient performed IS 5 times, getting to 500 ccs, poor technique, poor breath holding. Patient with 5 ccs out via DAVONTE drain to pericardial window. Was averaging 30 cc per hour of urine output and then was given 40 mg IV lasix per MD and had 500 ccs urine output. A-fib on monitor, rate was controlled all day, about 80's-70's on monitor, diltiazem has been off. [facility], and also to the chair as per MD.
[2022-02-01] MEDS: Atorvastatin Calcium 40 MG TABLET PO (20:48)
--- NOTE | 2022-02-01 23:48 | PC.RT ---
pt refusing bipap at this time
[2022-02-02] VITALS (19 sets, daily range): BP systolic 88–143; BP diastolic 55–84; PULSE 84–142; RESP 17–118; TEMP 36.1–37.7; O2SAT 90–98
[2022-02-02] MEDS: 0.9 % Sodium Chloride Flush 3 ML SYRINGE IVFLUSH ×2 (00:10→20:44)
[2022-02-02] MEDS: cefTRIAXone sodium 1 GM in 0.9 % Sodium Chloride 50 ML IV (02:47)
[2022-02-02] MEDS: Azithromycin 500 MG in 0.9 % Sodium Chloride 250 ML 125 MG IV (03:18)
[2022-02-02 05:46] LABS: Hematocrit 31.6 % (42.0-52.0); Hemoglobin 10.4 g/dl (14.0-18.0); Mean Corpuscular HGB Conc 32.9 g/dl (31.0-36.0); Mean Corpuscular Hemoglobin 29.2 pg (27.0-33.0); Mean Corpuscular Volume 88.8 fL (80.0-98.0); Platelet Count 403 X10*3/uL (160-400); Red Blood Count 3.56 X10*6/uL (4.60-5.80); Red Cell Distribution Width 14.8 % (11.0-16.0)
[2022-02-02 06:07] LABS: Anion Gap 12 (12-20); Blood Urea Nitrogen 21 mg/dL (9-16); Carbon Dioxide 24 mmol/L (22-29); Chloride 103 mmol/L (96-108); Creatinine Clr Calc Pharmacy 87.1; Estimated Glomerular Filt Rate > 60; Glucose Random 125 mg/dL (60-115); Magnesium 2.3 mg/dL (1.6-2.6); Phosphorus 3.2 mg/dL (2.7-4.5); Potassium 4.1 mmol/L (3.3-5.1); Sodium 135 mmol/L (135-145)
[2022-02-02] MEDS: Metoprolol Tartrate 100 MG TABLET PO ×2 (08:35→20:44)
[2022-02-02] MEDS: Furosemide 40 MG TABLET PO (08:35)
[2022-02-02] MEDS: Apixaban 5 MG TABLET PO ×2 (08:35→20:44)
[2022-02-02] MEDS: dilTIAZem HCL CD 180 MG CAP.ER.24H 360 MG PO (08:35)
--- NOTE | 2022-02-02 11:45 | PM.PNTS ---
Subjective Subjective Date of Service: 02/02/22 Interval history: s/p pericardial window. No issues with regard to surgery. L pleural effusion and moderate serous output from chest tube still. GIOVANNI minimal. Physical Exam Vital Signs: Vital Signs: Last Vital Signs Temp 99.0 F 02/02/22 11:00 Pulse 96 02/02/22 11:00 Resp 19 02/02/22 11:00 BP 118/67 02/02/22 11:00 Pulse Ox 92 02/02/22 11:00 O2 Del Method 02/02/22 05:55 O2 Flow Rate 5 02/02/22 11:00 FiO2 45 01/31/22 09:04 BMI result Body Mass Index 31.6 Procedures Date of Service Date of Service: 02/02/22 Progress Note: A&P Assessment and plan (1) Pericardial effusion: Status: Acute Assessment and Plan: Continue with both tubes probably through the weekend. Suspect fluid status contributing to the chest tube output. Plan for echo on Friday and possibly remove giovanni Friday. Chest tube pending. Time Spent With Patient Time: Total time spent is greater than 50% in coordination of care (as documented) at patient's floor/unit and/or counseling patient: Quality Stroke Does the patient have a stroke diagnosis?: No VTE Prior VTE?: No VTE Risk Level:: Medical - moderate - high VTE Device Contraindication: Treatment Not Indicated VTE Drug Contraindication: N/A - Med Ordered
[2022-02-02] MEDS: HYDROmorphone HCl 0.5 MG/0.5 ML SYRINGE IVPUSH (12:32)
--- NOTE | 2022-02-02 12:32 | P.PNCC_ITS ---
Subjective Subjective Date of Service: 02/02/22 Interval History: Mr. Cm was transferred to the ICU January 30 for management of respiratory failure and delirium postoperatively after left VATS pericardial window and? evacuation of left pleural fluid by Dr. Browne. The patient is an 81-year-old male with PMHx of CAD s/p PCI, PAFib on Eliquis and metoprolol, bipolar/depression, CHF, HTN, BPH, HLD, and Barretts esophagus.? 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 Since then, he?s had ongoing problems with massive lymphedema of that leg.? 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 HISTORY OF PRESENT ILLNESS:? The patient was BIBA to the ED on January 25 after being found unresponsive.? Reportedly he was alert oriented x3 on arrival of EMS.? The patient reported feeling lethargic, weak, anorexic, and stated that he?d stopped taking his meds since October as a result of his depression, and had stopped taking care of his general wellbeing, including showering, shaving, brushing his teeth, and his ADLs. The patient arrived to the ED soiled and incontinent of urine.? In the ED, his HR was 129 in AFib, Sat?ing 89% on room air.? Occult stool was negative. Notable labs in the ED:? Hb 9.9 (previously 13.4), sodium 132, troponin 91 and flat.? UA negative.? CXR showed moderate left pleural effusion with atelectasis/consolidation. He was treated with a diltiazem drip, treated for CAP, and admitted to Medicine.? ECHOCARDIOGRAM 01/28 showed normal LV systolic function with moderate LVH, EF 60%; RV not adeq visualized; at least moderately dilated left atrium; normal cardiac valvular Dopplers; significantly elevated right atrial pressures; the IVC was moderately dilated with no inspiratory collapse; no RVSP estimate able to be made; and at least moderate pericardial effusion.? (The patient has had no evidence of any hemodynamic compromise from the pericardial effusion.)? Wound care was consulting on his RLE lymphedema. Chest CT January 29 showed small right-sided pleural effusion and small to moderate left-sided pleural effusion, both new when compared to a CT of November 04, along with a new moderate-sized pericardial effusion.? The patient was br ought to the OR January 30 for drainage of the left pleural effusion and the pericardial effusion.? I saw the patient in surgery preop holding, he was breathing easy w Sat 94% on room air.? HR was 120s-140?s in afib.? He had no extremity or central edema on the left side; right side had massive lymphedema 2? to his LN dissection years ago.? His mental status was entirely normal. Preoperatively in the holding area he was started on IV diltiazem.? The operative course was unremarkable.? 950cc of serous fluid was evacuated from the left chest.? About 650 cc of slightly bloody pericardial fluid was evacuated.? The left thoracic cavity was explored via VATS, and no sign metastatic disease was noted.? A small section pericardium, along with both fluids were sent for cytology and pathology.? The patient was extubated without incident and taken to the PACU. In the PACU, the patient was very delirious and required Precedex for sedation.? He also became increasingly hypoxemic.? He was transferred to the ICU for further management.? In the ICU he required Precedex for delirium control, and high level CPAP for hypoxemia.? Dr. Shah was required to place a Hatch catheter. Over that night on the CPAP, his oxygenation improved dramatically.? The next morning, he came off both the CPAP and the Precedex.? His MS has been good and he?s been eating.? Unable to get OOB the first day postop because of the pain in his left chest.? Been giving him ? mg Dilaudid boluses.? Yesterday breathing easier with Sat mid-90?s on 7-9L Lucas.? HR was controlled with oral diltiazem and metoprolol.? We did get him OOB to chair. Today, he?s alert and appropriate altho no ball of fire.? We got him OOB to chair and he walked in place a bit.? HR 90-120, afib, on oral dilt and oral metoprolol.? BP 117/64.? RR 20 on 4.5L NC oxygen, SpO2 94%.? Tmax afebrile.? Anicteric.? No JVD at 30?.? Chest shows decreased BS on the left, altho better than yesterday; clear on right.? Serous left chest tube output 140 cc x 12 hours. ?Soft heart tones, I heard no murmur or gallops.? Abdomen benign.? 1+ edema on the left side; right side has massive lymphedema, as noted previously. LABORATORY DATA:? As below.? Notably, white count down to 8,? BUN/creatinine down slightly to 20/0.85. Lab analysis of pleural fluid suggests a transudate.? Gram stain and culture are negative.? Fungal and acid fast pending.? Cytology pending. Pericardial fluid Gram stain and cx are negative.? Fungal and acid fast pending.? Cytology and pathology pending. IMPRESSION ?1. Afib w RVR.? Rate is now borderline on oral dilt and metoprolol.? In consultation with Dr. Voss, we will add 0.125 mg digoxin daily. ?Restarted Eliquis yesterday morning, per Dr. Browne. ?2. Pericard effusion.? No post op mechanical or hemod cx.? Waiting for path results.? Drain to be pulled per Dr. Browne, probably tomorrow or Friday.? Repeat echo today. ?3. Bilat pleural effusions.? Appears transudative.? Waiting for path results.? Chest tube to be pulled per Dr. Browne.? Diuresis will help reduce the chest tube output. ?4. Acute post op hypoxemic resp failure.? Undoubtedly 2? atelectasis.? Did very well w CPAP, as would be expected.? Pain is better today than yesterday, and oxygenation is slowly improving. ?5. Post op delirium.? 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 Doing OK now, but he?s sluggish.? I started him this morning on Provigil 100mg daily to try to get him more animated. ?6. ID:? I stopped his Zithromax and ceftriaxone this morning. ?7. H/o CAD. ?8. H/o CHF.? Restarted his diuretic yesterday, Lasix 40 mg po daily. ?9. 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 I don?t know what the status of his cancer is. ?10. RLE lymphedema, status post right groin lymph node removal.? Local care. Stable for transfer to [facility] [place] [facility].? I will sign out to the hospitalists. Critical Care Time (minutes): 0 Physical Exam Vital Signs: Vital Signs: Last Vital Signs Temp 99.0 F 02/02/22 12:00 Pulse 113 H 02/02/22 12:00 Resp 118 H 02/02/22 12:00 BP 110/68 02/02/22 12:00 Pulse Ox 90 L 02/02/22 12:00 O2 Del Method 02/02/22 05:55 O2 Flow Rate 5 02/02/22 12:00 FiO2 45 01/31/22 09:04 BMI result Body Mass Index 31.6 Objective Data Labs CBC & Chem 7: 02/02/22 05:25 02/02/22 05:25 Labs: Laboratory Results - last 24 hr 02/02/22 02/02/22 02/02/22 05:25 05:25 05:25 WBC 8.0 RBC 3.56 L Hgb 10.4 L Hct 31.6 L MCV 88.8 MCH 29.2 MCHC 32.9 RDW 14.8 Plt Count 403 H MPV 10.0 Absolute Nucleated RBC 0.000 Nucleated RBC % (auto) 0.0 Sodium 135 Potassium 4.1 Chloride 103 Carbon Dioxide 24 Anion Gap 12 BUN 21 H Creatinine 0.85 Estim Creat Clear Calc 87.1 Estimated GFR > 60 Random Glucose 125 H Calcium 8.0 L Phosphorus 3.2 Magnesium 2.3 C-Reactive Protein 10.60 H Procalcitonin 0.10 Microbiology Microbiology Results: Microbiology 01/30/22 16:58 Pleural Fluid Gram Stain - Final 01/30/22 16:58 Pleural Fluid Routine Culture - Preliminary No growth to date. 01/30/22 16:58 Pleural Fluid Anaerobic Culture - Preliminary No growth to date. 01/30/22 16:58 Pericardial Fluid Gram Stain - Final 01/30/22 16:58 Pericardial Fluid Routine Culture - Preliminary No growth to date. 01/30/22 16:58 Pericardial Fluid Anaerobic Culture - Preliminary No growth to date. 01/26/22 02:22 Blood - Venous Blood Culture - Final No growth after 5 days. 01/26/22 02:22 Blood - Venous Blood Culture - Final No growth after 5 days. Quality Stroke Does the patient have a stroke diagnosis?: No VTE Prior VTE?: No VTE Risk Level:: Medical - moderate - high VTE Device Contraindication: Treatment Not Indicated VTE Drug Contraindication: N/A - Med Ordered
--- NOTE | 2022-02-02 12:32 | CA_ITS ---
Transthoracic Echocardiogram Patient (Last, First, Middle): Daniel Cm, Gender: Male Date of : 1940 Age: 81 Procedure Date: 02/02/2022 Procedure Type: Transthoracic Echocardiogram Location: ICU Height: 182.88 cm Weight: 105.69 kg BSA: 2.27 m2 Heart Rate: bpm BP: 117 / 64 mmHg Package Sealer Machine: MAGDY Srinivasan MD: Mohan Noriega MD Park Superintendent: Joesph Voss MD Symptoms: f/u pericardial drainage Study Quality: Fair ECG Rhythm: Sinus Conclusions: - 1. Normal LV systolic function with mild LVH 2. Small circumferential pericardial effusion with mildly elevated right atrial pressures Findings Left Ventricle Normal left ventricular size and systolic function. There is mildly increased left ventricular wall thickness. The visually estimated ejection fraction is between 60-65%. Tricuspid Valve Mildly elevated right atrial pressure. Venous The inferior vena cava is mildly dilated and collapses less than 50% with inspiration. Pericardium/Pleural There is a small circumferential pericardial effusion. Prior Study Comparison Changes noted compared to prior study dated: 01/28/2022. pericardial effusion has significantly improved. RA pressure also have improved Measurements 2D Linear Measurements IVSd: 1.27 0.6-0.9/0.6-1.0 cm LVIDd: 4.26 3.9-5.3/4.2-5.9 cm LVIDd Index: 1.88 2.4-3.2/2.2-3.1 cm/m2 LVIDs: 2.15 2.0-3.6 cm LVPWd: 1.17 0.7-1.1 cm LV Mass: 232.39 67-162/88-224 g LV Mass Index: 102.38 43-95/49-115 g/m2 Tricuspid Valve TR Pk Heron: 1.60 TR Pk Grad: 10.00 RA Press: 8.00 RVSP: 18.00 Updated in Other Vendor System with Status of Final Joesph Voss MD electronically signed on 02/03/2022 11:38:29 AM with status of Final
--- NOTE | 2022-02-02 13:49 | PM.PNCARD ---
Subjective Subjective Date of Service: 02/02/22 Principal diagnosis: AF, Left pleural effusion, PNA, pericardial effusion Interval history: Patient remains in atrial fibrillation borderline rate control. Complains of pain in the chest with breathing. Hemodynamically stable. Negative balance of about 1200 cc. No significant temperature issues. Chest tube is still Review of Systems Constitutional: Reports lethargy Eyes: Reports no additional eye complaints Cardiovascular: Denies lightheadedness, Denies Loss of Consciousness, Denies palpitations and Reports dyspnea Respiratory: Reports pain on inspiration and Reports dyspnea Gastrointestinal: Reports no additional gastrointestinal complaints Genitourinary: Reports no additional male genitourinary complaints Musculoskeletal: Reports no additional musculoskeletal complaints Skin/Breast: Reports system reviewed and no additional complaints, except as docu Endocrine: Denies palpitations Physical Exam Vital Signs: Last Vital Signs Temp 99.3 F 02/02/22 13:00 Pulse 96 02/02/22 13:00 Resp 28 H 02/02/22 13:00 BP 117/64 02/02/22 13:00 Pulse Ox 96 02/02/22 13:00 O2 Del Method 02/02/22 05:55 O2 Flow Rate 5 02/02/22 13:00 FiO2 45 01/31/22 09:04 BMI result Body Mass Index 31.6 Const General: cooperative, comfortable, alert, awake and tired appearing Nutritional Appearance: overweight Orientation/consciousness: patient oriented x3 Neck Neck: Yes trachea midline, Yes supple and Yes no JVD Resp Effort & Inspection: normal respiratory effort Auscultation: no crackles, no wheezes and diminished lung sounds Cardio Rate: tachycardic Rhythm: abnormal rhythm irregularly irregular Heart sounds: S1 normal heart sound present, S2 normal heart sound present, no click, no gallops and no murmurs GI Inspection: Yes obesity Auscultation: normal bowel sounds Skin General skin exam: no rashes or lesions noted Neuro General: patient oriented x3 and no focal motor deficits Extrem General: No clubbing, No cyanosis and Yes edema Objective Labs and Meds Result diagrams: 02/02/22 05:25 02/02/22 05:25 Lab results: Laboratory Results - last 24 hr 02/02/22 02/02/22 02/02/22 05:25 05:25 05:25 WBC 8.0 RBC 3.56 L Hgb 10.4 L Hct 31.6 L MCV 88.8 MCH 29.2 MCHC 32.9 RDW 14.8 Plt Count 403 H MPV 10.0 Absolute Nucleated RBC 0.000 Nucleated RBC % (auto) 0.0 Sodium 135 Potassium 4.1 Chloride 103 Carbon Dioxide 24 Anion Gap 12 BUN 21 H Creatinine 0.85 Estim Creat Clear Calc 87.1 Estimated GFR > 60 Random Glucose 125 H Calcium 8.0 L Phosphorus 3.2 Magnesium 2.3 C-Reactive Protein 10.60 H Procalcitonin 0.10 Imaging Radiologist's impression: Impressions Chest X-Ray 02/01/22 20:06 IMPRESSION: 1. Unchanged configuration of a left thoracostomy tube terminating projection with the left superior pulmonary sulcus. 2. There is now a new small left apical pneumothorax present. Chest X-Ray 02/02/22 06:32 IMPRESSION: *Trace left apical pneumothorax unchanged compared with 02/01/2022 7:57 PM. *Unchanged moderate left pleural effusion and left base atelectasis and/or consolidation. *Unchanged enlarged cardiac silhouette which could represent the presence of a pericardial fluid collection. *Interval resolution of right base atelectasis compared with 02/01/2022 7:57 PM. Progress Note: A&P Assessment and plan (1) Atrial fibrillation with rapid ventricular response: Status: Acute Assessment and Plan: Atrial fibrillation borderline rate control. Add digoxin to his regimen. Can start oral anticoagulation once cleared by thoracic surgery. Will continue to pursue rate control approach at this point in time. (2) Pericardial effusion: Status: Acute Assessment and Plan: Pericardial effusion status post pericardial window and currently has a drain. Plan to be removed soon. Will follow-up with limited echocardiogram today to assess for pericardial effusion. Pleural effusion still draining with the chest tube. Being followed by thoracic surgery as well as the ICU team. (3) CHF exacerbation: Status: Acute Assessment and Plan: CHF exacerbation. Patient does not appear to be significant fluid overload at this point time. Can switch p.o. Lasix. Strict intake and output chart needs to be pursued. Out of bed to chair. Will follow with him if need be. Thank you for allowing us to partake in his care Time Spent With Patient Time: Total time spent is greater than 50% in coordination of care (as documented) at patient's floor/unit and/or counseling patient: Progress Note: Quality Stroke Does the patient have a stroke diagnosis?: No Procedures Date of Service Date of Service: 02/02/22
[2022-02-02] MEDS: Digoxin 0.125 MG TABLET PO (14:09)
[2022-02-02] MEDS: modafiniL 100 MG TABLET PO (14:09)
--- NOTE | 2022-02-02 15:10 | PM.EVENT ---
Event Note Date of Service: 02/02/22 Event Note: 81-year-old man transferred from the ICU and treated for respiratory failure, delirium, left VATS, pericardial window and evacuation of left pleural fluid by cardiovascular surgeon. upon initial presentation to the ED he was found to be unresponsive, he had stopped taking his medications since October due to his depression and was generally unkept. He was noted to be in atrial fibrillation with rapid ventricular response and hypoxic. He was initially treated with a diltiazem drip and treated for community-acquired pneumonia as well. On January 29 he had a chest CT which showed small right sided pleural effusion with small to moderate left-sided pleural effusion and moderate-sized pericardial effusion. Was brought to the OR on January 30 for drainage of the left pleural effusion and pericardial effusion. 950 cc of serous fluid was evacuated from the left chest and 650 cc of slightly bloody pericardial fluid was removed. He also had a VATS procedure with no signs of metastatic disease. Cytology and pathology both sent. Patient was given Precedex for sedation in the PACU due to delirium. He was also noted to be quite happy hypoxemic as well was transferred to the ICU. He was treated with CPAP with significant improvement.He was transferred to medical floor today. Atrial fibrillation with rapid ventricular response Better controlled, initially on Cardizem drip Continue diltiazem 360 mg daily, metoprolol 100 mg every 12 hours, digoxin 0.125 mg daily Eliquis Echocardiogram on 01/28/2022 showing normal LV systolic function with moderate LVH, EF 60-65% Pericardial effusion. Evacuated as per Cardiothoracic surgery Hemodynamically stable Pathology pending PE echocardiogram Drain to be removed by Dr. Pickens Acute hypoxic respiratory failure secondary to atelectasis Treated with CPAP in the ICU Resolved Postoperative delirium Seems to be improving Monitor DVT prophylaxis with warfarin Attending Dr. Khan Full code Patient likely requires 2 midnights in the hospital for treatment of afib rvr, , pericardial effusion, acute hypoxic respiratory failure Necessitating oxygen
[2022-02-02] MEDS: Atorvastatin Calcium 40 MG TABLET PO (20:44)
[2022-02-03 02:56] VITALS: BP 135/66; PULSE 56; RESP 19; TEMP 36.9; O2SAT 96
[2022-02-03 07:11] LABS: Hematocrit 34.2 % (42.0-52.0); Hemoglobin 11.1 g/dl (14.0-18.0); Mean Corpuscular HGB Conc 32.5 g/dl (31.0-36.0); Mean Corpuscular Hemoglobin 28.9 pg (27.0-33.0); Mean Corpuscular Volume 89.1 fL (80.0-98.0); Mean Platelet Volume 9.7 fL (9.4-12.4); Platelet Count 437 X10*3/uL (160-400); Red Blood Count 3.84 X10*6/uL (4.60-5.80); Red Cell Distribution Width 14.8 % (11.0-16.0); White Blood Count 7.7 X10*3/uL (4.8-10.8)
[2022-02-03 07:12] LABS: VBG Base Excess 2.5 mmol/L; VBG HCO3 26 mmol/L (22-26); VBG pCO2 40 mmHg; VBG pH 7.43 (7.32-7.43); VBG pO2 37 mmHg
[2022-02-03 07:16] LABS: Venous Blood Gas Refer to POC result
[2022-02-03 07:31] LABS: Albumin Level 2.7 g/dL (3.5-5.0); Anion Gap 11 (12-20); Blood Urea Nitrogen 15 mg/dL (9-16); Calcium 8.2 mg/dL (8.4-10.2); Carbon Dioxide 27 mmol/L (22-29); Chloride 102 mmol/L (96-108); Creatinine Clr Calc Pharmacy 97.4; Estimated Glomerular Filt Rate > 60; Glucose Random 122 mg/dL (60-115); Magnesium 2.4 mg/dL (1.6-2.6); Phosphorus 2.9 mg/dL (2.7-4.5); Potassium 4.1 mmol/L (3.3-5.1); Sodium 136 mmol/L (135-145)
[2022-02-03 08:00] VITALS: BP 118/70; PULSE 93; RESP 18; TEMP 36.8; O2SAT 97
[2022-02-03] MEDS: Furosemide 40 MG TABLET PO (08:39)
[2022-02-03] MEDS: Digoxin 0.125 MG TABLET PO (08:39)
[2022-02-03] MEDS: Apixaban 5 MG TABLET PO ×2 (08:39→21:52)
[2022-02-03] MEDS: 0.9 % Sodium Chloride Flush 3 ML SYRINGE IVFLUSH ×3 (08:39→21:52)
[2022-02-03] MEDS: modafiniL 100 MG TABLET PO (08:39)
[2022-02-03] MEDS: dilTIAZem HCL CD 180 MG CAP.ER.24H 360 MG PO (08:39)
[2022-02-03] MEDS: Metoprolol Tartrate 100 MG TABLET PO ×2 (08:39→21:52)
[2022-02-03 11:27] VITALS: BP 127/69; PULSE 77; RESP 18; TEMP 36.7; O2SAT 95
[2022-02-03] MEDS: HYDROmorphone HCl 0.5 MG/0.5 ML SYRINGE IVPUSH ×2 (11:35→18:37)
--- NOTE | 2022-02-03 14:18 | HO.PM.IMPN ---
Subjective Subjective Date of Service: 02/03/22 Physical Exam Vital Signs: Vital Signs: Last Vital Signs Temp 98.1 F 02/03/22 11:27 Pulse 77 02/03/22 11:27 Resp 18 02/03/22 11:27 BP 127/69 02/03/22 11:27 Pulse Ox 95 02/03/22 11:27 O2 Del Method 02/03/22 11:27 O2 Flow Rate 5 02/03/22 11:27 FiO2 45 01/31/22 09:04 BMI result Body Mass Index 31.6 Objective Data Active Medications Apixaban (Apixaban 5 Mg Tablet) 5 mg PO BID [facility] Last Admin: 02/03/22 08:39 Dose: 5 mg Documented By: ROSSANA Atorvastatin Calcium (Atorvastatin Calcium 40 Mg Tablet) 40 mg PO BEDTIME DAMIEN Last Admin: 02/02/22 20:44 Dose: 40 mg Documented By: SUSIE Digoxin (Digoxin 0.125 Mg Tablet) 0.125 mg PO DAILY [facility]IEN Last Admin: 02/03/22 08:39 Dose: 0.125 mg Documented By: ROSSANA Diltiazem HCl (Diltiazem Hcl Cd 180 Mg Cap.Er.24h) 360 mg PO DAILY [facility]; Protocol Last Admin: 02/03/22 08:39 Dose: 360 mg Documented By: ROSSANA Docusate Sodium (Docusate Sodium 100 Mg Capsule) 100 mg PO DAILY PRN PRN Reason: Constipation Furosemide (Furosemide 40 Mg Tablet) 40 mg PO DAILY [facility]; Protocol Last Admin: 02/03/22 08:39 Dose: 40 mg Documented By: ROSSANA Hydromorphone HCl (Hydromorphone Hcl 0.5 Mg/0.5 Ml Syringe) 0.5 mg IVPUSH Q1H PRN; Protocol PRN Reason: mild-mod pain Last Admin: 02/03/22 11:35 Dose: 0.5 mg Documented By: ROSSANA Metoprolol Tartrate (Metoprolol Tartrate 100 Mg Tablet) 100 mg PO Q12H [facility]; Protocol Last Admin: 02/03/22 08:39 Dose: 100 mg Documented By: ROSSANA Modafinil (Modafinil 100 Mg Tablet) 100 mg PO DAILY [facility] Last Admin: 02/03/22 08:39 Dose: 100 mg Documented By: ROSSANA Ondansetron HCl (Ondansetron Hcl 4 Mg/2 Ml Vial) 4 mg IVPUSH Q8H PRN PRN Reason: Nausea and Vomiting Pharmacy Consult (Consult Rx Perform Med Rec) 1 each MISCELLANE ONCE PRN PRN Reason: Consult order Sodium Chloride (0.9 % Sodium Chloride Flush 3 Ml Syringe) 3 ml IVFLUSH QSHIFT DAMIEN Last Admin: 02/03/22 08:39 Dose: 3 ml Documented By: ROSSANA Labs CBC & Chem 7: 02/03/22 07:00 02/03/22 07:00 Labs: Laboratory Results - last 24 hr 02/03/22 02/03/22 02/03/22 07:00 07:00 07:07 MCV 89.1 MCH 28.9 MCHC 32.5 RDW 14.8 Plt Count 437 H MPV 9.7 Absolute Nucleated RBC 0.000 Nucleated RBC % (auto) 0.0 VBG pH 7.43 VBG pCO2 40 VBG pO2 37 VBG HCO3 26 VBG O2 Saturation 57.0 VBG Base Excess 2.5 Anion Gap 11 L Estim Creat Clear Calc 97.4 Estimated GFR > 60 Random Glucose 122 H Calcium 8.2 L Phosphorus 2.9 Magnesium 2.4 Albumin 2.7 L Microbiology Microbiology Results: Microbiology 01/30/22 16:58 Gram Stain - Final Pericardial Fluid Routine Culture - Final No growth after 2 days Anaerobic Culture - Preliminary No growth to date. 01/30/22 16:58 Gram Stain - Final Pleural Fluid Routine Culture - Final No growth after 2 days Anaerobic Culture - Preliminary No growth to date. Assessment and Plan (1) CHF exacerbation: Status: Acute Plan 81-year-old man transferred from the ICU and treated for respiratory failure, delirium, left VATS, pericardial window and evacuation of left pleural fluid by cardiovascular surgeon. ? upon initial presentation to the ED he was found to be unresponsive, he had stopped taking his medications since October due to his depression and was generally unkept.? He was noted to be in atrial fibrillation with rapid ventricular response and hypoxic.? He was initially treated with a diltiazem drip and treated for community-acquired pneumonia as well.? On January 29 he had a chest CT which showed small right sided pleural effusion with small to moderate left-sided pleural effusion and moderate-sized pericardial effusion.? Was brought to the OR on January 30 for drainage of the left pleural effusion and pericardial effusion.? 950 cc of serous fluid was evacuated from the left chest and 650 cc of slightly bloody pericardial fluid was removed.? He also had a VATS procedure with no signs of metastatic disease.? Cytology and pathology both sent.? Patient was given Precedex for sedation in the PACU due to delirium.? He was also noted to be quite happy hypoxemic as well was transferred to the ICU.? He was treated with CPAP with significant improvement. He was transferred to medical floor today.? Atrial fibrillation with rapid ventricular response Better controlled, initially on Cardizem drip Continue diltiazem 360 mg daily, metoprolol 100 mg every 12 hours, digoxin 0.125 mg daily Eliquis Echocardiogram on 01/28/2022 showing normal LV systolic function with moderate LVH, EF 60-65% Pericardial effusion.? Evacuated as per Cardiothoracic surgery Hemodynamically stable Pathology pending PE Drain to be removed by Dr. Pickens Acute hypoxic respiratory failure secondary to atelectasis Treated with CPAP in the ICU Resolved Postoperative delirium Seems to be improving Monitor Lymphadema perri wrap DVT prophylaxis with warfarin Attending Dr. Khan Full code Patient likely requires 2 midnights in the hospital for treatment of afib rvr, pericardial effusion, acute?hypoxic respiratory failure Necessitating oxygen Quality Stroke Does the patient have a stroke diagnosis?: No VTE Prior VTE?: No VTE Risk Level:: Medical - moderate - high VTE Device Contraindication: Treatment Not Indicated VTE Drug Contraindication: N/A - Med Ordered
[2022-02-03 15:08] VITALS: BP 135/67; PULSE 97; RESP 18; TEMP 36.1; O2SAT 97
[2022-02-03 19:05] VITALS: BP 126/84; PULSE 99; RESP 17; TEMP 36.4; O2SAT 94
[2022-02-03 20:00] VITALS: BP 146/72; PULSE 91; RESP 18; TEMP 36.6; O2SAT 97
[2022-02-03] MEDS: Atorvastatin Calcium 40 MG TABLET PO (21:52)
[2022-02-04] VITALS: BP 116/73; PULSE 92; RESP 16; TEMP 36.3; O2SAT 98
[2022-02-04 04:00] VITALS: BP 121/59; PULSE 84; RESP 20; TEMP 36.5; O2SAT 97
--- NOTE | 2022-02-04 07:00 | CA_ITS ---
Transthoracic Echocardiogram Patient (Last, First, Middle): Daniel Cm, Gender: Male Date of : 1940 Age: 81 Procedure Date: 02/04/2022 Procedure Type: Transthoracic Echocardiogram Location: [facility] [place] Height: 182.88 cm Weight: 105.69 kg BSA: 2.27 m2 Heart Rate: bpm BP: 127 / 76 mmHg Clinical Resource Manager: CP Referring MD: Mekhi SMITH Symptoms: pericardial effusion S/P window Study Quality: Fair ECG Rhythm: Undetermined Conclusions: - The left ventricular systolic function is normal. The visually estimated ejection fraction is between 60-65%. - Small pericardial effusion, posterior to the left ventricle. Moderate in size over the right atrium and ventricle. Fibrinous material seen over right ventricle. Findings Left Ventricle Normal left ventricular cavity size. There is mildly increased left ventricular wall thickness. The left ventricular systolic function is normal. The visually estimated ejection fraction is between 60-65%. Venous The inferior vena cava is dilated and collapses greater than 50% with inspiration. Pericardium/Pleural There are no definitive echocardiographic findings of tamponade physiology. Small pericardial effusion, posterior to the left ventricle. Moderate in size over the right atrium and ventricle. Fibrinous material seen over right ventricle. Prior Study Comparison No significant change compared to prior study dated: 02/02/2022. Measurements 2D Linear Measurements IVSd: 1.21 0.6-0.9/0.6-1.0 cm LVIDd: 3.95 3.9-5.3/4.2-5.9 cm LVIDd Index: 1.74 2.4-3.2/2.2-3.1 cm/m2 LVIDs: 2.44 2.0-3.6 cm LVPWd: 1.28 0.7-1.1 cm LV Mass: 213.68 67-162/88-224 g LV Mass Index: 94.13 43-95/49-115 g/m2 Tricuspid Valve TR Pk Heron: 1.52 TR Pk Grad: 9.00 RA Press: 8.00 RVSP: 17.00 Updated in Other Vendor System with Status of Final Patrick Wilkerson MD electronically signed on 02/04/2022 12:42:13 PM with status of Final
[2022-02-04 07:32] LABS: Hematocrit 34.3 % (42.0-52.0); Hemoglobin 10.9 g/dl (14.0-18.0); Mean Corpuscular HGB Conc 31.8 g/dl (31.0-36.0); Mean Corpuscular Hemoglobin 28.4 pg (27.0-33.0); Mean Corpuscular Volume 89.3 fL (80.0-98.0); Mean Platelet Volume 10.3 fL (9.4-12.4); Platelet Count 445 X10*3/uL (160-400); Red Blood Count 3.84 X10*6/uL (4.60-5.80); Red Cell Distribution Width 14.8 % (11.0-16.0); White Blood Count 8.3 X10*3/uL (4.8-10.8)
[2022-02-04 07:38] LABS: Anion Gap 11 (12-20); Blood Urea Nitrogen 13 mg/dL (9-16); Calcium 8.2 mg/dL (8.4-10.2); Carbon Dioxide 27 mmol/L (22-29); Chloride 102 mmol/L (96-108); Creatinine Clr Calc Pharmacy 113.9; Estimated Glomerular Filt Rate > 60; Glucose Random 118 mg/dL (60-115); Potassium 4.3 mmol/L (3.3-5.1); Sodium 136 mmol/L (135-145)
[2022-02-04 08:00] VITALS: BP 128/76; PULSE 96; RESP 20; TEMP 37; O2SAT 99
[2022-02-04] MEDS: 0.9 % Sodium Chloride Flush 3 ML SYRINGE IVFLUSH ×3 (09:20→21:58)
[2022-02-04] MEDS: Digoxin 0.125 MG TABLET PO (09:20)
[2022-02-04] MEDS: modafiniL 100 MG TABLET PO (09:21)
[2022-02-04] MEDS: dilTIAZem HCL CD 180 MG CAP.ER.24H 360 MG PO (09:21)
[2022-02-04] MEDS: Apixaban 5 MG TABLET PO ×2 (09:21→21:58)
[2022-02-04] MEDS: Metoprolol Tartrate 100 MG TABLET PO ×2 (09:21→21:58)
[2022-02-04] MEDS: Furosemide 40 MG TABLET PO (09:21)
--- NOTE | 2022-02-04 11:37 | HO.PM.IMPN ---
Subjective Subjective Date of Service: 02/04/22 Interval History: seen and examined this AM feels better today less pain at window/chest tube site reports breathing eaiser and denies pain Review of Systems negative except HPI Physical Exam Vital Signs: Vital Signs: Last Vital Signs Temp 98.6 F 02/04/22 08:00 Pulse 96 02/04/22 08:00 Resp 20 02/04/22 08:00 BP 128/76 02/04/22 08:00 Pulse Ox 99 02/04/22 08:00 O2 Del Method 02/04/22 08:00 O2 Flow Rate 5 02/04/22 08:00 FiO2 45 01/31/22 09:04 BMI result Body Mass Index 31.6 Const: Other: General - no acute distress, appears comfortable Cardiovascular - regular rate and rhythm, S1-S2 Lungs - L chest wall tube in place, draining Abdomen - soft, nontender, no rebound or guarding Extremities - no edema bilaterally Neuro - awake and alert, no focal deficits Objective Data Active Medications Apixaban (Apixaban 5 Mg Tablet) 5 mg PO BID [facility] Last Admin: 02/04/22 09:21 Dose: 5 mg Documented By: ROSSANA Atorvastatin Calcium (Atorvastatin Calcium 40 Mg Tablet) 40 mg PO BEDTIME [facility] Last Admin: 02/03/22 21:52 Dose: 40 mg Documented By: SUSIE Digoxin (Digoxin 0.125 Mg Tablet) 0.125 mg PO DAILY [facility] Last Admin: 02/04/22 09:20 Dose: 0.125 mg Documented By: ROSSANA Diltiazem HCl (Diltiazem Hcl Cd 180 Mg Cap.Er.24h) 360 mg PO DAILY [facility]; Protocol Last Admin: 02/04/22 09:21 Dose: 360 mg Documented By: ROSSANA Docusate Sodium (Docusate Sodium 100 Mg Capsule) 100 mg PO DAILY PRN PRN Reason: Constipation Furosemide (Furosemide 40 Mg Tablet) 40 mg PO DAILY [facility]; Protocol Last Admin: 02/04/22 09:21 Dose: 40 mg Documented By: ROSSANA Hydromorphone HCl (Hydromorphone Hcl 0.5 Mg/0.5 Ml Syringe) 0.5 mg IVPUSH Q1H PRN; Protocol PRN Reason: mild-mod pain Last Admin: 02/03/22 18:37 Dose: 0.5 mg Documented By: ROSSANA Metoprolol Tartrate (Metoprolol Tartrate 100 Mg Tablet) 100 mg PO Q12H [facility]; Protocol Last Admin: 02/04/22 09:21 Dose: 100 mg Documented By: ROSSANA Modafinil (Modafinil 100 Mg Tablet) 100 mg PO DAILY [facility] Last Admin: 02/04/22 09:21 Dose: 100 mg Documented By: ROSSANA Ondansetron HCl (Ondansetron Hcl 4 Mg/2 Ml Vial) 4 mg IVPUSH Q8H PRN PRN Reason: Nausea and Vomiting Pharmacy Consult (Consult Rx Perform Med Rec) 1 each MISCELLANE ONCE PRN PRN Reason: Consult order Sodium Chloride (0.9 % Sodium Chloride Flush 3 Ml Syringe) 3 ml IVFLUSH QSHIFT [facility] Last Admin: 02/04/22 09:20 Dose: 3 ml Documented By: ROSSANA Labs CBC & Chem 7: 02/04/22 06:30 02/04/22 06:30 Labs: Laboratory Results - last 24 hr 02/04/22 02/04/22 06:30 06:30 MCV 89.3 MCH 28.4 MCHC 31.8 RDW 14.8 Plt Count 445 H MPV 10.3 Absolute Nucleated RBC 0.000 Nucleated RBC % (auto) 0.0 Anion Gap 11 L Estim Creat Clear Calc 113.9 Estimated GFR > 60 Random Glucose 118 H Calcium 8.2 L Microbiology Microbiology Results: Microbiology 01/30/22 16:58 Fungal Identification - Preliminary Pericardial Fluid No growth to date. 01/30/22 16:58 Fungal Identification - Preliminary Pleural Fluid No growth to date. 01/30/22 16:58 Gram Stain - Final Pericardial Fluid Routine Culture - Final No growth after 2 days Anaerobic Culture - Preliminary No growth to date. 01/30/22 16:58 Gram Stain - Final Pleural Fluid Routine Culture - Final No growth after 2 days Anaerobic Culture - Preliminary No growth to date. Assessment and Plan (1) CHF exacerbation: Status: Acute Plan 81-year-old man transferred from the ICU and treated for respiratory failure, delirium, left VATS, pericardial window and evacuation of left pleural fluid by cardiovascular surgeon. ? upon initial presentation to the ED he was found to be unresponsive, he had stopped taking his medications since October due to his depression and was generally unkept.? He was noted to be in atrial fibrillation with rapid ventricular response and hypoxic.? He was initially treated with a diltiazem drip and treated for community-acquired pneumonia as well.? On January 29 he had a chest CT which showed small right sided pleural effusion with small to moderate left-sided pleural effusion and moderate-sized pericardial effusion.? Was brought to the OR on January 30 for drainage of the left pleural effusion and pericardial effusion.? 950 cc of serous fluid was evacuated from the left chest and 650 cc of slightly bloody pericardial fluid was removed.? He also had a VATS procedure with no signs of metastatic disease.? Cytology and pathology both sent.? Patient was given Precedex for sedation in the PACU due to delirium.? He was also noted to be quite happy hypoxemic as well was transferred to the ICU.? He was treated with CPAP with significant improvement. He was transferred to medical floor today.? Pericardial effusion (? transudative) with tamponade / L pleural effusion s/p vasts + pericardial window + left chest tube await repeat echo / cxr this AM and thoracic decision about pulling tube -- for now continue both both fluids negative for malignant cells Thoracic input appreciated Atrial fibrillation with rapid ventricular response Better controlled, initially on Cardizem drip Continue diltiazem 360 mg daily, metoprolol 100 mg every 12 hours, digoxin 0.125 mg daily Eliquis Echocardiogram on 01/28/2022 showing normal LV systolic function with moderate LVH, EF 60-65% Acute hypoxic respiratory failure secondary to atelectasis Treated with CPAP in the ICU now on NC -- wean as tolerated Postoperative delirium Seems to be improving Monitor Lymphadema perri wrap DVT prophylaxis with Eliquis Full COde Reason for continued hospitalization: has pericardial / pleural drainage tubes in place Quality Stroke Does the patient have a stroke diagnosis?: No VTE Prior VTE?: No VTE Risk Level:: Medical - moderate - high VTE Device Contraindication: Treatment Not Indicated VTE Drug Contraindication: N/A - Med Ordered
[2022-02-04 12:00] VITALS: BP 133/67; PULSE 86; RESP 20; TEMP 36.5; O2SAT 97
--- NOTE | 2022-02-04 12:20 | MHC.CM.PN ---
Per ROUNDS discussion, Patient us not yet medically cleared for dc (IV Dilaudid yesterday, Pericardial Drains)O; PT is recommending STR and CM will continue to follow.
[2022-02-04 15:24] VITALS: BP 137/69; PULSE 78; RESP 19; TEMP 36.7; O2SAT 98
[2022-02-04] MEDS: HYDROmorphone HCl 0.5 MG/0.5 ML SYRINGE IVPUSH ×2 (16:12→21:58)
--- NOTE | 2022-02-04 19:19 | PM.PNTS ---
Subjective Subjective Date of Service: 02/04/22 Interval history: Patient was seen and examined this evening. His echocardiogram which was performed today shows moderate pericardial fluid. Nursing reports minimal serous fluid output overnight. Patient has not been ambulating for multitude of reasons which she states. I spoke with the patient informed him of the importance of working with nursing to achieve ambulation goal of walking in the hallway minimum of 3-4 times per day to help facilitate pericardial fluid to reach pericardial drain For proper evacuation. His morning chest x-ray also showed a small to moderate left-sided pleural effusion which is tracking along the left lateral wall towards the apex. There is no detectable air leak and patient has put out approximately 300 cc of serous fluid over past 24 hours. Left-sided chest tube being placed back to -20 low wall suction to help evacuate pleural fluid. Physical Exam Vital Signs: Vital Signs: Last Vital Signs Temp 98.0 F 02/04/22 15:24 Pulse 78 02/04/22 15:24 Resp 19 02/04/22 15:24 BP 137/69 02/04/22 15:24 Pulse Ox 98 02/04/22 15:24 O2 Del Method 02/04/22 15:24 O2 Flow Rate 5 02/04/22 15:24 FiO2 45 01/31/22 09:04 BMI result Body Mass Index 31.6 Const: General: no acute distress, alert and awake Orientation/consciousness: patient oriented x3 HEENT: Head: Yes normal to inspection Neck: Neck: Yes normal visual inspection, Yes trachea midline, Yes supple and Yes no JVD Chest: Other: Left-sided large bore surgical chest tube remains secure in place attached to water seal with 300 cc of serous fluid output over past 24 hours. No detectable air leak. Breath sounds are diminished bilaterally throughout all lung porter. Anterior chest DAVONTE drain remains secure in place and put out approximately 20 cc of serosanguineous fluid throughout today. Cardio: Jugular venous distension: no JVD Rate: regular rate Rhythm: regular rhythm GI: Inspection: Yes normal to inspection Neuro: General: patient oriented x3 Procedures Date of Service Date of Service: 02/04/22 Progress Note: A&P Assessment and plan (1) Pericardial effusion: Status: Acute (2) Pleural effusion, left: Status: Acute Plan pod 5., s/p left VATS pericardial window Continue DAVONTE to bulb self suction.? Monitour outputs. Chest tube Placed in -20 low wall suction to help facilitate drainage of a small to moderate left pleural effusion. this morning's echocardiogram continues to show moderate amount of pericardial fluid with the DAVONTE drain in place. Patient needs to ambulate minimum 3-4 times per day to help facilitate pericardial fluid drainage. This was passed onto nursing as well as patient. patient should be optimally diuresed as he is still retaining fluid. Morning chest x-ray patient should be OB in chair for all meals. Patient should be ambulating in with 3-4 times per day in hallway with nursing assistance. Otherwise as per ICU Time Spent With Patient Time: Total time spent is greater than 50% in coordination of care (as documented) at patient's floor/unit and/or counseling patient: Quality Stroke Does the patient have a stroke diagnosis?: No VTE Prior VTE?: No VTE Risk Level:: Medical - moderate - high VTE Device Contraindication: Treatment Not Indicated VTE Drug Contraindication: N/A - Med Ordered
[2022-02-04 19:20] VITALS: BP 124/71; PULSE 110; RESP 18; TEMP 37; O2SAT 90
[2022-02-04] MEDS: Atorvastatin Calcium 40 MG TABLET PO (21:57)
[2022-02-05] VITALS (7 sets, daily range): BP systolic 124–148; BP diastolic 48–91; PULSE 59–97; RESP 15–19; TEMP 36.1–37; O2SAT 94–99
[2022-02-05] MEDS: Digoxin 0.125 MG TABLET PO (08:09)
[2022-02-05] MEDS: modafiniL 100 MG TABLET PO (08:09)
[2022-02-05] MEDS: Metoprolol Tartrate 100 MG TABLET PO ×2 (08:09→23:08)
[2022-02-05] MEDS: Apixaban 5 MG TABLET PO ×2 (08:09→23:08)
[2022-02-05] MEDS: Furosemide 40 MG TABLET PO (08:09)
[2022-02-05] MEDS: dilTIAZem HCL CD 180 MG CAP.ER.24H 360 MG PO (08:09)
--- NOTE | 2022-02-05 15:02 | PC.NURSE ---
pt 1a with walker to transfer from bed to stretcher. per md keep guillaume in place. chest tube and DAVONTE drain intact. no acute complications. safety and fall precautions in place. call ornelas within reach.
--- NOTE | 2022-02-05 15:34 | P.PNIM_ITS ---
Subjective Subjective Date of Service: 02/05/22 Interval History: Slowly improving. Still feels lousy and tired Review of Systems Denies chest pain Denies nausea vomiting diarrhea Denies shortness of breath Denies fever chills Physical Exam Vital Signs: Vital Signs: Last Vital Signs Temp 98.6 F 02/05/22 15:26 Pulse 63 02/05/22 15:26 Resp 18 02/05/22 15:26 BP 124/48 L 02/05/22 15:26 Pulse Ox 95 02/05/22 15:26 O2 Del Method 02/05/22 15:26 O2 Flow Rate 5 02/05/22 12:00 FiO2 45 01/31/22 09:04 BMI result Body Mass Index 31.6 Const: Other: Awake alert no acute distress Chest: Other: No crepitus; drains in place Resp: Other: Diminished bilaterally with scant expiratory wheezes Cardio: Other: No S4; positive S1-S2; no S3 murmurs rubs or gallops GI: Other: Soft nontender nondistended with normoactive bowel sounds Extrem: Other: No edema bilaterally Objective Data Active Medications Apixaban (Apixaban 5 Mg Tablet) 5 mg PO BID [facility] Last Admin: 02/05/22 08:09 Dose: 5 mg Documented By: AYLA Atorvastatin Calcium (Atorvastatin Calcium 40 Mg Tablet) 40 mg PO BEDTIME [facility] Last Admin: 02/04/22 21:57 Dose: 40 mg Documented By: DELMA Digoxin (Digoxin 0.125 Mg Tablet) 0.125 mg PO DAILY [facility] Last Admin: 02/05/22 08:09 Dose: 0.125 mg Documented By: AYLA Diltiazem HCl (Diltiazem Hcl Cd 180 Mg Cap.Er.24h) 360 mg PO DAILY [facility]; Protocol Last Admin: 02/05/22 08:09 Dose: 360 mg Documented By: AYLA Docusate Sodium (Docusate Sodium 100 Mg Capsule) 100 mg PO DAILY PRN PRN Reason: Constipation Furosemide (Furosemide 40 Mg Tablet) 40 mg PO DAILY [facility]; Protocol Last Admin: 02/05/22 08:09 Dose: 40 mg Documented By: AYLA Hydromorphone HCl (Hydromorphone Hcl 0.5 Mg/0.5 Ml Syringe) 0.5 mg IVPUSH Q1H PRN; Protocol PRN Reason: mild-mod pain Last Admin: 02/04/22 21:58 Dose: 0.5 mg Documented By: DELMA Metoprolol Tartrate (Metoprolol Tartrate 100 Mg Tablet) 100 mg PO Q12H [facility]; Protocol Last Admin: 02/05/22 08:09 Dose: 100 mg Documented By: FARSHAD-CAESAR Modafinil (Modafinil 100 Mg Tablet) 100 mg PO DAILY [facility] Last Admin: 02/05/22 08:09 Dose: 100 mg Documented By: FARSHAD-CAESAR Ondansetron HCl (Ondansetron Hcl 4 Mg/2 Ml Vial) 4 mg IVPUSH Q8H PRN PRN Reason: Nausea and Vomiting Pharmacy Consult (Consult Rx Perform Med Rec) 1 each MISCELLANE ONCE PRN PRN Reason: Consult order Sodium Chloride (0.9 % Sodium Chloride Flush 3 Ml Syringe) 3 ml IVFLUSH QSHIFT [facility] Last Admin: 02/05/22 11:55 Dose: Not Given Documented By: AYLA Non-Admin Reason: assessed Labs CBC & Chem 7: 02/04/22 06:30 02/04/22 06:30 Microbiology Microbiology Results: Microbiology 01/30/22 16:58 Gram Stain - Final Pericardial Fluid Routine Culture - Final No growth after 2 days Anaerobic Culture - Final NO GROWTH AFTER 5 DAYS 01/30/22 16:58 Gram Stain - Final Pleural Fluid Routine Culture - Final No growth after 2 days Anaerobic Culture - Final NO GROWTH AFTER 5 DAYS Assessment and Plan (1) Pericardial effusion: Status: Acute (2) Atrial fibrillation with rapid ventricular response: Status: Acute (3) Urinary retention: Status: Acute Plan 81-year-old man transferred from the ICU and treated for respiratory failure, delirium, left VATS, pericardial window and evacuation of left pleural fluid by cardiovascular surgeon. ? upon initial presentation to the ED he was found to be unresponsive, he had stopped taking his medications since October due to his depression and was generally unkept.? He was noted to be in atrial fibrillation with rapid ventricular response and hypoxic.? He was initially treated with a diltiazem drip and treated for community-acquired pneumonia as well.? On January 29 he had a chest CT which showed small right sided pleural effusion with small to moderate left-sided pleural effusion and moderate-sized pericardial effusion.? Was brought to the OR on January 30 for drainage of the left pleural effusion and pericardial effusion.? 950 cc of serous fluid was evacuated from the left chest and 650 cc of slightly bloody pericardial fluid was removed.? He also had a VATS procedure with no signs of metastatic disease.? Cytology and pathology both sent.? Patient was given Precedex for sedation in the PACU due to delirium. 1. Pericardial effusion -slowly improving -as per thoracic surgery 2. Chronic atrial fibrillation -adequate rate control with oral diltiazem/digoxin -continue telemetry -med adjustment as indicated 3. Acute hypoxic respiratory failure secondary to atelectasis -resolved; titrate O2 to maintain sats greater than or equal to 92% -encouraged ambulation 4. Hypertension -acceptable control on current therapies -adjust as indicated Full code Eliquis Requires ongoing hospitalization secondary for the need for pericardial drainage Quality Stroke Does the patient have a stroke diagnosis?: No VTE Prior VTE?: No VTE Risk Level:: Medical - moderate - high VTE Device Contraindication: Treatment Not Indicated VTE Drug Contraindication: N/A - Med Ordered
--- NOTE | 2022-02-05 19:21 | PM.PNTS ---
Subjective Subjective Date of Service: 02/05/22 Interval history: Patient was seen examined this evening. His left-sided chest tube has put out approximately 1200 cc of serous fluid in the past 24 hours. His pericardial DAVONTE drain has put out approximately 10 cc over past 24 hours. His DAVONTE drain was removed without incident and dry occlusive dressing put in place which should not be removed for 48 hours. Due to the high volume of pleural fluid and possible pericardial fluid emanating from his pericardial window his left-sided chest tube will remain in on -20 low wall suction until further notice. Physical Exam Vital Signs: Vital Signs: Last Vital Signs Temp 98.6 F 02/05/22 15:26 Pulse 63 02/05/22 15:26 Resp 18 02/05/22 15:26 BP 124/48 L 02/05/22 15:26 Pulse Ox 95 02/05/22 15:26 O2 Del Method 02/05/22 15:26 O2 Flow Rate 5 02/05/22 12:00 FiO2 45 01/31/22 09:04 BMI result Body Mass Index 31.6 Const: General: no acute distress, alert and awake Orientation/consciousness: patient oriented x3 HEENT: Head: Yes normal to inspection Neck: Neck: Yes normal visual inspection, Yes trachea midline, Yes supple and Yes no JVD Chest: Other: Left-sided large bore surgical chest tube remains secure in place attached to water seal with 300 cc of serous fluid output over past 24 hours. No detectable air leak. Breath sounds are diminished bilaterally throughout all lung porter. Anterior chest DAVONTE drain remains secure in place and put out approximately 20 cc of serosanguineous fluid throughout today. Cardio: Jugular venous distension: no JVD Rate: regular rate Rhythm: regular rhythm GI: Inspection: Yes normal to inspection Neuro: General: patient oriented x3 Procedures Date of Service Date of Service: 02/05/22 Progress Note: A&P Assessment and plan (1) Pericardial effusion: Status: Acute (2) Pleural effusion, left: Status: Acute Plan pod 6., s/p left VATS pericardial window morning chest x-ray revealed bilateral small pleural effusions with opacities which I personally reviewed and agree with the radiologist's findings. Left-sided DAVONTE drain into pericardial sac was removed without incident and a dry occlusive dressing put in place which should remain in place for 48 hours. His drain was removed due to low fluid output. Chest tube Remained on -20 low wall suction to help facilitate drainage of a small to moderate left pleural effusion, overnight pleural effusion emanated 1200 cc of serous fluid. Patient needs to ambulate minimum 3-4 times per day to help facilitate pericardial fluid drainage. This was passed onto nursing as well as patient. patient should be optimally diuresed as he is still retaining fluid. Morning chest x-ray patient should be OB in chair for all meals. Patient should be ambulating in with 3-4 times per day in hallway with nursing assistance. Time Spent With Patient Time: Total time spent is greater than 50% in coordination of care (as documented) at patient's floor/unit and/or counseling patient: Quality Stroke Does the patient have a stroke diagnosis?: No VTE Prior VTE?: No VTE Risk Level:: Medical - moderate - high VTE Device Contraindication: Treatment Not Indicated VTE Drug Contraindication: N/A - Med Ordered
[2022-02-05] MEDS: Atorvastatin Calcium 40 MG TABLET PO (23:08)
[2022-02-05] MEDS: 0.9 % Sodium Chloride Flush 3 ML SYRINGE IVFLUSH (23:12)
[2022-02-06] VITALS: BP 126/64; PULSE 82; RESP 15; TEMP 36.8; O2SAT 96
[2022-02-06 04:00] VITALS: BP 150/84; PULSE 104; RESP 15; TEMP 36.3; O2SAT 96
[2022-02-06 07:02] LABS: MANUAL DIFF FLAG NO
[2022-02-06 07:05] LABS: Basophils Percent Auto 0.4 % (0-2); Eosinophils Absolute Auto 0.8 X10*3/uL (0.0-0.4); Eosinophils Percent Auto 7.8 % (0-4); Hematocrit 35.5 % (42.0-52.0); Hemoglobin 11.9 g/dl (14.0-18.0); Imm Gran Pct Auto 2.1 % (0.0-0.4); Lymphocytes Absolute Auto 1.3 X10*3/uL (1.2-4.9); Mean Corpuscular HGB Conc 33.5 g/dl (31.0-36.0); Mean Corpuscular Hemoglobin 29.3 pg (27.0-33.0); Mean Corpuscular Volume 87.4 fL (80.0-98.0); Monocytes Absolute Auto 1.2 X10*3/uL (0.1-1.2); Monocytes Percent Auto 11.8 % (2-11); Neutrophils Absolute Auto 6.3 x10*3/uL (2.0-8.3); Neutrophils Percent Auto 64.9 % (45-73); Platelet Count 464 X10*3/uL (160-400); Red Blood Count 4.06 X10*6/uL (4.60-5.80); Red Cell Distribution Width 14.6 % (11.0-16.0); White Blood Count 9.8 X10*3/uL (4.8-10.8)
[2022-02-06 07:24] LABS: Alanine Aminotransferase 40 U/L (0-40); Albumin Level 2.6 g/dL (3.5-5.0); Alkaline Phosphatase 139 U/L (39-117); Anion Gap 13 (12-20); Aspartate Amino Transferase 52 U/L (5-37); Bilirubin Total 0.4 mg/dL (0.0-1.0); Blood Urea Nitrogen 9 mg/dL (9-16); Carbon Dioxide 26 mmol/L (22-29); Chloride 100 mmol/L (96-108); Creatinine Clr Calc Pharmacy 108.9; Estimated Glomerular Filt Rate > 60; Glucose Fasting 112 mg/dL (60-99); Potassium 4.4 mmol/L (3.3-5.1); Sodium 135 mmol/L (135-145); Total Protein 5.9 g/dL (6.5-8.0)
[2022-02-06 08:00] VITALS: BP 138/54; PULSE 95; RESP 19; TEMP 36.5; O2SAT 96
[2022-02-06] MEDS: dilTIAZem HCL CD 180 MG CAP.ER.24H 360 MG PO (08:36)
[2022-02-06] MEDS: Apixaban 5 MG TABLET PO ×2 (08:37→21:27)
[2022-02-06] MEDS: Furosemide 40 MG TABLET PO (08:37)
[2022-02-06] MEDS: Digoxin 0.125 MG TABLET PO (08:37)
[2022-02-06] MEDS: Metoprolol Tartrate 100 MG TABLET PO ×2 (08:37→21:27)
[2022-02-06] MEDS: modafiniL 100 MG TABLET PO (08:37)
[2022-02-06 11:59] VITALS: BP 110/77; PULSE 84; RESP 18; TEMP 36.5; O2SAT 97
--- NOTE | 2022-02-06 15:01 | MHC.CM.PN ---
Per ROUNDS discussion, Patient is not yet medically cleared for dc r/t need for Pericardial drainage.Patient is accepted at [facility] for STR and CM will continue to follow.
[2022-02-06 15:30] VITALS: BP 124/67; PULSE 67; RESP 16; TEMP 36.6; O2SAT 95
--- NOTE | 2022-02-06 15:46 | P.PNIM_ITS ---
Subjective Subjective Date of Service: 02/06/22 Interval History: Slowly improving. Still feels lousy and tired;ambulating as tolerated Review of Systems Denies chest pain Denies nausea vomiting diarrhea Denies shortness of breath Denies fever chills Physical Exam Vital Signs: Vital Signs: Last Vital Signs Temp 97.9 F 02/06/22 15:30 Pulse 67 02/06/22 15:30 Resp 16 02/06/22 15:30 BP 124/67 02/06/22 15:30 Pulse Ox 95 02/06/22 15:30 O2 Del Method 02/06/22 15:30 O2 Flow Rate 5 02/05/22 12:00 FiO2 45 01/31/22 09:04 BMI result Body Mass Index 31.6 Const: Other: Awake alert no acute distress Chest: Other: No crepitus; drains in place Resp: Other: Diminished bilaterally with scant expiratory wheezes Cardio: Other: No S4; positive S1-S2; no S3 murmurs rubs or gallops GI: Other: Soft nontender nondistended with normoactive bowel sounds Extrem: Other: No edema bilaterally Objective Data Active Medications Apixaban (Apixaban 5 Mg Tablet) 5 mg PO BID [facility] Last Admin: 02/06/22 08:37 Dose: 5 mg Documented By: AYLA Atorvastatin Calcium (Atorvastatin Calcium 40 Mg Tablet) 40 mg PO BEDTIME [facility] Last Admin: 02/05/22 23:08 Dose: 40 mg Documented By: ROMARIO Digoxin (Digoxin 0.125 Mg Tablet) 0.125 mg PO DAILY [facility] Last Admin: 02/06/22 08:37 Dose: 0.125 mg Documented By: AYLA Diltiazem HCl (Diltiazem Hcl Cd 180 Mg Cap.Er.24h) 360 mg PO DAILY [facility]; Protoco l Last Admin: 02/06/22 08:36 Dose: 360 mg Documented By: AYLA Docusate Sodium (Docusate Sodium 100 Mg Capsule) 100 mg PO DAILY PRN PRN Reason: Constipation Furosemide (Furosemide 40 Mg Tablet) 40 mg PO DAILY [facility]; Protocol Last Admin: 02/06/22 08:37 Dose: 40 mg Documented By: AYLA Hydromorphone HCl (Hydromorphone Hcl 0.5 Mg/0.5 Ml Syringe) 0.5 mg IVPUSH Q1H PRN; Protocol PRN Reason: mild-mod pain Last Admin: 02/04/22 21:58 Dose: 0.5 mg Documented By: DELMA Metoprolol Tartrate (Metoprolol Tartrate 100 Mg Tablet) 100 mg PO Q12H [facility]; Protocol Last Admin: 02/06/22 08:37 Dose: 100 mg Documented By: AYLA Modafinil (Modafinil 100 Mg Tablet) 100 mg PO DAILY [facility] Last Admin: 02/06/22 08:37 Dose: 100 mg Documented By: AYLA Ondansetron HCl (Ondansetron Hcl 4 Mg/2 Ml Vial) 4 mg IVPUSH Q8H PRN PRN Reason: Nausea and Vomiting Pharmacy Consult (Consult Rx Perform Med Rec) 1 each MISCELLANE ONCE PRN PRN Reason: Consult order Sodium Chloride (0.9 % Sodium Chloride Flush 3 Ml Syringe) 3 ml IVFLUSH QSHIFT [facility] Last Admin: 02/06/22 07:32 Dose: Not Given Documented By: AYLA Non-Admin Reason: assessed Labs CBC & Chem 7: 02/06/22 06:38 02/06/22 06:38 Labs: Laboratory Results - last 24 hr 02/06/22 02/06/22 06:38 06:38 MCV 87.4 MCH 29.3 MCHC 33.5 RDW 14.6 Plt Count 464 H MPV 10.0 Immature Gran % (Auto) 2.1 H Neut % (Auto) 64.9 Lymph % (Auto) 13.0 L [place] % (Auto) 11.8 H Eos % (Auto) 7.8 H Baso % (Auto) 0.4 Lymph # (Auto) 1.3 [place] # (Auto) 1.2 Eos # (Auto) 0.8 H Baso # (Auto) 0.0 Abs Immat Gran (auto) 0.20 H Absolute Neuts (auto) 6.3 Absolute Nucleated RBC 0.000 Nucleated RBC % (auto) 0.0 Anion Gap 13 Estim Creat Clear Calc 108.9 Estimated GFR > 60 Fasting Glucose 112 H Calcium 8.0 L Total Bilirubin 0.4 AST 52 H ALT 40 Alkaline Phosphatase 139 H D Total Protein 5.9 L Albumin 2.6 L Microbiology Microbiology Results: Microbiology 01/30/22 16:58 Direct Acid Fast Bacilli Smear - Final Pericardial Fluid 01/30/22 16:58 Direct Acid Fast Bacilli Smear - Final Pleural Fluid Assessment and Plan (1) Pericardial effusion: Status: Acute (2) Afib: Status: Acute (3) HTN (hypertension): Status: Acute Plan 81-year-old man transferred from the ICU and treated for respiratory failure, delirium, left VATS, pericardial window and evacuation of left pleural fluid by cardiovascular surgeon. ? upon initial presentation to the ED he was found to be unresponsive, he had stopped taking his medications since October due to his depression and was generally unkept.? He was noted to be in atrial fibrillation with rapid ventricular response and hypoxic.? He was initially treated with a diltiazem drip and treated for community-acquired pneumonia as well.? On January 29 he had a chest CT which showed small right sided pleural effusion with small to moderate left-sided pleural effusion and moderate-sized pericardial effusion.? Was brought to the OR on January 30 for drainage of the left pleural effusion and pericardial effusion.? 950 cc of serous fluid was evacuated from the left chest and 650 cc of slightly bloody pericardial fluid was removed.? He also had a VATS procedure with no signs of metastatic disease.? Cytology and pathology both sent.? Patient was given Precedex for sedation in the PACU due to delirium. 1. Pericardial effusion -slowly improving -as per thoracic surgery 2. Chronic atrial fibrillation -adequate rate control with oral diltiazem/digoxin -continue telemetry -med adjustment as indicated 3. Acute hypoxic respiratory failure secondary to atelectasis -resolved; acceptable numbers on room air -encouraged ambulation 4. Hypertension -acceptable control on current therapies -adjust as indicated Full code Eliquis Requires ongoing hospitalization secondary for the need for pericardial drainage Quality Stroke Does the patient have a stroke diagnosis?: No VTE Prior VTE?: No VTE Risk Level:: Medical - moderate - high VTE Device Contraindication: Treatment Not Indicated VTE Drug Contraindication: N/A - Med Ordered
--- NOTE | 2022-02-06 15:50 | PC.NURSE ---
pt up to chair and to commode throughout the shift. pt ambulating with walker, 1a. chest tube in place to suction, no complications. guillaume in place. guillaume care performed. safety and fall precautions in place. pt repo'ed q2. call ornelas within reach
[2022-02-06 19:51] VITALS: BP 142/62; PULSE 89; RESP 14; TEMP 36.8; O2SAT 96
[2022-02-06] MEDS: Atorvastatin Calcium 40 MG TABLET PO (21:27)
[2022-02-07] VITALS (8 sets, daily range): BP systolic 125–147; BP diastolic 60–85; PULSE 66–107; RESP 16–20; TEMP 36.2–37.1; O2SAT 93–95
[2022-02-07] MEDS: 0.9 % Sodium Chloride Flush 3 ML SYRINGE IVFLUSH ×4 (01:18→21:14)
[2022-02-07 07:02] LABS: MANUAL DIFF FLAG NO
[2022-02-07 07:07] LABS: Basophils Percent Auto 0.4 % (0-2); Eosinophils Absolute Auto 0.7 X10*3/uL (0.0-0.4); Eosinophils Percent Auto 6.3 % (0-4); Hematocrit 37.4 % (42.0-52.0); Hemoglobin 12.1 g/dl (14.0-18.0); Imm Gran Pct Auto 1.8 % (0.0-0.4); Lymphocytes Absolute Auto 1.1 X10*3/uL (1.2-4.9); Lymphocytes Percent Auto 9.5 % (20-40); Mean Corpuscular HGB Conc 32.4 g/dl (31.0-36.0); Mean Corpuscular Hemoglobin 28.1 pg (27.0-33.0); Mean Corpuscular Volume 86.8 fL (80.0-98.0); Mean Platelet Volume 9.7 fL (9.4-12.4); Monocytes Absolute Auto 1.4 X10*3/uL (0.1-1.2); Monocytes Percent Auto 12.3 % (2-11); Neutrophils Absolute Auto 7.9 x10*3/uL (2.0-8.3); Neutrophils Percent Auto 69.7 % (45-73); Platelet Count 469 X10*3/uL (160-400); Red Blood Count 4.31 X10*6/uL (4.60-5.80); Red Cell Distribution Width 14.6 % (11.0-16.0); White Blood Count 11.3 X10*3/uL (4.8-10.8)
[2022-02-07 07:30] LABS: Alanine Aminotransferase 33 U/L (0-40); Albumin Level 2.6 g/dL (3.5-5.0); Alkaline Phosphatase 135 U/L (39-117); Anion Gap 12 (12-20); Aspartate Amino Transferase 34 U/L (5-37); Bilirubin Total 0.5 mg/dL (0.0-1.0); Blood Urea Nitrogen 9 mg/dL (9-16); Carbon Dioxide 25 mmol/L (22-29); Chloride 99 mmol/L (96-108); Creatinine Clr Calc Pharmacy 105.8; Estimated Glomerular Filt Rate > 60; Glucose Fasting 119 mg/dL (60-99); Potassium 4.3 mmol/L (3.3-5.1); Sodium 132 mmol/L (135-145); Total Protein 5.8 g/dL (6.5-8.0)
[2022-02-07] MEDS: dilTIAZem HCL CD 180 MG CAP.ER.24H 360 MG PO (08:46)
[2022-02-07] MEDS: modafiniL 100 MG TABLET PO (08:46)
[2022-02-07] MEDS: Metoprolol Tartrate 100 MG TABLET PO ×2 (08:46→21:31)
[2022-02-07] MEDS: Apixaban 5 MG TABLET PO ×2 (08:47→21:13)
[2022-02-07] MEDS: Digoxin 0.125 MG TABLET PO (08:47)
[2022-02-07] MEDS: Furosemide 40 MG TABLET PO (08:47)
--- NOTE | 2022-02-07 12:34 | HO.PM.IMPN ---
Subjective Subjective Date of Service: 02/07/22 Interval History: Slowly improving. Still feels lousy and tired;ambulating as tolerated Review of Systems Denies chest pain Denies nausea vomiting diarrhea Denies shortness of breath Denies fever chills Physical Exam Vital Signs: Vital Signs: Last Vital Signs Temp 97.2 F 02/07/22 11:53 Pulse 74 02/07/22 11:53 Resp 18 02/07/22 11:53 BP 141/75 H 02/07/22 11:53 Pulse Ox 95 02/07/22 11:53 O2 Del Method 02/07/22 11:53 O2 Flow Rate 5 02/05/22 12:00 FiO2 45 01/31/22 09:04 BMI result Body Mass Index 31.6 Const: Other: Awake alert no acute distress Chest: Other: No crepitus; drains in place Resp: Other: Diminished bilaterally with scant expiratory wheezes Cardio: Other: No S4; positive S1-S2; no S3 murmurs rubs or gallops GI: Other: Soft nontender nondistended with normoactive bowel sounds Extrem: Other: No edema bilaterally Objective Data Active Medications Apixaban (Apixaban 5 Mg Tablet) 5 mg PO BID [facility] Last Admin: 02/07/22 08:47 Dose: 5 mg Documented By: PARK Atorvastatin Calcium (Atorvastatin Calcium 40 Mg Tablet) 40 mg PO BEDTIME [facility] Last Admin: 02/06/22 21:27 Dose: 40 mg Documented By: JUAN Digoxin (Digoxin 0.125 Mg Tablet) 0.125 mg PO DAILY [facility] Last Admin: 02/07/22 08:47 Dose: 0.125 mg Documented By: PARK Diltiazem HCl (Diltiazem Hcl Cd 180 Mg Cap.Er.24h) 360 mg PO DAILY [facility]; Protocol Last Admin: 02/07/22 08:46 Dose: 360 mg Documented By: PARK Docusate Sodium (Docusate Sodium 100 Mg Capsule) 100 mg PO DAILY PRN PRN Reason: Constipation Furosemide (Furosemide 40 Mg Tablet) 40 mg PO DAILY [facility]; Protocol Last Admin: 02/07/22 08:47 Dose: 40 mg Documented By: PARK Hydromorphone HCl (Hydromorphone Hcl 0.5 Mg/0.5 Ml Syringe) 0.5 mg IVPUSH Q1H PRN; Protocol PRN Reason: mild-mod pain Last Admin: 02/04/22 21:58 Dose: 0.5 mg Documented By: DELMA Metoprolol Tartrate (Metoprolol Tartrate 100 Mg Tablet) 100 mg PO Q12H [facility]; Protocol Last Admin: 02/07/22 08:46 Dose: 100 mg Documented By: PARK Modafinil (Modafinil 100 Mg Tablet) 100 mg PO DAILY [facility] Last Admin: 02/07/22 08:46 Dose: 100 mg Documented By: PARK Ondansetron HCl (Ondansetron Hcl 4 Mg/2 Ml Vial) 4 mg IVPUSH Q8H PRN PRN Reason: Nausea and Vomiting Pharmacy Consult (Consult Rx Perform Med Rec) 1 each MISCELLANE ONCE PRN PRN Reason: Consult order Sodium Chloride (0.9 % Sodium Chloride Flush 3 Ml Syringe) 3 ml IVFLUSH QSHIFT [facility] Last Admin: 02/07/22 08:47 Dose: 3 ml Documented By: PARK Labs CBC & Chem 7: 02/07/22 06:43 02/07/22 06:43 Labs: Laboratory Results - last 24 hr 02/07/22 02/07/22 06:43 06:43 MCV 86.8 MCH 28.1 MCHC 32.4 RDW 14.6 Plt Count 469 H MPV 9.7 Immature Gran % (Auto) 1.8 H Neut % (Auto) 69.7 Lymph % (Auto) 9.5 L [place] % (Auto) 12.3 H Eos % (Auto) 6.3 H Baso % (Auto) 0.4 Lymph # (Auto) 1.1 L [place] # (Auto) 1.4 H Eos # (Auto) 0.7 H Baso # (Auto) 0.0 Abs Immat Gran (auto) 0.20 H Absolute Neuts (auto) 7.9 Absolute Nucleated RBC 0.000 Nucleated RBC % (auto) 0.0 Anion Gap 12 Estim Creat Clear Calc 105.8 Estimated GFR > 60 Fasting Glucose 119 H Calcium 8.0 L Total Bilirubin 0.5 AST 34 ALT 33 Alkaline Phosphatase 135 H Total Protein 5.8 L Albumin 2.6 L Microbiology Microbiology Results: Microbiology 01/30/22 16:58 Direct Acid Fast Bacilli Smear - Final Pleural Fluid 01/30/22 16:58 Direct Acid Fast Bacilli Smear - Final Pericardial Fluid Assessment and Plan (1) Pericardial effusion: Status: Acute (2) Afib: Status: Acute (3) HTN (hypertension): Status: Acute Plan 81-year-old man transferred from the ICU and treated for respiratory failure, delirium, left VATS, pericardial window and evacuation of left pleural fluid by cardiovascular surgeon. ? upon initial presentation to the ED he was found to be unresponsive, he had stopped taking his medications since October due to his depression and was generally unkept.? He was noted to be in atrial fibrillation with rapid ventricular response and hypoxic.? He was initially treated with a diltiazem drip and treated for community-acquired pneumonia as well.? On January 29 he had a chest CT which showed small right sided pleural effusion with small to moderate left-sided pleural effusion and moderate-sized pericardial effusion.? Was brought to the OR on January 30 for drainage of the left pleural effusion and pericardial effusion.? 950 cc of serous fluid was evacuated from the left chest and 650 cc of slightly bloody pericardial fluid was removed.? He also had a VATS procedure with no signs of metastatic disease.? Cytology and pathology both sent.? Patient was given Precedex for sedation in the PACU due to delirium. 1. Pericardial effusion with closed drainage -slowly improving...still draining -as per thoracic surgery 2. Chronic atrial fibrillation -adequate rate control with oral diltiazem/digoxin -continue telemetry -med adjustment as indicated 3. Acute hypoxic respiratory failure secondary to atelectasis -resolved; acceptable numbers on room air -encouraged ambulation 4. Hypertension -acceptable control on current therapies -adjust as indicated Full code Eliquis Requires ongoing hospitalization secondary for the need for pericardial drainage Quality Stroke Does the patient have a stroke diagnosis?: No VTE Prior VTE?: No VTE Risk Level:: Medical - moderate - high VTE Device Contraindication: Treatment Not Indicated VTE Drug Contraindication: N/A - Med Ordered
--- NOTE | 2022-02-07 16:51 | P.PNTS_ITS ---
Subjective Subjective Date of Service: 02/07/22 Patient reports: bowel movement Interval history: Patient was seen and examined this afternoon. His left-sided chest tube continues to put out more than 200 cc over 24 hour While on -20 low wall suction. His morning chest x-ray does show a decrease in left-sided pleural effusion. His total output over past 24 hours has been 280 cc of serous fluid output. There is no detectable air leak. Physical Exam Vital Signs: Vital Signs: Last Vital Signs Temp 97.4 F 02/07/22 15:19 Pulse 66 02/07/22 15:19 Resp 16 02/07/22 15:19 BP 125/71 02/07/22 15:19 Pulse Ox 94 02/07/22 15:19 O2 Del Method 02/07/22 15:19 O2 Flow Rate 5 02/05/22 12:00 FiO2 45 01/31/22 09:04 BMI result Body Mass Index 31.6 Const: General: no acute distress, alert and awake Orienta tion/consciousness: patient oriented x3 HEENT: Head: Yes normal to inspection Neck: Neck: Yes normal visual inspection, Yes trachea midline, Yes supple and Yes no JVD Chest: Other: Left-sided large bore surgical chest tube remains secure in place attached to 20 sxn with 280 cc of serous fluid output over past 24 hours. No detectable air leak. Breath sounds are diminished bilaterally throughout all lung porter. Cardio: Jugular venous distension: no JVD Rate: regular rate Rhythm: regular rhythm GI: Inspection: Yes normal to inspection Neuro: General: patient oriented x3 Procedures Date of Service Date of Service: 02/07/22 Progress Note: A&P Assessment and plan (1) Pericardial effusion: Status: Acute (2) Pleural effusion, left: Status: Acute Plan pod 8., s/p left VATS pericardial window morning chest x-ray revealed bilateral small pleural effusions with opacities which I personally reviewed and agree with the radiologist's findings. Chest tube Remained on -20 low wall suction to help facilitate drainage of a small left pleural effusion, overnight pleural effusion emanated 280 cc of serous fluid. Left-sided chest tube will be ready for removal once fluid output goes below 200 cc in 24 hour. Patient needs to ambulate minimum 3-4 times per day to help facilitate pericardial fluid drainage. This was passed onto nursing as well as patient. patient should be optimally diuresed as he is still retaining fluid. Morning chest x-ray patient should be OB in chair for all meals. Patient should be ambulating in with 3-4 times per day in hallway with nursing assistance. Time Spent With Patient Time: Total time spent is greater than 50% in coordination of care (as documented) at patient's floor/unit and/or counseling patient: Quality Stroke Does the patient have a stroke diagnosis?: No VTE Prior VTE?: No VTE Risk Level:: Medical - moderate - high VTE Device Contraindication: Treatment Not Indicated VTE Drug Contraindication: N/A - Med Ordered
--- NOTE | 2022-02-07 17:02 | PC.NURSE ---
FC removed,patient tolerated procedure well. Dsg to chest tube , right leg lymphedema and cardiac window drain site changed.
[2022-02-07] MEDS: Atorvastatin Calcium 40 MG TABLET PO (21:13)
[2022-02-08 03:13] VITALS: BP 138/59; PULSE 80; RESP 20; TEMP 36.9; O2SAT 93
[2022-02-08 06:38] LABS: MANUAL DIFF FLAG NO
[2022-02-08 06:47] LABS: Basophils Percent Auto 0.3 % (0-2); Eosinophils Absolute Auto 0.8 X10*3/uL (0.0-0.4); Eosinophils Percent Auto 7.2 % (0-4); Hematocrit 37.5 % (42.0-52.0); Hemoglobin 12.3 g/dl (14.0-18.0); Imm Gran Abs Auto 0.29 X10*3/uL (0.00-0.03); Imm Gran Pct Auto 2.5 % (0.0-0.4); Lymphocytes Absolute Auto 1.3 X10*3/uL (1.2-4.9); Lymphocytes Percent Auto 11.3 % (20-40); Mean Corpuscular HGB Conc 32.8 g/dl (31.0-36.0); Mean Corpuscular Hemoglobin 28.5 pg (27.0-33.0); Mean Corpuscular Volume 86.8 fL (80.0-98.0); Mean Platelet Volume 9.6 fL (9.4-12.4); Monocytes Absolute Auto 1.3 X10*3/uL (0.1-1.2); Monocytes Percent Auto 11.5 % (2-11); Neutrophils Absolute Auto 7.8 x10*3/uL (2.0-8.3); Neutrophils Percent Auto 67.2 % (45-73); Platelet Count 468 X10*3/uL (160-400); Red Blood Count 4.32 X10*6/uL (4.60-5.80); Red Cell Distribution Width 14.6 % (11.0-16.0); White Blood Count 11.6 X10*3/uL (4.8-10.8)
[2022-02-08 07:04] LABS: Alanine Aminotransferase 28 U/L (0-40); Albumin Level 2.6 g/dL (3.5-5.0); Alkaline Phosphatase 134 U/L (39-117); Anion Gap 10 (12-20); Aspartate Amino Transferase 33 U/L (5-37); Bilirubin Total 0.3 mg/dL (0.0-1.0); Blood Urea Nitrogen 9 mg/dL (9-16); Calcium 8.3 mg/dL (8.4-10.2); Carbon Dioxide 27 mmol/L (22-29); Chloride 97 mmol/L (96-108); Creatinine Clr Calc Pharmacy 102.8; Estimated Glomerular Filt Rate > 60; Glucose Fasting 115 mg/dL (60-99); Potassium 4.3 mmol/L (3.3-5.1); Sodium 130 mmol/L (135-145); Total Protein 5.8 g/dL (6.5-8.0)
[2022-02-08 08:00] VITALS: BP 133/81; PULSE 97; RESP 19; TEMP 36.4; O2SAT 96
--- NOTE | 2022-02-08 08:48 | MHC.CM.PN ---
UPDATES SENT TO [facility]. DC PLAN CONTINUES TO BE STR PENDING UPDATED PT EVAL
[2022-02-08] MEDS: Furosemide 40 MG TABLET PO (10:47)
[2022-02-08] MEDS: Metoprolol Tartrate 100 MG TABLET PO ×2 (10:47→22:53)
[2022-02-08] MEDS: Apixaban 5 MG TABLET PO ×2 (10:47→22:53)
[2022-02-08] MEDS: dilTIAZem HCL CD 180 MG CAP.ER.24H 360 MG PO (10:47)
[2022-02-08] MEDS: Digoxin 0.125 MG TABLET PO (10:48)
[2022-02-08] MEDS: 0.9 % Sodium Chloride Flush 3 ML SYRINGE IVFLUSH ×3 (10:48→22:54)
[2022-02-08] MEDS: modafiniL 100 MG TABLET PO (10:48)
[2022-02-08 12:00] VITALS: BP 140/82; PULSE 78; RESP 19; TEMP 36.4; O2SAT 96
--- NOTE | 2022-02-08 12:02 | HO.PM.IMPN ---
Subjective Subjective Date of Service: 02/08/22 Interval History: Slowly improving. Still feels lousy and tired;ambulating as tolerated Review of Systems Denies chest pain Denies nausea vomiting diarrhea Denies shortness of breath Denies fever chills Physical Exam Vital Signs: Vital Signs: Last Vital Signs Temp 97.6 F 02/08/22 08:00 Pulse 97 02/08/22 08:00 Resp 19 02/08/22 08:00 BP 133/81 02/08/22 08:00 Pulse Ox 96 02/08/22 08:00 O2 Del Method 02/08/22 08:00 O2 Flow Rate 5 02/05/22 12:00 FiO2 45 01/31/22 09:04 BMI result Body Mass Index 31.6 Const: Other: Awake alert no acute distress Chest: Other: No crepitus; drains in place Resp: Other: Diminished bilaterally with scant expiratory wheezes Cardio: Other: No S4; positive S1-S2; no S3 murmurs rubs or gallops GI: Other: Soft nontender nondistended with normoactive bowel sounds Extrem: Other: No edema bilaterally Objective Data Active Medications Apixaban (Apixaban 5 Mg Tablet) 5 mg PO BID [facility] Last Admin: 02/08/22 10:47 Dose: 5 mg Documented By: BILLY Atorvastatin Calcium (Atorvastatin Calcium 40 Mg Tablet) 40 mg PO BEDTIME [facility] Last Admin: 02/07/22 21:13 Dose: 40 mg Documented By: SINGH Digoxin (Digoxin 0.125 Mg Tablet) 0.125 mg PO DAILY [facility] Last Admin: 02/08/22 10:48 Dose: 0.125 mg Documented By: BILLY Diltiazem HCl (Diltiazem Hcl Cd 180 Mg Cap.Er.24h) 360 mg PO DAILY [facility]; Protocol Last Admin: 02/08/22 10:47 Dose: 360 mg Documented By: BILLY Docusate Sodium (Docusate Sodium 100 Mg Capsule) 100 mg PO DAILY PRN PRN Reason: Constipation Furosemide (Furosemide 40 Mg Tablet) 40 mg PO DAILY [facility]; Protocol Last Admin: 02/08/22 10:47 Dose: 40 mg Documented By: BILLY Hydromorphone HCl (Hydromorphone Hcl 0.5 Mg/0.5 Ml Syringe) 0.5 mg IVPUSH Q1H PRN; Protocol PRN Reason: mild-mod pain Last Admin: 02/04/22 21:58 Dose: 0.5 mg Documented By: DELMA Metoprolol Tartrate (Metoprolol Tartrate 100 Mg Tablet) 100 mg PO Q12H [facility]; Protocol Last Admin: 02/08/22 10:47 Dose: 100 mg Documented By: BILLY Modafinil (Modafinil 100 Mg Tablet) 100 mg PO DAILY [facility] Last Admin: 02/08/22 10:48 Dose: 100 mg Documented By: BILLY Ondansetron HCl (Ondansetron Hcl 4 Mg/2 Ml Vial) 4 mg IVPUSH Q8H PRN PRN Reason: Nausea and Vomiting Pharmacy Consult (Consult Rx Perform Med Rec) 1 each MISCELLANE ONCE PRN PRN Reason: Consult order Sodium Chloride (0.9 % Sodium Chloride Flush 3 Ml Syringe) 3 ml IVFLUSH QSHIFT [facility] Last Admin: 02/08/22 10:48 Dose: 3 ml Documented By: BILLY Labs CBC & Chem 7: 02/08/22 06:25 02/08/22 06:25 Labs: Laboratory Results - last 24 hr 02/08/22 02/08/22 06:25 06:25 MCV 86.8 MCH 28.5 MCHC 32.8 RDW 14.6 Plt Count 468 H MPV 9.6 Immature Gran % (Auto) 2.5 H Neut % (Auto) 67.2 Lymph % (Auto) 11.3 L [place] % (Auto) 11.5 H Eos % (Auto) 7.2 H Baso % (Auto) 0.3 Lymph # (Auto) 1.3 [place] # (Auto) 1.3 H Eos # (Auto) 0.8 H Baso # (Auto) 0.0 Abs Immat Gran (auto) 0.29 H Absolute Neuts (auto) 7.8 Absolute Nucleated RBC 0.000 Nucleated RBC % (auto) 0.0 Anion Gap 10 L Estim Creat Clear Calc 102.8 Estimated GFR > 60 Fasting Glucose 115 H Calcium 8.3 L Total Bilirubin 0.3 AST 33 ALT 28 Alkaline Phosphatase 134 H Total Protein 5.8 L Albumin 2.6 L Assessment and Plan (1) Pericardial effusion: Status: Acute (2) Afib: Status: Acute (3) HTN (hypertension): Status: Acute Plan 81-year-old man transferred from the ICU and treated for respiratory failure, delirium, left VATS, pericardial window and evacuation of left pleural fluid by cardiovascular surgeon. ? upon initial presentation to the ED he was found to be unresponsive, he had stopped taking his medications since October due to his depression and was generally unkept.? He was noted to be in atrial fibrillation with rapid ventricular response and hypoxic.? He was initially treated with a diltiazem drip and treated for community-acquired pneumonia as well.? On January 29 he had a chest CT which showed small right sided pleural effusion with small to moderate left-sided pleural effusion and moderate-sized pericardial effusion.? Was brought to the OR on January 30 for drainage of the left pleural effusion and pericardial effusion.? 950 cc of serous fluid was evacuated from the left chest and 650 cc of slightly bloody pericardial fluid was removed.? He also had a VATS procedure with no signs of metastatic disease.? Cytology and pathology both sent.? Patient was given Precedex for sedation in the PACU due to delirium. 1. Pericardial effusion with closed drainage -slowly improving...still draining(280/24hrs -20) -as per thoracic surgery....drainage needs to be <200/24hrs 2. Chronic atrial fibrillation -adequate rate control with oral diltiazem/digoxin -continue telemetry -med adjustment as indicated 3. Acute hypoxic respiratory failure secondary to atelectasis -resolved; acceptable numbers on room air -encouraged ambulation 4. Hypertension -acceptable control on current therapies -adjust as indicated Full code Eliquis Requires ongoing hospitalization secondary for the need for pericardial drainage Quality Stroke Does the patient have a stroke diagnosis?: No VTE Prior VTE?: No VTE Risk Level:: Medical - moderate - high VTE Device Contraindication: Treatment Not Indicated VTE Drug Contraindication: N/A - Med Ordered
--- NOTE | 2022-02-08 15:14 | HO.PM.IMPN ---
Subjective Subjective Date of Service: 02/08/22 Interval History: Slowly improving. Limited ambulation Review of Systems Denies chest pain Denies nausea vomiting diarrhea Denies shortness of breath Denies fever chills Physical Exam Vital Signs: Vital Signs: Last Vital Signs Temp 97.6 F 02/08/22 12:00 Pulse 78 02/08/22 12:00 Resp 19 02/08/22 12:00 BP 140/82 H 02/08/22 12:00 Pulse Ox 96 02/08/22 12:00 O2 Del Method 02/08/22 12:00 O2 Flow Rate 5 02/05/22 12:00 FiO2 45 01/31/22 09:04 BMI result Body Mass Index 31.6 Const: Other: Awake alert no acute distress Chest: Other: No crepitus; drains in place Resp: Other: Diminished bilaterally with scant expiratory wheezes Cardio: Other: No S4; positive S1-S2; no S3 murmurs rubs or gallops GI: Other: Soft nontender nondistended with normoactive bowel sounds Extrem: Other: No edema bilaterally Objective Data Active Medications Apixaban (Apixaban 5 Mg Tablet) 5 mg PO BID [facility] Last Admin: 02/08/22 10:47 Dose: 5 mg Documented By: BILLY Atorvastatin Calcium (Atorvastatin Calcium 40 Mg Tablet) 40 mg PO BEDTIME [facility] Last Admin: 02/07/22 21:13 Dose: 40 mg Documented By: SINGH Digoxin (Digoxin 0.125 Mg Tablet) 0.125 mg PO DAILY [facility] Last Admin: 02/08/22 10:48 Dose: 0.125 mg Documented By: BILLY Diltiazem HCl (Diltiazem Hcl Cd 180 Mg Cap.Er.24h) 360 mg PO DAILY [facility]; Protocol Last Admin: 02/08/22 10:47 Dose: 360 mg Documented By: BILLY Docusate Sodium (Docusate Sodium 100 Mg Capsule) 100 mg PO DAILY PRN PRN Reason: Constipation Furosemide (Furosemide 40 Mg Tablet) 40 mg PO DAILY [facility]; Protocol Last Admin: 02/08/22 10:47 Dose: 40 mg Documented By: BILLY Hydromorphone HCl (Hydromorphone Hcl 0.5 Mg/0.5 Ml Syringe) 0.5 mg IVPUSH Q1H PRN; Protocol PRN Reason: mild-mod pain Last Admin: 02/04/22 21:58 Dose: 0.5 mg Documented By: DELMA Metoprolol Tartrate (Metoprolol Tartrate 100 Mg Tablet) 100 mg PO Q12H [facility]; Protocol Last Admin: 02/08/22 10:47 Dose: 100 mg Documented By: BILLY Modafinil (Modafinil 100 Mg Tablet) 100 mg PO DAILY [facility] Last Admin: 02/08/22 10:48 Dose: 100 mg Documented By: BILLY Ondansetron HCl (Ondansetron Hcl 4 Mg/2 Ml Vial) 4 mg IVPUSH Q8H PRN PRN Reason: Nausea and Vomiting Pharmacy Consult (Consult Rx Perform Med Rec) 1 each MISCELLANE ONCE PRN PRN Reason: Consult order Sodium Chloride (0.9 % Sodium Chloride Flush 3 Ml Syringe) 3 ml IVFLUSH QSHIFT [facility] Last Admin: 02/08/22 14:25 Dose: 3 ml Documented By: BILLY Labs CBC & Chem 7: 02/08/22 06:25 02/08/22 06:25 Labs: Laboratory Results - last 24 hr 02/08/22 02/08/22 06:25 06:25 MCV 86.8 MCH 28.5 MCHC 32.8 RDW 14.6 Plt Count 468 H MPV 9.6 Immature Gran % (Auto) 2.5 H Neut % (Auto) 67.2 Lymph % (Auto) 11.3 L [place] % (Auto) 11.5 H Eos % (Auto) 7.2 H Baso % (Auto) 0.3 Lymph # (Auto) 1.3 [place] # (Auto) 1.3 H Eos # (Auto) 0.8 H Baso # (Auto) 0.0 Abs Immat Gran (auto) 0.29 H Absolute Neuts (auto) 7.8 Absolute Nucleated RBC 0.000 Nucleated RBC % (auto) 0.0 Anion Gap 10 L Estim Creat Clear Calc 102.8 Estimated GFR > 60 Fasting Glucose 115 H Calcium 8.3 L Total Bilirubin 0.3 AST 33 ALT 28 Alkaline Phosphatase 134 H Total Protein 5.8 L Albumin 2.6 L Assessment and Plan (1) Pericardial effusion: Status: Acute (2) Afib: Status: Acute (3) HTN (hypertension): Status: Acute Plan 81-year-old man transferred from the ICU and treated for respiratory failure, delirium, left VATS, pericardial window and evacuation of left pleural fluid by cardiovascular surgeon. ? upon initial presentation to the ED he was found to be unresponsive, he had stopped taking his medications since October due to his depression and was generally unkept.? He was noted to be in atrial fibrillation with rapid ventricular response and hypoxic.? He was initially treated with a diltiazem drip and treated for community-acquired pneumonia as well.? On January 29 he had a chest CT which showed small right sided pleural effusion with small to moderate left-sided pleural effusion and moderate-sized pericardial effusion.? Was brought to the OR on January 30 for drainage of the left pleural effusion and pericardial effusion.? 950 cc of serous fluid was evacuated from the left chest and 650 cc of slightly bloody pericardial fluid was removed.? He also had a VATS procedure with no signs of metastatic disease.? Cytology and pathology both sent.? Patient was given Precedex for sedation in the PACU due to delirium. 1. Pericardial effusion with closed drainage -slowly improving...still draining(no drainage overnight 7p-7a ....not ambulating) -as per thoracic surgery....drainage needs to be <200/24hrs 2. Chronic atrial fibrillation -adequate rate control with oral diltiazem/digoxin -continue telemetry -med adjustment as indicated 3. Acute hypoxic respiratory failure secondary to atelectasis -resolved; acceptable numbers on room air -encouraged ambulation 4. Hypertension -acceptable control on current therapies -adjust as indicated Full code Eliquis Requires ongoing hospitalization secondary for the need for pericardial drainage Quality Stroke Does the patient have a stroke diagnosis?: No VTE Prior VTE?: No VTE Risk Level:: Medical - moderate - high VTE Device Contraindication: Treatment Not Indicated VTE Drug Contraindication: N/A - Med Ordered
[2022-02-08 15:28] VITALS: BP 118/64; PULSE 70; RESP 16; TEMP 36.7; O2SAT 95
--- NOTE | 2022-02-08 17:00 | PM.PNTS ---
Subjective Subjective Date of Service: 02/08/22 Interval history: Patient was seen examined this evening. His left-sided chest tube had put out approximately 50 cc of serous fluid over the past 24 hours. His morning chest x-ray revealed a small left pleural effusion. There was no detectable air leak along his chest tube therefore his left-sided chest tube was removed without incident and dry occlusive dressing put in place which should remain in place for 48 hours. Physical Exam Vital Signs: Vital Signs: Last Vital Signs Temp 98.1 F 02/08/22 15:28 Pulse 70 02/08/22 15:28 Resp 16 02/08/22 15:28 BP 118/64 02/08/22 15:28 Pulse Ox 95 02/08/22 15:28 O2 Del Method 02/08/22 15:28 O2 Flow Rate 5 02/05/22 12:00 FiO2 45 01/31/22 09:04 BMI result Body Mass Index 31.6 Const: General: no acute distress, alert and awake Orientation/consciousness: patient oriented x3 HEENT: Head: Yes normal to inspection Neck: Neck: Yes normal visual inspection, Yes trachea midline, Yes supple and Yes no JVD Chest: Other: Left-sided large bore surgical chest tube remains secure in place attached to 20 sxn with 280 cc of serous fluid output over past 24 hours. No detectable air leak. Breath sounds are diminished bilaterally throughout all lung porter. Cardio: Jugular venous distension: no JVD Rate: regular rate Rhythm: regular rhythm GI: Inspection: Yes normal to inspection Neuro: General: patient oriented x3 Procedures Date of Service Date of Service: 02/08/22 Progress Note: A&P Assessment and plan (1) Pericardial effusion: Status: Acute (2) Pleural effusion, left: Status: Acute Plan pod 10., s/p left VATS pericardial window morning chest x-ray revealed small Leftpleural effusion. Chest tube Remained on -20 low wall suction Overnight and only had approximately 50 cc of serous fluid output over past 24 hours. His left-sided chest tube was removed without incident and dry occlusive dressing was put in place which should remain in place for 48 hours at which point time he can be left to room air. Patient needs to ambulate minimum 3-4 times per day to help facilitate pericardial fluid drainage. This was passed onto nursing as well as patient. Morning chest x-ray patient should be OB in chair for all meals. Patient should be ambulating in with 3-4 times per day in hallway with nursing assistance. Thoracic surgical instructions following chest tube removal the patient should be on the lookout for any increase crepitus ) the right crisp ease) along chest wall. Any increased shortness of breath or sudden left-sided chest pain should patient should return to the emergency department. patient will require a follow-up at the thoracic Surgical Department 2 weeks from his surgical date. he or his caregiver should call the thoracic Surgical Department of [facility] to schedule a follow-up with thoracic surgeon Dr. Joana Browne. patient should abstain from any tubs or swimming for 4-6 weeks. You should keep your incisions clean and dry and you may shower beginning on 02/10 once chest tube bandages are removed. you can keep your chest tube site exposed to room air or keep a nonocclusive dressing over the site to prevent any leakage down the side of your body. It will be normal for your chest tube site to continue to drain over the next week or so. You should continue pain analgesics with the Tylenol 1000 mg every 6 hours you may take 1 Aleve tablet daily Time Spent With Patient Time: Total time spent is greater than 50% in coordination of care (as documented) at patient's floor/unit and/or counseling patient: Quality Stroke Does the patient have a stroke diagnosis?: No VTE Prior VTE?: No VTE Risk Level:: Medical - moderate - high VTE Device Contraindication: Treatment Not Indicated VTE Drug Contraindication: N/A - Med Ordered
[2022-02-08 19:43] VITALS: BP 144/65; PULSE 91; RESP 16; TEMP 36.9; O2SAT 94
[2022-02-08] MEDS: Atorvastatin Calcium 40 MG TABLET PO (22:53)
[2022-02-08 23:30] VITALS: BP 145/67; PULSE 88; RESP 18; TEMP 37.1; O2SAT 96
[2022-02-09 04:04] VITALS: BP 138/61; PULSE 80; RESP 18; TEMP 36.9; O2SAT 95
[2022-02-09 08:00] VITALS: BP 142/72; PULSE 78; RESP 20; TEMP 36.4; O2SAT 93
[2022-02-09] MEDS: dilTIAZem HCL CD 180 MG CAP.ER.24H 360 MG PO (10:09)
[2022-02-09] MEDS: 0.9 % Sodium Chloride Flush 3 ML SYRINGE IVFLUSH ×3 (10:10→22:35)
[2022-02-09] MEDS: Metoprolol Tartrate 100 MG TABLET PO ×2 (10:10→22:32)
[2022-02-09] MEDS: Apixaban 5 MG TABLET PO ×2 (10:10→22:32)
[2022-02-09] MEDS: Furosemide 40 MG TABLET PO (10:10)
[2022-02-09] MEDS: modafiniL 100 MG TABLET PO (10:10)
[2022-02-09] MEDS: Digoxin 0.125 MG TABLET PO (10:10)
[2022-02-09 12:00] VITALS: BP 141/74; PULSE 83; RESP 20; TEMP 36.8; O2SAT 95
--- NOTE | 2022-02-09 13:14 | HO.PM.IMPN ---
Subjective Subjective Date of Service: 02/09/22 Interval History: No acute issues overnight. Chest tube removed last evening by thoracic surgery Review of Systems Denies chest pain Denies nausea vomiting diarrhea Denies shortness of breath Denies fever chills Physical Exam Vital Signs: Vital Signs: Last Vital Signs Temp 98.2 F 02/09/22 12:00 Pulse 83 02/09/22 12:00 Resp 20 02/09/22 12:00 BP 141/74 H 02/09/22 12:00 Pulse Ox 95 02/09/22 12:00 O2 Del Method 02/09/22 12:00 O2 Flow Rate 5 02/05/22 12:00 FiO2 45 01/31/22 09:04 BMI result Body Mass Index 31.6 Const: Other: Awake alert no acute distress Chest: Other: No crepitus; chest tube out Resp: Other: Diminished bilaterally with scant expiratory wheezes Cardio: Other: No S4; positive S1-S2; no S3 murmurs rubs or gallops GI: Other: Soft nontender nondistended with normoactive bowel sounds Extrem: Other: No edema bilaterally Objective Data Active Medications Apixaban (Apixaban 5 Mg Tablet) 5 mg PO BID [facility] Last Admin: 02/09/22 10:10 Dose: 5 mg Documented By: ESPERANZA Atorvastatin Calcium (Atorvastatin Calcium 40 Mg Tablet) 40 mg PO BEDTIME [facility] [place] Last Admin: 02/08/22 22:53 Dose: 40 mg Documented By: ROMARIO Digoxin (Digoxin 0.125 Mg Tablet) 0.125 mg PO DAILY [facility] [place] Last Admin: 02/09/22 10:10 Dose: 0.125 mg Documented By: ESPERANZA Diltiazem HCl (Diltiazem Hcl Cd 180 Mg Cap.Er.24h) 360 mg PO DAILY [facility] [place]; Protocol Last Admin: 02/09/22 10:09 Dose: 360 mg Documented By: ESPERANZA Docusate Sodium (Docusate Sodium 100 Mg Capsule) 100 mg PO DAILY PRN PRN Reason: Constipation Furosemide (Furosemide 40 Mg Tablet) 40 mg PO DAILY [facility] [place]; Protocol Last Admin: 02/09/22 10:10 Dose: 40 mg Documented By: ESPERANZA Hydromorphone HCl (Hydromorphone Hcl 0.5 Mg/0.5 Ml Syringe) 0.5 mg IVPUSH Q1H PRN; Protocol PRN Reason: mild-mod pain Last Admin: 02/04/22 21:58 Dose: 0.5 mg Documented By: DELMA Metoprolol Tartrate (Metoprolol Tartrate 100 Mg Tablet) 100 mg PO Q12H [facility] [place]; Protocol Last Admin: 02/09/22 10:10 Dose: 100 mg Documented By: ESPERANZA Modafinil (Modafinil 100 Mg Tablet) 100 mg PO DAILY [facility] [place] Last Admin: 02/09/22 10:10 Dose: 100 mg Documented By: ESPERANZA Ondansetron HCl (Ondansetron Hcl 4 Mg/2 Ml Vial) 4 mg IVPUSH Q8H PRN PRN Reason: Nausea and Vomiting Pharmacy Consult (Consult Rx Perform Med Rec) 1 each MISCELLANE ONCE PRN PRN Reason: Consult order Sodium Chloride (0.9 % Sodium Chloride Flush 3 Ml Syringe) 3 ml IVFLUSH QSHIFT [facility] [place] Last Admin: 02/09/22 10:10 Dose: 3 ml Documented By: ESPERANZA Labs CBC & Chem 7: 02/08/22 06:25 02/08/22 06:25 Assessment and Plan (1) Pleural effusion, left: Status: Acute (2) Pericardial effusion: Status: Acute (3) HTN (hypertension): Status: Acute (4) Paroxysmal A-fib: Status: Acute Plan 81-year-old man transferred from the ICU and treated for respiratory failure, delirium, left VATS, pericardial window and evacuation of left pleural fluid by cardiovascular surgeon. ? upon initial presentation to the ED he was found to be unresponsive, he had stopped taking his medications since October due to his depression and was generally unkept.? He was noted to be in atrial fibrillation with rapid ventricular response and hypoxic.? He was initially treated with a diltiazem drip and treated for community-acquired pneumonia as well.? On January 29 he had a chest CT which showed small right sided pleural effusion with small to moderate left-sided pleural effusion and moderate-sized pericardial effusion.? Was brought to the OR on January 30 for drainage of the left pleural effusion and pericardial effusion.? 950 cc of serous fluid was evacuated from the left chest and 650 cc of slightly bloody pericardial fluid was removed.? He also had a VATS procedure with no signs of metastatic disease.? Cytology and pathology both sent.? Patient was given Precedex for sedation in the PACU due to delirium. 1. Pericardial effusion with closed drainage -slowly improving... Chest tube removed last evening -encourage ambulation -repeat chest x-ray in a.m. 2. Chronic atrial fibrillation -adequate rate control with oral diltiazem/digoxin -continue telemetry -med adjustment as indicated 3. Acute hypoxic respiratory failure secondary to atelectasis -resolved; acceptable numbers on room air -encouraged ambulation 4. Hypertension -acceptable control on current therapies -adjust as indicated Full code Eliquis Requires ongoing hospitalization secondary for the need for follow-up pericardial drainage/chest tube removal Quality Stroke Does the patient have a stroke diagnosis?: No VTE Prior VTE?: No VTE Risk Level:: Medical - moderate - high VTE Device Contraindication: Treatment Not Indicated VTE Drug Contraindication: N/A - Med Ordered
[2022-02-09 15:01] VITALS: BP 113/55; PULSE 88; RESP 18; TEMP 36.1; O2SAT 95
[2022-02-09 19:03] VITALS: BP 113/59; PULSE 72; RESP 18; TEMP 36.7; O2SAT 94
[2022-02-09] MEDS: Atorvastatin Calcium 40 MG TABLET PO (22:32)
[2022-02-09 23:20] VITALS: BP 125/58; PULSE 81; RESP 16; TEMP 37.2; O2SAT 94
[2022-02-10 04:00] VITALS: BP 135/77; PULSE 79; RESP 16; TEMP 37.5; O2SAT 95
[2022-02-10 05:50] LABS: MANUAL DIFF FLAG NO
[2022-02-10 05:53] LABS: Basophils Absolute Auto 0.1 X10*3/uL (0.0-0.2); Basophils Percent Auto 0.5 % (0-2); Eosinophils Absolute Auto 0.8 X10*3/uL (0.0-0.4); Eosinophils Percent Auto 6.9 % (0-4); Hematocrit 40.8 % (42.0-52.0); Hemoglobin 13.3 g/dl (14.0-18.0); Imm Gran Abs Auto 0.18 X10*3/uL (0.00-0.03); Imm Gran Pct Auto 1.6 % (0.0-0.4); Lymphocytes Percent Auto 8.9 % (20-40); Mean Corpuscular HGB Conc 32.6 g/dl (31.0-36.0); Mean Corpuscular Hemoglobin 28.7 pg (27.0-33.0); Mean Corpuscular Volume 88.1 fL (80.0-98.0); Mean Platelet Volume 9.9 fL (9.4-12.4); Monocytes Absolute Auto 1.2 X10*3/uL (0.1-1.2); Monocytes Percent Auto 10.3 % (2-11); Neutrophils Absolute Auto 8.1 x10*3/uL (2.0-8.3); Neutrophils Percent Auto 71.8 % (45-73); Platelet Count 454 X10*3/uL (160-400); Red Blood Count 4.63 X10*6/uL (4.60-5.80); Red Cell Distribution Width 14.6 % (11.0-16.0); White Blood Count 11.3 X10*3/uL (4.8-10.8)
[2022-02-10 06:21] LABS: Alanine Aminotransferase 39 U/L (0-40); Albumin Level 2.7 g/dL (3.5-5.0); Alkaline Phosphatase 148 U/L (39-117); Anion Gap 12 (12-20); Aspartate Amino Transferase 54 U/L (5-37); Bilirubin Total 0.5 mg/dL (0.0-1.0); Blood Urea Nitrogen 11 mg/dL (9-16); Calcium 8.3 mg/dL (8.4-10.2); Carbon Dioxide 25 mmol/L (22-29); Chloride 96 mmol/L (96-108); Creatinine Clr Calc Pharmacy 97.4; Estimated Glomerular Filt Rate > 60; Glucose Fasting 121 mg/dL (60-99); Potassium 4.4 mmol/L (3.3-5.1); Sodium 129 mmol/L (135-145); Total Protein 6.3 g/dL (6.5-8.0)
[2022-02-10 08:00] VITALS: BP 123/59; PULSE 85; RESP 18; TEMP 36.7; O2SAT 96
[2022-02-10] MEDS: Furosemide 40 MG TABLET PO (08:31)
[2022-02-10] MEDS: Apixaban 5 MG TABLET PO ×2 (08:31→20:27)
[2022-02-10] MEDS: dilTIAZem HCL CD 180 MG CAP.ER.24H 360 MG PO (08:31)
[2022-02-10] MEDS: modafiniL 100 MG TABLET PO (08:31)
[2022-02-10] MEDS: Metoprolol Tartrate 100 MG TABLET PO ×2 (08:31→20:27)
[2022-02-10] MEDS: 0.9 % Sodium Chloride Flush 3 ML SYRINGE IVFLUSH ×3 (08:32→20:27)
[2022-02-10] MEDS: Digoxin 0.125 MG TABLET PO (08:32)
[2022-02-10 12:00] VITALS: BP 118/67; PULSE 82; RESP 19; TEMP 36.5; O2SAT 95
--- NOTE | 2022-02-10 12:09 | HO.PM.IMPN ---
Subjective Subjective Date of Service: 02/10/22 Interval History: No acute issues overnight. Moderately deconditioned Review of Systems Denies chest pain Denies nausea vomiting diarrhea Denies shortness of breath Denies fever chills Physical Exam Vital Signs: Vital Signs: Last Vital Signs Temp 98.0 F 02/10/22 08:00 Pulse 85 02/10/22 08:00 Resp 18 02/10/22 08:00 BP 123/59 L 02/10/22 08:00 Pulse Ox 96 02/10/22 08:00 O2 Del Method 02/10/22 08:00 O2 Flow Rate 5 02/05/22 12:00 FiO2 45 01/31/22 09:04 BMI result Body Mass Index 31.6 Const: Other: Awake alert no acute distress Chest: Other: No crepitus Resp: Other: Diminished bilaterally with scant expiratory wheezes Cardio: Other: No S4; positive S1-S2; no S3 murmurs rubs or gallops GI: Other: Soft nontender nondistended with normoactive bowel sounds Extrem: Other: No edema bilaterally Objective Data Active Medications Apixaban (Apixaban 5 Mg Tablet) 5 mg PO BID [facility] Last Admin: 02/10/22 08:31 Dose: 5 mg Documented By: ESPERANZA Atorvastatin Calcium (Atorvastatin Calcium 40 Mg Tablet) 40 mg PO BEDTIME [facility] Last Admin: 02/09/22 22:32 Dose: 40 mg Documented By: ROMARIO Digoxin (Digoxin 0.125 Mg Tablet) 0.125 mg PO DAILY [facility] Last Admin: 02/10/22 08:32 Dose: 0.125 mg Documented By: ESPERANZA Diltiazem HCl (Diltiazem Hcl Cd 180 Mg Cap.Er.24h) 360 mg PO DAILY [facility]; Protocol Last Admin: 02/10/22 08:31 Dose: 360 mg Documented By: ESPERANZA Docusate Sodium (Docusate Sodium 100 Mg Capsule) 100 mg PO DAILY PRN PRN Reason: Constipation Furosemide (Furosemide 40 Mg Tablet) 40 mg PO DAILY [facility]; Protocol Last Admin: 02/10/22 08:31 Dose: 40 mg Documented By: ESPERANZA Hydromorphone HCl (Hydromorphone Hcl 0.5 Mg/0.5 Ml Syringe) 0.5 mg IVPUSH Q1H PRN; Protocol PRN Reason: mild-mod pain Last Admin: 02/04/22 21:58 Dose: 0.5 mg Documented By: DELMA Metoprolol Tartrate (Metoprolol Tartrate 100 Mg Tablet) 100 mg PO Q12H [facility]; Protocol Last Admin: 02/10/22 08:31 Dose: 100 mg Documented By: ESPERANZA Modafinil (Modafinil 100 Mg Tablet) 100 mg PO DAILY [facility] Last Admin: 02/10/22 08:31 Dose: 100 mg Documented By: ESPERANZA Ondansetron HCl (Ondansetron Hcl 4 Mg/2 Ml Vial) 4 mg IVPUSH Q8H PRN PRN Reason: Nausea and Vomiting Pharmacy Consult (Consult Rx Perform Med Rec) 1 each MISCELLANE ONCE PRN PRN Reason: Consult order Sodium Chloride (0.9 % Sodium Chloride Flush 3 Ml Syringe) 3 ml IVFLUSH QSHIFT [facility] Last Admin: 02/10/22 08:32 Dose: 3 ml Documented By: ESPERANZA Labs CBC & Chem 7: 02/10/22 05:27 02/10/22 05:27 Labs: Laboratory Results - last 24 hr 02/10/22 02/10/22 05:27 05:27 MCV 88.1 MCH 28.7 MCHC 32.6 RDW 14.6 Plt Count 454 H MPV 9.9 Immature Gran % (Auto) 1.6 H Neut % (Auto) 71.8 Lymph % (Auto) 8.9 L [place] % (Auto) 10.3 Eos % (Auto) 6.9 H Baso % (Auto) 0.5 Lymph # (Auto) 1.0 L [place] # (Auto) 1.2 Eos # (Auto) 0.8 H Baso # (Auto) 0.1 Abs Immat Gran (auto) 0.18 H Absolute Neuts (auto) 8.1 Absolute Nucleated RBC 0.000 Nucleated RBC % (auto) 0.0 Anion Gap 12 Estim Creat Clear Calc 97.4 Estimated GFR > 60 Fasting Glucose 121 H Calcium 8.3 L Total Bilirubin 0.5 AST 54 H ALT 39 Alkaline Phosphatase 148 H Total Protein 6.3 L Albumin 2.7 L Assessment and Plan (1) Pericardial effusion: Status: Acute (2) Pleural effusion, left: Status: Acute (3) HTN (hypertension): Status: Acute (4) Paroxysmal A-fib: Status: Acute Plan 81-year-old man transferred from the ICU and treated for respiratory failure, delirium, left VATS, pericardial window and evacuation of left pleural fluid by cardiovascular surgeon. ? upon initial presentation to the ED he was found to be unresponsive, he had stopped taking his medications since October due to his depression and was generally unkept.? He was noted to be in atrial fibrillation with rapid ventricular response and hypoxic.? He was initially treated with a diltiazem drip and treated for community-acquired pneumonia as well.? On January 29 he had a chest CT which showed small right sided pleural effusion with small to moderate left-sided pleural effusion and moderate-sized pericardial effusion.? Was brought to the OR on January 30 for drainage of the left pleural effusion and pericardial effusion.? 950 cc of serous fluid was evacuated from the left chest and 650 cc of slightly bloody pericardial fluid was removed.? He also had a VATS procedure with no signs of metastatic disease.? Cytology and pathology both sent.? Patient was given Precedex for sedation in the PACU due to delirium. 1. Pericardial effusion with closed drainage -repeat chest x-ray in a.m. -encourage ambulation 2. Chronic atrial fibrillation -adequate rate control with oral diltiazem/digoxin -continue telemetry -med adjustment as indicated 3. Acute hypoxic respiratory failure secondary to atelectasis -resolved; acceptable numbers on room air -encouraged ambulation 4. Hypertension -acceptable control on current therapies -adjust as indicated Full code Eliquis Requires ongoing hospitalization secondary for the need for follow-up pericardial drainage/chest tube removal Quality Stroke Does the patient have a stroke diagnosis?: No VTE Prior VTE?: No VTE Risk Level:: Medical - moderate - high VTE Device Contraindication: Treatment Not Indicated VTE Drug Contraindication: N/A - Med Ordered
[2022-02-10 15:43] VITALS: BP 120/69; PULSE 66; RESP 18; TEMP 36.7; O2SAT 94
[2022-02-10] MEDS: Atorvastatin Calcium 40 MG TABLET PO (20:27)
[2022-02-10 20:28] VITALS: BP 126/60; PULSE 74
[2022-02-10] MEDS: Acetaminophen 325 MG TABLET 975 MG PO (20:35)
[2022-02-10 21:00] VITALS: BP 148/74; PULSE 60; RESP 18; TEMP 36.9; O2SAT 94
[2022-02-11] VITALS (7 sets, daily range): BP systolic 123–139; BP diastolic 63–68; PULSE 55–88; RESP 16–20; TEMP 36.8–37.4; O2SAT 93–98
[2022-02-11 07:17] LABS: MANUAL DIFF FLAG NO
[2022-02-11 07:24] LABS: Basophils Percent Auto 0.3 % (0-2); Eosinophils Absolute Auto 0.9 X10*3/uL (0.0-0.4); Hematocrit 38.6 % (42.0-52.0); Hemoglobin 12.6 g/dl (14.0-18.0); Imm Gran Abs Auto 0.17 X10*3/uL (0.00-0.03); Imm Gran Pct Auto 1.3 % (0.0-0.4); Lymphocytes Absolute Auto 0.9 X10*3/uL (1.2-4.9); Lymphocytes Percent Auto 7.2 % (20-40); Mean Corpuscular HGB Conc 32.6 g/dl (31.0-36.0); Mean Corpuscular Hemoglobin 28.6 pg (27.0-33.0); Mean Corpuscular Volume 87.7 fL (80.0-98.0); Mean Platelet Volume 9.7 fL (9.4-12.4); Monocytes Absolute Auto 1.3 X10*3/uL (0.1-1.2); Monocytes Percent Auto 10.2 % (2-11); Neutrophils Absolute Auto 9.4 x10*3/uL (2.0-8.3); Platelet Count 453 X10*3/uL (160-400); Red Cell Distribution Width 14.6 % (11.0-16.0); White Blood Count 12.7 X10*3/uL (4.8-10.8)
[2022-02-11 07:38] LABS: Alanine Aminotransferase 35 U/L (0-40); Albumin Level 2.8 g/dL (3.5-5.0); Alkaline Phosphatase 149 U/L (39-117); Anion Gap 13 (12-20); Aspartate Amino Transferase 41 U/L (5-37); Bilirubin Total 0.6 mg/dL (0.0-1.0); Blood Urea Nitrogen 11 mg/dL (9-16); Calcium 8.3 mg/dL (8.4-10.2); Carbon Dioxide 27 mmol/L (22-29); Chloride 95 mmol/L (96-108); Creatinine Clr Calc Pharmacy 90.3; Estimated Glomerular Filt Rate > 60; Glucose Fasting 137 mg/dL (60-99); Potassium 4.4 mmol/L (3.3-5.1); Sodium 131 mmol/L (135-145); Total Protein 6.1 g/dL (6.5-8.0)
[2022-02-11] MEDS: Metoprolol Tartrate 100 MG TABLET PO ×2 (10:49→21:43)
[2022-02-11] MEDS: modafiniL 100 MG TABLET PO (10:49)
[2022-02-11] MEDS: dilTIAZem HCL CD 180 MG CAP.ER.24H 360 MG PO (10:49)
[2022-02-11] MEDS: Digoxin 0.125 MG TABLET PO (10:50)
[2022-02-11] MEDS: 0.9 % Sodium Chloride Flush 3 ML SYRINGE IVFLUSH ×2 (10:50→21:26)
[2022-02-11] MEDS: Apixaban 5 MG TABLET PO ×2 (10:50→21:42)
[2022-02-11] MEDS: Furosemide 40 MG TABLET PO (10:50)
--- NOTE | 2022-02-11 14:00 | P.PNIM_ITS ---
Subjective Subjective Date of Service: 02/11/22 Interval History: No acute issues overnight. Review of Systems Denies chest pain Denies nausea vomiting diarrhea Denies shortness of breath Denies fever chills Physical Exam Vital Signs: Vital Signs: Last Vital Signs Temp 98.6 F 02/11/22 11:39 Pulse 81 02/11/22 11:39 Resp 19 02/11/22 11:39 BP 123/64 02/11/22 11:39 Pulse Ox 96 02/11/22 11:39 O2 Del Method 02/11/22 11:39 O2 Flow Rate 5 02/05/22 12:00 FiO2 45 01/31/22 09:04 BMI result Body Mass Index 31.6 Const: Other: Awake alert no acute distress Chest: Other: No crepitus Resp: Other: Diminished bilaterally with scant expiratory wheezes Cardio: Other: No S4; positive S1-S2; no S3 murmurs rubs or gallops GI: Other: Soft nontender nondistended with normoactive bowel sounds Extrem: Other: No edema bilaterally Objective Data Active Medications Acetaminophen (Acetaminophen 325 Mg Tablet) 975 mg PO Q8H PRN PRN Reason: Pain, Severe (Pain Scale 7-10) Last Admin: 02/10/22 20:35 Dose: 975 mg Documented By: SINGH Apixaban (Apixaban 5 Mg Tablet) 5 mg PO BID [facility] Last Admin: 02/11/22 10:50 Dose: 5 mg Documented By: ALFA Atorvastatin Calcium (Atorvastatin Calcium 40 Mg Tablet) 40 mg PO BEDTIME [facility] Last Admin: 02/10/22 20:27 Dose: 40 mg Documented By: SINGH Digoxin (Digoxin 0.125 Mg Tablet) 0.125 mg PO DAILY [facility] Last Admin: 02/11/22 10:50 Dose: 0.125 mg Documented By: ALFA Diltiazem HCl (Diltiazem Hcl Cd 180 Mg Cap.Er.24h) 360 mg PO DAILY [facility]; Protocol Last Admin: 02/11/22 10:49 Dose: 360 mg Documented By: ALFA Docusate Sodium (Docusate Sodium 100 Mg Capsule) 100 mg PO DAILY PRN PRN Reason: Constipation Furosemide (Furosemide 40 Mg Tablet) 40 mg PO DAILY [facility]; Protocol Last Admin: 02/11/22 10:50 Dose: 40 mg Documented By: ALFA Hydromorphone HCl (Hydromorphone Hcl 0.5 Mg/0.5 Ml Syringe) 0.5 mg IVPUSH Q1H PRN; Protocol PRN Reason: mild-mod pain Last Admin: 02/04/22 21:58 Dose: 0.5 mg Documented By: DELMA Metoprolol Tartrate (Metoprolol Tartrate 100 Mg Tablet) 100 mg PO Q12H [facility]; Protocol Last Admin: 02/11/22 10:49 Dose: 100 mg Documented By: ALFA Modafinil (Modafinil 100 Mg Tablet) 100 mg PO DAILY [facility] Last Admin: 02/11/22 10:49 Dose: 100 mg Documented By: ALFA Ondansetron HCl (Ondansetron Hcl 4 Mg/2 Ml Vial) 4 mg IVPUSH Q8H PRN PRN Reason: Nausea and Vomiting Pharmacy Consult (Consult Rx Perform Med Rec) 1 each MISCELLANE ONCE PRN PRN Reason: Consult order Sodium Chloride (0.9 % Sodium Chloride Flush 3 Ml Syringe) 3 ml IVFLUSH QSHIFT [facility] Last Admin: 02/11/22 10:50 Dose: 3 ml Documented By: ALFA Labs CBC & Chem 7: 02/11/22 07:01 02/11/22 07:01 Labs: Laboratory Results - last 24 hr 02/11/22 02/11/22 07:01 07:01 MCV 87.7 MCH 28.6 MCHC 32.6 RDW 14.6 Plt Count 453 H MPV 9.7 Immature Gran % (Auto) 1.3 H Neut % (Auto) 74.0 H Lymph % (Auto) 7.2 L [place] % (Auto) 10.2 Eos % (Auto) 7.0 H Baso % (Auto) 0.3 Lymph # (Auto) 0.9 L [place] # (Auto) 1.3 H Eos # (Auto) 0.9 H Baso # (Auto) 0.0 Abs Immat Gran (auto) 0.17 H Absolute Neuts (auto) 9.4 H Absolute Nucleated RBC 0.000 Nucleated RBC % (auto) 0.0 Anion Gap 13 Estim Creat Clear Calc 90.3 Estimated GFR > 60 Fasting Glucose 137 H Calcium 8.3 L Total Bilirubin 0.6 AST 41 H ALT 35 Alkaline Phosphatase 149 H Total Protein 6.1 L Albumin 2.8 L Assessment and Plan (1) Pericardial effusion: Status: Acute (2) Paroxysmal A-fib: Status: Acute (3) HTN (hypertension): Status: Acute Plan 81-year-old man transferred from the ICU and treated for respiratory failure, delirium, left VATS, pericardial window and evacuation of left pleural fluid by cardiovascular surgeon. ? upon initial presentation to the ED he was found to be unresponsive, he had stopped taking his medications since October due to his depression and was generally unkept.? He was noted to be in atrial fibrillation with rapid ventricular response and hypoxic.? He was initially treated with a diltiazem drip and treated for community-acquired pneumonia as well.? On January 29 he had a chest CT which showed small right sided pleural effusion with small to moderate left-sided pleural effusion and moderate-sized pericardial effusion.? Was brought to the OR on January 30 for drainage of the left pleural effusion and pericardial effusion.? 950 cc of serous fluid was evacuated from the left chest and 650 cc of slightly bloody pericardial fluid was removed.? He also had a VATS procedure with no signs of metastatic disease.? Cytology and pathology both sent.? Patient was given Precedex for sedation in the PACU due to delirium. 1. Pericardial effusion with closed drainage -CXR unchanged...mild effusion persistant. -encourage ambulation 2. Chronic atrial fibrillation -adequate rate control with oral diltiazem/digoxin -continue telemetry -med adjustment as indicated 3. Acute hypoxic respiratory failure secondary to atelectasis -resolved; acceptable numbers on room air -encouraged ambulation 4. Hypertension -acceptable control on current therapies -adjust as indicated 5.Deconditioned -PT eval in am. Will likely need STR...pt accepting of plan Full code Eliquis Requires ongoing hospitalization secondary for the need for follow-up perica rdial drainage/chest tube removal Quality Stroke Does the patient have a stroke diagnosis?: No VTE Prior VTE?: No VTE Risk Level:: Medical - moderate - high VTE Device Contraindication: Treatment Not Indicated VTE Drug Contraindication: N/A - Med Ordered
[2022-02-11] MEDS: Atorvastatin Calcium 40 MG TABLET PO (21:42)
[2022-02-11] MEDS: Acetaminophen 325 MG TABLET 975 MG PO (21:46)
[2022-02-12] MEDS: 0.9 % Sodium Chloride Flush 3 ML SYRINGE IVFLUSH ×4 (06:02→22:30)
[2022-02-12 06:24] LABS: Basophils Percent Auto 0.3 % (0-2); Eosinophils Absolute Auto 0.9 X10*3/uL (0.0-0.4); Eosinophils Percent Auto 6.8 % (0-4); Hematocrit 37.6 % (42.0-52.0); Hemoglobin 12.2 g/dl (14.0-18.0); Imm Gran Abs Auto 0.18 X10*3/uL (0.00-0.03); Imm Gran Pct Auto 1.4 % (0.0-0.4); Lymphocytes Absolute Auto 1.2 X10*3/uL (1.2-4.9); Lymphocytes Percent Auto 9.2 % (20-40); MANUAL DIFF FLAG SCAN; Mean Corpuscular HGB Conc 32.4 g/dl (31.0-36.0); Mean Corpuscular Hemoglobin 28.6 pg (27.0-33.0); Mean Corpuscular Volume 88.1 fL (80.0-98.0); Mean Platelet Volume 9.6 fL (9.4-12.4); Monocytes Absolute Auto 1.5 X10*3/uL (0.1-1.2); Neutrophils Percent Auto 70.3 % (45-73); Platelet Count 432 X10*3/uL (160-400); Red Blood Count 4.27 X10*6/uL (4.60-5.80); Red Cell Distribution Width 14.7 % (11.0-16.0); SCAN SMEAR FLAG 1; White Blood Count 12.8 X10*3/uL (4.8-10.8)
[2022-02-12 06:42] LABS: SLIDE REVIEW VERIFIED
[2022-02-12 06:44] LABS: Alanine Aminotransferase 33 U/L (0-40); Albumin Level 2.7 g/dL (3.5-5.0); Alkaline Phosphatase 156 U/L (39-117); Anion Gap 10 (12-20); Aspartate Amino Transferase 43 U/L (5-37); Bilirubin Total 0.6 mg/dL (0.0-1.0); Blood Urea Nitrogen 11 mg/dL (9-16); Calcium 8.2 mg/dL (8.4-10.2); Carbon Dioxide 29 mmol/L (22-29); Chloride 96 mmol/L (96-108); Creatinine Clr Calc Pharmacy 87.1; Estimated Glomerular Filt Rate > 60; Glucose Fasting 122 mg/dL (60-99); Potassium 4.2 mmol/L (3.3-5.1); Sodium 131 mmol/L (135-145); Total Protein 6.2 g/dL (6.5-8.0)
[2022-02-12 07:46] VITALS: BP 137/74; PULSE 70; RESP 17; TEMP 36.1; O2SAT 96
[2022-02-12] MEDS: Digoxin 0.125 MG TABLET PO (08:32)
[2022-02-12] MEDS: dilTIAZem HCL CD 180 MG CAP.ER.24H 360 MG PO (08:32)
[2022-02-12] MEDS: Apixaban 5 MG TABLET PO ×2 (08:32→22:30)
[2022-02-12] MEDS: Furosemide 40 MG TABLET PO (08:33)
[2022-02-12] MEDS: modafiniL 100 MG TABLET PO (08:33)
[2022-02-12] MEDS: Metoprolol Tartrate 100 MG TABLET PO ×2 (08:33→22:30)
[2022-02-12 11:44] VITALS: BP 137/63; PULSE 73; RESP 17; TEMP 36.4; O2SAT 93
--- NOTE | 2022-02-12 13:21 | HO.PM.IMPN ---
Subjective Subjective Date of Service: 02/12/22 Interval History: Minimal postop pain- mostly just soreness of L side of chest No cough AF controlled with rate in 60s-70s Review of Systems Review of Systems: Yes all other systems are reviewed and are negative Physical Exam Vital Signs: Vital Signs: Last Vital Signs Temp 97.6 F 02/12/22 11:44 Pulse 73 02/12/22 11:44 Resp 17 02/12/22 11:44 BP 137/63 02/12/22 11:44 Pulse Ox 93 02/12/22 11:44 O2 Del Method 02/12/22 11:44 O2 Flow Rate 5 02/05/22 12:00 FiO2 45 01/31/22 09:04 BMI result Body Mass Index 31.6 Gen: in no acute distress HEENT: sclera anicteric, moist mucus membranes Neck: supple Lungs: clear to auscultation bilaterally Heart: irregularly irregular, no murmurs Abd: soft, non-tender, non-distended Ext: no edema Skin: warm/well-perfused, VATS wounds clean/dry/intact Neuro: alert and oriented x3, no focal findings Psych: appropriate affect Objective Data Active Medications Acetaminophen (Acetaminophen 325 Mg Tablet) 975 mg PO Q8H PRN PRN Reason: Pain, Severe (Pain Scale 7-10) Last Admin: 02/11/22 21:46 Dose: 975 mg Documented By: DELMA Apixaban (Apixaban 5 Mg Tablet) 5 mg PO BID [facility] Last Admin: 02/12/22 08:32 Dose: 5 mg Documented By: BILLY Atorvastatin Calcium (Atorvastatin Calcium 40 Mg Tablet) 40 mg PO BEDTIME [facility] Last Admin: 02/11/22 21:42 Dose: 40 mg Documented By: DELMA Digoxin (Digoxin 0.125 Mg Tablet) 0.125 mg PO DAILY [facility] Last Admin: 02/12/22 08:32 Dose: 0.125 mg Documented By: BILLY Diltiazem HCl (Diltiazem Hcl Cd 180 Mg Cap.Er.24h) 360 mg PO DAILY [facility]; Protocol Last Admin: 02/12/22 08:32 Dose: 360 mg Documented By: BILLY Docusate Sodium (Docusate Sodium 100 Mg Capsule) 100 mg PO DAILY PRN PRN Reason: Constipation Furosemide (Furosemide 40 Mg Tablet) 40 mg PO DAILY [facility]; Protocol Last Admin: 02/12/22 08:33 Dose: 40 mg Documented By: BILLY Hydromorphone HCl (Hydromorphone Hcl 0.5 Mg/0.5 Ml Syringe) 0.5 mg IVPUSH Q1H PRN; Protocol PRN Reason: mild-mod pain Last Admin: 02/04/22 21:58 Dose: 0.5 mg Documented By: DELMA Metoprolol Tartrate (Metoprolol Tartrate 100 Mg Tablet) 100 mg PO Q12H [facility]; Protocol Last Admin: 02/12/22 08:33 Dose: 100 mg Documented By: BILLY Modafinil (Modafinil 100 Mg Tablet) 100 mg PO DAILY [facility] Last Admin: 02/12/22 08:33 Dose: 100 mg Documented By: BILLY Ondansetron HCl (Ondansetron Hcl 4 Mg/2 Ml Vial) 4 mg IVPUSH Q8H PRN PRN Reason: Nausea and Vomiting Pharmacy Consult (Consult Rx Perform Med Rec) 1 each MISCELLANE ONCE PRN PRN Reason: Consult order Sodium Chloride (0.9 % Sodium Chloride Flush 3 Ml Syringe) 3 ml IVFLUSH QSHIFT [facility] Last Admin: 02/12/22 08:33 Dose: 3 ml Documented By: BILLY Labs CBC & Chem 7: 02/12/22 06:04 02/12/22 06:04 Labs: Laboratory Results - last 24 hr 02/12/22 02/12/22 06:04 06:04 MCV 88.1 MCH 28.6 MCHC 32.4 RDW 14.7 Plt Count 432 H MPV 9.6 Immature Gran % (Auto) 1.4 H Neut % (Auto) 70.3 Lymph % (Auto) 9.2 L [place] % (Auto) 12.0 H Eos % (Auto) 6.8 H Baso % (Auto) 0.3 Lymph # (Auto) 1.2 [place] # (Auto) 1.5 H Eos # (Auto) 0.9 H Baso # (Auto) 0.0 Abs Immat Gran (auto) 0.18 H Absolute Neuts (auto) 9.0 H Absolute Nucleated RBC 0.000 Nucleated RBC % (auto) 0.0 Smear Tech's Comments VERIFIED Anion Gap 10 L Estim Creat Clear Calc 87.1 Estimated GFR > 60 Fasting Glucose 122 H Calcium 8.2 L Total Bilirubin 0.6 AST 43 H ALT 33 Alkaline Phosphatase 156 H Total Protein 6.2 L Albumin 2.7 L Microbiology Microbiology Results: Microbiology 01/30/22 16:58 Fungal Identification - Preliminary Pericardial Fluid No growth after 1 week. 01/30/22 16:58 Fungal Identification - Preliminary Pleural Fluid No growth after 1 week. Assessment and Plan (1) Pericardial effusion: Status: Acute (2) Paroxysmal A-fib: Status: Acute (3) HTN (hypertension): Status: Acute Plan 81yo M with CHF, CAD presented with lethargy and admitted with AF/RVR and PNA with pleural effusion, found to have pericardial effusion s/p VATS/pericardial window/evacuation of L pleural fluid 01/30/22 then transferred to ICU for postoperative delirium requiring dexmetetomdine gtt stepped down from ICU 02/02/22 # pericarditis # pleural effusion - cultures negative, no malignancy on pathology, completed antibiotics, # chronic AF - off diltiazem drip, now on PO diltiazem + metoprolol + digoxin and rate-controlled - apixaban # acute hypoxic respiratory failure - resolved # HTN # chronic HFpEF - continue diltiazem + metoprolol + furosemide # CAD - continue metoprolol + atorvastatin # VTE ppx; apixaban # dispo: STR In my clinical judgment, the patient requires continued hospitalization for the following reasons: safe placement Quality Stroke Does the patient have a stroke diagnosis?: No VTE Prior VTE?: No VTE Risk Level:: Medical - moderate - high VTE Device Contraindication: Treatment Not Indicated VTE Drug Contraindication: N/A - Med Ordered
[2022-02-12 14:20] VITALS: BP 137/63; PULSE 73; O2SAT 93
[2022-02-12 15:45] VITALS: BP 129/69; PULSE 84; RESP 14; TEMP 36.8; O2SAT 95
[2022-02-12 19:57] VITALS: BP 134/66; PULSE 80; RESP 14; TEMP 36.8; O2SAT 92
[2022-02-12] MEDS: Atorvastatin Calcium 40 MG TABLET PO (22:30)
[2022-02-12 23:52] VITALS: BP 124/63; PULSE 57; RESP 15; TEMP 36.6; O2SAT 94
[2022-02-13 04:00] VITALS: BP 137/66; PULSE 75; RESP 15; TEMP 36.7; O2SAT 93
[2022-02-13 07:45] VITALS: BP 134/63; PULSE 78; RESP 19; TEMP 36.6; O2SAT 95
[2022-02-13] MEDS: dilTIAZem HCL CD 180 MG CAP.ER.24H 360 MG PO (09:50)
[2022-02-13] MEDS: 0.9 % Sodium Chloride Flush 3 ML SYRINGE IVFLUSH (09:51)
[2022-02-13] MEDS: Furosemide 40 MG TABLET PO (09:51)
[2022-02-13] MEDS: Metoprolol Tartrate 100 MG TABLET PO (09:51)
[2022-02-13] MEDS: Apixaban 5 MG TABLET PO (09:51)
[2022-02-13] MEDS: modafiniL 100 MG TABLET PO (09:51)
[2022-02-13] MEDS: Digoxin 0.125 MG TABLET PO (09:51)
[2022-02-13 11:34] VITALS: BP 138/69; PULSE 80; RESP 19; TEMP 36.7; O2SAT 97
--- NOTE | 2022-02-13 12:04 | PM.DS ---
DS: Providers Provider Date of Service: 02/13/22 Date of admission: 01/26/22 04:56 Date of discharge: 02/13/22 Primary care physician: Carol Mathis NP Consults: 01/26/22 03:02 Consult to Care Team Stat Comment: Reason for consultation: depression 01/26/22 06:24 Consult to Cardiology Routine Consulting Provider: Bryon Ramirez Reason for consultation: A fib w rvr 01/27/22 13:03 Consult to Wound Care Routine [place] [facility] Reason for consultation: RLE lymphedema with ulcers 01/28/22 11:11 Consult to Care Team Routine Comment: Reason for consultation: depression 01/28/22 11:14 Consult to Pulmonology Routine Consulting Provider[place] [facility] Reason for consultation: pleural effusion to tap? 01/29/22 10:06 Consult to Thoracic Surgery Routine Consulting Provider[place] [facility] Reason for consultation: tap pericardial and pleural effusions 01/30/22 20:04 Consult to Urology Stat Consulting Provider: Ronald Shah Reason for consultation: Hatch cath placement Has provider been notified: Yes 02/01/22 08:25 Consult to Infectious Diseases Routine Consulting Provider: Kathi Veronica Reason for consultation: PNA/pleural + pericardial effs. (transudative) on ABX since 01/27 DS: Diagnosis Discharge Diagnosis (1) Pericardial effusion: Status: Acute (2) HTN (hypertension): Status: Acute (3) Pleural effusion, left: Status: Acute (4) Atrial fibrillation with rapid ventricular response: Status: Acute (5) Lymphedema of right lower extremity: Status: Acute (6) Pneumonia: Status: Acute (7) Acute respiratory failure with hypoxia: Status: Acute (8) New onset atrial fibrillation: Status: Acute (9) Postoperative delirium: Status: Acute DS: Summary Hospital Course Hospital Course: from admission H+P by hospitalist Juancarlos Holman MD, 01/26/22: 81-year-old male with past medical history of AFib, bipolar disorder, BPH, HLD, CHF, CAD, HTN, depression, who presents to the hospital to? he was found by his daughter to be unresponsive.? According to the ED triage note as well as ENT note patient was found to be alert oriented x3 on arrival of EMS.? Patient reports that he has been feeling significantly depressed and was drawn for the past few weeks.? He has stopped taking his mom medications since October as a result of this depression.? He reports that he has been feeling very lethargic, has not been eating or drinking well.? He has no energy to do anything. ? He otherwise denies any palpitations, no chest pain, no shortness of breath no headache, no change in vision, no dizziness, no abdominal pain nausea or vomiting, no urinary symptoms and no lower extremity edema. Arrival to the ED patient's heart rate was noted to be 129 with rhythm of AFib with RVR, satting 89% on room air Labs are significant for WBC count? of 9.5 hemoglobin of 9.9, hematocrit 30.2, sodium of? 132, troponin 91.3 then increase to 93.9, UA negative Chest shows moderate left pleural effusion with atelectasis / consolidation, ?patient will be admitted for further management This 81yo M with CHF and CAD presented with lethargy and was admitted with new-onset AF/RVR and PNA with pleural effusion. He was also found to have a pericardial effusion. Hospital course by problem: # pericarditis # pleural effusion # pneumonia - Cardiology, Pulmonology, and Thoracic Surgery were consulted. He underwent VATS/pericardial window/evacuation of L pleural fluid 01/30/22, then was transferred to the ICU for postoperative delirium requiring dexmetetomdine drip. He was stepped down from the ICU on 02/02/22. Cultures negative, no malignancy on pathology, completed antibiotics for pneumonia. He will need Thoracic Surgery follow-up in 1-2 weeks. # chronic AF - Initially managed with diltiazem drip, then transitioned to PO diltiazem + metoprolol + digoxin with good rate control. Started on apixaban for anticoagulation. He will need Cardiology follow-up in 1-2 weeks. # acute hypoxic respiratory failure - Resolved with treatment of the above issues. # RLE lymphedema associated with LN dissection for SCC - Wound Care consulted and recommended silver alginate over areas of slough, cover with gauze + EVETTE Wrap to change every 48 hr; also needs outpt f/u with [facility] given hx of SCC [facility] by [facility];? 1 x 1 cm area of abnormal tissue medial to anterior romero midline which might stand to be biopsied by his cancer team after discharge at [facility]. Referred to [facility] as well Time Spent with Patient Time attestation: Total time spent providing and/or coordinating discharge services: 45 Discharge coordination time: Greater than 30 minutes Quality: Safe Use of Opioids Does Pt have an Active Cancer Diagnosis on the Problem List?: No Quality: Stroke Does the patient have a stroke diagnosis?: No Physical Exam Vital Signs: Vital Signs: Last Vital Signs Temp 98.1 F 02/13/22 11:34 Pulse 80 02/13/22 11:34 Resp 19 02/13/22 11:34 BP 138/69 02/13/22 11:34 Pulse Ox 97 02/13/22 11:34 O2 Del Method 02/13/22 11:34 O2 Flow Rate 5 02/05/22 12:00 FiO2 45 01/31/22 09:04 BMI result Body Mass Index 31.6 Gen: in no acute distress HEENT: sclera anicteric, moist mucus membranes Neck: supple Lungs: clear to auscultation bilaterally Heart: irregularly irregular, no murmurs Abd: soft, non-tender, non-distended Ext: chronic RLE lymphedema Skin: warm/well-perfused, L chest VATS wounds clean/dry/intact Neuro: alert and oriented x3, no focal findings Psych: appropriate affect DS: Data Data Completed and Pending Completed studies during hospitalization [Text1]: Laboratory Results WBC 12.8 X10*3/uL (4.8-10.8) H 02/12/22 06:04 RBC 4.27 X10*6/uL (4.60-5.80) L 02/12/22 06:04 Hgb 12.2 g/dl (14.0-18.0) L 02/12/22 06:04 Hct 37.6 % (42.0-52.0) L 02/12/22 06:04 MCV 88.1 fL (80.0-98.0) 02/12/22 06:04 MCH 28.6 pg (27.0-33.0) 02/12/22 06:04 MCHC 32.4 g/dl (31.0-36.0) 02/12/22 06:04 RDW 14.7 % (11.0-16.0) 02/12/22 06:04 Plt Count 432 X10*3/uL (160-400) H 02/12/22 06:04 MPV 9.6 fL (9.4-12.4) 02/12/22 06:04 Immature Gran % (Auto) 1.4 % (0.0-0.4) H 02/12/22 06:04 Neut % (Auto) 70.3 % (45-73) 02/12/22 06:04 Lymph % (Auto) 9.2 % (20-40) L 02/12/22 06:04 [place] % (Auto) 12.0 % (2-11) H 02/12/22 06:04 Eos % (Auto) 6.8 % (0-4) H 02/12/22 06:04 Baso % (Auto) 0.3 % (0-2) 02/12/22 06:04 Lymph # (Auto) 1.2 X10*3/uL (1.2-4.9) 02/12/22 06:04 [place] # (Auto) 1.5 X10*3/uL (0.1-1.2) H 02/12/22 06:04 Eos # (Auto) 0.9 X10*3/uL (0.0-0.4) H 02/12/22 06:04 Baso # (Auto) 0.0 X10*3/uL (0.0-0.2) 02/12/22 06:04 Abs Immat Gran (auto) 0.18 X10*3/uL (0.00-0.03) H 02/12/22 06:04 Absolute Neuts (auto) 9.0 x10*3/uL (2.0-8.3) H 02/12/22 06:04 Absolute Nucleated RBC 0.000 X10*3/uL (0.0-0.012) 02/12/22 06:04 Nucleated RBC % (auto) 0.0 /100WBC (0.0-0.2) 02/12/22 06:04 Smear Tech's Comments VERIFIED 02/12/22 06:04 PT 15.7 SEC (9.9-13.0) H 01/30/22 06:49 PT Cancelled 01/30/22 06:49 INR 1.4 (0.9-1.1) H 01/30/22 06:49 INR Cancelled 01/30/22 06:49 APTT 37.6 SEC (24.1-38.0) 01/30/22 06:49 aPTT Heparin Protocol 38.7 SEC (53-77.9) L 01/26/22 06:49 O2 Saturation 100.0 % 01/31/22 05:29 ABG pH at Pt Temp 7.44 (7.35-7.45) 01/31/22 05:29 ABG pCO2 at Pt Temp 32 mmHg (32-45) 01/31/22 05:29 ABG pO2 at Pt Temp 168 mmHg (83-108) H 01/31/22 05:29 ABG HCO3 22 mmol/L (22-26) 01/31/22 05:29 ABG Base Excess (Actual) -0.9 mmol/L 01/31/22 05:29 VBG pH 7.43 (7.32-7.43) 02/03/22 07:07 VBG pCO2 40 mmHg 02/03/22 07:07 VBG pO2 37 mmHg 02/03/22 07:07 VBG HCO3 26 mmol/L (22-26) 02/03/22 07:07 VBG O2 Saturation 57.0 % 02/03/22 07:07 VBG Base Excess 2.5 mmol/L 02/03/22 07:07 Sodium 131 mmol/L (135-145) L 02/12/22 06:04 Potassium 4.2 mmol/L (3.3-5.1) 02/12/22 06:04 Chloride 96 mmol/L (96-108) 02/12/22 06:04 Carbon Dioxide 29 mmol/L (22-29) 02/12/22 06:04 Anion Gap 10 (12-20) L 02/12/22 06:04 BUN 11 mg/dL (9-16) 02/12/22 06:04 Creatinine 0.85 mg/dL (0.5-1.4) 02/12/22 06:04 Estim Creat Clear Calc 87.1 02/12/22 06:04 Estimated GFR > 60 02/12/22 06:04 Random Glucose 118 mg/dL (60-115) H 02/04/22 06:30 Fasting Glucose 122 mg/dL (60-99) H 02/12/22 06:04 Lactic Acid 1.1 mmol/L (0.5-2.0) 01/26/22 02:20 Calcium 8.2 mg/dL (8.4-10.2) L 02/12/22 06:04 Phosphorus 2.9 mg/dL (2.7-4.5) 02/03/22 07:00 Magnesium 2.4 mg/dL (1.6-2.6) 02/03/22 07:00 Total Bilirubin 0.6 mg/dL (0.0-1.0) 02/12/22 06:04 Direct Bilirubin 0.5 mg/dL (0.0-0.5) 01/26/22 00:19 AST 43 U/L (5-37) H 02/12/22 06:04 ALT 33 U/L (0-40) 02/12/22 06:04 Alkaline Phosphatase 156 U/L (39-117) H 02/12/22 06:04 Total Creatine Kinase 39 U/L (38-174) 01/26/22 00:19 Troponin I High Sens 93.9 ng/L (<3.5-35.0) H 01/26/22 02:20 C-Reactive Protein 10.60 mg/dL (< or = 0.50) H 02/02/22 05:25 B-Natriuretic Peptide 469 pg/mL (<100) H 01/30/22 20:21 Total Protein 6.2 g/dL (6.5-8.0) L 02/12/22 06:04 Albumin 2.7 g/dL (3.5-5.0) L 02/12/22 06:04 Triglycerides 67 mg/dL 01/27/22 06:41 Cholesterol 149 mg/dL 01/27/22 06:41 LDL Cholesterol, Calc 111 mg/dl 01/27/22 06:41 HDL Cholesterol 25 mg/dL 01/27/22 06:41 Procalcitonin 0.10 ng/mL 02/02/22 05:25 TSH 0.36 uIU/mL (0.32-4.0) 01/26/22 06:49 Urine Color YELLOW 01/26/22 02:03 Urine Appearance HAZY 01/26/22 02:03 Urine pH 6.0 (5.0-8.0) 01/26/22 02:03 Ur Specific Mentcle 1.020 (1.005-1.025) 01/26/22 02:03 Urine Protein NEG MG/DL (NEG-TRACE) 01/26/22 02:03 Urine Glucose (UA) NEG MG/DL (NEG) 01/26/22 02:03 Urine Ketones NEG MG/DL (NEG) 01/26/22 02:03 Urine Blood NEG (NEG) 01/26/22 02:03 Urine Nitrite NEG (NEG) 01/26/22 02:03 Ur Leukocyte Esterase NEG (NEG) 01/26/22 02:03 Pericard WBC 550 MM*3 01/30/22 16:58 Pericard RBC 73154 MM*3 01/30/22 16:58 Pericard Neutrophils 55 % 01/30/22 16:58 Pericard Lymphocytes 31 % 01/30/22 16:58 Pericard Monocytes 12 % 01/30/22 16:58 Pericard Eosinophils 2 % 01/30/22 16:58 Pericard Total Protein 4.6 GM/DL 01/30/22 16:58 Pericardial LDH 725 U/L 01/30/22 16:58 Pericardial Glucose 105 MG/DL 01/30/22 16:58 Pleural WBC 1.024 X10*3/uL 01/30/22 16:58 Pleural RBC < 0.002 X10*3/uL 01/30/22 16:58 Pleural Neutrophils 33 % 01/30/22 16:58 Pleural Lymphocytes 38 % 01/30/22 16:58 Pleural Monocytes 8 % 01/30/22 16:58 Pleural Other Cells 21 % 01/30/22 16:58 Pleural Total Protein 2.3 GM/DL 01/30/22 16:58 Pleural Total Protein Cancelled 01/30/22 16:58 Pleural LDH 105 U/L 01/30/22 16:58 Pleural Glucose 125 MG/DL 01/30/22 16:58 Stool Occult Blood NEGATIVE (NEGATIVE) 01/26/22 01:37 COVID-19 ([facility]) Negative (Negative) 01/26/22 00:42 COVID-19 Clin Com See Note 01/26/22 00:42 Blood Type A Positive 01/30/22 06:49 Antibody Screen NEGATIVE 01/30/22 06:[address] 01/26/22 03:18 IMPRESSION: * No acute territorial infarct or intracranial hemorrhage. * Moderate-severe chronic migration of gliosis. 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 * Generalized brain parenchymal volume loss. Chest CT 01/29/22 12:59 IMPRESSION: New bilateral pleural effusions and pericardial effusion as described above. Retrocrural lymph adenopathy, unchanged. Fleischner guidelines were followed. Chest X-Ray 02/11/22 08:30 IMPRESSION: Status post right chest tube removal without pneumothorax. No significant change in retrocardiac disease and probable effusion. 01/30/22 08:00 Cytology [PTH] Stat Status: ADM IN Collected: 01/30/22 Location: .ICU Received: 01/31/22 Diagnosis A.? Left pleural fluid, thoracentesis:? Negative for malignant cells. COMMENT:? Review of the cytology preparation demonstrates a mildly cellular specimen composed of reactive mesothelial cells and blood. There is no evidence of malignancy seen. The cell block shows similar findings. B.? Pericardial fluid, effusion cytology:? Negative for malignant cells. COMMENT:? Review of the cytology preparation demonstrates a hypocellular specimen composed predominantly of blood and few reactive mesothelial cells and histiocytes. The cell block shows similar findings. 01/30/22 17:02 Surgical [PTH] Routine Status: ADM IN Collected: 01/30/22 Location: .[facility] Received: 01/31/22 Diagnosis Pericardium, excision:? 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 TTE 01/28/22 1.? Normal LV systolic function with moderate LVH? 2. At least moderately dilated left atrium ? 3.? Normal cardiac valvular Dopplers ? 4.? Significantly elevated right atrial pressures? 5. At least moderate pericardial effusion? Labs on day of discharge: Preliminary micro results at discharge 01/30/22 16:58 Fungal Identification - Preliminary Pericardial Fluid No growth after 1 week. 01/30/22 16:58 Fungal Identification - Preliminary Pleural Fluid No growth after 1 week. Discharge Plan Discharge Patient Disposition: [facility] Discharge Diagnosis: # pericarditis/pericardial effusion # pleural effusion # chronic atrial fibrillation # acute hypoxic respiratory failure # pneumonia # lymphedema Referrals: [facility] [Outside] - 1 Week [facility] [Outside] - 1 Week [facility] [Outside] - 1 Week [facility] [Outside] - 1 Week Carol Mathis NP [Primary Care Provider] - 1 Week Bryon Ramirez MD [Physician] - 1 Week Joana Browne MD [Physician] - 1 Week Discharge Medications: New diltiazem HCl [Cardizem CD] 180 mg Capsule,Extended Release 24hr 360 mg PO DAILY Qty: 30 0RF Protocol: Hold for SBP/HR < HOLD for SBP < : 90 HOLD for HR < : 60 digoxin 125 mcg (0.125 mg) Tablet 0.125 mg PO DAILY Qty: 30 0RF Eliquis 5 mg Tablet 5 mg PO BID Qty: 60 0RF Continued furosemide 40 mg tablet 1 tab PO DAILY atorvastatin 40 mg tablet 1 tab PO BEDTIME metoprolol tartrate 100 mg tablet 1 tab PO BID Discontinued aspirin 81 mg tablet,delayed release (DR/EC) 1 tab PO DAILY lisinopril 40 mg tablet 1 tab PO DAILY Discharge Orders: Discharge Order (Routine); Ordered 02/13/22 Ordered By: Gurdeep Colon Diet: Advance to usual diet Activity on Discharge: As tolerated Stand Alone Forms: Patient Portal Discharge page Care Plan Goals: cardiopulmonary health Health Concerns: # pericarditis/pericardial effusion # pleural effusion # chronic atrial fibrillation # acute hypoxic respiratory failure # pneumonia # lymphedema Plan of Treatment: - follow up with Dr Browne [Thoracic Surgery] and Dr Ramirez [Cardiology] in 1-2 weeks - completed antibiotics - rate control of AF: metoprolol, diltiazem, and digoxin - stroke prevention in AF: apixaban - lymphedema: [facility], elevate and wrap RLE - wound: silver alginate over areas of slough, cover with gauze + EVETTE Wrap to change every 48 hr; outpt f/u with [facility] given hx of SCC followed by [facility];? 1 x 1 cm area of abnormal tissue medial to anterior romero midline which might stand to be biopsied by his cancer team Assessment: See Discharge Summary
[2022-02-13 12:09] LABS: COVID-19 Test Negative (Negative); IDNOW Serial# 16C4AD1C
--- NOTE | 2022-02-13 15:32 | MHC.CM.PN ---
IMM 02/13/22 Male discharged today to [facility] on [address]. He will transport via BLS. [facility] plus caregivers will follow for dc from SNF.
== END 2022-02-13 16:51 | disposition skilled nursing facility (03) | DRG 270 ==
LOC: HO.ED 01-26 03:49 → HO.EDOVER 01-26 05:03 → HO.IMC 01-26 08:11 → HO.ICU 01-30 17:47 → HO.IMC 02-02 15:22
PROVIDERS: Anesthesiology; Hospitalist; Nurse Practitioner Acute Care; Nurse Practitioner Family; Physician Assistant; Physician Assistant Medical; Surgery; Admitting Provider Internal Medicine; Emergency Provider Emergency Medicine Emergency Medical Services; PCP Nurse Practitioner Family; Visit Provider Family Medicine
PROC: 0W9D4ZZ Drainage of Pericardial Cavity, Percutaneous Endoscopic Approach (ICD-10-PCS; principal; 2022-01-30 15:00)
DX: I48.0 Paroxysmal atrial fibrillation (principal); I50.33 Acute on chronic diastolic (congestive) heart failure; J18.9 Pneumonia, unspecified organism; J95.821 Acute postprocedural respiratory failure; E87.1 Hypo-osmolality and hyponatremia; J91.8 Pleural effusion in other conditions classified elsewhere; I97.89 Other postprocedural complications and disorders of the circulatory system, not elsewhere classified; I31.3 Pericardial effusion (noninflammatory); I31.4 Cardiac tamponade; J98.11 Atelectasis; F05 Delirium due to known physiological condition; I11.0 Hypertensive heart disease with heart failure; F31.9 Bipolar disorder, unspecified; N40.0 Benign prostatic hyperplasia without lower urinary tract symptoms; E78.5 Hyperlipidemia, unspecified; I89.0 Lymphedema, not elsewhere classified; I25.10 Atherosclerotic heart disease of native coronary artery without angina pectoris; Y83.8 Other surgical procedures as the cause of abnormal reaction of the patient, or of later complication, without mention of misadventure at the time of the procedure; N47.1 Phimosis; Z85.828 Personal history of other malignant neoplasm of skin; F40.10 Social phobia, unspecified; Z91.14 Patient's other noncompliance with medication regimen; Z20.822 Contact with and (suspected) exposure to COVID-19; Z95.5 Presence of coronary angioplasty implant and graft; Z79.01 Long term (current) use of anticoagulants; Z79.899 Other long term (current) drug therapy
CPT/HCPCS: 36415; 36600; 70450; 71045; 71046; 71250; 80048; 80053; 80061; 80076; 81003; 82040; 82272; 82550; 82803; 82945; 83605; 83615; 83735; 83880; 84100; 84145; 84157; 84443; 84484; 85025; 85027; 85610; 85730; 86140; 86850; 86900; 86901; 87040; 87071; 87073; 87102; 87116; 87205; 87635; 88112; 88305; 89051; 93005; 93306; 93308; 94660; 96365; 96366; 96367; 96375; 96376; 97162; 97163; 99285; C1758; J0456; J0610; J0696; J1040; J1160; J1170; J1940; J2250; J2405; J3010; Q9957

== ENCOUNTER 2022-03-01 08:50 | Outpatient (REF) | payer OTHER, MEDICARE, SELFPAY ==
--- NOTE | ~2022-03-01 | XR_ITS ---
EXAMINATION: XR CHEST CLINICAL INFORMATION: Enlarged lymph nodes COMPARISON: Multiple priors with the last chest x-ray of 02/11/2022 TECHNIQUE: 2 views of the chest were obtained. FINDINGS: Cardiomediastinal silhouette is stable with cardiomegaly. Trace right and small left pleural effusions are noted. No dense focal consolidations, pulmonary edema or pneumothorax. Mild degenerative changes in the spine XR/XR chest 2V IMPRESSION: Stable trace right pleural effusion. Small left effusion, compared to last study. No acute pulmonary process.
== END 2022-03-01 08:51 | disposition home or self-care (01) ==
LOC: HO.XRAY 08:50
PROVIDERS: Visit Provider Surgery
DX: R59.9 Enlarged lymph nodes, unspecified (principal)
CPT/HCPCS: 71046

== ENCOUNTER → 2022-03-04 14:04 | Outpatient (BNVA) | payer MEDICARE, OTHER, SELFPAY | PROVIDERS: PCP Nurse Practitioner Family; Visit Provider Internal Medicine Cardiovascular Disease | DX: I48.91 Unspecified atrial fibrillation (principal); I31.3 Pericardial effusion (noninflammatory) | CPT/HCPCS: 93005; 99212 ==

== ENCOUNTER → 2022-12-18 10:54 | Outpatient (REF) | payer OTHER, SELFPAY ==
--- NOTE | 2022-12-18 11:03 | CA_ITS ---
Transthoracic Echocardiogram Patient (Last, First, Middle): Daniel Cm, Gender: Male Date of : 1940 Age: 82 Procedure Date: 12/18/2022 Procedure Type: Transthoracic Echocardiogram Location: OP Height: 182.88 cm Weight: 117.94 kg BSA: 2.38 m2 Heart Rate: bpm BP: 128 / 82 mmHg [employer]: TO Referring MD: Adore BLAKE Symptoms: PERICARDIAL EFFUSION I31.39 Study Quality: Technically Difficult/Contrast ECG Rhythm: Atrial flutter Conclusions: - The left ventricular systolic function is normal. The visually estimated ejection fraction is between 65-70%. - There is moderately increased left ventricular wall thickness. - There is severe septal asymmetric hypertrophy. - There is mild aortic valve regurgitation. - There is mild dilatation of the ascending aorta measuring 3.90 cm. - There is no evidence of pericardial effusion. Findings Procedure Information Contrast agent, definity, is being given per protocol without apparent complications. Left Ventricle Normal left ventricular cavity size. There is moderately increased left ventricular wall thickness. The left ventricular systolic function is normal. The visually estimated ejection fraction is between 65-70%. There is no evidence of regional wall motion abnormalities. Diastolic function is indeterminate on the basis of available data. There is severe septal asymmetric hypertrophy. Right Ventricle The right ventricle was not well visualized. Atria The left atrium is mildly dilated. The right atrium is normal in size. Aortic Valve The aortic valve was not well visualized. There is mild calcification of the aortic valve. There is no aortic valve stenosis. There is mild aortic valve regurgitation. Mitral Valve The mitral valve appears normal. There is no mitral valve regurgitation. There is no mitral valve stenosis. Pulmonic Valve The pulmonic valve is likely normal. Tricuspid Valve There is trace tricuspid valve regurgitation. There is no evidence of pulmonary hypertension. Great Vessels There is mild dilatation of the ascending aorta measuring 3.90 cm. Venous The inferior vena cava is normal in size and collapses greater than 50% with inspiration. Pericardium/Pleural There is no evidence of pericardial effusion. Prior Study Comparison Changes noted compared to prior study dated: 02/04/2022. Pericardial effusion not seen. Measurements 2D Linear Measurements IVSd: 1.73 0.6-0.9/0.6-1.0 cm LVIDd: 4.07 3.9-5.3/4.2-5.9 cm LVIDd Index: 1.71 2.4-3.2/2.2-3.1 cm/m2 LVIDs: 2.45 2.0-3.6 cm LVPWd: 1.35 0.7-1.1 cm LA Diam: 4.70 2.7-3.8/3.0-4.0 cm LAIDs Index: 1.97 1.5-2.3 cm/m2 LV Mass: 310.03 67-162/88-224 g LV Mass Index: 130.27 43-95/49-115 g/m2 LVOT Diam: 2.60 3.0+(-)1.3 cm Mitral Valve E'Lateral: 8.49 E'Medial: 3.81 Aortic Valve AoV Pk Heron: 2.11 AoV Mn Heron: 1.28 AoV VTI: 0.33 AoV Pk Grad: 18.00 Aov Mn Grad: 8.00 ASHLEY Cont.VTI: 2.45 LVOT LVOT Pk Heron: 0.81 LVOT Mn Heron: 0.55 LVOT VTI: 0.15 LVOT Pk Grad: 3.00 LVOT Mn Grad: 1.00 LVOT Diam: 2.60 LVOT Area: 5.31 Diastolic Function E'Medial: 3.81 E' Laterial: 8.49 Tricuspid Valve RA Press: 3.00 Great Vessels Aorta Sinus of Valsalva: 3.69 2.0-3.5 cm Ao Asc: 3.90 2.1-3.4 cm Updated in Other Vendor System with Status of Final Patrick Wilkerson MD electronically signed on 12/20/2022 11:45:34 AM with status of Final
== END ==
LOC: HO.CARD 10:54
PROVIDERS: Visit Provider Registered Nurse
DX: I31.39 Other pericardial effusion (noninflammatory) (principal)
CPT/HCPCS: 93306; Q9957